=== PATIENT | male | born 1925 | race Caucasian/White ===

== ENCOUNTER 2016-12-29 04:01 | Inpatient (IN) | payer OTHER ==
[~2016-12-29] VITALS: Ht 172.7 cm; Wt 51.6 kg
[2016-12-29 09:14] VITALS: BP 160/83; PULSE 65; RESP 18
[2016-12-29 09:16] VITALS: Ht 172.7 cm; Wt 51.6 kg
[2016-12-29 09:51] VITALS: BP 160/83; RESP 18
[2016-12-29] MEDS ORDERED: ONDANSETRON 4 MG INJ IV PRN (10:00)
[2016-12-29] MEDS ORDERED: LORAZEPAM 2 MG INJ IV PRN (10:00)
[2016-12-29] MEDS ORDERED: NITROGLYCERIN (SL) 0.4 MG TAB SL PRN (10:00)
[2016-12-29] MEDS ORDERED: NA PHOSPHATE/BIPHOS 133 ML ENEMA PR PRN (10:00)
[2016-12-29] MEDS ORDERED: DOCUSATE SODIUM 100 MG CAP PO PRN (10:00)
[2016-12-29] MEDS ORDERED: HYDROCODONE/APAP (5/325) TAB PO PRN (10:00)
[2016-12-29] MEDS ORDERED: NACL 0.9% 3 ML SYG IV SCH (10:00)
[2016-12-29] MEDS ORDERED: ACETAMINOPHEN 325 MG TAB PO PRN (10:00)
[2016-12-29] MEDS ORDERED: MAGNESIUM HYDROXIDE 30ML CUP PO PRN (10:00)
[2016-12-29] MEDS ORDERED: ALBUTEROL/IPRATROPIUM (NEB) 3 ML AMP HHN PRN (10:00)
[2016-12-29] MEDS ORDERED: morphine 2 MG INJ IV PRN (10:00)
[2016-12-29] MEDS: PANTOPRAZOLE 40 MG INJ IV SCH (10:50)
--- NOTE | 2016-12-29 10:50 | HP ---
DATE OF ADMISSION: 12/29/2016 CHIEF COMPLAINT: An 89-year-old male transferred here from an outside hospital because of hypertensi ve urgency and status post a fall. HISTORY OF PRESENT ILLNESS: An 89-year-old male with a past medical history of severe dementia, who presented to an outside hospital, apparently brought in by the daughter with complaints of bilater al feet pain. He was also found with hypertensive urgency. Most of the information is obtained from the ER documentation, as the patient presently has severe dementia, is nonverbal and not able to pr ovide a full review of systems. Apparently, per the records, the patient had a fall about a month a go, with a right plantar bluish-reddish discoloration noted, with some slight swelling as well. He denied any fever or night sweats. No bloody sputum. No weight loss. That is the extent of the rev iew of systems that could be obtained. There was noted to be some discoloration of the left foot, r ed and black in color, and also there is some discoloration to the right heel in color, with an unst ageable pressure ulcer. PAST MEDICAL HISTORY: As stated above. ALLERGIES: NO KNOWN DRUG ALLERGIES. MEDICATIONS AT HOME: Unknown. PAST SURGICAL HISTORY: Unknown. SOCIAL HISTORY: Unknown. FAMILY HISTORY: Unknown. PHYSICAL EXAMINATION: VITAL SIGNS: Today T-max 97.4, pulse 65, respirations 18, blood pressure 160/83, saturating at 96% on room air. GENERAL: The patient opens eyes and tracks, but is nonverbal, in no acute distress. HEENT: Pupils are equal, round, and react to light. Extraocular muscles are intact. Very poor den tition. NECK: Supple. No thyromegaly. LUNGS: Clear to auscultation bilaterally. CARDIOVASCULAR: S1, S2 heard. No rubs or gallops. ABDOMEN: Soft, nontender, nondistended. Normal bowel sounds. No rebound or guarding. MUSCULOSKELETAL: No lower extremity edema bilaterally. NEUROLOGIC: No focal deficits. LABORATORIES: At the outside hospital the patient had a WBC of 9.8, hemoglobin 13.8, hematocrit 42. 8, platelets of 245. Sodium 139, potassium 4.1, chloride 103, CO2 34, BUN of 25, creatinine 1.3, gl ucose of 87. LFTs are essentially normal. IMAGING: It looks like there were some x-rays performed of the bilateral feet. Apparently, those w ere negative. I do not see the results of that. ASSESSMENT AND PLAN: An 89-year-old male transferred from an outside hospital status post a fall wit h hypertensive urgency, discoloration to the bilateral feet and unstageable ulcers. 1. Status post fall. Admit the patient to the med/surg floor. Patient will most likely need placem ent. He has a history of severe dementia and nonverbal. Check a TSH, A1c, and lipid panel as well. Will put him on low-dose IV fluids as well. Pain control medications as needed. 2. History of severe dementia. Continue to monitor for now. 3. Bilateral foot discoloration. Again try to find the final results of those x-rays. Will also g et a wound nurse consult for the unstageable ulcer on the foot and the pressure sore on the heel. 4. Gastrointestinal prophylaxis. Proton pump inhibitor. 5. Deep venous thrombosis prophylaxis. Heparin subcutaneous. Will also get PT and OT consults as well. Dictated By: MELLY AUGUSTE Conf#: [id number] DID#: [id number]
[2016-12-29] MEDS: SOD CHLORIDE 0.45% 1,000 ML IV SCH ×2 (10:51→22:50)
[2016-12-29 13:18] LABS: ADD UMIC NO; URINE BILIRUBIN (Dip) NEGATIVE (NEGATIVE); URINE BLOOD (Dip) NEGATIVE (NEGATIVE); URINE COLOR LT. YELLOW (YELLOW); URINE GLUCOSE (Dip) NEGATIVE (NEGATIVE); URINE KETONES (Dip) NEGATIVE (NEGATIVE); URINE LEUKOCYTE ESTERASE (Dip) NEGATIVE (NEGATIVE); URINE NITRITE (Dip) NEGATIVE (NEGATIVE); URINE TOTAL PROTEIN (Dip) NEGATIVE (NEGATIVE); URINE UROBILINOGEN (Dip) 0.2 E.U./dL (0.1-1.0)
[2016-12-29] MEDS ORDERED: LISI-313 PO (17:08)
[2016-12-29 20:15] VITALS: BP 178/98; RESP 20
[2016-12-29] MEDS: hydrALAzine 20 MG INJ IV PRN (21:47)
[2016-12-29] MEDS: HEPARIN 5,000 UNIT/0.5 ML VIAL SC SCH (21:51)
[2016-12-29 22:00] VITALS: BP 156/73; PULSE 92
[2016-12-29 22:30] VITALS: BP 112/58; PULSE 97
[2016-12-30] MEDS: SOD CHLORIDE 0.45% 1,000 ML IV SCH ×3 (00:40→14:42)
[2016-12-30] MEDS: PANTOPRAZOLE 40 MG INJ IV SCH (05:50)
[2016-12-30 05:54] VITALS: BP 124/87; PULSE 90
[2016-12-30 06:09] LABS: ADD SCAN DIFF NO
[2016-12-30 06:13] LABS: BASOPHIL # 0.1 10^3/ul (0.0-0.1); BASOPHILS % 0.7 % (0.0-2.0); EOSINOPHILS # 0.3 10^3/ul (0.0-0.5); EOSINOPHILS % 2.6 % (0.0-7.0); HEMATOCRIT 40.7 % (42.0-52.0); HEMOGLOBIN 13.9 g/dl (14.0-18.0); LYMPHOCYTES # 2.9 10^3/ul (0.8-2.9); LYMPHOCYTES % 25.2 % (15.0-51.0); MEAN CORPUSCULAR HGB CONC 34.2 g/dl (32.0-37.0); MEAN CORPUSCULAR VOLUME 96.7 fl (82.0-101.0); MEAN PLATELET VOLUME 9.7 fl (7.4-10.4); MONOCYTES % 8.4 % (0.0-11.0); NEUTROPHIL # 7.3 10^3/ul (1.6-7.5); NEUTROPHILS % 62.6 % (39.0-77.0); PLATELET COUNT 244 10^3/UL (140-415); RED BLOOD COUNT 4.21 10^6/ul (4.70-6.10); RED CELL DISTRIBUTION WIDTH 13.3 % (11.5-14.5); WHITE BLOOD COUNT 11.6 10^3/ul (4.8-10.8)
[2016-12-30 06:36] LABS: POTASSIUM 4.3 mmol/L (3.5-5.1)
[2016-12-30 06:37] LABS: CALCIUM 9.3 mg/dl (8.4-10.2); CHOL/HDL RATIO 3.2 RATIO; CREATININE 0.9 mg/dl (0.61-1.24); MAGNESIUM 1.9 mg/dl (1.7-2.5); PHOSPHORUS 3.7 mg/dl (2.5-4.9)
[2016-12-30 07:06] LABS: THYROID STIMULATING HORMONE 4.78 MIU/L (0.465-4.680)
[2016-12-30 07:53] VITALS: BP 172/96; RESP 18
[2016-12-30 07:58] VITALS: BP 177/88
[2016-12-30] MEDS: hydrALAzine 20 MG INJ IV PRN (08:56)
[2016-12-30] MEDS: HEPARIN 5,000 UNIT/0.5 ML VIAL SC SCH ×2 (08:58→21:17)
--- NOTE | 2016-12-30 09:41 | PN ---
Date/Time of Note Date/Time of Note DATE: 12/30/16 TIME: 09:38 Assessment/Plan VTE Prophylaxis VTE Prophylaxis Intervention: heparin Lines/Catheters IV [facility]ter [facility]from [facility]): [place] Urinary Cath still in place: Yes Reason Cath still needed: urinary retention Assessment/Plan Chief Complaint/Hosp Course ASSESSMENT AND PLAN: 89-year-old male transferred from an outside hospital status post a fall with hypertensive urgency, discoloration to the bilateral feet and unstageable ulcers. 1. Status post fall - Daughter refusing SNF. He has a history of severe dementia and nonverbal. - f/u TSH, A1c, and lipid panel as well. - continue low-dose IV fluids as well. - Pain control medications as needed. - PT/OT 2. History of severe dementia. Continue to monitor for now. 3. Bilateral foot discoloration. - Again try to find the final results of those x-rays. - f/u wound nurse consult rec's for the unstageable ulcer on the foot and the pressure sore on the heel. 4. Gastrointestinal prophylaxis. Proton pump inhibitor. 5. Deep venous thrombosis prophylaxis. Heparin subcutaneous. Problems: Subjective 24 Hr Interval Summary Free Text/Dictation No acute events overnight. On modified diet. Exam/Review of Systems Vital Signs Vitals Vital Signs Date Time Temp Pulse Resp B/P Pulse Ox O2 Delivery O2 Flow Rate FiO2 12/30/16 07:58 177/88 12/30/16 07:53 98.4 90 18 96 12/29/16 09:14 Room Air Intake and Output 12/29/16 12/29/16 12/30/16 15:00 23:00 07:00 Intake Total 730 ml 925 ml Output Total 700 ml Balance 30 ml 925 ml Exam GENERAL: The patient opens eyes and tracks, but is nonverbal, in no acute distress. HEENT: Pupils are equal, round, and react to light. Extraocular muscles are intact. Very poor dentition. NECK: Supple. No thyromegaly. LUNGS: Clear to auscultation bilaterally. CARDIOVASCULAR: S1, S2 heard. No rubs or gallops. ABDOMEN: Soft, nontender, nondistended. Normal bowel sounds. No rebound or guarding. MUSCULOSKELETAL: No lower extremity edema bilaterally. NEUROLOGIC: No focal deficits. Results Result Diagram: 12/30/16 0532 12/30/16 0532 Results 24 hrs Laboratory Tests Test 12/29/16 12:35 12/30/16 05:32 Urine Color LT. YELLOW Urine Clarity CLEAR Urine pH 6.5 Urine Specific [place] <=1.005 L Urine Ketones NEGATIVE Urine Nitrite NEGATIVE Urine Bilirubin NEGATIVE Urine Urobilinogen 0.2 E.U./dL Urine Leukocyte Esterase NEGATIVE Urine Hemoglobin NEGATIVE Urine Glucose NEGATIVE Urine Total Protein NEGATIVE White Blood Count 11.6 H Red Blood Count 4.21 L Hemoglobin 13.9 L Hematocrit 40.7 L Mean Corpuscular Volume 96.7 Mean Corpuscular Hemoglobin 33.0 Mean Corpuscular Hemoglobin Concent 34.2 Red Cell Distribution Width 13.3 Platelet Count 244 Mean Platelet Volume 9.7 Neutrophils % 62.6 Lymphocytes % 25.2 Monocytes % 8.4 Eosinophils % 2.6 Basophils % 0.7 Nucleated Red Blood Cells % 0.0 Neutrophils # 7.3 Lymphocytes # 2.9 Monocytes # 1.0 H Eosinophils # 0.3 Basophils # 0.1 Nucleated Red Blood Cells # 0.0 Sodium Level 138 Potassium Level 4.3 Chloride Level 104 Carbon Dioxide Level 28 Anion Gap 10 Blood Urea Nitrogen 19 Creatinine 0.90 Glucose Level 121 Hemoglobin A1c 5.9 Calcium Level 9.3 Phosphorus Level 3.7 Magnesium Level 1.9 Triglycerides Level 60 Cholesterol Level 179 LDL Cholesterol, Calculated 112 HDL Cholesterol 55 Cholesterol/HDL Ratio 3.2 Thyroid Stimulating Hormone (TSH) 4.780 H Medications Medications Current Medications Ondansetron HCl (Zofran Inj) 4 mg Q6H PRN IV NAUSEA AND/OR VOMITING; Start at 10:00 Acetaminophen (Tylenol Tab) 650 mg Q6H PRN PO PAIN LEVEL 1-3 OR FEVER; Start at 10:00 Acetaminophen/ Hydrocodone Bitart ([place] (5/325)) 1 tab Q6H PRN PO MODERATE PAIN LEVEL 4-6; Start 12/29/16 at 10:00 Morphine Sulfate (morphine) 2 mg Q4H PRN IV SEVERE PAIN LEVEL 7-10; Start 12/29 at 10:00 Docusate Sodium (Colace) 100 mg Q12H PRN PO CONSTIPATION; Start 12/29/16 at 10: 00 Magnesium Hydroxide (Milk Of Mag) 30 ml DAILY PRN PO CONSTIPATION; Start at 10:00 Sodium Biphosphate/ Sodium Phosphate (Fleet Enema) 133 ml DAILY PRN [place] CONSTIPATION; Start 12/29/16 at 10:00 Pantoprazole (Protonix Iv) 40 mg DAILY@06 IV Last administered on 12/30/16 05: 50; Admin Dose 40 MG; Start 12/29/16 at 10:00 Heparin Sodium (Porcine) 5000 unit 5,000 unit Q12 SC Last administered on 08:58; Admin Dose 5,000 UNIT; Start 12/29/16 at 21:00 Sodium Chloride (1/2 NS) 1,000 ml @ 75 mls/hr [id number] IV Last administered on 12/30/16 00:40; Admin Dose 75 MLS/HR; Start 12/29/16 at 09:30 Lorazepam (Ativan) 0.5 mg Q6H PRN IV ANXIETY; Start 12/29/16 at 10:00 Hydralazine HCl (Apresoline) 10 mg Q6H PRN IV SBP GREATER THAN 180 Last administered on 12/30/16 08:56; Admin Dose 10 MG; Start 12/29/16 at 10:00 Clonidine (Catapres) 0.1 mg Q6H PRN PO SBP GREATER THAN 160; Start 12/29/16 at 10:00 Nitroglycerin (Nitroglycerin (Sl Tab) 0.4 Mg) 1 tab Q5M PRN SL ANGINA; Start at 10:00 MELLY VYAS Dec 30, 2016 09:41
[2016-12-30 10:13] VITALS: BP 141/71; PULSE 107
[2016-12-30] MEDS: LISINOPRIL 5 MG TAB PO SCH (10:13)
[2016-12-30 12:46] VITALS: BP 139/60; RESP 18
[2016-12-30 19:57] VITALS: BP 122/79; RESP 18
[2016-12-31] MEDS: SOD CHLORIDE 0.45% 1,000 ML IV SCH ×3 (01:30→22:12)
[2016-12-31] MEDS: PANTOPRAZOLE 40 MG INJ IV SCH (05:26)
[2016-12-31 05:27] LABS: ADD SCAN DIFF NO
[2016-12-31 05:32] LABS: BASOPHIL # 0.1 10^3/ul (0.0-0.1); BASOPHILS % 0.7 % (0.0-2.0); EOSINOPHILS # 0.3 10^3/ul (0.0-0.5); HEMATOCRIT 39.1 % (42.0-52.0); HEMOGLOBIN 12.9 g/dl (14.0-18.0); LYMPHOCYTES # 2.6 10^3/ul (0.8-2.9); LYMPHOCYTES % 31.2 % (15.0-51.0); MEAN CORPUSCULAR HEMOGLOBIN 32.3 pg (29.0-33.0); MEAN PLATELET VOLUME 9.7 fl (7.4-10.4); MONOCYTE # 0.8 10^3/ul (0.3-0.9); MONOCYTES % 10.2 % (0.0-11.0); NEUTROPHIL # 4.4 10^3/ul (1.6-7.5); NEUTROPHILS % 53.4 % (39.0-77.0); PLATELET COUNT 237 10^3/UL (140-415); RED BLOOD COUNT 3.99 10^6/ul (4.70-6.10); RED CELL DISTRIBUTION WIDTH 13.3 % (11.5-14.5); WHITE BLOOD COUNT 8.3 10^3/ul (4.8-10.8)
[2016-12-31 06:15] LABS: CREATININE 0.95 mg/dl (0.61-1.24); POTASSIUM 4.3 mmol/L (3.5-5.1)
[2016-12-31 07:55] VITALS: BP 162/74; RESP 20
[2016-12-31] MEDS: LISINOPRIL 5 MG TAB PO SCH (09:30)
[2016-12-31 09:31] VITALS: BP 146/66; PULSE 89
[2016-12-31] MEDS: HEPARIN 5,000 UNIT/0.5 ML VIAL SC SCH ×2 (09:35→20:19)
--- NOTE | 2016-12-31 12:42 | PN ---
Date/Time of Note Date/Time of Note DATE: 12/31/16 TIME: 12:41 Assessment/Plan VTE Prophylaxis VTE Prophylaxis Intervention: heparin Lines/Catheters IV Catheter Type (from Nrs): Peripheral IV Urinary Cath still in place: Yes Reason Cath still needed: urinary retention Assessment/Plan Assessment/Plan 1. Status post fall - Daughter refusing SNF. He has a history of severe dementia and nonverbal. - f/u TSH, A1c, and lipid panel as well. - continue low-dose IV fluids as well. - Pain control medications as needed. - PT/OT 2. History of severe dementia. Continue to monitor for now. 3. Bilateral foot discoloration. - Again try to find the final results of those x-rays. - f/u wound nurse consult rec's for the unstageable ulcer on the foot and the pressure sore on the heel. 4. Gastrointestinal prophylaxis. Proton pump inhibitor. 5. Deep venous thrombosis prophylaxis. Heparin subcutaneous. Subjective 24 Hr Interval Summary Free Text/Dictation no acute events, On modified diet Exam/Review of Systems Vital Signs Vitals Vital Signs Date Time Temp Pulse Resp B/P Pulse Ox O2 Delivery O2 Flow Rate FiO2 12/31/16 09:31 89 146/66 12/31/16 07:55 97.1 20 98 12/29/16 09:14 Room Air Intake and Output 12/30/16 12/30/16 12/31/16 15:00 23:00 07:00 Intake Total 625 ml 1430 ml 1320 ml Output Total 800 ml 300 ml Balance 625 ml 630 ml 1020 ml Exam GENERAL: The patient opens eyes and tracks, but is nonverbal, in no acute distress. HEENT: Pupils are equal, round, and react to light. Extraocular muscles are intact. Very poor dentition. NECK: Supple. No thyromegaly. LUNGS: Clear to auscultation bilaterally. CARDIOVASCULAR: S1, S2 heard. No rubs or gallops. ABDOMEN: Soft, nontender, nondistended. Normal bowel sounds. No rebound or guarding. MUSCULOSKELETAL: No lower extremity edema bilaterally. NEUROLOGIC: No focal deficits. Results Result Diagram: 12/31/16 0450 12/31/16 0450 Results 24 hrs Laboratory Tests Test 12/31/16 04:50 White Blood Count 8.3 # Red Blood Count 3.99 L Hemoglobin 12.9 L Hematocrit 39.1 L Mean Corpuscular Volume 98.0 Mean Corpuscular Hemoglobin 32.3 Mean Corpuscular Hemoglobin Concent 33.0 Red Cell Distribution Width 13.3 Platelet Count 237 Mean Platelet Volume 9.7 Neutrophils % 53.4 Lymphocytes % 31.2 Monocytes % 10.2 Eosinophils % 4.0 Basophils % 0.7 Nucleated Red Blood Cells % 0.0 Neutrophils # 4.4 Lymphocytes # 2.6 Monocytes # 0.8 Eosinophils # 0.3 Basophils # 0.1 Nucleated Red Blood Cells # 0.0 Sodium Level 138 Potassium Level 4.3 Chloride Level 105 Carbon Dioxide Level 28 Anion Gap 9 Blood Urea Nitrogen 20 Creatinine 0.95 Glucose Level 101 Calcium Level 9.0 Medications Medications Current Medications Ondansetron HCl (Zofran Inj) 4 mg Q6H PRN IV NAUSEA AND/OR VOMITING; Start at 10:00 Acetaminophen (Tylenol Tab) 650 mg Q6H PRN PO PAIN LEVEL 1-3 OR FEVER; Start at 10:00 Acetaminophen/ Hydrocodone Bitart ([place] (5/325)) 1 tab Q6H PRN PO MODERATE PAIN LEVEL 4-6; Start 12/29/16 at 10:00 Morphine Sulfate (morphine) 2 mg Q4H PRN IV SEVERE PAIN LEVEL 7-10; Start 12/29 at 10:00 Docusate Sodium (Colace) 100 mg Q12H PRN PO CONSTIPATION; Start 12/29/16 at 10: 00 Magnesium Hydroxide (Milk Of Mag) 30 ml DAILY PRN PO CONSTIPATION; Start at 10:00 Sodium Biphosphate/ Sodium Phosphate (Fleet Enema) 133 ml DAILY PRN [place] CONSTIPATION; Start 12/29/16 at 10:00 Pantoprazole (Protonix Iv) 40 mg DAILY@06 IV Last administered on 12/31/16 05: 26; Admin Dose 40 MG; Start 12/29/16 at 10:00 Heparin Sodium (Porcine) 5000 unit 5,000 unit Q12 SC Last administered on 09:35; Admin Dose 5,000 UNIT; Start 12/29/16 at 21:00 Sodium Chloride (1/2 NS) 1,000 ml @ 75 mls/hr [id number] IV Last administered on 12/31/16 04:18; Admin Dose 75 MLS/HR; Start 12/29/16 at 09:30 Lorazepam (Ativan) 0.5 mg Q6H PRN IV ANXIETY; Start 12/29/16 at 10:00 Hydralazine HCl (Apresoline) 10 mg Q6H PRN IV SBP GREATER THAN 180 Last administered on 12/30/16 08:56; Admin Dose 10 MG; Start 12/29/16 at 10:00 Clonidine (Catapres) 0.1 mg Q6H PRN PO SBP GREATER THAN 160; Start 12/29/16 at 10:00 Nitroglycerin (Nitroglycerin (Sl Tab) 0.4 Mg) 1 tab Q5M PRN SL ANGINA; Start at 10:00 Lisinopril (Zestril) 5 mg DAILY PO Last administered on 12/31/16 09:30; Admin Dose 5 MG; Start 12/30/16 at 10:00 RUSTY DIALLO MD December 31, 2016 12:41
[2016-12-31 20:47] VITALS: BP 123/58; RESP 18
[2017-01-01] MEDS: PANTOPRAZOLE 40 MG INJ IV SCH (05:48)
[2017-01-01 05:56] LABS: ADD SCAN DIFF NO
[2017-01-01 06:08] LABS: BASOPHIL # 0.1 10^3/ul (0.0-0.1); EOSINOPHILS # 0.4 10^3/ul (0.0-0.5); HEMATOCRIT 37.8 % (42.0-52.0); HEMOGLOBIN 12.5 g/dl (14.0-18.0); LYMPHOCYTES # 2.6 10^3/ul (0.8-2.9); MEAN CORPUSCULAR HEMOGLOBIN 32.7 pg (29.0-33.0); MEAN CORPUSCULAR HGB CONC 33.1 g/dl (32.0-37.0); MEAN PLATELET VOLUME 9.7 fl (7.4-10.4); MONOCYTE # 0.9 10^3/ul (0.3-0.9); MONOCYTES % 11.4 % (0.0-11.0); PLATELET COUNT 229 10^3/UL (140-415); RED BLOOD COUNT 3.82 10^6/ul (4.70-6.10); RED CELL DISTRIBUTION WIDTH 13.5 % (11.5-14.5)
[2017-01-01 06:40] LABS: POTASSIUM 4.1 mmol/L (3.5-5.1)
[2017-01-01 06:42] LABS: CREATININE 1.05 mg/dl (0.61-1.24)
[2017-01-01 06:43] LABS: CALCIUM 8.9 mg/dl (8.4-10.2)
[2017-01-01 07:54] VITALS: BP 167/87; RESP 20
[2017-01-01] MEDS: LISINOPRIL 5 MG TAB PO SCH (09:06)
[2017-01-01] MEDS: HEPARIN 5,000 UNIT/0.5 ML VIAL SC SCH (09:14)
--- NOTE | 2017-01-01 11:28 | PDOCDIS ---
Discharge Instructions CONDITION Patient Condition: Good HOME CARE INSTRUCTIONS: Special Diet: LOW NA ACTIVITY: Activity Restrictions: Slowly Increase Activity Rest between Activity Avoid heavy lifting Avoid Heavy Housework FOLLOW UP/APPOINTMENTS Appointments follow up with his own PMD through HMO insurance in 1- 2 week after discharge RUSTY DIALLO MD January 01, 2017 11:28
[2017-01-01] MEDS ORDERED: COLLAGENASE 30 GM TUBE TOP SCH (11:30)
[2017-01-01] MEDS ORDERED: CEPH-443 PO (11:30)
[2017-01-01] MEDS ORDERED: AMLO-147 PO (11:30)
[2017-01-01] MEDS: SOD CHLORIDE 0.45% 1,000 ML IV SCH (18:33)
--- NOTE | 2017-01-01 18:55 | PN ---
Date/Time of Note Date/Time of Note DATE: 01/01/17 TIME: 18:54 Assessment/Plan VTE Prophylaxis VTE Prophylaxis Intervention: SCD's, other Lines/Catheters IV Catheter Type (from Nrs): Peripheral IV Urinary Cath still in place: No Assessment/Plan Assessment/Plan 1. Status post fall - Daughter refusing SNF. He has a history of severe dementia and nonverbal. - f/u TSH, A1c, and lipid panel as well. - continue low-dose IV fluids as well. - Pain control medications as needed. - PT/OT 2. History of severe dementia. Continue to monitor for now. 3. Bilateral foot discoloration. - Again try to find the final results of those x-rays. - f/u wound nurse consult rec's for the unstageable ulcer on the foot and the pressure sore on the heel. 4. Gastrointestinal prophylaxis. Proton pump inhibitor. 5. Deep venous thrombosis prophylaxis. Heparin subcutaneous. Subjective 24 Hr Interval Summary Free Text/Dictation no events, Bps table, Right heel has DTI Exam/Review of Systems Vital Signs Vitals Vital Signs Date Time Temp Pulse Resp B/P Pulse Ox O2 Delivery O2 Flow Rate FiO2 01/01/17 07:54 98.0 69 20 167/87 94 12/29/16 09:14 Room Air Intake and Output 12/31/16 12/31/16 01/01/17 14:59 22:59 06:59 Intake Total 1870 ml 525 ml Balance 1870 ml 525 ml Exam GENERAL: The patient opens eyes and tracks, but is nonverbal, in no acute distress. HEENT: Pupils are equal, round, and react to light. Extraocular muscles are intact. Very poor dentition. NECK: Supple. No thyromegaly. LUNGS: Clear to auscultation bilaterally. CARDIOVASCULAR: S1, S2 heard. No rubs or gallops. ABDOMEN: Soft, nontender, nondistended. Normal bowel sounds. No rebound or guarding. MUSCULOSKELETAL: No lower extremity edema bilaterally. NEUROLOGIC: No focal deficits. Results Result Diagram: 01/01/17 0510 01/01/17 0510 Results 24 hrs Laboratory Tests Test 01/01/17 05:10 White Blood Count 8.0 Red Blood Count 3.82 L Hemoglobin 12.5 L Hematocrit 37.8 L Mean Corpuscular Volume 99.0 Mean Corpuscular Hemoglobin 32.7 Mean Corpuscular Hemoglobin Concent 33.1 Red Cell Distribution Width 13.5 Platelet Count 229 Mean Platelet Volume 9.7 Neutrophils % 50.0 Lymphocytes % 32.0 Monocytes % 11.4 H Eosinophils % 5.0 Basophils % 1.0 Nucleated Red Blood Cells % 0.0 Neutrophils # 4.0 Lymphocytes # 2.6 Monocytes # 0.9 Eosinophils # 0.4 Basophils # 0.1 Nucleated Red Blood Cells # 0.0 Sodium Level 140 Potassium Level 4.1 Chloride Level 103 Carbon Dioxide Level 27 Anion Gap 14 Blood Urea Nitrogen 20 Creatinine 1.05 Glucose Level 90 Calcium Level 8.9 Medications Medications Current Medications Ondansetron HCl (Zofran Inj) 4 mg Q6H PRN IV NAUSEA AND/OR VOMITING; Start at 10:00 Acetaminophen (Tylenol Tab) 650 mg Q6H PRN PO PAIN LEVEL 1-3 OR FEVER; Start at 10:00 Acetaminophen/ Hydrocodone Bitart ([place] (5/325)) 1 tab Q6H PRN PO MODERATE PAIN LEVEL 4-6; Start 12/29/16 at 10:00 Morphine Sulfate (morphine) 2 mg Q4H PRN IV SEVERE PAIN LEVEL 7-10; Start 12/29 at 10:00 Docusate Sodium (Colace) 100 mg Q12H PRN PO CONSTIPATION; Start 12/29/16 at 10: 00 Magnesium Hydroxide (Milk Of Mag) 30 ml DAILY PRN PO CONSTIPATION; Start at 10:00 Sodium Biphosphate/ Sodium Phosphate (Fleet Enema) 133 ml DAILY PRN [place] CONSTIPATION; Start 12/29/16 at 10:00 Pantoprazole (Protonix Iv) 40 mg DAILY@06 IV Last administered on 01/01/17 05: 48; Admin Dose 40 MG; Start 12/29/16 at 10:00 Heparin Sodium (Porcine) 5000 unit 5,000 unit Q12 SC Last administered on 09:14; Admin Dose 5,000 UNIT; Start 12/29/16 at 21:00 Sodium Chloride (1/2 NS) 1,000 ml @ 75 mls/hr [id number] IV Last administered on 01/01/17 18:33; Admin Dose 75 MLS/HR; Start 12/29/16 at 09:30 Lorazepam (Ativan) 0.5 mg Q6H PRN IV ANXIETY Last administered on 01/01/17 12: 21; Admin Dose 0.5 MG; Start 12/29/16 at 10:00 Hydralazine HCl (Apresoline) 10 mg Q6H PRN IV SBP GREATER THAN 180 Last administered on 12/30/16 08:56; Admin Dose 10 MG; Start 12/29/16 at 10:00 Clonidine (Catapres) 0.1 mg Q6H PRN PO SBP GREATER THAN 160; Start 12/29/16 at 10:00 Nitroglycerin (Nitroglycerin (Sl Tab) 0.4 Mg) 1 tab Q5M PRN SL ANGINA; Start at 10:00 Lisinopril (Zestril) 5 mg DAILY PO Last administered on 01/01/17 09:06; Admin Dose 5 MG; Start 12/30/16 at 10:00 Collagenase (Santyl) 1 applic DAILY TOP Last administered on 01/01/17 12:21; Admin Dose 1 APPLIC; Start 01/01/17 at 11:30 RUSTY DIALLO MD January 01, 2017 18:55
--- NOTE | 2017-01-01 22:23 | DS ---
DATE OF ADMISSION: 12/29/2016 DATE OF DISCHARGE: 01/01/2017 FINAL DISCHARGE DIAGNOSES: 1. Status post fall. 2. Right foot cellulitis with deep tissue injury on the right heel. 3. History of severe dementia. 4. Bilateral foot discoloration. 5. Possible peripheral vascular disease. CONSULTATIONS DONE DURING THIS HOSPITALIZATION: None. PROCEDURES PERFORMED DURING THIS HOSPITALIZATION: None. HOSPITAL COURSE: This is an 89-year-old male with a past medical history of Alzheimer dementia. Th e patient has been nonverbal, lives with his daughter. The patient has possible unstageable ulcer o n his back. He was brought in by his daughter because of having a fall episode at home. The patien t had a right foot mild cellulitis and also noted to have a significant deep tissue injury on the ri ght heel. He was recommended to have conservative approach. His family was offered to have a skill ed nursing placement on discharge. The patient's family refused the group home placement. The patient likely has a possible peripheral vascular disease, but due to his age of 89 years of age, t he patient's family refused to have any intervention for that. They also refused to have a group home facility placement, so he was discharged home with a prescription of p.o. antibiotics. DISPOSITION: To home with home health. DISCHARGE CONDITION: Stable and improved compared to admission. DISCHARGE ACTIVITIES: As tolerated, slowly resume to the normal baseline activity. DISCHARGE DIET: Low fat, low sodium diet. DISCHARGE MEDICATIONS: 1. He is continued on his home medication of lisinopril 5 mg p.o. daily. 2. He is given a new prescription of amlodipine 10 mg p.o. daily. 3. Keflex 500 mg p.o. t.i.d. x7 days on discharge. DISCHARGE FOLLOWUP AND INSTRUCTIONS: 1. The patient is to follow up with his own primary care doctor through his HMO insurance 1 to 2 we eks after discharge. 2. The patient is to follow up with vascular surgery as outpatient in 1 to 2 weeks after discharge. 3. He has been explained about the discharge plan and followup instructions. He understood and cole balized understanding. Dictated By: RUSTY DIALLO MD, KP/RENAE Conf#: [id number] DID#: [id number] CC: MARTIR AGRAWAL MD;*EndCC*
== END 2017-01-01 21:05 | disposition home health service (06) | DRG 603 ==
LOC: MS2 09:03
PROVIDERS: ADMIT Internal Medicine; ATTEND Internal Medicine
DX: L03.115 Cellulitis of right lower limb (principal); L89.610 Pressure ulcer of right heel, unstageable; G30.9 Alzheimer's disease, unspecified; F02.80 Dementia in other diseases classified elsewhere, unspecified severity, without behavioral disturbance, psychotic disturbance, mood disturbance, and anxiety; I16.0 Hypertensive urgency; I73.9 Peripheral vascular disease, unspecified
CPT/HCPCS: 80048; 80061; 81003; 83036; 83735; 84100; 84439; 84443; 85025; 87086; 92526; 92610; 97162; 97166; C9113; J0360; J1644; J2060

== ENCOUNTER 2017-02-26 02:02 | Inpatient (IN) | payer OTHER ==
[~2017-02-26] VITALS: Ht 167.6 cm; Wt 53.5 kg
[2017-02-26] VITALS (12 sets, daily range): BP systolic 136–190; BP diastolic 63–96; PULSE 53–90; RESP 18–22; Ht 167.6 cm; Wt 53.5 kg
[~2017-02-26 02:02] MED LIST: AMLO-147 PO; CEPH-443 PO; LISI-313 PO
[2017-02-26] MEDS ORDERED: DOCUSATE SODIUM 100 MG CAP PO PRN (12:30)
[2017-02-26] MEDS ORDERED: NA PHOSPHATE/BIPHOS 133 ML ENEMA PR PRN (12:30)
[2017-02-26] MEDS ORDERED: NACL 0.9% 3 ML SYG IV SCH (12:30)
[2017-02-26] MEDS ORDERED: ONDANSETRON 4 MG INJ IV PRN (12:30)
[2017-02-26] MEDS ORDERED: BISACODYL (EC) 5 MG TAB PO PRN (12:30)
[2017-02-26] MEDS ORDERED: VANCOMYCIN IV PER PHARMACY XX SCH (12:30)
[2017-02-26] MEDS ORDERED: MAGNESIUM HYDROXIDE 30ML CUP PO PRN (12:30)
[2017-02-26] MEDS ORDERED: HYDROCODONE/APAP (5/325) TAB PO PRN (12:30)
[2017-02-26] MEDS ORDERED: ALBUTEROL/IPRATROPIUM (NEB) 3 ML AMP HHN PRN (12:30)
[2017-02-26] MEDS ORDERED: ACETAMINOPHEN 325 MG TAB PO PRN (12:30)
--- NOTE | 2017-02-26 12:38 | HP ---
Date/Time of Note Date/Time of Note DATE: 02/26/17 TIME: 12:37 Assessment/Plan VTE Prophylaxis VTE Prophylaxis Intervention: LMWH Assessment/Plan Assessment/Plan 1. 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 Obstrucive PVD 3. Hypetension 4. Hyperlipidemia 5. Alzheimer dementia Plan : IVF NS at 75 cc.hr x 2 liter IV abx zosyn and vancomycin ID consult to see pt Vascular surgery to evaluate pt will request podiatry consutl by dr.Ronald Zimmerman LE venous Doppler to rule out DVT LE Arterial doppler to evaluate for PAD/PVD Lovenox for DVT prophylaxis Accucheck with sliding scale HPI/ROS Admit Date/Time Admit Date/Time Feb 26, 2017 at 05:26 Hx of Present Illness chief complaints: Right foot ulcer ROS 89 M with PMHx of Alzheimer dementia, HTN, HL, h/o recent admissin for RLE cellulitis treated with IV abx and discharged home with PO abx. he was brought in by his daughter to [facility] for worsenign right heep gangrene- sent to [facility] for further care and IV abx, vascular surgery consultation. H/o fall at home about a month before prior to last admission Constitutional: other Eyes: no complaints ENT: no complaints Musculoskeletal: back pain, neck pain Neurologic: no complaints Endocrine: no complaints Psychological: confusion, other (demented ) PMH/Family/Social Past Medical History Medical History: high cholesterol, hypertension, other (alzheimer dementia ) Past Surgical History Past Surgical Hx: no surgical history Family History Significant Family History: no pertinent family hx Social History Alcohol Use: none Drug Use: none Exam/Review of Systems Vital Signs Vitals Vital Signs Date Time Temp Pulse Resp B/P Pulse Ox O2 Delivery O2 Flow Rate FiO2 02/26/17 11:54 97.9 59 19 190/82 99 Exam Constitutional: alert, non-verbal Psych: no complaints Head: normocephalic Eyes: nl conjunctiva ENMT: nl external ears & nose Neck: supple Respiratory: clear to auscultation, diminished breath sounds Cardiovascular: regular rate and rhythm Gastrointestinal: non-tender, soft Musculoskeletal: nl extremities to inspection, other (right heel necrotic wound ) Extremities: normal pulses Neurological: TOP FRAME FITTER 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 Lymph: nl lymph nodes Medications Medications Current Medications Amlodipine Besylate (Norvasc) 10 mg DAILY PO ; Start 02/26/17 at 12:30 Lisinopril 5 mg 5 mg DAILY PO ; Start 02/27/17 at 09:00 Sodium Chloride (NS) 1,000 ml @ 75 mls/hr [id number] IV ; Start 02/26/17 at 13:00 ; Stop 02/27/17 at 15:39 Ondansetron HCl (Zofran Inj) 4 mg Q6H PRN IV NAUSEA AND/OR VOMITING; Start at 12:30 Acetaminophen (Tylenol Tab) 650 mg Q6H PRN PO PAIN LEVEL 1-3 OR FEVER; Start at 12:30 Acetaminophen/ Hydrocodone Bitart ([place] (5/325)) 1 tab Q6H PRN PO MODERATE PAIN LEVEL 4-6; Start 02/26/17 at 12:30 Docusate Sodium (Colace) 100 mg Q12H PRN PO CONSTIPATION; Start 02/26/17 at 12: 30 Magnesium Hydroxide (Milk Of Mag) 30 ml DAILY PRN PO CONSTIPATION; Start at 12:30 Bisacodyl (Dulcolax) 5 mg DAILY PRN PO CONSTIPATION; Start 02/26/17 at 12:30 Bisacodyl (Dulcolax Supp) 10 mg DAILY PRN [place] CONSTIPATION; Start 02/26/17 at 12 :30 Sodium Biphosphate/ Sodium Phosphate (Fleet Enema) 133 ml DAILY PRN [place] CONSTIPATION; Start 02/26/17 at 12:30 Famotidine (Pepcid Iv) 20 mg Q12 IV ; Start 02/26/17 at 21:00; Status UNV Enoxaparin Sodium (Lovenox) 40 mg DAILY SC ; Start 02/27/17 at 09:00; Status UNV Miscellaneous Information (* Miscellaneous Pharmacy Order) HYPOGLYCEMIA PROTOCOL w... ONCE ONCE XX ; Start 02/26/17 at 12:30; Stop 02/26/17 at 12:31; Status UNV Diagnostic Test (Pha) 1 ea 1 ea 02 XX ; Start 02/27/17 at 02:00 Piperacillin Sod/ Tazobactam Sod (Zosyn 3.375gm/ 100 ml (Pmx)) 100 ml @ 200 mls /hr Q8 IVPB ; Start 02/26/17 at 14:00; Status UNV Hydralazine HCl (Apresoline) 10 mg Q4H PRN IV SBP>150 mm Hg; Start 02/26/17 at 12:30 RUSTY DIALLO MD Feb 26, 2017 12:38
[2017-02-26] MEDS: hydrALAzine 20 MG INJ IV PRN (12:47)
[2017-02-26] MEDS ORDERED: GLUCAGON 1 MG INJ IM PRN (13:00)
[2017-02-26] MEDS ORDERED: DEXTROSE 50% 50 ML SYRINGE IV PRN ×2 (13:00)
[2017-02-26] MEDS: SOD CHLORIDE 0.9% 1,000 ML IV SCH (13:00)
[2017-02-26] MEDS ORDERED: GLUCOSE GEL 15 GRAM TUBE PO PRN ×2 (13:00)
[2017-02-26] MEDS ORDERED: GLUCOSE GEL 15 GRAM TUBE BUCCAL PRN (13:00)
[2017-02-26 13:59] LABS: CREATININE 0.88 mg/dl (0.61-1.24)
[2017-02-26] MEDS: AMLODIPINE 10 MG TAB PO SCH (13:59)
[2017-02-26] MEDS: PIPER-TAZO 3.375 GM IV (PMX) 100 ML IVPB SCH ×2 (14:29→21:35)
--- NOTE | 2017-02-26 14:48 | CONS ---
Date/Time of Note Date/Time of Note DATE: 02/26/17 TIME: 14:48 Assessment/Plan Assessment/Plan Chief Complaint/Hosp Course -Will plan to obtain Arterial Duplex of the LE's Problems: Consultation Date/Type/Reason Admit Date/Time Feb 26, 2017 at 05:26 Past Medical History Medical History: diabetes, high cholesterol, hypertension Past Surgical History Past Surgical Hx: no surgical history Social History Alcohol Use: none Drug Use: none Exam/Review of Systems Vital Signs Vitals Vital Signs Date Time Temp Pulse Resp B/P Pulse Ox O2 Delivery O2 Flow Rate FiO2 02/26/17 12:52 53 02/26/17 11:54 97.9 19 190/82 99 Results Result Diagram: 02/26/17 1320 Results 24 hrs Laboratory Tests Test 02/26/17 13:20 Blood Urea Nitrogen 18 Creatinine 0.88 Medications Medications Current Medications Amlodipine Besylate (Norvasc) 10 mg DAILY PO ; Start 02/26/17 at 12:30 Lisinopril 5 mg 5 mg DAILY PO ; Start 02/27/17 at 09:00 Sodium Chloride (NS) 1,000 ml @ 75 mls/hr [id number] IV Last administered on 02/26t 13:00; Admin Dose 75 MLS/HR; Start 02/26/17 at 13:00; Stop 02/27/17 at 15: 39 Ondansetron HCl (Zofran Inj) 4 mg Q6H PRN IV NAUSEA AND/OR VOMITING; Start at 12:30 Acetaminophen (Tylenol Tab) 650 mg Q6H PRN PO PAIN LEVEL 1-3 OR FEVER; Start at 12:30 Acetaminophen/ Hydrocodone Bitart ([place] (5/325)) 1 tab Q6H PRN PO MODERATE PAIN LEVEL 4-6; Start 02/26/17 at 12:30 Docusate Sodium (Colace) 100 mg Q12H PRN PO CONSTIPATION; Start 02/26/17 at 12: 30 Magnesium Hydroxide (Milk Of Mag) 30 ml DAILY PRN PO CONSTIPATION; Start at 12:30 Bisacodyl (Dulcolax) 5 mg DAILY PRN PO CONSTIPATION; Start 02/26/17 at 12:30 Bisacodyl (Dulcolax Supp) 10 mg DAILY PRN [place] CONSTIPATION; Start 02/26/17 at 12 :30 Sodium Biphosphate/ Sodium Phosphate (Fleet Enema) 133 ml DAILY PRN [place] CONSTIPATION; Start 02/26/17 at 12:30 Famotidine (Pepcid Iv) 20 mg DAILY IV ; Start 02/26/17 at 18:00 Enoxaparin Sodium (Lovenox) 40 mg DAILY SC ; Start 02/27/17 at 09:00 Diagnostic Test (Pha) 1 ea 1 ea 02 XX ; Start 02/27/17 at 02:00 Piperacillin Sod/ Tazobactam Sod (Zosyn 3.375gm/ 100 ml (Pmx)) 100 ml @ 200 mls /hr Q8 IVPB Last administered on 02/26/17 14:29; Admin Dose 200 MLS/HR; Start 02/26/17 at 14:00 Hydralazine HCl (Apresoline) 10 mg Q4H PRN IV SBP>150 mm Hg Last administered on 02/26/17 12:47; Admin Dose 10 MG; Start 02/26/17 at 12:30 Miscellaneous Information 1 ea NOTE XX ; Start 02/26/17 at 13:00 Glucose (Glutose) 15 gm Q15M PRN PO DECREASED GLUCOSE; Start 02/26/17 at 13:00 Glucose (Glutose) 22.5 gm Q15M PRN PO DECREASED GLUCOSE; Start 02/26/17 at 13: 00 Dextrose (D50w Syringe) 25 ml Q15M PRN IV DECREASED GLUCOSE; Start 02/26/17 at 13:00 Dextrose (D50w Syringe) 50 ml Q15M PRN IV DECREASED GLUCOSE; Start 02/26/17 at 13:00 Glucagon (Glucagen) 1 mg Q15M PRN IM DECREASED GLUCOSE; Start 02/26/17 at 13:00 Glucose 15 gm 15 gm Q15M PRN BUCCAL DECREASED GLUCOSE; Start 02/26/17 at 13:00 Vancomycin HCl/ Sodium Chloride (Vancocin/NS) 150 ml @ 75 mls/hr Q24H IVPB ; Start 02/26/17 at 22:00 BHUPENDRA FUNG MD Feb 26, 2017 14:48
--- NOTE | 2017-02-26 15:05 | RADRPT ---
PROCEDURE: US Lower extremity venous, bilateral CLINICAL INDICATION: LE gangrene, pain , swelling, to rule out DVT TECHNIQUE: Multiple sonographic images of the bilateral lower extremity deep venous system was ob tained utilizing grayscale, color-flow, compressive sonography and doppler imaging with augmentation . The images were reviewed on a PACS workstation. COMPARISON: None. FINDINGS: There is normal compressibility and flow within the bilateral common femoral, superficial femoral , posterior tibial, peroneal and popliteal veins. RPTAT: AA IMPRESSION: No sonographic evidence for deep venous thrombosis in bilateral lower extremities. Physician Radha Date Time Electronically viewed and signed by Physician Radha on 02/26/2017 15:04 /
--- NOTE | 2017-02-26 16:12 | RADRPT ---
PROCEDURE: US bilateral lower extremity arteries. CLINICAL INDICATION: Bilateral leg pain. Claudication that interferes significantly with the homero ent's lifestyle. TECHNIQUE: Multiple longitudinal and transverse images of the bilateral lower extremity arteries w ere obtained with lassiter scale, pulsed Doppler, and color Doppler imaging. COMPARISON: No prior studies are available for comparison. FINDINGS: Right FINANCE INSURANCE MANAGER:74 cm/sec PSFA:74 cm/sec MSFA:94 cm/sec DSFA:64 cm/sec POP:72 cm/sec SHOWROOM SALESPERSON:53 cm/sec DPA:9.0 cm/sec Left FINANCE INSURANCE MANAGER:67 cm/sec PSFA:68 cm/sec MSFA:81 cm/sec DSFA:51 cm/sec POP:36 cm/sec SHOWROOM SALESPERSON:83 cm/sec DPA:28 cm/sec The ankle brachial indices are unobtainable due to calcified vessels. There is normal triphasic rosa isela w bilaterally in the femoral and popliteal systems. Monophasic flow is present bilaterally in the c alma arteries. IMPRESSION: 1. Normal femoral and popliteal systems. 2. Abnormal monophasic flow bilaterally in the calf arteries consistent with significant stenosis o r occlusion. RPTAT: QQ .Shiva Adam MD, MD Date Time Electronically viewed and signed by .Shiva Adam MD, on 02/26/2017 16:12 .R/
[2017-02-26] MEDS: INSULIN ASPART [NOVOLOG] 3 ML PEN SC SCH ×2 (18:05→21:00)
[2017-02-26] MEDS: FAMOTIDINE 20 MG INJ IV SCH (19:01)
[2017-02-26] MEDS: VANCOMYCIN 750 MG in SOD CHLORIDE 0.9% 150 ML IVPB SCH (21:35)
[2017-02-27] VITALS (10 sets, daily range): BP systolic 102–184; BP diastolic 53–87; PULSE 78–92; RESP 18–20
[2017-02-27] MEDS: ACCU-CHEK XX SCH (02:00)
[2017-02-27] MEDS: SOD CHLORIDE 0.9% 1,000 ML IV SCH (02:20)
[2017-02-27] MEDS: PIPER-TAZO 3.375 GM IV (PMX) 100 ML IVPB SCH ×3 (06:19→21:46)
[2017-02-27 07:53] LABS: ADD SCAN DIFF NO
[2017-02-27 08:00] LABS: BASOPHIL # 0.1 10^3/ul (0.0-0.1); BASOPHILS % 1.1 % (0.0-2.0); EOSINOPHILS # 0.4 10^3/ul (0.0-0.5); EOSINOPHILS % 3.8 % (0.0-7.0); HEMATOCRIT 32.8 % (42.0-52.0); HEMOGLOBIN 10.8 g/dl (14.0-18.0); LYMPHOCYTES # 2.3 10^3/ul (0.8-2.9); LYMPHOCYTES % 22.3 % (15.0-51.0); MEAN CORPUSCULAR HEMOGLOBIN 32.5 pg (29.0-33.0); MEAN CORPUSCULAR HGB CONC 32.9 g/dl (32.0-37.0); MEAN CORPUSCULAR VOLUME 98.8 fl (82.0-101.0); MEAN PLATELET VOLUME 9.6 fl (7.4-10.4); MONOCYTES % 9.8 % (0.0-11.0); NEUTROPHIL # 6.4 10^3/ul (1.6-7.5); NEUTROPHILS % 62.4 % (39.0-77.0); PLATELET COUNT 246 10^3/UL (140-415); RED BLOOD COUNT 3.32 10^6/ul (4.70-6.10); RED CELL DISTRIBUTION WIDTH 13.5 % (11.5-14.5); WHITE BLOOD COUNT 10.2 10^3/ul (4.8-10.8)
[2017-02-27] MEDS: INSULIN ASPART [NOVOLOG] 3 ML PEN SC SCH ×4 (08:00→20:37)
[2017-02-27 08:19] LABS: ALBUMIN 3.4 g/dl (3.3-4.9); ALBUMIN/GLOBULIN RATIO 1.17; BILIRUBIN,INDIRECT 0.6 mg/dl (0-1.1); BILIRUBIN,TOTAL 0.6 mg/dl (0.2-1.3); CALCIUM 8.5 mg/dl (8.4-10.2); CHOL/HDL RATIO 3.6 RATIO; CREATININE 0.96 mg/dl (0.61-1.24); POTASSIUM 4.2 mmol/L (3.5-5.1); TOTAL PROTEIN 6.3 g/dl (6.1-8.1)
[2017-02-27 08:29] LABS: T3 UPTAKE 43.2 % (23.5-40.5)
[2017-02-27 09:23] LABS: THYROID STIMULATING HORMONE 2.44 MIU/L (0.465-4.680)
[2017-02-27] MEDS: LISINOPRIL 5 MG TAB PO SCH (09:47)
[2017-02-27] MEDS: FAMOTIDINE 20 MG INJ IV SCH (09:47)
[2017-02-27] MEDS: ENOXAPARIN 40 MG/0.4 ML SYG SC SCH (09:48)
[2017-02-27] MEDS: AMLODIPINE 10 MG TAB PO SCH (09:48)
--- NOTE | 2017-02-27 10:24 | PN ---
Date/Time of Note Date/Time of Note DATE: 02/27/17 TIME: 10:15 Assessment/Plan Lines/Catheters IV Catheter Type (from Nrs): Peripheral IV Perez in Place (from Nrs): No Assessment/Plan Chief Complaint/Hosp Course -Bilateral Lower Extremity Atherosclerosis and RLE heel non-healing ulcer/ gangrene: It seems the patient has developed a right heel ulcer that has progressed over the past two months to gangrene. Unfortunately the patient has significant dementia at baseline and not responding to questions appropriately, wheelchair bound and non-ambulatory. He would not be a candidate for any vascular intervention for his significant infrapopliteal disease. Would recommend if the heel ulcer worsens/sepsis and threatening his life, or worsening rest pain to undergo above knee amputation as he has contracture of bilateral lower extremities -Discussed findings, plan and management and they understand with certified safety deposit boxes custodian -Optimize vascular status -thank you for allowing us to partake in the care of your patient, please call with any questions Problems: Subjective Detailed Summary Free Text/Dictation no new vascular events overnight Exam/Review of Systems Vital Signs Vitals Vital Signs Date Time Temp Pulse Resp B/P Pulse Ox O2 Delivery O2 Flow Rate FiO2 02/27/17 08:00 78 02/27/17 07:56 98.2 19 184/87 98 Intake and Output 02/26/17 02/26/17 02/27/17 14:59 22:59 06:59 Intake Total 625 ml 150 ml Balance 625 ml 150 ml Exam Free Text/Dictation awake not responding to questions Coarse BS bilaterally S1S2 present soft NTND BS+ Extremities: -RLE : palpable femoral pulse, nonpalpable pedal pulse, unable to ascertain motor/sensory as pt has dementia and doesn't answer questions, cap refill 4 seconds, Right heel gangrene with surrounding erythema, knee contracture 45 degrees -LLE: palpable femoral pulse, nonpalpable pedal pulse, unable to ascertain motor/sensory as pt has dementia and doesn't answer questions, cap refill 4 seconds, knee contracture 45 degrees Results Result Diagram: 02/27/1762602/27/17626 BHUPENDRA FUNG MD Feb 27, 2017 10:24
--- NOTE | 2017-02-27 12:46 | CONS ---
Date/Time of Note Date/Time of Note DATE: 02/27/17 TIME: 12:42 Assessment/Plan Assessment/Plan Chief Complaint/Hosp Course Subjective: No acute changes overnight per RNs report, patient is awake looks comfortable no fevers Antimicrobials: Vancomycin, Zosyn Physical examination: This is well-nourished fragile elderly man who is awake in no distress. Head atraumatic normocephalic, sclera nonicteric, bugle mucosa dry. Neck is supple. Chest rise symmetrical, breath sounds diminished basis Heart: S1-S2 Abdomen is soft, bowel tones present. Extremities without cyanosis, right heel dressing intact Assessment: 1. Right lower extremity ulceration with gangrenous changes 2. Peripheral vascular disease 3. Hypertension 4. Alzheimer's dementia Plan: Patient remains clinically stable, followed by vascular team, continue antibiotics, await for podiatry evaluation [facility] staff Problems: Consultation Date/Type/Reason Admit Date/Time Feb 26, 2017 at 05:26 Initial Consult Date Type of Consultation: Infectious disease Exam/Review of Systems Vital Signs Vitals Vital Signs Date Time Temp Pulse Resp B/P Pulse Ox O2 Delivery O2 Flow Rate FiO2 02/27/17 11:47 98.4 99 19 142/68 96 Intake and Output 02/26/17 02/26/17 02/27/17 15:00 23:00 07:00 Intake Total 625 ml 150 ml Balance 625 ml 150 ml Results Result Diagram: 02/27/17 0627 02/27/17 0627 Results 24 hrs Laboratory Tests Test 02/26/17 13:20 02/26/17 18:41 02/26/17 21:38 02/27/17 06:27 Blood Urea Nitrogen 18 20 Creatinine 0.88 0.96 Bedside Glucose 107 146 White Blood Count 10.2 # Red Blood Count 3.32 L Hemoglobin 10.8 L Hematocrit 32.8 L Mean Corpuscular Volume 98.8 Mean Corpuscular Hemoglobin 32.5 Mean Corpuscular Hemoglobin Concent 32.9 Red Cell Distribution Width 13.5 Platelet Count 246 Mean Platelet Volume 9.6 Neutrophils % 62.4 Lymphocytes % 22.3 Monocytes % 9.8 Eosinophils % 3.8 Basophils % 1.1 Nucleated Red Blood Cells % 0.0 Neutrophils # 6.4 Lymphocytes # 2.3 Monocytes # 1.0 H Eosinophils # 0.4 Basophils # 0.1 Nucleated Red Blood Cells # 0.0 Sodium Level 141 Potassium Level 4.2 Chloride Level 108 Carbon Dioxide Level 26 Anion Gap 11 Glucose Level 94 Hemoglobin A1c 6.2 H Calcium Level 8.5 Total Bilirubin 0.6 Direct Bilirubin 0.00 Indirect Bilirubin 0.6 Aspartate Amino Transf (AST/SGOT) 24 Alanine Aminotransferase (ALT/SGPT) 24 Alkaline Phosphatase 76 Total Protein 6.3 Albumin 3.4 Globulin 2.90 Albumin/Globulin Ratio 1.17 Triglycerides Level 64 Cholesterol Level 135 LDL Cholesterol, Calculated 85 HDL Cholesterol 37 Cholesterol/HDL Ratio 3.6 Thyroid Stimulating Hormone (TSH) 2.440 Free Thyroxine Index 3.33 Thyroxine (T4) 7.7 Triiodothyronine (T3) Uptake 43.2 H Test 02/27/17 08:36 Bedside Glucose 108 Medications Medications Current Medications Amlodipine Besylate (Norvasc) 10 mg DAILY PO Last administered on 02/27/17 09: 48; Admin Dose 10 MG; Start 02/26/17 at 12:30 Lisinopril 5 mg 5 mg DAILY PO Last administered on 02/27/17 09:47; Admin Dose 5 MG; Start 02/27/17 at 09:00 Sodium Chloride (NS) 1,000 ml @ 75 mls/hr [id number] IV Last administered on 02/26 13:00; Admin Dose 75 MLS/HR; Start 02/26/17 at 13:00; Stop 02/27/17 at 15: 39 Ondansetron HCl (Zofran Inj) 4 mg Q6H PRN IV NAUSEA AND/OR VOMITING; Start at 12:30 Acetaminophen (Tylenol Tab) 650 mg Q6H PRN PO PAIN LEVEL 1-3 OR FEVER; Start at 12:30 Acetaminophen/ Hydrocodone Bitart ([place] (5/325)) 1 tab Q6H PRN PO MODERATE PAIN LEVEL 4-6; Start 02/26/17 at 12:30 Docusate Sodium (Colace) 100 mg Q12H PRN PO CONSTIPATION; Start 02/26/17 at 12: 30 Magnesium Hydroxide (Milk Of Mag) 30 ml DAILY PRN PO CONSTIPATION; Start at 12:30 Bisacodyl (Dulcolax) 5 mg DAILY PRN PO CONSTIPATION; Start 02/26/17 at 12:30 Bisacodyl (Dulcolax Supp) 10 mg DAILY PRN [place] CONSTIPATION; Start 02/26/17 at 12 :30 Sodium Biphosphate/ Sodium Phosphate (Fleet Enema) 133 ml DAILY PRN [place] CONSTIPATION; Start 02/26/17 at 12:30 Famotidine (Pepcid Iv) 20 mg DAILY IV Last administered on 02/27/17 09:47; Admin Dose 20 MG; Start 02/26/17 at 18:00 Enoxaparin Sodium (Lovenox) 40 mg DAILY SC Last administered on 02/27/17 09:48 ; Admin Dose 40 MG; Start 02/27/17 at 09:00 Diagnostic Test (Pha) 1 ea 1 ea 02 XX ; Start 02/27/17 at 02:00 Piperacillin Sod/ Tazobactam Sod (Zosyn 3.375gm/ 100 ml (Pmx)) 100 ml @ 200 mls /hr Q8 IVPB Last administered on 02/27/17 06:19; Admin Dose 200 MLS/HR; Start 02/26/17 at 14:00 Hydralazine HCl (Apresoline) 10 mg Q4H PRN IV SBP>150 mm Hg Last administered on 02/26/17 12:47; Admin Dose 10 MG; Start 02/26/17 at 12:30 Miscellaneous Information 1 ea NOTE XX ; Start 02/26/17 at 13:00 Glucose (Glutose) 15 gm Q15M PRN PO DECREASED GLUCOSE; Start 02/26/17 at 13:00 Glucose (Glutose) 22.5 gm Q15M PRN PO DECREASED GLUCOSE; Start 02/26/17 at 13: 00 Dextrose (D50w Syringe) 25 ml Q15M PRN IV DECREASED GLUCOSE; Start 02/26/17 at 13:00 Dextrose (D50w Syringe) 50 ml Q15M PRN IV DECREASED GLUCOSE; Start 02/26/17 at 13:00 Glucagon (Glucagen) 1 mg Q15M PRN IM DECREASED GLUCOSE; Start 02/26/17 at 13:00 Glucose 15 gm 15 gm Q15M PRN BUCCAL DECREASED GLUCOSE; Start 02/26/17 at 13:00 Vancomycin HCl/ Sodium Chloride (Vancocin/NS) 150 ml @ 75 mls/hr Q24H IVPB Last administered on 02/26/17 21:35; Admin Dose 75 MLS/HR; Start 02/26/17 at 22 :00 Miscellaneous Information (*Rx Drug Level Order Reminder*) VANCOMYCIN TROUGH ON 02/28... ONCE ONCE XX ; Start 02/28/17 at 21:00; Stop 02/28/17 at 21:01 TATIANA VENTURA NP Feb 27, 2017 12:46
--- NOTE | 2017-02-27 14:27 | PN ---
Date/Time of Note Date/Time of Note DATE: 02/27/17 TIME: 14:24 Assessment/Plan VTE Prophylaxis VTE Prophylaxis Intervention: LMWH Lines/Catheters IV [facility] Type [facility] Peripheral IV Urinary Cath still in place: No Assessment/Plan Assessment/Plan 1. 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 Obstrucive PVD- arterial US showed obstruction in calf arteries 3. Hypetension 4. Hyperlipidemia 5. Alzheimer dementia Plan : IVF NS at 75 cc.hr x 2 liter IV abx zosyn and vancomycin ID and vascular following will call podiatry Dr.Ronald Caban to see pt Lovenox for DVT prophylaxis Accucheck with sliding scale Subjective 24 Hr Interval Summary Free Text/Dictation pt wants to eat, BP stable Exam/Review of Systems Vital Signs Vitals Vital Signs Date Time Temp Pulse Resp B/P Pulse Ox O2 Delivery O2 Flow Rate FiO2 02/27/17 11:47 98.4 99 19 142/68 96 Intake and Output 02/26/17 02/26/17 02/27/17 15:00 23:00 07:00 Intake Total 625 ml 150 ml Balance 625 ml 150 ml Exam Constitutional: alert, non-verbal Psych: no complaints Head: normocephalic Eyes: nl conjunctiva ENMT: nl external ears & nose Neck: supple Respiratory: clear to auscultation, diminished breath sounds Cardiovascular: regular rate and rhythm Gastrointestinal: non-tender, soft Musculoskeletal: nl extremities to inspection, other (right heel necrotic wound ) Extremities: normal pulses Neurological: TRUCK STRIKER 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 Lymph: nl lymph nodes Results Result Diagram: 02/27/1762602/27/1727 Results 24 hrs Laboratory Tests Test 02/26/17 18:41 02/26/17 21:38 02/27/17 06:27 02/27/17 08:36 Bedside Glucose 107 146 108 White Blood Count 10.2 # Red Blood Count 3.32 L Hemoglobin 10.8 L Hematocrit 32.8 L Mean Corpuscular Volume 98.8 Mean Corpuscular Hemoglobin 32.5 Mean Corpuscular Hemoglobin Concent 32.9 Red Cell Distribution Width 13.5 Platelet Count 246 Mean Platelet Volume 9.6 Neutrophils % 62.4 Lymphocytes % 22.3 Monocytes % 9.8 Eosinophils % 3.8 Basophils % 1.1 Nucleated Red Blood Cells % 0.0 Neutrophils # 6.4 Lymphocytes # 2.3 Monocytes # 1.0 H Eosinophils # 0.4 Basophils # 0.1 Nucleated Red Blood Cells # 0.0 Sodium Level 141 Potassium Level 4.2 Chloride Level 108 Carbon Dioxide Level 26 Anion Gap 11 Blood Urea Nitrogen 20 Creatinine 0.96 Glucose Level 94 Hemoglobin A1c 6.2 H Calcium Level 8.5 Total Bilirubin 0.6 Direct Bilirubin 0.00 Indirect Bilirubin 0.6 Aspartate Amino Transf (AST/SGOT) 24 Alanine Aminotransferase (ALT/SGPT) 24 Alkaline Phosphatase 76 Total Protein 6.3 Albumin 3.4 Globulin 2.90 Albumin/Globulin Ratio 1.17 Triglycerides Level 64 Cholesterol Level 135 LDL Cholesterol, Calculated 85 HDL Cholesterol 37 Cholesterol/HDL Ratio 3.6 Thyroid Stimulating Hormone (TSH) 2.440 Free Thyroxine Index 3.33 Thyroxine (T4) 7.7 Triiodothyronine (T3) Uptake 43.2 H Medications Medications Current Medications Amlodipine Besylate (Norvasc) 10 mg DAILY PO Last administered on 02/27/17 09: 48; Admin Dose 10 MG; Start 02/26/17 at 12:30 Lisinopril 5 mg 5 mg DAILY PO Last administered on 02/27/17 09:47; Admin Dose 5 MG; Start 02/27/17 at 09:00 Sodium Chloride (NS) 1,000 ml @ 75 mls/hr [id number] IV Last administered on 02/26 13:00; Admin Dose 75 MLS/HR; Start 02/26/17 at 13:00; Stop 02/27/17 at 15: 39 Ondansetron HCl (Zofran Inj) 4 mg Q6H PRN IV NAUSEA AND/OR VOMITING; Start at 12:30 Acetaminophen (Tylenol Tab) 650 mg Q6H PRN PO PAIN LEVEL 1-3 OR FEVER; Start at 12:30 Acetaminophen/ Hydrocodone Bitart ([place] (5/325)) 1 tab Q6H PRN PO MODERATE PAIN LEVEL 4-6; Start 02/26/17 at 12:30 Docusate Sodium (Colace) 100 mg Q12H PRN PO CONSTIPATION; Start 02/26/17 at 12: 30 Magnesium Hydroxide (Milk Of Mag) 30 ml DAILY PRN PO CONSTIPATION; Start at 12:30 Bisacodyl (Dulcolax) 5 mg DAILY PRN PO CONSTIPATION; Start 02/26/17 at 12:30 Bisacodyl (Dulcolax Supp) 10 mg DAILY PRN [place] CONSTIPATION; Start 02/26/17 at 12 :30 Sodium Biphosphate/ Sodium Phosphate (Fleet Enema) 133 ml DAILY PRN [place] CONSTIPATION; Start 02/26/17 at 12:30 Famotidine (Pepcid Iv) 20 mg DAILY IV Last administered on 02/27/17 09:47; Admin Dose 20 MG; Start 02/26/17 at 18:00 Enoxaparin Sodium (Lovenox) 40 mg DAILY SC Last administered on 02/27/17 09:48 ; Admin Dose 40 MG; Start 02/27/17 at 09:00 Diagnostic Test (Pha) 1 ea 1 ea 02 XX ; Start 02/27/17 at 02:00 Piperacillin Sod/ Tazobactam Sod (Zosyn 3.375gm/ 100 ml (Pmx)) 100 ml @ 200 mls /hr Q8 IVPB Last administered on 02/27/17 13:20; Admin Dose 200 MLS/HR; Start 02/26/17 at 14:00 Hydralazine HCl (Apresoline) 10 mg Q4H PRN IV SBP>150 mm Hg Last administered on 02/26/17 12:47; Admin Dose 10 MG; Start 02/26/17 at 12:30 Miscellaneous Information 1 ea NOTE XX ; Start 02/26/17 at 13:00 Glucose (Glutose) 15 gm Q15M PRN PO DECREASED GLUCOSE; Start 02/26/17 at 13:00 Glucose (Glutose) 22.5 gm Q15M PRN PO DECREASED GLUCOSE; Start 02/26/17 at 13: 00 Dextrose (D50w Syringe) 25 ml Q15M PRN IV DECREASED GLUCOSE; Start 02/26/17 at 13:00 Dextrose (D50w Syringe) 50 ml Q15M PRN IV DECREASED GLUCOSE; Start 02/26/17 at 13:00 Glucagon (Glucagen) 1 mg Q15M PRN IM DECREASED GLUCOSE; Start 02/26/17 at 13:00 Glucose 15 gm 15 gm Q15M PRN BUCCAL DECREASED GLUCOSE; Start 02/26/17 at 13:00 Vancomycin HCl/ Sodium Chloride (Vancocin/NS) 150 ml @ 75 mls/hr Q24H IVPB Last administered on 02/26/17t 21:35; Admin Dose 75 MLS/HR; Start 02/26/17 at 22 :00 Miscellaneous Information (*Rx Drug Level Order Reminder*) VANCOMYCIN TROUGH ON 02/28... ONCE ONCE XX ; Start 02/28/17 at 21:00; Stop 02/28/17 at 21:01 RUSTY DIALLO MD Feb 27, 2017 14:26
--- NOTE | 2017-02-27 15:33 | CONS ---
Date/Time of Note Date/Time of Note DATE: 02/27/17 TIME: 15:32 Consultation Date/Type/Reason Admit Date/Time Feb 26, 2017 at 05:26 Reason for Consultation This is Dr. Josias Mcdonald dictating infectious consultation on Elier Blandon, date of admission 627 date of consultation 627 date of dictation 02/27 this is infectious disease consult reason for consultation is antibiotic management. Mr. 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 Obstructive peripheral vascular disease #3 hypertension 4. Hyperlipidemia 5. Alzheimer's senile dementia On 628 white count is 10.2 H&H 10.8 32.8 platelet count of 246,000 Past medical history: Operations as outlined family history is noncontributory further medical history includes hyperlipidemia Social history he does not smoke drink or abuse drugs Allergies none to penicillin and sulfa foods Medications per chart Review of systems as per HPI On physical examination patient is awake but nonverbal vital signs are stable and he is afebrile Skin without generalized rash HEENT within normal limits Neck supple Chest decreased breath sounds in the bases Heart without murmur gallop Abdomen is soft nontender without organosplenomegaly or masses Extremities without cyanosis clubbing or edema. 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 Continue on current therapy will dictate to Chema Palafox and to Dr. Schwartz. Thank you for this wellness director. Eyes: no complaints ENT: no complaints Musculoskeletal: back pain, neck pain Neurologic: no complaints Psychological: no complaints Past Medical History Medical History: high cholesterol, hypertension, other (alzheimer dementia ) Past Surgical History Past Surgical Hx: no surgical history Social History Alcohol Use: none Smoking Status: Unknown if ever smoked Drug Use: none Exam/Review of Systems Vital Signs Vitals Vital Signs Date Time Temp Pulse Resp B/P Pulse Ox O2 Delivery O2 Flow Rate FiO2 02/27/17 11:47 98.4 99 19 142/68 96 Intake and Output 02/26/17 02/26/17 02/27/17 15:00 23:00 07:00 Intake Total 625 ml 150 ml Balance 625 ml 150 ml Results Result Diagram: 02/27/1762602/27/17626 Results 24 hrs Laboratory Tests Test 02/26/17 18:41 02/26/17 21:38 02/27/17 06:27 02/27/17 08:36 Bedside Glucose 107 146 108 White Blood Count 10.2 # Red Blood Count 3.32 L Hemoglobin 10.8 L Hematocrit 32.8 L Mean Corpuscular Volume 98.8 Mean Corpuscular Hemoglobin 32.5 Mean Corpuscular Hemoglobin Concent 32.9 Red Cell Distribution Width 13.5 Platelet Count 246 Mean Platelet Volume 9.6 Neutrophils % 62.4 Lymphocytes % 22.3 Monocytes % 9.8 Eosinophils % 3.8 Basophils % 1.1 Nucleated Red Blood Cells % 0.0 Neutrophils # 6.4 Lymphocytes # 2.3 Monocytes # 1.0 H Eosinophils # 0.4 Basophils # 0.1 Nucleated Red Blood Cells # 0.0 Sodium Level 141 Potassium Level 4.2 Chloride Level 108 Carbon Dioxide Level 26 Anion Gap 11 Blood Urea Nitrogen 20 Creatinine 0.96 Glucose Level 94 Hemoglobin A1c 6.2 H Calcium Level 8.5 Total Bilirubin 0.6 Direct Bilirubin 0.00 Indirect Bilirubin 0.6 Aspartate Amino Transf (AST/SGOT) 24 Alanine Aminotransferase (ALT/SGPT) 24 Alkaline Phosphatase 76 Total Protein 6.3 Albumin 3.4 Globulin 2.90 Albumin/Globulin Ratio 1.17 Triglycerides Level 64 Cholesterol Level 135 LDL Cholesterol, Calculated 85 HDL Cholesterol 37 Cholesterol/HDL Ratio 3.6 Thyroid Stimulating Hormone (TSH) 2.440 Free Thyroxine Index 3.33 Thyroxine (T4) 7.7 Triiodothyronine (T3) Uptake 43.2 H Medications Medications Current Medications Amlodipine Besylate (Norvasc) 10 mg DAILY PO Last administered on 02/27/17 09: 48; Admin Dose 10 MG; Start 02/26/17 at 12:30 Lisinopril 5 mg 5 mg DAILY PO Last administered on 02/27/17 09:47; Admin Dose 5 MG; Start 02/27/17 at 09:00 Sodium Chloride (NS) 1,000 ml @ 75 mls/hr [id number] IV Last administered on 02/26 13:00; Admin Dose 75 MLS/HR; Start 02/26/17 at 13:00; Stop 02/27/17 at 15: 39 Ondansetron HCl (Zofran Inj) 4 mg Q6H PRN IV NAUSEA AND/OR VOMITING; Start at 12:30 Acetaminophen (Tylenol Tab) 650 mg Q6H PRN PO PAIN LEVEL 1-3 OR FEVER; Start at 12:30 Acetaminophen/ Hydrocodone Bitart ([place] (5/325)) 1 tab Q6H PRN PO MODERATE PAIN LEVEL 4-6; Start 02/26/17 at 12:30 Docusate Sodium (Colace) 100 mg Q12H PRN PO CONSTIPATION; Start 02/26/17 at 12: 30 Magnesium Hydroxide (Milk Of Mag) 30 ml DAILY PRN PO CONSTIPATION; Start at 12:30 Bisacodyl (Dulcolax) 5 mg DAILY PRN PO CONSTIPATION; Start 02/26/17 at 12:30 Bisacodyl (Dulcolax Supp) 10 mg DAILY PRN [place] CONSTIPATION; Start 02/26/17 at 12 :30 Sodium Biphosphate/ Sodium Phosphate (Fleet Enema) 133 ml DAILY PRN [place] CONSTIPATION; Start 02/26/17 at 12:30 Famotidine (Pepcid Iv) 20 mg DAILY IV Last administered on 02/27/17 09:47; Admin Dose 20 MG; Start 02/26/17 at 18:00 Enoxaparin Sodium (Lovenox) 40 mg DAILY SC Last administered on 02/27/17 09:48 ; Admin Dose 40 MG; Start 02/27/17 at 09:00 Diagnostic Test (Pha) 1 ea 1 ea 02 XX ; Start 02/27/17 at 02:00 Piperacillin Sod/ Tazobactam Sod (Zosyn 3.375gm/ 100 ml (Pmx)) 100 ml @ 200 mls /hr Q8 IVPB Last administered on 02/27/17 13:20; Admin Dose 200 MLS/HR; Start 02/26/17 at 14:00 Hydralazine HCl (Apresoline) 10 mg Q4H PRN IV SBP>150 mm Hg Last administered on 02/26/17 12:47; Admin Dose 10 MG; Start 02/26/17 at 12:30 Miscellaneous Information 1 ea NOTE XX ; Start 02/26/17 at 13:00 Glucose (Glutose) 15 gm Q15M PRN PO DECREASED GLUCOSE; Start 02/26/17 at 13:00 Glucose (Glutose) 22.5 gm Q15M PRN PO DECREASED GLUCOSE; Start 02/26/17 at 13: 00 Dextrose (D50w Syringe) 25 ml Q15M PRN IV DECREASED GLUCOSE; Start 02/26/17 at 13:00 Dextrose (D50w Syringe) 50 ml Q15M PRN IV DECREASED GLUCOSE; Start 02/26/17 at 13:00 Glucagon (Glucagen) 1 mg Q15M PRN IM DECREASED GLUCOSE; Start 02/26/17 at 13:00 Glucose 15 gm 15 gm Q15M PRN BUCCAL DECREASED GLUCOSE; Start 02/26/17 at 13:00 Vancomycin HCl/ Sodium Chloride (Vancocin/NS) 150 ml @ 75 mls/hr Q24H IVPB Last administered on 02/26/17t 21:35; Admin Dose 75 MLS/HR; Start 02/26/17 at 22 :00 Miscellaneous Information (*Rx Drug Level Order Reminder*) VANCOMYCIN TROUGH ON 02/28... ONCE ONCE XX ; Start 02/28/17 at 21:00; Stop 02/28/17 at 21:01 JOSIAS ESTES MD Feb 27, 2017 15:33
--- NOTE | 2017-02-27 19:10 | HP ---
Date/Time of Note Date/Time of Note DATE: 02/27/17 TIME: 19:02 Assessment/Plan VTE Prophylaxis VTE Prophylaxis Intervention: heparin VTE Contraindication Reason: peripheral vascular disease Lines/Catheters [facility] Peripheral IV Urinary Cath still in place: No Assessment/Plan Chief Complaint/Hosp Course Right heel ulceration with gangrene unstageable PAD not candidate for revascularization Pain Cellulitis Flexion contracture right le Problems: Assessment/Plan H&P reviewed. Xrays 2 views right foot. Diff dx OM. Initiate topical antiseptic precautions - dakins/ santyl/ gentamicin. Discussed with family member. Can perform bedside debridement. Obtain consent. Obtain cultures right foot. Heel cushion dispense. Reviewed labs/ aa nivs. HPI/ROS Admit Date/Time Admit Date/Time Feb 26, 2017 at 05:26 Hx of Present Illness Right heel pressure ulceration with gangrene. Pt transferred from [place] due to insurance. Poor historian. History per daughter. States improved appearance since initiating IV abx. Pt uses heel cushion at home and daugther assists with dressing changes. PT NWB. ROS Subjective hx not possible: pt non-verbal Constitutional: other Eyes: no complaints ENT: no complaints Musculoskeletal: back pain, bone/joint pain (pain with movement. right le flexion contracture at knee), neck pain Skin: other, skin lesions Neurologic: no complaints Endocrine: no complaints Psychological: no complaints PMH/Family/Social Past Medical History Medical History: high cholesterol, hypertension, other (alzheimer dementia ) Past Surgical History Past Surgical Hx: no surgical history Social History Alcohol Use: none Smoking Status: Unknown if ever smoked Drug Use: none Exam/Review of Systems Vital Signs Vitals Vital Signs Date Time Temp Pulse Resp B/P Pulse Ox O2 Delivery O2 Flow Rate FiO2 02/27/17 16:00 92 02/27/17 15:56 98.5 20 137/71 98 Intake and Output 02/26/17 02/26/17 02/27/17 15:00 23:00 07:00 Intake Total 625 ml 150 ml Balance 625 ml 150 ml Exam Cardiovascular: other (extremity warm b/l. pedal pulses diminished right foot. ) Extremities: other (skin and subcut atrophy. flexion contracture of knee. ) Skin: other (right heel ulceration est 6 x 3 cm (lxw). Mild odor. pain with palpation. no lymphangits. ) Labs Result Diagram: 02/27/1762602/27/17626 Medications Medications Current Medications Amlodipine Besylate (Norvasc) 10 mg DAILY PO Last administered on 02/27/17 09: 48; Admin Dose 10 MG; Start 02/26/17 at 12:30 Lisinopril (Zestril) 5 mg DAILY PO Last administered on 02/27/17 09:47; Admin Dose 5 MG; Start 02/27/17 at 09:00 Ondansetron HCl (Zofran Inj) 4 mg Q6H PRN IV NAUSEA AND/OR VOMITING; Start at 12:30 Acetaminophen (Tylenol Tab) 650 mg Q6H PRN PO PAIN LEVEL 1-3 OR FEVER; Start at 12:30 Acetaminophen/ Hydrocodone Bitart ([place] (5/325)) 1 tab Q6H PRN PO MODERATE PAIN LEVEL 4-6; Start 02/26/17 at 12:30 Docusate Sodium (Colace) 100 mg Q12H PRN PO CONSTIPATION; Start 02/26/17 at 12: 30 Magnesium Hydroxide (Milk Of Mag) 30 ml DAILY PRN PO CONSTIPATION; Start at 12:30 Bisacodyl (Dulcolax) 5 mg DAILY PRN PO CONSTIPATION; Start 02/26/17 at 12:30 Bisacodyl (Dulcolax Supp) 10 mg DAILY PRN [place] CONSTIPATION; Start 02/26/17 at 12 :30 Sodium Biphosphate/ Sodium Phosphate (Fleet Enema) 133 ml DAILY PRN [place] CONSTIPATION; Start 02/26/17 at 12:30 Famotidine (Pepcid Iv) 20 mg DAILY IV Last administered on 02/27/17 09:47; Admin Dose 20 MG; Start 02/26/17 at 18:00 Enoxaparin Sodium (Lovenox) 40 mg DAILY SC Last administered on 02/27/17 09:48 ; Admin Dose 40 MG; Start 02/27/17 at 09:00 Diagnostic Test (Pha) 1 ea 1 ea 02 XX ; Start 02/27/17 at 02:00 Piperacillin Sod/ Tazobactam Sod (Zosyn 3.375gm/ 100 ml (Pmx)) 100 ml @ 200 mls /hr Q8 IVPB Last administered on 02/27/17 13:20; Admin Dose 200 MLS/HR; Start 02/26/17 at 14:00 Hydralazine HCl (Apresoline) 10 mg Q4H PRN IV SBP>150 mm Hg Last administered on 02/26/17 12:47; Admin Dose 10 MG; Start 02/26/17 at 12:30 Miscellaneous Information 1 ea NOTE XX ; Start 02/26/17 at 13:00 Glucose (Glutose) 15 gm Q15M PRN PO DECREASED GLUCOSE; Start 02/26/17 at 13:00 Glucose (Glutose) 22.5 gm Q15M PRN PO DECREASED GLUCOSE; Start 02/26/17 at 13: 00 Dextrose (D50w Syringe) 25 ml Q15M PRN IV DECREASED GLUCOSE; Start 02/26/17 at 13:00 Dextrose (D50w Syringe) 50 ml Q15M PRN IV DECREASED GLUCOSE; Start 02/26/17 at 13:00 Glucagon (Glucagen) 1 mg Q15M PRN IM DECREASED GLUCOSE; Start 02/26/17 at 13:00 Glucose 15 gm 15 gm Q15M PRN BUCCAL DECREASED GLUCOSE; Start 02/26/17 at 13:00 Vancomycin HCl/ Sodium Chloride (Vancocin/NS) 150 ml @ 75 mls/hr Q24H IVPB Last administered on 02/26/17 21:35; Admin Dose 75 MLS/HR; Start 02/26/17 at 22 :00 Miscellaneous Information (*Rx Drug Level Order Reminder*) VANCOMYCIN TROUGH ON 02/28... ONCE ONCE XX ; Start 02/28/17 at 21:00; Stop 02/28/17 at 21:01 Collagenase (Santyl) 1 applic DAILY TOP ; Start 02/28/17 at 09:00; Status UNV Gentamicin Sulfate (Gentamicin 0.1% Oint) 1 applic ONCE ONCE TOP ; Start at 19:00; Stop 02/27/17 at 19:01; Status UNV CAMILO KIM DPM Feb 27, 2017 19:10
[2017-02-27] MEDS: GENTAMICIN 0.1% 15 GM OINT TOP SCH (20:39)
--- NOTE | 2017-02-27 20:56 | RADRPT ---
PROCEDURE: XR Right Foot. CLINICAL INDICATION: Right foot pain. TECHNIQUE: Two views. Frontal and lateral. COMPARISON: None. FINDINGS: There is no fracture or dislocation. Vascular calcifications are present consistent with atherosclerosis. There is a soft tissue ulcer of the heel. There are degenerative changes of the first metatarsal phalangeal joint with joint space narrowing a nd osteophytes. There is no lytic or blastic lesion. There is no radiopaque foreign body. IMPRESSION: 1. Atherosclerosis. 2. Soft tissue ulcer of the heel. 3. Degenerative changes of the first metatarsal phalangeal joint. 4. Otherwise unremarkable images of the right foot. RPTAT: QQ .Shiva Adam MD, Date Time Electronically viewed and signed by .Shiva Adam MD, on 02/27/2017 20:55 .R/
[2017-02-27] MEDS: VANCOMYCIN 750 MG in SOD CHLORIDE 0.9% 150 ML IVPB SCH (22:39)
[2017-02-28] VITALS (12 sets, daily range): BP systolic 108–156; BP diastolic 58–100; PULSE 45–81; RESP 18–20
[2017-02-28] MEDS: ACCU-CHEK XX SCH (02:00)
[2017-02-28] MEDS: PIPER-TAZO 3.375 GM IV (PMX) 100 ML IVPB SCH ×3 (05:52→21:23)
[2017-02-28 07:31] LABS: ADD SCAN DIFF NO
[2017-02-28 07:33] LABS: BASOPHIL # 0.1 10^3/ul (0.0-0.1); EOSINOPHILS # 0.3 10^3/ul (0.0-0.5); EOSINOPHILS % 3.1 % (0.0-7.0); HEMATOCRIT 31.6 % (42.0-52.0); HEMOGLOBIN 10.4 g/dl (14.0-18.0); LYMPHOCYTES # 2.1 10^3/ul (0.8-2.9); LYMPHOCYTES % 20.2 % (15.0-51.0); MEAN CORPUSCULAR HEMOGLOBIN 32.8 pg (29.0-33.0); MEAN CORPUSCULAR HGB CONC 32.9 g/dl (32.0-37.0); MEAN CORPUSCULAR VOLUME 99.7 fl (82.0-101.0); MEAN PLATELET VOLUME 9.4 fl (7.4-10.4); MONOCYTES % 9.9 % (0.0-11.0); NEUTROPHIL # 6.8 10^3/ul (1.6-7.5); NEUTROPHILS % 65.2 % (39.0-77.0); PLATELET COUNT 225 10^3/UL (140-415); RED BLOOD COUNT 3.17 10^6/ul (4.70-6.10); RED CELL DISTRIBUTION WIDTH 13.5 % (11.5-14.5); WHITE BLOOD COUNT 10.4 10^3/ul (4.8-10.8)
[2017-02-28 07:57] LABS: CALCIUM 8.5 mg/dl (8.4-10.2); CREATININE 1.06 mg/dl (0.61-1.24); INR 1.15; POTASSIUM 3.9 mmol/L (3.5-5.1); PROTIME 14.7 Sec (12.2-14.2); PT RATIO 1.1
[2017-02-28 07:58] LABS: PARTIAL THROMBOPLASTIN TIME 32.1 Sec (25.0-35.0)
[2017-02-28] MEDS: INSULIN ASPART [NOVOLOG] 3 ML PEN SC SCH (08:00)
[2017-02-28] MEDS: FAMOTIDINE 20 MG INJ IV SCH (08:13)
[2017-02-28] MEDS: COLLAGENASE 30 GM TUBE TOP SCH (08:14)
[2017-02-28] MEDS: AMLODIPINE 10 MG TAB PO SCH (08:15)
[2017-02-28] MEDS: LISINOPRIL 5 MG TAB PO SCH (08:15)
[2017-02-28] MEDS: ENOXAPARIN 40 MG/0.4 ML SYG SC SCH (08:15)
--- NOTE | 2017-02-28 13:34 | CONS ---
Date/Time of Note Date/Time of Note DATE: 02/28/17 TIME: 13:33 Assessment/Plan Assessment/Plan Chief Complaint/Hosp Course Subjective: No acute changes overnight per RNs report, patient is awake looks comfortable no fevers Antimicrobials: Vancomycin, Zosyn Physical examination: This is well-nourished fragile elderly man who is awake in no distress. Head atraumatic normocephalic, sclera nonicteric, bugle mucosa dry. Neck is supple. Chest rise symmetrical, breath sounds diminished basis Heart: S1-S2 Abdomen is soft, bowel tones present. Extremities without cyanosis, right heel dressing intact Assessment: 1. Right lower extremity ulceration with gangrenous changes 2. Peripheral vascular disease 3. Hypertension 4. Alzheimer's dementia Plan: Patient remains clinically stable, followed by vascular team, continue antibiotics, pending bedside debridement [facility] staff Problems: Consultation Date/Type/Reason Admit Date/Time Feb 26, 2017 at 05:26 Type of Consultation: Infectious disease Exam/Review of Systems Vital Signs Vitals Vital Signs Date Time Temp Pulse Resp B/P Pulse Ox O2 Delivery O2 Flow Rate FiO2 02/28/17 12:53 45 02/28/17 12:27 97.7 20 146/63 96 Intake and Output 02/27/17 02/27/17 02/28/17 15:00 23:00 07:00 Intake Total 600 ml 250 ml Balance 600 ml 250 ml Results Result Diagram: 02/28/17 0636 02/28/17 0636 Results 24 hrs Laboratory Tests Test 02/28/17 06:36 02/28/17 07:48 White Blood Count 10.4 Red Blood Count 3.17 L Hemoglobin 10.4 L Hematocrit 31.6 L Mean Corpuscular Volume 99.7 Mean Corpuscular Hemoglobin 32.8 Mean Corpuscular Hemoglobin Concent 32.9 Red Cell Distribution Width 13.5 Platelet Count 225 Mean Platelet Volume 9.4 Neutrophils % 65.2 Lymphocytes % 20.2 Monocytes % 9.9 Eosinophils % 3.1 Basophils % 1.0 Nucleated Red Blood Cells % 0.0 Neutrophils # 6.8 Lymphocytes # 2.1 Monocytes # 1.0 H Eosinophils # 0.3 Basophils # 0.1 Nucleated Red Blood Cells # 0.0 Prothrombin Time 14.7 H Prothrombin Time Ratio 1.1 INR International Normalized Ratio 1.15 Activated Partial Thromboplast Time 32.1 Sodium Level 144 Potassium Level 3.9 Chloride Level 110 Carbon Dioxide Level 26 Anion Gap 12 Blood Urea Nitrogen 16 Creatinine 1.06 Glucose Level 96 Calcium Level 8.5 Bedside Glucose 107 Medications Medications Current Medications Amlodipine Besylate (Norvasc) 10 mg DAILY PO Last administered on 02/28/17 08: 15; Admin Dose 10 MG; Start 02/26/17 at 12:30 Lisinopril (Zestril) 5 mg DAILY PO Last administered on 02/28/17 08:15; Admin Dose 5 MG; Start 02/27/17 at 09:00 Ondansetron HCl (Zofran Inj) 4 mg Q6H PRN IV NAUSEA AND/OR VOMITING; Start at 12:30 Acetaminophen (Tylenol Tab) 650 mg Q6H PRN PO PAIN LEVEL 1-3 OR FEVER; Start at 12:30 Acetaminophen/ Hydrocodone Bitart ([place] (5/325)) 1 tab Q6H PRN PO MODERATE PAIN LEVEL 4-6; Start 02/26/17 at 12:30 Docusate Sodium (Colace) 100 mg Q12H PRN PO CONSTIPATION; Start 02/26/17 at 12: 30 Magnesium Hydroxide (Milk Of Mag) 30 ml DAILY PRN PO CONSTIPATION; Start at 12:30 Bisacodyl (Dulcolax) 5 mg DAILY PRN PO CONSTIPATION; Start 02/26/17 at 12:30 Bisacodyl (Dulcolax Supp) 10 mg DAILY PRN [place] CONSTIPATION; Start 02/26/17 at 12 :30 Sodium Biphosphate/ Sodium Phosphate (Fleet Enema) 133 ml DAILY PRN [place] CONSTIPATION; Start 02/26/17 at 12:30 Famotidine (Pepcid Iv) 20 mg DAILY IV Last administered on 02/28/17 08:13; Admin Dose 20 MG; Start 02/26/17 at 18:00 Enoxaparin Sodium (Lovenox) 40 mg DAILY SC Last administered on 02/28/17 08:15 ; Admin Dose 40 MG; Start 02/27/17 at 09:00 Diagnostic Test (Pha) 1 ea 1 ea 02 XX ; Start 02/27/17 at 02:00 Piperacillin Sod/ Tazobactam Sod (Zosyn 3.375gm/ 100 ml (Pmx)) 100 ml @ 200 mls /hr Q8 IVPB Last administered on 02/28/17 05:52; Admin Dose 200 MLS/HR; Start 02/26/17 at 14:00 Hydralazine HCl (Apresoline) 10 mg Q4H PRN IV SBP>150 mm Hg Last administered on 02/26/17 12:47; Admin Dose 10 MG; Start 02/26/17 at 12:30 Miscellaneous Information 1 ea NOTE XX ; Start 02/26/17 at 13:00 Glucose (Glutose) 15 gm Q15M PRN PO DECREASED GLUCOSE; Start 02/26/17 at 13:00 Glucose (Glutose) 22.5 gm Q15M PRN PO DECREASED GLUCOSE; Start 02/26/17 at 13: 00 Dextrose (D50w Syringe) 25 ml Q15M PRN IV DECREASED GLUCOSE; Start 02/26/17 at 13:00 Dextrose (D50w Syringe) 50 ml Q15M PRN IV DECREASED GLUCOSE; Start 02/26/17 at 13:00 Glucagon (Glucagen) 1 mg Q15M PRN IM DECREASED GLUCOSE; Start 02/26/17 at 13:00 Glucose 15 gm 15 gm Q15M PRN BUCCAL DECREASED GLUCOSE; Start 02/26/17 at 13:00 Vancomycin HCl/ Sodium Chloride (Vancocin/NS) 150 ml @ 75 mls/hr Q24H IVPB Last administered on 02/27/17 22:39; Admin Dose 75 MLS/HR; Start 02/26/17 at 22 :00 Miscellaneous Information (*Rx Drug Level Order Reminder*) VANCOMYCIN TROUGH ON 02/28... ONCE ONCE XX ; Start 02/28/17 at 21:00; Stop 02/28/17 at 21:01 Collagenase (Santyl) 1 applic DAILY TOP Last administered on 02/28/17 08:14; Admin Dose 1 APPLIC; Start 02/28/17 at 09:00 Gentamicin Sulfate (Gentamicin 0.1% Oint) 1 applic HS TOP Last administered on 02/27/17 20:39; Admin Dose 1 APPLIC; Start 02/27/17 at 21:00 TATIANA VENTURA NP Feb 28, 2017 13:33
--- NOTE | 2017-02-28 16:48 | CONS ---
Date/Time of Note Date/Time of Note DATE: 02/28/17 TIME: 16:45 Consult Date/Type/Reason Admit Date/Time Feb 26, 2017 at 05:26 Initial Consult Date Type of Consultation: Podiatry Reason for Consultation Coverage for Dr. Melendez: Right heel ulcer/gangrene. Objective Vital Signs Date Time Temp Pulse Resp B/P Pulse Ox O2 Delivery O2 Flow Rate FiO2 02/28/17 16:27 98.0 71 20 124/66 100 Intake and Output 02/27/17 02/27/17 02/28/17 15:00 23:00 07:00 Intake Total 600 ml 250 ml Balance 600 ml 250 ml Exam Right heel ulceration with gangrene unstageable PAD not candidate for revascularization Pain Cellulitis Flexion contracture right le Results/Medications Result Diagram: 02/28/17 0636 02/28/17 0636 Results 24 hrs Laboratory Tests Test 02/28/17 06:36 02/28/17 07:48 White Blood Count 10.4 Red Blood Count 3.17 L Hemoglobin 10.4 L Hematocrit 31.6 L Mean Corpuscular Volume 99.7 Mean Corpuscular Hemoglobin 32.8 Mean Corpuscular Hemoglobin Concent 32.9 Red Cell Distribution Width 13.5 Platelet Count 225 Mean Platelet Volume 9.4 Neutrophils % 65.2 Lymphocytes % 20.2 Monocytes % 9.9 Eosinophils % 3.1 Basophils % 1.0 Nucleated Red Blood Cells % 0.0 Neutrophils # 6.8 Lymphocytes # 2.1 Monocytes # 1.0 H Eosinophils # 0.3 Basophils # 0.1 Nucleated Red Blood Cells # 0.0 Prothrombin Time 14.7 H Prothrombin Time Ratio 1.1 INR International Normalized Ratio 1.15 Activated Partial Thromboplast Time 32.1 Sodium Level 144 Potassium Level 3.9 Chloride Level 110 Carbon Dioxide Level 26 Anion Gap 12 Blood Urea Nitrogen 16 Creatinine 1.06 Glucose Level 96 Calcium Level 8.5 Bedside Glucose 107 Medications Current Medications Amlodipine Besylate (Norvasc) 10 mg DAILY PO Last administered on 02/28/17 08: 15; Admin Dose 10 MG; Start 02/26/17 at 12:30 Lisinopril (Zestril) 5 mg DAILY PO Last administered on 02/28/17 08:15; Admin Dose 5 MG; Start 02/27/17 at 09:00 Ondansetron HCl (Zofran Inj) 4 mg Q6H PRN IV NAUSEA AND/OR VOMITING; Start at 12:30 Acetaminophen (Tylenol Tab) 650 mg Q6H PRN PO PAIN LEVEL 1-3 OR FEVER; Start at 12:30 Acetaminophen/ Hydrocodone Bitart ([place] (5/325)) 1 tab Q6H PRN PO MODERATE PAIN LEVEL 4-6; Start 02/26/17 at 12:30 Docusate Sodium (Colace) 100 mg Q12H PRN PO CONSTIPATION; Start 02/26/17 at 12: 30 Magnesium Hydroxide (Milk Of Mag) 30 ml DAILY PRN PO CONSTIPATION; Start at 12:30 Bisacodyl (Dulcolax) 5 mg DAILY PRN PO CONSTIPATION; Start 02/26/17 at 12:30 Bisacodyl (Dulcolax Supp) 10 mg DAILY PRN [place] CONSTIPATION; Start 02/26/17 at 12 :30 Sodium Biphosphate/ Sodium Phosphate (Fleet Enema) 133 ml DAILY PRN [place] CONSTIPATION; Start 02/26/17 at 12:30 Enoxaparin Sodium (Lovenox) 40 mg DAILY SC Last administered on 02/28/17 08:15 ; Admin Dose 40 MG; Start 02/27/17 at 09:00 Diagnostic Test (Pha) 1 ea 1 ea 02 XX ; Start 02/27/17 at 02:00 Piperacillin Sod/ Tazobactam Sod (Zosyn 3.375gm/ 100 ml (Pmx)) 100 ml @ 200 mls /hr Q8 IVPB Last administered on 02/28/17 14:04; Admin Dose 200 MLS/HR; Start 02/26/17 at 14:00 Hydralazine HCl (Apresoline) 10 mg Q4H PRN IV SBP>150 mm Hg Last administered on 02/26/17 12:47; Admin Dose 10 MG; Start 02/26/17 at 12:30 Miscellaneous Information 1 ea NOTE XX ; Start 02/26/17 at 13:00 Glucose (Glutose) 15 gm Q15M PRN PO DECREASED GLUCOSE; Start 02/26/17 at 13:00 Glucose (Glutose) 22.5 gm Q15M PRN PO DECREASED GLUCOSE; Start 02/26/17 at 13: 00 Dextrose (D50w Syringe) 25 ml Q15M PRN IV DECREASED GLUCOSE; Start 02/26/17 at 13:00 Dextrose (D50w Syringe) 50 ml Q15M PRN IV DECREASED GLUCOSE; Start 02/26/17 at 13:00 Glucagon (Glucagen) 1 mg Q15M PRN IM DECREASED GLUCOSE; Start 02/26/17 at 13:00 Glucose 15 gm 15 gm Q15M PRN BUCCAL DECREASED GLUCOSE; Start 02/26/17 at 13:00 Vancomycin HCl/ Sodium Chloride (Vancocin/NS) 150 ml @ 75 mls/hr Q24H IVPB Last administered on 02/27/17 22:39; Admin Dose 75 MLS/HR; Start 02/26/17 at 22 :00 Miscellaneous Information (*Rx Drug Level Order Reminder*) VANCOMYCIN TROUGH ON 02/28... ONCE ONCE XX ; Start 02/28/17 at 21:00; Stop 02/28/17 at 21:01 Collagenase (Santyl) 1 applic DAILY TOP Last administered on 02/28/17 08:14; Admin Dose 1 APPLIC; Start 02/28/17 at 09:00 Gentamicin Sulfate (Gentamicin 0.1% Oint) 1 applic HS TOP Last administered on 02/27/17 20:39; Admin Dose 1 APPLIC; Start 02/27/17 at 21:00 Famotidine (Pepcid) 20 mg DAILY PO ; Start 03/01/17 at 09:00 Assessment/Plan Chief Complaint/Hosp Course Right heel ulceration with gangrene unstageable PAD not candidate for revascularization Pain Cellulitis Flexion contracture right le Assessment/Plan H&P reviewed. Xrays 2 views right foot. Diff dx OM. Initiate topical antiseptic precautions - dakins/ santyl/ gentamicin. Discussed with family member. Can perform bedside debridement. Obtain consent. Obtain cultures right foot. Heel cushion dispense. Reviewed labs/ aa nivs. Problems: ELIZABETH JOHN DPM Feb 28, 2017 16:48
[2017-02-28] MEDS: GENTAMICIN 0.1% 15 GM OINT TOP SCH (21:03)
--- NOTE | 2017-02-28 21:26 | PN ---
Date/Time of Note Date/Time of Note DATE: 02/28/17 TIME: 21:25 Assessment/Plan VTE Prophylaxis VTE Prophylaxis Intervention: LMWH Lines/Catheters IV Catheter Type (from Nrs): Peripheral IV Assessment/Plan Assessment/Plan 1. 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 Obstrucive PVD- arterial US showed obstruction in calf arteries 3. Hypetension 4. Hyperlipidemia 5. Alzheimer dementia Plan : S/p Podiatry consult, Plan for bedside I &D Nurse is instructed to send wound cx S/p Speech therapy consult, started on Pureed diet IV abx zosyn and vancomycin Lovenox for DVT prophylaxis Accucheck with sliding scale Subjective 24 Hr Interval Summary Free Text/Dictation s/p Speech therapy consult, pureed diet, s/p podiatry consult, plan for possible bedside I &D Exam/Review of Systems Vital Signs Vitals Vital Signs Date Time Temp Pulse Resp B/P Pulse Ox O2 Delivery O2 Flow Rate FiO2 02/28/17 20:27 66 02/28/17 20:07 97.6 20 124/79 99 Intake and Output 02/27/17 02/27/17 02/28/17 15:00 23:00 07:00 Intake Total 600 ml 250 ml Balance 600 ml 250 ml Exam Constitutional: alert, non-verbal Psych: no complaints Head: normocephalic Eyes: nl conjunctiva ENMT: nl external ears & nose Neck: supple Respiratory: clear to auscultation, diminished breath sounds Cardiovascular: regular rate and rhythm Gastrointestinal: non-tender, soft Musculoskeletal: nl extremities to inspection, other (right heel necrotic wound ) Extremities: normal pulses Neurological: PELT INSPECTOR 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 Lymph: nl lymph nodes Results Result Diagram: 02/28/17 0636 02/28/17 0636 Results 24 hrs Laboratory Tests Test 02/28/17 06:36 02/28/17 07:48 White Blood Count 10.4 Red Blood Count 3.17 L Hemoglobin 10.4 L Hematocrit 31.6 L Mean Corpuscular Volume 99.7 Mean Corpuscular Hemoglobin 32.8 Mean Corpuscular Hemoglobin Concent 32.9 Red Cell Distribution Width 13.5 Platelet Count 225 Mean Platelet Volume 9.4 Neutrophils % 65.2 Lymphocytes % 20.2 Monocytes % 9.9 Eosinophils % 3.1 Basophils % 1.0 Nucleated Red Blood Cells % 0.0 Neutrophils # 6.8 Lymphocytes # 2.1 Monocytes # 1.0 H Eosinophils # 0.3 Basophils # 0.1 Nucleated Red Blood Cells # 0.0 Prothrombin Time 14.7 H Prothrombin Time Ratio 1.1 INR International Normalized Ratio 1.15 Activated Partial Thromboplast Time 32.1 Sodium Level 144 Potassium Level 3.9 Chloride Level 110 Carbon Dioxide Level 26 Anion Gap 12 Blood Urea Nitrogen 16 Creatinine 1.06 Glucose Level 96 Calcium Level 8.5 Bedside Glucose 107 Medications Medications Current Medications Amlodipine Besylate (Norvasc) 10 mg DAILY PO Last administered on 02/28/17 08: 15; Admin Dose 10 MG; Start 02/26/17 at 12:30 Lisinopril (Zestril) 5 mg DAILY PO Last administered on 02/28/17 08:15; Admin Dose 5 MG; Start 02/27/17 at 09:00 Ondansetron HCl (Zofran Inj) 4 mg Q6H PRN IV NAUSEA AND/OR VOMITING; Start at 12:30 Acetaminophen (Tylenol Tab) 650 mg Q6H PRN PO PAIN LEVEL 1-3 OR FEVER; Start at 12:30 Acetaminophen/ Hydrocodone Bitart ([place] (5/325)) 1 tab Q6H PRN PO MODERATE PAIN LEVEL 4-6; Start 02/26/17 at 12:30 Docusate Sodium (Colace) 100 mg Q12H PRN PO CONSTIPATION; Start 02/26/17 at 12: 30 Magnesium Hydroxide (Milk Of Mag) 30 ml DAILY PRN PO CONSTIPATION; Start at 12:30 Bisacodyl (Dulcolax) 5 mg DAILY PRN PO CONSTIPATION; Start 02/26/17 at 12:30 Bisacodyl (Dulcolax Supp) 10 mg DAILY PRN [place] CONSTIPATION; Start 02/26/17 at 12 :30 Sodium Biphosphate/ Sodium Phosphate (Fleet Enema) 133 ml DAILY PRN [place] CONSTIPATION; Start 02/26/17 at 12:30 Enoxaparin Sodium (Lovenox) 40 mg DAILY SC Last administered on 02/28/17 08:15 ; Admin Dose 40 MG; Start 02/27/17 at 09:00 Diagnostic Test (Pha) 1 ea 1 ea 02 XX ; Start 02/27/17 at 02:00 Piperacillin Sod/ Tazobactam Sod (Zosyn 3.375gm/ 100 ml (Pmx)) 100 ml @ 200 mls /hr Q8 IVPB Last administered on 02/28/17 21:23; Admin Dose 200 MLS/HR; Start 02/26/17 at 14:00 Hydralazine HCl (Apresoline) 10 mg Q4H PRN IV SBP>150 mm Hg Last administered on 02/26/17 12:47; Admin Dose 10 MG; Start 02/26/17 at 12:30 Miscellaneous Information 1 ea NOTE XX ; Start 02/26/17 at 13:00 Glucose (Glutose) 15 gm Q15M PRN PO DECREASED GLUCOSE; Start 02/26/17 at 13:00 Glucose (Glutose) 22.5 gm Q15M PRN PO DECREASED GLUCOSE; Start 02/26/17 at 13: 00 Dextrose (D50w Syringe) 25 ml Q15M PRN IV DECREASED GLUCOSE; Start 02/26/17 at 13:00 Dextrose (D50w Syringe) 50 ml Q15M PRN IV DECREASED GLUCOSE; Start 02/26/17 at 13:00 Glucagon (Glucagen) 1 mg Q15M PRN IM DECREASED GLUCOSE; Start 02/26/17 at 13:00 Glucose 15 gm 15 gm Q15M PRN BUCCAL DECREASED GLUCOSE; Start 02/26/17 at 13:00 Vancomycin HCl/ Sodium Chloride (Vancocin/NS) 150 ml @ 75 mls/hr Q24H IVPB Last administered on 02/27/17 22:39; Admin Dose 75 MLS/HR; Start 02/26/17 at 22 :00 Collagenase (Santyl) 1 applic DAILY TOP Last administered on 02/28/17 08:14; Admin Dose 1 APPLIC; Start 02/28/17 at 09:00 Gentamicin Sulfate (Gentamicin 0.1% Oint) 1 applic HS TOP Last administered on 02/28/17 21:03; Admin Dose 1 APPLIC; Start 02/27/17 at 21:00 Famotidine (Pepcid) 20 mg DAILY PO ; Start 03/01/17 at 09:00 RUSTY DIALLO MD Feb 28, 2017 21:26
[2017-02-28] MEDS: VANCOMYCIN 1 GM in NS 250 ML IVPB SCH (22:29)
[2017-03-01] VITALS (12 sets, daily range): BP systolic 104–145; BP diastolic 57–82; PULSE 46–75; RESP 16–20
[2017-03-01] MEDS: ACCU-CHEK XX SCH (02:00)
[2017-03-01] MEDS: PIPER-TAZO 3.375 GM IV (PMX) 100 ML IVPB SCH ×3 (05:38→21:22)
[2017-03-01 07:30] LABS: BASOPHIL # 0.1 10^3/ul (0.0-0.1); BASOPHILS % 1.1 % (0.0-2.0); EOSINOPHILS # 0.4 10^3/ul (0.0-0.5); HEMATOCRIT 34.4 % (42.0-52.0); HEMOGLOBIN 11.4 g/dl (14.0-18.0); LYMPHOCYTES # 2.3 10^3/ul (0.8-2.9); MEAN CORPUSCULAR HEMOGLOBIN 32.8 pg (29.0-33.0); MEAN CORPUSCULAR HGB CONC 33.1 g/dl (32.0-37.0); MEAN CORPUSCULAR VOLUME 98.9 fl (82.0-101.0); MEAN PLATELET VOLUME 9.5 fl (7.4-10.4); MONOCYTES % 11.8 % (0.0-11.0); NEUTROPHIL # 4.6 10^3/ul (1.6-7.5); NEUTROPHILS % 54.7 % (39.0-77.0); PLATELET COUNT 222 10^3/UL (140-415); RED BLOOD COUNT 3.48 10^6/ul (4.70-6.10); RED CELL DISTRIBUTION WIDTH 13.2 % (11.5-14.5); WHITE BLOOD COUNT 8.3 10^3/ul (4.8-10.8)
[2017-03-01 07:35] LABS: ADD SCAN DIFF NO
[2017-03-01 07:44] LABS: INR 1.03; PROTIME 13.5 Sec (12.2-14.2); PT RATIO 1.1
[2017-03-01 07:45] LABS: PARTIAL THROMBOPLASTIN TIME 29.5 Sec (25.0-35.0)
[2017-03-01 07:59] LABS: CALCIUM 8.5 mg/dl (8.4-10.2); CREATININE 0.87 mg/dl (0.61-1.24); POTASSIUM 3.6 mmol/L (3.5-5.1)
[2017-03-01] MEDS: LISINOPRIL 5 MG TAB PO SCH (08:48)
[2017-03-01] MEDS: AMLODIPINE 10 MG TAB PO SCH (08:48)
[2017-03-01] MEDS: ENOXAPARIN 40 MG/0.4 ML SYG SC SCH (08:51)
[2017-03-01] MEDS: COLLAGENASE 30 GM TUBE TOP SCH (08:52)
[2017-03-01] MEDS ORDERED: FAMOTIDINE 20 MG TAB PO SCH (09:00)
--- NOTE | 2017-03-01 11:20 | PN ---
Date/Time of Note Date/Time of Note DATE: 03/01/17 TIME: 11:19 Assessment/Plan VTE Prophylaxis VTE Prophylaxis Intervention: LMWH Lines/Catheters IV [facility]from [facility] [place] Assessment/Plan Assessment/Plan 1. 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 Obstrucive PVD- arterial US showed obstruction in calf arteries 3. Hypetension 4. Hyperlipidemia 5. Alzheimer dementia Plan : S/p Podiatry consult, Plan for bedside I &D Nurse is instructed to send wound cx S/p Speech therapy consult, started on Pureed diet - tolerating ok IV abx zosyn and vancomycin Lovenox for DVT prophylaxis Accucheck with sliding scale Subjective 24 Hr Interval Summary Free Text/Dictation no acute events, toleratign pureed diet Exam/Review of Systems Vital Signs Vitals Vital Signs Date Time Temp Pulse Resp B/P Pulse Ox O2 Delivery O2 Flow Rate FiO2 03/01/17 08:46 57 03/01/17 08:26 98.8 19 144/67 95 Intake and Output 02/28/17 02/28/17 03/01/17 15:00 23:00 07:00 Intake Total 550 ml 370 ml Output Total 150 ml 600 ml Balance 400 ml -230 ml Exam Constitutional: alert, non-verbal Psych: no complaints Head: normocephalic Eyes: nl conjunctiva ENMT: nl external ears & nose Neck: supple Respiratory: clear to auscultation, diminished breath sounds Cardiovascular: regular rate and rhythm Gastrointestinal: non-tender, soft Musculoskeletal: nl extremities to inspection, other (right heel necrotic wound ) Extremities: normal pulses Neurological: 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 Lymph: nl lymph nodes Results Result Diagram: 03/01/1735 03/01/17 0635 Results 24 hrs Laboratory Tests Test 02/28/17 21:20 03/01/17 06:35 Vancomycin Level Trough 9.0 L White Blood Count 8.3 # Red Blood Count 3.48 L Hemoglobin 11.4 L Hematocrit 34.4 L Mean Corpuscular Volume 98.9 Mean Corpuscular Hemoglobin 32.8 Mean Corpuscular Hemoglobin Concent 33.1 Red Cell Distribution Width 13.2 Platelet Count 222 Mean Platelet Volume 9.5 Neutrophils % 54.7 Lymphocytes % 27.0 Monocytes % 11.8 H Eosinophils % 5.0 Basophils % 1.1 Nucleated Red Blood Cells % 0.0 Neutrophils # 4.6 Lymphocytes # 2.3 Monocytes # 1.0 H Eosinophils # 0.4 Basophils # 0.1 Nucleated Red Blood Cells # 0.0 Prothrombin Time 13.5 Prothrombin Time Ratio 1.1 INR International Normalized Ratio 1.03 Activated Partial Thromboplast Time 29.5 Sodium Level 139 Potassium Level 3.6 Chloride Level 105 Carbon Dioxide Level 27 Anion Gap 11 Blood Urea Nitrogen 12 Creatinine 0.87 Glucose Level 104 Calcium Level 8.5 Medications Medications Current Medications Amlodipine Besylate (Norvasc) 10 mg DAILY PO Last administered on 03/01/17 08: 48; Admin Dose 10 MG; Start 02/26/17 at 12:30 Lisinopril (Zestril) 5 mg DAILY PO Last administered on 03/01/17 08:48; Admin Dose 5 MG; Start 02/27/17 at 09:00 Ondansetron HCl (Zofran Inj) 4 mg Q6H PRN IV NAUSEA AND/OR VOMITING; Start at 12:30 Acetaminophen (Tylenol Tab) 650 mg Q6H PRN PO PAIN LEVEL 1-3 OR FEVER; Start at 12:30 Acetaminophen/ Hydrocodone Bitart ([place] (5/325)) 1 tab Q6H PRN PO MODERATE PAIN LEVEL 4-6; Start 02/26/17 at 12:30 Docusate Sodium (Colace) 100 mg Q12H PRN PO CONSTIPATION; Start 02/26/17 at 12: 30 Magnesium Hydroxide (Milk Of Mag) 30 ml DAILY PRN PO CONSTIPATION; Start at 12:30 Bisacodyl (Dulcolax) 5 mg DAILY PRN PO CONSTIPATION; Start 02/26/17 at 12:30 Bisacodyl (Dulcolax Supp) 10 mg DAILY PRN [place] CONSTIPATION; Start 02/26/17 at 12 :30 Sodium Biphosphate/ Sodium Phosphate (Fleet Enema) 133 ml DAILY PRN [place] CONSTIPATION; Start 02/26/17 at 12:30 Enoxaparin Sodium (Lovenox) 40 mg DAILY SC Last administered on 03/01/17 08:51 ; Admin Dose 40 MG; Start 02/27/17 at 09:00 Diagnostic Test (Pha) 1 ea 1 ea 02 XX ; Start 02/27/17 at 02:00 Piperacillin Sod/ Tazobactam Sod (Zosyn 3.375gm/ 100 ml (Pmx)) 100 ml @ 200 mls /hr Q8 IVPB Last administered on 03/01/17 05:38; Admin Dose 200 MLS/HR; Start 02/26/17 at 14:00 Hydralazine HCl (Apresoline) 10 mg Q4H PRN IV SBP>150 mm Hg Last administered on 02/26/17 12:47; Admin Dose 10 MG; Start 02/26/17 at 12:30 Miscellaneous Information 1 ea NOTE XX ; Start 02/26/17 at 13:00 Glucose (Glutose) 15 gm Q15M PRN PO DECREASED GLUCOSE; Start 02/26/17 at 13:00 Glucose (Glutose) 22.5 gm Q15M PRN PO DECREASED GLUCOSE; Start 02/26/17 at 13: 00 Dextrose (D50w Syringe) 25 ml Q15M PRN IV DECREASED GLUCOSE; Start 02/26/17 at 13:00 Dextrose (D50w Syringe) 50 ml Q15M PRN IV DECREASED GLUCOSE; Start 02/26/17 at 13:00 Glucagon (Glucagen) 1 mg Q15M PRN IM DECREASED GLUCOSE; Start 02/26/17 at 13:00 Glucose (Glutose) 15 gm Q15M PRN BUCCAL DECREASED GLUCOSE; Start 02/26/17 at 13 :00 Collagenase (Santyl) 1 applic DAILY TOP Last administered on 03/01/17 08:52; Admin Dose 1 APPLIC; Start 02/28/17 at 09:00 Gentamicin Sulfate (Gentamicin 0.1% Oint) 1 applic HS TOP Last administered on 02/28/17 21:03; Admin Dose 1 APPLIC; Start 02/27/17 at 21:00 Famotidine 20 mg 20 mg DAILY PO Last administered on 03/01/17 08:48; Admin Dose 20 MG; Start 03/01/17 at 09:00 Vancomycin HCl (Vancocin) 250 ml @ 125 mls/hr Q24H IVPB Last administered on 22:29; Admin Dose 125 MLS/HR; Start 02/28/17 at 22:00 RUSTY DIALLO MD Mar 01, 2017 11:20
--- NOTE | 2017-03-01 15:48 | CONS ---
Date/Time of Note Date/Time of Note DATE: 03/01/17 TIME: 15:47 Assessment/Plan Assessment/Plan Chief Complaint/Hosp Course Subjective: No acute changes overnight per RNs report, patient is awake looks comfortable no fevers Antimicrobials: Vancomycin, Zosyn Physical examination: This is well-nourished fragile elderly man who is awake in no distress. Head atraumatic normocephalic, sclera nonicteric, bugle mucosa dry. Neck is supple. Chest rise symmetrical, breath sounds diminished basis Heart: S1-S2 Abdomen is soft, bowel tones present. Extremities without cyanosis, right heel dressing intact Assessment: 1. Right lower extremity ulceration with gangrenous changes 2. Peripheral vascular disease 3. Hypertension 4. Alzheimer's dementia Plan: Patient remains clinically stable, podiatry and vascular teams on case, continue antibiotics, pending wound culture, continue aspiration precautions DW staff Problems: Consultation Date/Type/Reason Admit Date/Time Feb 26, 2017 at 05:26 Type of Consultation: Infectious disease Exam/Review of Systems Vital Signs Vitals Vital Signs Date Time Temp Pulse Resp B/P Pulse Ox O2 Delivery O2 Flow Rate FiO2 03/01/17 12:40 69 03/01/17 11:52 98.1 18 136/75 97 Intake and Output 02/28/17 02/28/17 03/01/17 15:00 23:00 07:00 Intake Total 550 ml 370 ml Output Total 150 ml 600 ml Balance 400 ml -230 ml Results Result Diagram: 03/01/17 0635 03/01/17 0635 Results 24 hrs Laboratory Tests Test 02/28/17 21:20 03/01/17 06:35 Vancomycin Level Trough 9.0 L White Blood Count 8.3 # Red Blood Count 3.48 L Hemoglobin 11.4 L Hematocrit 34.4 L Mean Corpuscular Volume 98.9 Mean Corpuscular Hemoglobin 32.8 Mean Corpuscular Hemoglobin Concent 33.1 Red Cell Distribution Width 13.2 Platelet Count 222 Mean Platelet Volume 9.5 Neutrophils % 54.7 Lymphocytes % 27.0 Monocytes % 11.8 H Eosinophils % 5.0 Basophils % 1.1 Nucleated Red Blood Cells % 0.0 Neutrophils # 4.6 Lymphocytes # 2.3 Monocytes # 1.0 H Eosinophils # 0.4 Basophils # 0.1 Nucleated Red Blood Cells # 0.0 Prothrombin Time 13.5 Prothrombin Time Ratio 1.1 INR International Normalized Ratio 1.03 Activated Partial Thromboplast Time 29.5 Sodium Level 139 Potassium Level 3.6 Chloride Level 105 Carbon Dioxide Level 27 Anion Gap 11 Blood Urea Nitrogen 12 Creatinine 0.87 Glucose Level 104 Calcium Level 8.5 Medications Medications Current Medications Amlodipine Besylate (Norvasc) 10 mg DAILY PO Last administered on 03/01/17 08: 48; Admin Dose 10 MG; Start 02/26/17 at 12:30 Lisinopril (Zestril) 5 mg DAILY PO Last administered on 03/01/17 08:48; Admin Dose 5 MG; Start 02/27/17 at 09:00 Ondansetron HCl (Zofran Inj) 4 mg Q6H PRN IV NAUSEA AND/OR VOMITING; Start at 12:30 Acetaminophen (Tylenol Tab) 650 mg Q6H PRN PO PAIN LEVEL 1-3 OR FEVER; Start at 12:30 Acetaminophen/ Hydrocodone Bitart ([place] (5/325)) 1 tab Q6H PRN PO MODERATE PAIN LEVEL 4-6; Start 02/26/17 at 12:30 Docusate Sodium (Colace) 100 mg Q12H PRN PO CONSTIPATION; Start 02/26/17 at 12: 30 Magnesium Hydroxide (Milk Of Mag) 30 ml DAILY PRN PO CONSTIPATION; Start at 12:30 Bisacodyl (Dulcolax) 5 mg DAILY PRN PO CONSTIPATION; Start 02/26/17 at 12:30 Bisacodyl (Dulcolax Supp) 10 mg DAILY PRN [place] CONSTIPATION; Start 02/26/17 at 12 :30 Sodium Biphosphate/ Sodium Phosphate (Fleet Enema) 133 ml DAILY PRN [place] CONSTIPATION; Start 02/26/17 at 12:30 Enoxaparin Sodium (Lovenox) 40 mg DAILY SC Last administered on 03/01/17 08:51 ; Admin Dose 40 MG; Start 02/27/17 at 09:00 Diagnostic Test (Pha) 1 ea 1 ea 02 XX ; Start 02/27/17 at 02:00 Piperacillin Sod/ Tazobactam Sod (Zosyn 3.375gm/ 100 ml (Pmx)) 100 ml @ 200 mls /hr Q8 IVPB Last administered on 03/01/17 13:15; Admin Dose 200 MLS/HR; Start 02/26/17 at 14:00 Hydralazine HCl (Apresoline) 10 mg Q4H PRN IV SBP>150 mm Hg Last administered on 02/26/17 12:47; Admin Dose 10 MG; Start 02/26/17 at 12:30 Miscellaneous Information 1 ea NOTE XX ; Start 02/26/17 at 13:00 Glucose (Glutose) 15 gm Q15M PRN PO DECREASED GLUCOSE; Start 02/26/17 at 13:00 Glucose (Glutose) 22.5 gm Q15M PRN PO DECREASED GLUCOSE; Start 02/26/17 at 13: 00 Dextrose (D50w Syringe) 25 ml Q15M PRN IV DECREASED GLUCOSE; Start 02/26/17 at 13:00 Dextrose (D50w Syringe) 50 ml Q15M PRN IV DECREASED GLUCOSE; Start 02/26/17 at 13:00 Glucagon (Glucagen) 1 mg Q15M PRN IM DECREASED GLUCOSE; Start 02/26/17 at 13:00 Glucose (Glutose) 15 gm Q15M PRN BUCCAL DECREASED GLUCOSE; Start 02/26/17 at 13 :00 Collagenase (Santyl) 1 applic DAILY TOP Last administered on 03/01/17 08:52; Admin Dose 1 APPLIC; Start 02/28/17 at 09:00 Gentamicin Sulfate (Gentamicin 0.1% Oint) 1 applic HS TOP Last administered on 02/28/17 21:03; Admin Dose 1 APPLIC; Start 02/27/17 at 21:00 Famotidine 20 mg 20 mg DAILY PO Last administered on 03/01/17 08:48; Admin Dose 20 MG; Start 03/01/17 at 09:00 Vancomycin HCl (Vancocin) 250 ml @ 125 mls/hr Q24H IVPB Last administered on 22:29; Admin Dose 125 MLS/HR; Start 02/28/17 at 22:00 TATIANA VENTURA NP Mar 01, 2017 15:48
[2017-03-01] MEDS: VANCOMYCIN 1 GM in NS 250 ML IVPB SCH (21:22)
[2017-03-01] MEDS: GENTAMICIN 0.1% 15 GM OINT TOP SCH (21:22)
[2017-03-02] VITALS (14 sets, daily range): BP systolic 120–180; BP diastolic 65–88; PULSE 60–85; RESP 16–20
[2017-03-02] MEDS: ACCU-CHEK XX SCH (02:00)
[2017-03-02] MEDS ORDERED: PANTOPRAZOLE 40 MG INJ IV ONE (03:00)
[2017-03-02] MEDS: PIPER-TAZO 3.375 GM IV (PMX) 100 ML IVPB SCH ×3 (05:12→23:04)
[2017-03-02] MEDS: PANTOPRAZOLE 40 MG INJ IV SCH ×2 (05:12→18:18)
[2017-03-02] MEDS: LISINOPRIL 5 MG TAB PO SCH (09:38)
[2017-03-02] MEDS: AMLODIPINE 10 MG TAB PO SCH (09:38)
[2017-03-02] MEDS: COLLAGENASE 30 GM TUBE TOP SCH (09:46)
[2017-03-02] MEDS: ENOXAPARIN 40 MG/0.4 ML SYG SC SCH (09:46)
[2017-03-02] MEDS ORDERED: LIDOCAINE 1% (MDV) 20 ML INJ SC ONE (10:00)
[2017-03-02] MEDS ORDERED: morphine 2 MG INJ IV ONE (10:00)
--- NOTE | 2017-03-02 10:18 | OPR ---
Date/Time of Note Date/Time of Note DATE: 03/02/17 TIME: 10:15 Operative Report Free Text/Dictation Right heel ulceration presure unstageable Cellulitis Gangrene right heel Right LE flexion contracture Preoperative Diagnosis same Postoperative Diagnosis same Operation/Procedure Performed Right foot excisional debridement skin subc fascia 5x6 cm with pickup, scissors , 15 blade Anesthesia: lidocaine 1% plain 20 cc/ Morphine 1mg EBL 20 cc Hemostasis with compression Dressing Santyl / foam/ kerlix Surgeon: CAMILO KIM DPM Anesthesia: other (local) Estimated Blood Loss: 10 - 50 ml's Specimens none Grafts/Implants none Complications: None CAMILO KIM DPM Mar 02, 2017 10:18
--- NOTE | 2017-03-02 15:30 | CONS ---
Date/Time of Note Date/Time of Note DATE: 03/02/17 TIME: 15:26 Assessment/Plan Assessment/Plan Chief Complaint/Hosp Course ID PROGRESS NOTE CURRENT ABX: Vancomycin IV, Zosyn * Subjective: 89 yo M lying in bed calm, resting w/eyes closed, no fevers, NAD, VSS, chart reviewed * WOUND CX: WOUND CULTURE Preliminary Organism 1 GRAM NEGATIVE DAT QUANTITY 3+ Organism 2 STAPHYLOCOCCUS SPECIES QUANTITY ISOLATED FROM [facility] ONLY * LABS: 03/01/17 0635 03/01/17 0635 Physical examination: This is well-nourished fragile elderly man who is awake in no distress. Head atraumatic normocephalic, sclera nonicteric, bugle mucosa dry. Neck is supple. Chest rise symmetrical, breath sounds diminished basis Heart: S1-S2 Abdomen is soft, bowel tones present. Extremities without cyanosis, right heel dressing intact ID ASSESSMENT 1. Right lower extremity ulceration with gangrenous changes * WOUND CULTURE Preliminary Organism 1 GRAM NEGATIVE DAT QUANTITY 3+ Organism 2 STAPHYLOCOCCUS SPECIES QUANTITY ISOLATED FROM [facility] ONLY 2. Peripheral vascular disease 3. Hypertension 4. Alzheimer's dementia CURRENT ABX: Vancomycin IV, Zosyn ID RECOMMENDATIONS * Continue antibiotics, pending wound culture, continue aspiration precautions . Problems: Consultation Date/Type/Reason Admit Date/Time Feb 26, 2017 at 05:26 Initial Consult Date Type of Consultation: Infectious disease Exam/Review of Systems Vital Signs Vitals Vital Signs Date Time Temp Pulse Resp B/P Pulse Ox O2 Delivery O2 Flow Rate FiO2 03/02/17 12:13 65 03/02/17 11:51 98.0 17 120/80 96 Intake and Output 03/01/17 03/01/17 03/02/17 15:00 23:00 07:00 Intake Total 900 ml 300 ml Output Total 750 ml 400 ml Balance 150 ml -100 ml Results Result Diagram: 03/01/1735 03/01/17634 Medications Medications Current Medications Amlodipine Besylate (Norvasc) 10 mg DAILY PO Last administered on 03/02/17 09: 38; Admin Dose 10 MG; Start 02/26/17 at 12:30 Lisinopril (Zestril) 5 mg DAILY PO Last administered on 03/02/17 09:38; Admin Dose 5 MG; Start 02/27/17 at 09:00 Ondansetron HCl (Zofran Inj) 4 mg Q6H PRN IV NAUSEA AND/OR VOMITING; Start at 12:30 Acetaminophen (Tylenol Tab) 650 mg Q6H PRN PO PAIN LEVEL 1-3 OR FEVER; Start at 12:30 Acetaminophen/ Hydrocodone Bitart ([place] (5/325)) 1 tab Q6H PRN PO MODERATE PAIN LEVEL 4-6; Start 02/26/17 at 12:30 Docusate Sodium (Colace) 100 mg Q12H PRN PO CONSTIPATION; Start 02/26/17 at 12: 30 Magnesium Hydroxide (Milk Of Mag) 30 ml DAILY PRN PO CONSTIPATION; Start at 12:30 Bisacodyl (Dulcolax) 5 mg DAILY PRN PO CONSTIPATION; Start 02/26/17 at 12:30 Bisacodyl (Dulcolax Supp) 10 mg DAILY PRN [place] CONSTIPATION; Start 02/26/17 at 12 :30 Sodium Biphosphate/ Sodium Phosphate (Fleet Enema) 133 ml DAILY PRN [place] CONSTIPATION; Start 02/26/17 at 12:30 Enoxaparin Sodium (Lovenox) 40 mg DAILY SC Last administered on 03/02/17 09:46 ; Admin Dose 40 MG; Start 02/27/17 at 09:00 Diagnostic Test (Pha) 1 ea 1 ea 02 XX ; Start 02/27/17 at 02:00 Piperacillin Sod/ Tazobactam Sod (Zosyn 3.375gm/ 100 ml (Pmx)) 100 ml @ 200 mls /hr Q8 IVPB Last administered on 03/02/17 14:32; Admin Dose 200 MLS/HR; Start 02/26/17 at 14:00 Hydralazine HCl (Apresoline) 10 mg Q4H PRN IV SBP>150 mm Hg Last administered on 02/26/17 12:47; Admin Dose 10 MG; Start 02/26/17 at 12:30 Miscellaneous Information 1 ea NOTE XX ; Start 02/26/17 at 13:00 Glucose (Glutose) 15 gm Q15M PRN PO DECREASED GLUCOSE; Start 02/26/17 at 13:00 Glucose (Glutose) 22.5 gm Q15M PRN PO DECREASED GLUCOSE; Start 02/26/17 at 13: 00 Dextrose (D50w Syringe) 25 ml Q15M PRN IV DECREASED GLUCOSE; Start 02/26/17 at 13:00 Dextrose (D50w Syringe) 50 ml Q15M PRN IV DECREASED GLUCOSE; Start 02/26/17 at 13:00 Glucagon (Glucagen) 1 mg Q15M PRN IM DECREASED GLUCOSE; Start 02/26/17 at 13:00 Glucose (Glutose) 15 gm Q15M PRN BUCCAL DECREASED GLUCOSE; Start 02/26/17 at 13 :00 Collagenase (Santyl) 1 applic DAILY TOP Last administered on 03/02/17 09:46; Admin Dose 1 APPLIC; Start 02/28/17 at 09:00 Gentamicin Sulfate 1 applic 1 applic HS TOP Last administered on 03/01/17 21: 22; Admin Dose 1 APPLIC; Start 02/27/17 at 21:00 Vancomycin HCl (Vancocin) 250 ml @ 125 mls/hr Q24H IVPB Last administered on 21:22; Admin Dose 125 MLS/HR; Start 02/28/17 at 22:00 Pantoprazole (Protonix Iv) 40 mg BID@06,18 IV Last administered on 03/02/17 05: 12; Admin Dose 40 MG; Start 03/02/17 at 06:00 CAROL JOYNER NP Mar 02, 2017 15:30
[2017-03-02] MEDS: GENTAMICIN 0.1% 15 GM OINT TOP SCH (20:30)
[2017-03-02] MEDS: VANCOMYCIN 1 GM in NS 250 ML IVPB SCH (21:43)
--- NOTE | 2017-03-02 22:33 | PN ---
Date/Time of Note Date/Time of Note DATE: 03/02/17 TIME: 22:32 Assessment/Plan VTE Prophylaxis VTE Prophylaxis Intervention: LMWH Lines/Catheters IV Catheter Type (from Nrs): Saline Lock Assessment/Plan Assessment/Plan 1. 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 Obstrucive PVD- arterial US showed obstruction in calf arteries 3. Hypetension 4. Hyperlipidemia 5. Alzheimer dementia Plan : S/p Podiatry consult, Plan for bedside I &D Nurse is instructed to send wound cx S/p Speech therapy consult, started on Pureed diet - tolerating ok IV abx zosyn and vancomycin Lovenox for DVT prophylaxis Accucheck with sliding scale Subjective 24 Hr Interval Summary Free Text/Dictation no acute events, BP stable Exam/Review of Systems Vital Signs Vitals Vital Signs Date Time Temp Pulse Resp B/P Pulse Ox O2 Delivery O2 Flow Rate FiO2 03/02/17 20:34 75 03/02/17 19:42 98.4 18 137/88 96 Intake and Output 03/01/17 03/01/17 03/02/17 15:00 23:00 07:00 Intake Total 900 ml 300 ml Output Total 750 ml 400 ml Balance 150 ml -100 ml Exam Constitutional: alert, non-verbal Psych: no complaints Head: normocephalic Eyes: nl conjunctiva ENMT: nl external ears & nose Neck: supple Respiratory: clear to auscultation, diminished breath sounds Cardiovascular: regular rate and rhythm Gastrointestinal: non-tender, soft Musculoskeletal: nl extremities to inspection, other (right heel necrotic wound ) Extremities: normal pulses Neurological: TRANSPLANT 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 Lymph: nl lymph nodes Results Result Diagram: 03/01/1735 03/01/1735 Medications Medications Current Medications Amlodipine Besylate (Norvasc) 10 mg DAILY PO Last administered on 03/02/17 09: 38; Admin Dose 10 MG; Start 02/26/17 at 12:30 Lisinopril (Zestril) 5 mg DAILY PO Last administered on 03/02/17 09:38; Admin Dose 5 MG; Start 02/27/17 at 09:00 Ondansetron HCl (Zofran Inj) 4 mg Q6H PRN IV NAUSEA AND/OR VOMITING; Start at 12:30 Acetaminophen (Tylenol Tab) 650 mg Q6H PRN PO PAIN LEVEL 1-3 OR FEVER; Start at 12:30 Acetaminophen/ Hydrocodone Bitart ([place] (5/325)) 1 tab Q6H PRN PO MODERATE PAIN LEVEL 4-6; Start 02/26/17 at 12:30 Docusate Sodium (Colace) 100 mg Q12H PRN PO CONSTIPATION; Start 02/26/17 at 12: 30 Magnesium Hydroxide (Milk Of Mag) 30 ml DAILY PRN PO CONSTIPATION; Start at 12:30 Bisacodyl (Dulcolax) 5 mg DAILY PRN PO CONSTIPATION; Start 02/26/17 at 12:30 Bisacodyl (Dulcolax Supp) 10 mg DAILY PRN [place] CONSTIPATION; Start 02/26/17 at 12 :30 Sodium Biphosphate/ Sodium Phosphate (Fleet Enema) 133 ml DAILY PRN [place] CONSTIPATION; Start 02/26/17 at 12:30 Enoxaparin Sodium (Lovenox) 40 mg DAILY SC Last administered on 03/02/17 09:46 ; Admin Dose 40 MG; Start 02/27/17 at 09:00 Diagnostic Test (Pha) 1 ea 1 ea 02 XX ; Start 02/27/17 at 02:00 Piperacillin Sod/ Tazobactam Sod (Zosyn 3.375gm/ 100 ml (Pmx)) 100 ml @ 200 mls /hr Q8 IVPB Last administered on 03/02/17 14:32; Admin Dose 200 MLS/HR; Start 02/26/17 at 14:00 Hydralazine HCl (Apresoline) 10 mg Q4H PRN IV SBP>150 mm Hg Last administered on 02/26/17 12:47; Admin Dose 10 MG; Start 02/26/17 at 12:30 Miscellaneous Information 1 ea NOTE XX ; Start 02/26/17 at 13:00 Glucose (Glutose) 15 gm Q15M PRN PO DECREASED GLUCOSE; Start 02/26/17 at 13:00 Glucose (Glutose) 22.5 gm Q15M PRN PO DECREASED GLUCOSE; Start 02/26/17 at 13: 00 Dextrose (D50w Syringe) 25 ml Q15M PRN IV DECREASED GLUCOSE; Start 02/26/17 at 13:00 Dextrose (D50w Syringe) 50 ml Q15M PRN IV DECREASED GLUCOSE; Start 02/26/17 at 13:00 Glucagon (Glucagen) 1 mg Q15M PRN IM DECREASED GLUCOSE; Start 02/26/17 at 13:00 Glucose (Glutose) 15 gm Q15M PRN BUCCAL DECREASED GLUCOSE; Start 02/26/17 at 13 :00 Collagenase (Santyl) 1 applic DAILY TOP Last administered on 03/02/17 09:46; Admin Dose 1 APPLIC; Start 02/28/17 at 09:00 Gentamicin Sulfate 1 applic 1 applic HS TOP Last administered on 03/01/17 21: 22; Admin Dose 1 APPLIC; Start 02/27/17 at 21:00 Vancomycin HCl (Vancocin) 250 ml @ 125 mls/hr Q24H IVPB Last administered on 21:43; Admin Dose 125 MLS/HR; Start 02/28/17 at 22:00 Pantoprazole (Protonix Iv) 40 mg BID@06,18 IV Last administered on 03/02/17 18: 18; Admin Dose 40 MG; Start 03/02/17 at 06:00 RUSTY DIALLO MD Mar 02, 2017 22:33
[2017-03-03] VITALS (11 sets, daily range): BP systolic 128–160; BP diastolic 71–77; PULSE 49–82; RESP 18–20
[2017-03-03] MEDS: ACCU-CHEK XX SCH ×2 (02:00→23:52)
[2017-03-03] MEDS: PIPER-TAZO 3.375 GM IV (PMX) 100 ML IVPB SCH ×3 (06:07→21:40)
[2017-03-03] MEDS: PANTOPRAZOLE 40 MG INJ IV SCH ×2 (06:07→18:26)
[2017-03-03] MEDS: AMLODIPINE 10 MG TAB PO SCH (09:48)
[2017-03-03] MEDS: COLLAGENASE 30 GM TUBE TOP SCH (09:49)
[2017-03-03] MEDS: LISINOPRIL 5 MG TAB PO SCH (09:49)
[2017-03-03] MEDS: ENOXAPARIN 40 MG/0.4 ML SYG SC SCH (10:37)
--- NOTE | 2017-03-03 14:11 | PN ---
Date/Time of Note Date/Time of Note DATE: 03/03/17 TIME: 14:09 Assessment/Plan VTE Prophylaxis VTE Prophylaxis Intervention: LMWH Lines/Catheters IV Catheter Type (from Nrs): Peripheral IV Urinary Cath still in place: Yes (condom cath applied. ) Reason Cath still needed: urinary retention Assessment/Plan Assessment/Plan 1. 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 Obstrucive PVD- arterial US showed obstruction in calf arteries 3. Hypetension 4. Hyperlipidemia 5. Alzheimer dementia Plan : S/p Podiatry consult, s/p Bedside I & D, wound cx sent S/p Speech therapy consult, started on Pureed diet - tolerating ok IV abx zosyn and vancomycin Lovenox for DVT prophylaxis Accucheck with sliding scale Case managementconsult for SNF placement Subjective 24 Hr Interval Summary Free Text/Dictation s/p bedside Debridement, wound Cx stent Exam/Review of Systems Vital Signs Vitals Vital Signs Date Time Temp Pulse Resp B/P Pulse Ox O2 Delivery O2 Flow Rate FiO2 03/03/17 13:23 79 03/03/17 12:23 97.9 20 128/77 98 Intake and Output 03/02/17 03/02/17 03/03/17 15:00 23:00 07:00 Intake Total 500 ml Output Total 400 ml 300 ml Balance 100 ml -300 ml Exam Constitutional: alert, non-verbal Psych: no complaints Head: normocephalic Eyes: nl conjunctiva ENMT: nl external ears & nose Neck: supple Respiratory: clear to auscultation, diminished breath sounds Cardiovascular: regular rate and rhythm Gastrointestinal: non-tender, soft Musculoskeletal: nl extremities to inspection, other (right heel necrotic wound ) Extremities: normal pulses Neurological: 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 Lymph: nl lymph nodes Results Result Diagram: 03/01/1735 03/01/17 0635 Medications Medications Current Medications Amlodipine Besylate (Norvasc) 10 mg DAILY PO Last administered on 03/03/17 09: 48; Admin Dose 10 MG; Start 02/26/17 at 12:30 Lisinopril (Zestril) 5 mg DAILY PO Last administered on 03/03/17 09:49; Admin Dose 5 MG; Start 02/27/17 at 09:00 Ondansetron HCl (Zofran Inj) 4 mg Q6H PRN IV NAUSEA AND/OR VOMITING; Start at 12:30 Acetaminophen (Tylenol Tab) 650 mg Q6H PRN PO PAIN LEVEL 1-3 OR FEVER; Start at 12:30 Acetaminophen/ Hydrocodone Bitart ([place] (5/325)) 1 tab Q6H PRN PO MODERATE PAIN LEVEL 4-6; Start 02/26/17 at 12:30 Docusate Sodium (Colace) 100 mg Q12H PRN PO CONSTIPATION; Start 02/26/17 at 12: 30 Magnesium Hydroxide (Milk Of Mag) 30 ml DAILY PRN PO CONSTIPATION; Start at 12:30 Bisacodyl (Dulcolax) 5 mg DAILY PRN PO CONSTIPATION; Start 02/26/17 at 12:30 Bisacodyl (Dulcolax Supp) 10 mg DAILY PRN [place] CONSTIPATION; Start 02/26/17 at 12 :30 Sodium Biphosphate/ Sodium Phosphate (Fleet Enema) 133 ml DAILY PRN [place] CONSTIPATION; Start 02/26/17 at 12:30 Enoxaparin Sodium (Lovenox) 40 mg DAILY SC Last administered on 03/03/17 10:37 ; Admin Dose 40 MG; Start 02/27/17 at 09:00 Diagnostic Test (Pha) 1 ea 1 ea 02 XX ; Start 02/27/17 at 02:00 Piperacillin Sod/ Tazobactam Sod (Zosyn 3.375gm/ 100 ml (Pmx)) 100 ml @ 200 mls /hr Q8 IVPB Last administered on 03/03/17 06:07; Admin Dose 200 MLS/HR; Start 02/26/17 at 14:00 Hydralazine HCl (Apresoline) 10 mg Q4H PRN IV SBP>150 mm Hg Last administered on 02/26/17 12:47; Admin Dose 10 MG; Start 02/26/17 at 12:30 Miscellaneous Information 1 ea NOTE XX ; Start 02/26/17 at 13:00 Glucose (Glutose) 15 gm Q15M PRN PO DECREASED GLUCOSE; Start 02/26/17 at 13:00 Glucose (Glutose) 22.5 gm Q15M PRN PO DECREASED GLUCOSE; Start 02/26/17 at 13: 00 Dextrose (D50w Syringe) 25 ml Q15M PRN IV DECREASED GLUCOSE; Start 02/26/17 at 13:00 Dextrose (D50w Syringe) 50 ml Q15M PRN IV DECREASED GLUCOSE; Start 02/26/17 at 13:00 Glucagon (Glucagen) 1 mg Q15M PRN IM DECREASED GLUCOSE; Start 02/26/17 at 13:00 Glucose (Glutose) 15 gm Q15M PRN BUCCAL DECREASED GLUCOSE; Start 02/26/17 at 13 :00 Collagenase (Santyl) 1 applic DAILY TOP Last administered on 03/03/17 09:49; Admin Dose 1 APPLIC; Start 02/28/17 at 09:00 Gentamicin Sulfate 1 applic 1 applic HS TOP Last administered on 03/01/17 21: 22; Admin Dose 1 APPLIC; Start 02/27/17 at 21:00 Vancomycin HCl (Vancocin) 250 ml @ 125 mls/hr Q24H IVPB Last administered on 21:43; Admin Dose 125 MLS/HR; Start 02/28/17 at 22:00 Pantoprazole (Protonix Iv) 40 mg BID@06,18 IV Last administered on 03/03/17 06: 07; Admin Dose 40 MG; Start 03/02/17 at 06:00 Miscellaneous Information (*Rx Drug Level Order Reminder*) VANCOMYCIN TROUGH 03/03 AT 2100 ONCE ONCE XX ; Start 03/03/17 at 21:00; Stop 03/03/17 at 21:01 RUSTY DIALLO MD Mar 03, 2017 14:11
--- NOTE | 2017-03-03 15:05 | CONS ---
AMANDAC[employer]O DATA PROCESSING SYSTEMS CONSULTANT 03/03/17 1504: Date/Time of Note Date/Time of Note DATE: 03/03/17 TIME: 15:01 Assessment/Plan Assessment/Plan Chief Complaint/Hosp Course Assessment/Plan Assessment/Plan Chief Complaint/Hosp Course ID PROGRESS NOTE CURRENT ABX: Vancomycin IV, Zosyn * Subjective: Awake. Confused. No Acute Distress. * WOUND CX: WOUND CULTURE Preliminary Organism 1 GRAM NEGATIVE DAT QUANTITY 3+ Organism 2 STAPHYLOCOCCUS SPECIES QUANTITY ISOLATED FROM BROTH ONLY * LABS: 03/01/17 0635 03/01/1735 Physical examination: This is well-nourished fragile elderly man who is awake in no distress. Head atraumatic normocephalic, sclera nonicteric, bugle mucosa dry. Neck is supple. Chest rise symmetrical, breath sounds diminished basis Heart: S1-S2 Abdomen is soft, bowel tones present. Extremities without cyanosis, right heel dressing intact ID ASSESSMENT 1. Right lower extremity ulceration with gangrenous changes * WOUND CULTURE Preliminary Organism 1 GRAM NEGATIVE DAT QUANTITY 3+ Organism 2 STAPHYLOCOCCUS SPECIES QUANTITY ISOLATED FROM BROTH ONLY 2. Peripheral vascular disease 3. Hypertension 4. Alzheimer's dementia CURRENT ABX: Vancomycin IV, Zosyn ID RECOMMENDATIONS * Continue antibiotics. Pending wound culture. * Continue Aspiration Precautions. Monitor Labs. Problems: Consultation Date/Type/Reason Admit Date/Time Feb 26, 2017 at 05:26 Initial Consult Date Type of Consultation: Infectious disease Exam/Review of Systems Vital Signs Vitals Vital Signs Date Time Temp Pulse Resp B/P Pulse Ox O2 Delivery O2 Flow Rate FiO2 03/03/17 13:23 79 03/03/17 12:23 97.9 20 128/77 98 Intake and Output 03/02/17 03/02/17 03/03/17 15:00 23:00 07:00 Intake Total 500 ml Output Total 400 ml 300 ml Balance 100 ml -300 ml Results Result Diagram: 03/01/1735 03/01/17634 Medications Medications Current Medications Amlodipine Besylate (Norvasc) 10 mg DAILY PO Last administered on 03/03/17 09: 48; Admin Dose 10 MG; Start 02/26/17 at 12:30 Lisinopril (Zestril) 5 mg DAILY PO Last administered on 03/03/17 09:49; Admin Dose 5 MG; Start 02/27/17 at 09:00 Ondansetron HCl (Zofran Inj) 4 mg Q6H PRN IV NAUSEA AND/OR VOMITING; Start at 12:30 Acetaminophen (Tylenol Tab) 650 mg Q6H PRN PO PAIN LEVEL 1-3 OR FEVER; Start at 12:30 Acetaminophen/ Hydrocodone Bitart ([place] (5/325)) 1 tab Q6H PRN PO MODERATE PAIN LEVEL 4-6; Start 02/26/17 at 12:30 Docusate Sodium (Colace) 100 mg Q12H PRN PO CONSTIPATION; Start 02/26/17 at 12: 30 Magnesium Hydroxide (Milk Of Mag) 30 ml DAILY PRN PO CONSTIPATION; Start at 12:30 Bisacodyl (Dulcolax) 5 mg DAILY PRN PO CONSTIPATION; Start 02/26/17 at 12:30 Bisacodyl (Dulcolax Supp) 10 mg DAILY PRN [place] CONSTIPATION; Start 02/26/17 at 12 :30 Sodium Biphosphate/ Sodium Phosphate (Fleet Enema) 133 ml DAILY PRN [place] CONSTIPATION; Start 02/26/17 at 12:30 Enoxaparin Sodium (Lovenox) 40 mg DAILY SC Last administered on 03/03/17 10:37 ; Admin Dose 40 MG; Start 02/27/17 at 09:00 Diagnostic Test (Pha) 1 ea 1 ea 02 XX ; Start 02/27/17 at 02:00 Piperacillin Sod/ Tazobactam Sod (Zosyn 3.375gm/ 100 ml (Pmx)) 100 ml @ 200 mls /hr Q8 IVPB Last administered on 03/03/17 14:14; Admin Dose 200 MLS/HR; Start 02/26/17 at 14:00 Hydralazine HCl (Apresoline) 10 mg Q4H PRN IV SBP>150 mm Hg Last administered on 02/26/17 12:47; Admin Dose 10 MG; Start 02/26/17 at 12:30 Miscellaneous Information 1 ea NOTE XX ; Start 02/26/17 at 13:00 Glucose (Glutose) 15 gm Q15M PRN PO DECREASED GLUCOSE; Start 02/26/17 at 13:00 Glucose (Glutose) 22.5 gm Q15M PRN PO DECREASED GLUCOSE; Start 02/26/17 at 13: 00 Dextrose (D50w Syringe) 25 ml Q15M PRN IV DECREASED GLUCOSE; Start 02/26/17 at 13:00 Dextrose (D50w Syringe) 50 ml Q15M PRN IV DECREASED GLUCOSE; Start 02/26/17 at 13:00 Glucagon (Glucagen) 1 mg Q15M PRN IM DECREASED GLUCOSE; Start 02/26/17 at 13:00 Glucose (Glutose) 15 gm Q15M PRN BUCCAL DECREASED GLUCOSE; Start 02/26/17 at 13 :00 Collagenase (Santyl) 1 applic DAILY TOP Last administered on 03/03/17 09:49; Admin Dose 1 APPLIC; Start 02/28/17 at 09:00 Gentamicin Sulfate 1 applic 1 applic HS TOP Last administered on 03/01/17 21: 22; Admin Dose 1 APPLIC; Start 02/27/17 at 21:00 Vancomycin HCl (Vancocin) 250 ml @ 125 mls/hr Q24H IVPB Last administered on 21:43; Admin Dose 125 MLS/HR; Start 02/28/17 at 22:00 Pantoprazole (Protonix Iv) 40 mg BID@06,18 IV Last administered on 03/03/17 06: 07; Admin Dose 40 MG; Start 03/02/17 at 06:00 Miscellaneous Information (*Rx Drug Level Order Reminder*) VANCOMYCIN TROUGH 03/03 AT 2100 ONCE ONCE XX ; Start 03/03/17 at 21:00; Stop 03/03/17 at 21:01 CAROL JOYNER DATA PROCESSING SYSTEMS CONSULTANT 03/03/17 6537: Assessment/Plan Assessment/Plan Additional Assessment/Plan ID ADDENDUM == I WAS PAGED WITH RESULTS OF WOUND CULTURE NOTED BELOW Wound cultures resulted as below: WOUND CULTURE Final Organism 1 PSEUDOMONAS AERUGINOSA QUANTITY 3+ Organism 2 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 RX M.I.C. RX --------- --- --------- --- AMIKACIN <=2 S AZTREONAM S CEFAZOLIN R CEFEPIME 16 I CEFTAZIDIME 4 S CIPROFLOXACIN 2 I >=8 R CLINDAMYCIN >=8 R DOXYCYCLINE S ERYTHROMYCIN >=8 R GENTAMICIN <=1 S IMIPENEM 1 S LEVOFLOXACIN 4 I >=8 R OXACILLIN >=4 R PENICILLIN-G >=0.5 R RIFAMPIN <=0.5 S VANCOMYCIN <=0.5 S TOBRAMYCIN <=1 S TRIMETHOPRIM/SULFAMETHOXAZOLE <=10 S PIPERACILLIN/TAZOBACTAM 16 S Exam/Review of Systems Results Result Diagram: 03/01/17 0635 03/01/17 0635 CAMILO PATEL NP Mar 03, 2017 15:04 CAROL JOYNER NP Mar 03, 2017 17:27
[2017-03-03] MEDS: VANCOMYCIN 1 GM in NS 250 ML IVPB SCH (21:40)
[2017-03-03] MEDS: GENTAMICIN 0.1% 15 GM OINT TOP SCH (21:40)
[2017-03-04] VITALS (10 sets, daily range): BP systolic 57–146; BP diastolic 63–105; PULSE 82–100; RESP 18–22
[2017-03-04] MEDS: PANTOPRAZOLE 40 MG INJ IV SCH (05:46)
[2017-03-04] MEDS: PIPER-TAZO 3.375 GM IV (PMX) 100 ML IVPB SCH (05:46)
[2017-03-04 06:44] LABS: CREATININE 1.07 mg/dl (0.61-1.24)
[2017-03-04] MEDS: COLLAGENASE 30 GM TUBE TOP SCH (09:00)
[2017-03-04] MEDS: LISINOPRIL 5 MG TAB PO SCH (09:17)
[2017-03-04] MEDS: AMLODIPINE 10 MG TAB PO SCH (09:17)
[2017-03-04] MEDS: ENOXAPARIN 40 MG/0.4 ML SYG SC SCH (09:23)
[2017-03-04] MEDS: CEFTAZIDIME 1GM/50 ML (PMX) 50 ML IVPB SCH ×2 (12:49→21:36)
--- NOTE | 2017-03-04 16:28 | PN ---
Date/Time of Note Date/Time of Note DATE: 03/04/17 TIME: 16:24 Assessment/Plan VTE Prophylaxis VTE Prophylaxis Intervention: LMWH Lines/Catheters IV Catheter Type (from Nrs): Peripheral IV Assessment/Plan Chief Complaint/Hosp Course Subjective: Demented but eating. Objective: Vital signs stable Physical exam No pallor adenopathy poor oral hygiene. Regular Clear Benign Hypotonia. Right heel dressed: C/D/I Assessment and plan 1. Rt heel ulcer w gangrene. Sp debridement. Stable treat pain; cont wound care and possibly nwb status. DC if ok w podiatry. 2. Cellulitis/wound infection. Check w ID regarding atb's. Po vs PICC/ IV therapy. MRSA and Pseudomonas wound. 3. Chronic PAD; stable, optimize medical management. Surgical intervention probably not beneficial due to his comorbidities. 4. Chronic dementia; consider hospice. Needs advanced care planning reevaluated. 5. History of GI bleed 6. Anemia, stable 7. Failure to thrive, recommended sniff, family wants to take him home. May depend on his ambulatory status. Problems: Exam/Review of Systems Vital Signs Vitals Vital Signs Date Time Temp Pulse Resp B/P Pulse Ox O2 Delivery O2 Flow Rate FiO2 03/04/17 16:08 98.0 64 20 134/78 91 Intake and Output 03/03/17 03/03/17 03/04/17 15:00 23:00 07:00 Intake Total 100 ml 500 ml 450 ml Output Total 600 ml 450 ml Balance 100 ml -100 ml 0 ml Results Result Diagram: 03/01/17 0635 03/04/17 0540 Results 24 hrs Laboratory Tests Test 03/03/17 21:05 03/04/17 05:40 Vancomycin Level Trough 13.0 Blood Urea Nitrogen 15 Creatinine 1.07 Medications Medications Current Medications Amlodipine Besylate (Norvasc) 10 mg DAILY PO Last administered on 03/04/17 09: 17; Admin Dose 10 MG; Start 02/26/17 at 12:30 Lisinopril (Zestril) 5 mg DAILY PO Last administered on 03/04/17 09:17; Admin Dose 5 MG; Start 02/27/17 at 09:00 Ondansetron HCl (Zofran Inj) 4 mg Q6H PRN IV NAUSEA AND/OR VOMITING; Start at 12:30 Acetaminophen (Tylenol Tab) 650 mg Q6H PRN PO PAIN LEVEL 1-3 OR FEVER; Start at 12:30 Acetaminophen/ Hydrocodone Bitart ([place] (5/325)) 1 tab Q6H PRN PO MODERATE PAIN LEVEL 4-6; Start 02/26/17 at 12:30 Docusate Sodium (Colace) 100 mg Q12H PRN PO CONSTIPATION; Start 02/26/17 at 12: 30 Magnesium Hydroxide (Milk Of Mag) 30 ml DAILY PRN PO CONSTIPATION; Start at 12:30 Bisacodyl (Dulcolax) 5 mg DAILY PRN PO CONSTIPATION; Start 02/26/17 at 12:30 Bisacodyl (Dulcolax Supp) 10 mg DAILY PRN [place] CONSTIPATION; Start 02/26/17 at 12 :30 Sodium Biphosphate/ Sodium Phosphate (Fleet Enema) 133 ml DAILY PRN [place] CONSTIPATION; Start 02/26/17 at 12:30 Enoxaparin Sodium (Lovenox) 40 mg DAILY SC Last administered on 03/04/17 09:23 ; Admin Dose 40 MG; Start 02/27/17 at 09:00 Diagnostic Test (Pha) (Accu-Chek) 1 ea 02 XX ; Start 02/27/17 at 02:00 Hydralazine HCl (Apresoline) 10 mg Q4H PRN IV SBP>150 mm Hg Last administered on 02/26/17 12:47; Admin Dose 10 MG; Start 02/26/17 at 12:30 Miscellaneous Information 1 ea NOTE XX ; Start 02/26/17 at 13:00 Glucose (Glutose) 15 gm Q15M PRN PO DECREASED GLUCOSE; Start 02/26/17 at 13:00 Glucose (Glutose) 22.5 gm Q15M PRN PO DECREASED GLUCOSE; Start 02/26/17 at 13: 00 Dextrose (D50w Syringe) 25 ml Q15M PRN IV DECREASED GLUCOSE; Start 02/26/17 at 13:00 Dextrose (D50w Syringe) 50 ml Q15M PRN IV DECREASED GLUCOSE; Start 02/26/17 at 13:00 Glucagon (Glucagen) 1 mg Q15M PRN IM DECREASED GLUCOSE; Start 02/26/17 at 13:00 Glucose (Glutose) 15 gm Q15M PRN BUCCAL DECREASED GLUCOSE; Start 02/26/17 at 13 :00 Collagenase (Santyl) 1 applic DAILY TOP Last administered on 03/03/17 09:49; Admin Dose 1 APPLIC; Start 02/28/17 at 09:00 Gentamicin Sulfate 1 applic 1 applic HS TOP Last administered on 03/03/17 21:40 ; Admin Dose 1 APPLIC; Start 02/27/17 at 21:00 Vancomycin HCl (Vancocin) 250 ml @ 125 mls/hr Q24H IVPB Last administered on 21:40; Admin Dose 125 MLS/HR; Start 02/28/17 at 22:00 Pantoprazole 40 mg 40 mg BID@06,18 IV Last administered on 03/04/17 05:46; Admin Dose 40 MG; Start 03/02/17 at 06:00 Ceftazidime (Fortaz 1gm/50 ml (Pmx)) 50 ml @ 100 mls/hr Q12 IVPB Last administered on 03/04/17 12:49; Admin Dose 100 MLS/HR; Start 03/04/17 at 11:40 JV LARKIN MD Mar 04, 2017 16:28
[2017-03-04] MEDS: ASPIRIN (EC) 325 MG TAB PO SCH (16:30)
[2017-03-04] MEDS: LACTOBACILLUS RHAMNOSUS CAP PO SCH (17:00)
[2017-03-04] MEDS: DOCUSATE SODIUM 100 MG CAP PO SCH (17:04)
[2017-03-04] MEDS: LANSOPRAZOLE 30 MG CAP PO SCH (17:05)
--- NOTE | 2017-03-04 18:12 | CONS ---
Date/Time of Note Date/Time of Note DATE: 03/04/17 TIME: 18:11 Assessment/Plan Assessment/Plan Chief Complaint/Hosp Course Subjective: No acute changes overnight per RNs report, patient is awake looks comfortable no fevers Antimicrobials: Vancomycin, Fortaz Microbiology: Wound culture growing MRSA and Pseudomonas Physical examination: This is well-nourished fragile elderly man who is awake in no distress. Head atraumatic normocephalic, sclera nonicteric, bugle mucosa dry. Neck is supple. Chest rise symmetrical, breath sounds diminished basis Heart: S1-S2 Abdomen is soft, bowel tones present. Extremities without cyanosis, right heel dressing intact Assessment: 1. Right lower extremity ulceration with gangrenous changes 2. Peripheral vascular disease 3. Hypertension 4. Alzheimer's dementia Plan: Patient remains clinically stable, podiatry and vascular teams on case, continue antibiotics, continue aspiration precautions DW staff Problems: Consultation Date/Type/Reason Admit Date/Time Feb 26, 2017 at 05:26 Type of Consultation: Infectious disease Exam/Review of Systems Vital Signs Vitals Vital Signs Date Time Temp Pulse Resp B/P Pulse Ox O2 Delivery O2 Flow Rate FiO2 03/04/17 16:08 98.0 64 20 134/78 91 Intake and Output 03/03/17 03/03/17 03/04/17 15:00 23:00 07:00 Intake Total 100 ml 500 ml 450 ml Output Total 600 ml 450 ml Balance 100 ml -100 ml 0 ml Results Result Diagram: 03/01/17 0635 03/04/17 0540 Results 24 hrs Laboratory Tests Test 03/03/17 21:05 03/04/17 05:40 Vancomycin Level Trough 13.0 Blood Urea Nitrogen 15 Creatinine 1.07 Medications Medications Current Medications Amlodipine Besylate (Norvasc) 10 mg DAILY PO Last administered on 03/04/17 09: 17; Admin Dose 10 MG; Start 02/26/17 at 12:30 Lisinopril (Zestril) 5 mg DAILY PO Last administered on 03/04/17 09:17; Admin Dose 5 MG; Start 02/27/17 at 09:00 Ondansetron HCl (Zofran Inj) 4 mg Q6H PRN IV NAUSEA AND/OR VOMITING; Start at 12:30 Acetaminophen (Tylenol Tab) 650 mg Q6H PRN PO PAIN LEVEL 1-3 OR FEVER; Start at 12:30 Acetaminophen/ Hydrocodone Bitart ([place] (5/325)) 1 tab Q6H PRN PO MODERATE PAIN LEVEL 4-6; Start 02/26/17 at 12:30 Docusate Sodium (Colace) 100 mg Q12H PRN PO CONSTIPATION; Start 02/26/17 at 12: 30 Magnesium Hydroxide (Milk Of Mag) 30 ml DAILY PRN PO CONSTIPATION; Start at 12:30 Bisacodyl (Dulcolax) 5 mg DAILY PRN PO CONSTIPATION; Start 02/26/17 at 12:30 Bisacodyl (Dulcolax Supp) 10 mg DAILY PRN [place] CONSTIPATION; Start 02/26/17 at 12 :30 Sodium Biphosphate/ Sodium Phosphate (Fleet Enema) 133 ml DAILY PRN [place] CONSTIPATION; Start 02/26/17 at 12:30 Enoxaparin Sodium (Lovenox) 40 mg DAILY SC Last administered on 03/04/17 09:23 ; Admin Dose 40 MG; Start 02/27/17 at 09:00 Diagnostic Test (Pha) (Accu-Chek) 1 ea 02 XX ; Start 02/27/17 at 02:00 Hydralazine HCl (Apresoline) 10 mg Q4H PRN IV SBP>150 mm Hg Last administered on 02/26/17 12:47; Admin Dose 10 MG; Start 02/26/17 at 12:30 Miscellaneous Information 1 ea NOTE XX ; Start 02/26/17 at 13:00 Glucose (Glutose) 15 gm Q15M PRN PO DECREASED GLUCOSE; Start 02/26/17 at 13:00 Glucose (Glutose) 22.5 gm Q15M PRN PO DECREASED GLUCOSE; Start 02/26/17 at 13: 00 Dextrose (D50w Syringe) 25 ml Q15M PRN IV DECREASED GLUCOSE; Start 02/26/17 at 13:00 Dextrose (D50w Syringe) 50 ml Q15M PRN IV DECREASED GLUCOSE; Start 02/26/17 at 13:00 Glucagon (Glucagen) 1 mg Q15M PRN IM DECREASED GLUCOSE; Start 02/26/17 at 13:00 Glucose (Glutose) 15 gm Q15M PRN BUCCAL DECREASED GLUCOSE; Start 02/26/17 at 13 :00 Collagenase (Santyl) 1 applic DAILY TOP Last administered on 03/03/17 09:49; Admin Dose 1 APPLIC; Start 02/28/17 at 09:00 Gentamicin Sulfate 1 applic 1 applic HS TOP Last administered on 03/03/17 21:40 ; Admin Dose 1 APPLIC; Start 02/27/17 at 21:00 Vancomycin HCl 250 ml @ 125 mls/hr Q24H IVPB Last administered on 03/03/17 21: 40; Admin Dose 125 MLS/HR; Start 02/28/17 at 22:00 Ceftazidime (Fortaz 1gm/50 ml (Pmx)) 50 ml @ 100 mls/hr Q12 IVPB Last administered on 03/04/17 12:49; Admin Dose 100 MLS/HR; Start 03/04/17 at 11:40 Lansoprazole (Prevacid) 30 mg BID@06,18 PO Last administered on 03/04/17 17:05 ; Admin Dose 30 MG; Start 03/04/17 at 18:00 Lactobacillus Acidophilus/ Rhamnosus (Culturelle) 1 cap BID PO ; Start 03/04/17 at 17:00 Docusate Sodium (Colace) 100 mg HS PO ; Start 03/04/17 at 17:30 Aspirin (Ecotrin) 81 mg DAILY PO ; Start 03/04/17 at 16:30 TATIANA VENTURA NP Mar 04, 2017 18:12
[2017-03-04] MEDS: GENTAMICIN 0.1% 15 GM OINT TOP SCH (21:35)
[2017-03-04] MEDS: VANCOMYCIN 1 GM in NS 250 ML IVPB SCH (22:10)
[2017-03-05] MEDS: ACCU-CHEK XX SCH (02:00)
[2017-03-05] MEDS: LANSOPRAZOLE 30 MG CAP PO SCH ×2 (06:15→17:36)
[2017-03-05 06:41] LABS: CREATININE 1.01 mg/dl (0.61-1.24)
[2017-03-05 07:44] VITALS: BP 123/73; RESP 20
[2017-03-05] MEDS ORDERED: FAMOTIDINE 20 MG TAB PO SCH (09:00)
[2017-03-05] MEDS: ASPIRIN (EC) 325 MG TAB PO SCH (09:00)
[2017-03-05] MEDS: CEFTAZIDIME 1GM/50 ML (PMX) 50 ML IVPB SCH ×2 (09:35→20:36)
[2017-03-05] MEDS: AMLODIPINE 10 MG TAB PO SCH (09:37)
[2017-03-05] MEDS: LISINOPRIL 5 MG TAB PO SCH (09:37)
[2017-03-05] MEDS: LACTOBACILLUS RHAMNOSUS CAP PO SCH ×2 (09:37→20:36)
[2017-03-05] MEDS: COLLAGENASE 30 GM TUBE TOP SCH (09:38)
[2017-03-05] MEDS: ENOXAPARIN 40 MG/0.4 ML SYG SC SCH (09:41)
[2017-03-05 11:29] VITALS: BP 140/61; RESP 20
--- NOTE | 2017-03-05 12:33 | CONS ---
Date/Time of Note Date/Time of Note DATE: 03/05/17 TIME: 12:27 Assessment/Plan Assessment/Plan Chief Complaint/Hosp Course Right heel ulceration with gangrene unstageable PAD not candidate for revascularization Pain Cellulitis Flexion contracture right le Problems: Additional Assessment/Plan Staged excisional debridement right heel ulceration 24 sq cm skin and subcut with sharp instrumentation. EBL 15 cc. Hemostasis with compression. Cont. santyl for enzymatic debridement with daily dressing changes. Family deciding on SNF vs HH. Wound benefit from cont outpatient f/u. Consultation Date/Type/Reason Admit Date/Time Feb 26, 2017 at 05:26 Initial Consult Date Type of Consultation: Podiatry Reason for Consultation Surgical - left heel ulceration- staged debridement of ulceration 24 HR Interval Summary Constitutional: disoriented Detailed Summary Musculoskeletal: other ( position) Exam/Review of Systems Vital Signs Vitals Vital Signs Date Time Temp Pulse Resp B/P Pulse Ox O2 Delivery O2 Flow Rate FiO2 03/05/17 11:29 98.6 94 20 140/61 97 Intake and Output 03/04/17 03/04/17 03/05/17 15:00 23:00 07:00 Intake Total 670 ml 650 ml Output Total 350 ml Balance 320 ml 650 ml Exam Musculoskeletal: other ( position- heel protector on left foot) Skin: other (ulceration left posterior heel est 6 x 4 cm with necrotic skin/ subcutaneous tissue/ ligament. no malodor or lymphangitis. bone not exposed) Results Result Diagram: 03/01/17 0635 03/05/17 0538 Results 24 hrs Laboratory Tests Test 03/05/17 05:38 Blood Urea Nitrogen 15 Creatinine 1.01 Medications Medications Current Medications Amlodipine Besylate (Norvasc) 10 mg DAILY PO Last administered on 03/05/17 09: 37; Admin Dose 10 MG; Start 02/26/17 at 12:30 Lisinopril (Zestril) 5 mg DAILY PO Last administered on 03/05/17 09:37; Admin Dose 5 MG; Start 02/27/17 at 09:00 Ondansetron HCl (Zofran Inj) 4 mg Q6H PRN IV NAUSEA AND/OR VOMITING; Start at 12:30 Acetaminophen (Tylenol Tab) 650 mg Q6H PRN PO PAIN LEVEL 1-3 OR FEVER; Start at 12:30 Acetaminophen/ Hydrocodone Bitart ([place] (5/325)) 1 tab Q6H PRN PO MODERATE PAIN LEVEL 4-6; Start 02/26/17 at 12:30 Docusate Sodium (Colace) 100 mg Q12H PRN PO CONSTIPATION; Start 02/26/17 at 12: 30 Magnesium Hydroxide (Milk Of Mag) 30 ml DAILY PRN PO CONSTIPATION; Start at 12:30 Bisacodyl (Dulcolax) 5 mg DAILY PRN PO CONSTIPATION; Start 02/26/17 at 12:30 Bisacodyl (Dulcolax Supp) 10 mg DAILY PRN [place] CONSTIPATION; Start 02/26/17 at 12 :30 Sodium Biphosphate/ Sodium Phosphate (Fleet Enema) 133 ml DAILY PRN [place] CONSTIPATION; Start 02/26/17 at 12:30 Enoxaparin Sodium (Lovenox) 40 mg DAILY SC Last administered on 03/05/17 09:41 ; Admin Dose 40 MG; Start 02/27/17 at 09:00 Diagnostic Test (Pha) (Accu-Chek) 1 ea 02 XX ; Start 02/27/17 at 02:00 Hydralazine HCl (Apresoline) 10 mg Q4H PRN IV SBP>150 mm Hg Last administered on 02/26/17 12:47; Admin Dose 10 MG; Start 02/26/17 at 12:30 Miscellaneous Information 1 ea NOTE XX ; Start 02/26/17 at 13:00 Glucose (Glutose) 15 gm Q15M PRN PO DECREASED GLUCOSE; Start 02/26/17 at 13:00 Glucose (Glutose) 22.5 gm Q15M PRN PO DECREASED GLUCOSE; Start 02/26/17 at 13: 00 Dextrose (D50w Syringe) 25 ml Q15M PRN IV DECREASED GLUCOSE; Start 02/26/17 at 13:00 Dextrose (D50w Syringe) 50 ml Q15M PRN IV DECREASED GLUCOSE; Start 02/26/17 at 13:00 Glucagon (Glucagen) 1 mg Q15M PRN IM DECREASED GLUCOSE; Start 02/26/17 at 13:00 Glucose (Glutose) 15 gm Q15M PRN BUCCAL DECREASED GLUCOSE; Start 02/26/17 at 13 :00 Collagenase (Santyl) 1 applic DAILY TOP Last administered on 03/05/17 09:38; Admin Dose 1 APPLIC; Start 02/28/17 at 09:00 Gentamicin Sulfate 1 applic 1 applic HS TOP Last administered on 03/04/17 21:35 ; Admin Dose 1 APPLIC; Start 02/27/17 at 21:00 Vancomycin HCl 250 ml @ 125 mls/hr Q24H IVPB Last administered on 03/04/17 22: 10; Admin Dose 125 MLS/HR; Start 02/28/17 at 22:00 Ceftazidime (Fortaz 1gm/50 ml (Pmx)) 50 ml @ 100 mls/hr Q12 IVPB Last administered on 03/05/17 09:35; Admin Dose 100 MLS/HR; Start 03/04/17 at 11:40 Lansoprazole (Prevacid) 30 mg BID@06,18 PO Last administered on 03/05/17 06:15 ; Admin Dose 30 MG; Start 03/04/17 at 18:00 Lactobacillus Acidophilus/ Rhamnosus (Culturelle) 1 cap BID PO Last administered on 03/05/17 09:37; Admin Dose 1 CAP; Start 03/04/17 at 17:00 Docusate Sodium (Colace) 100 mg HS PO ; Start 03/04/17 at 17:30 Aspirin (Ecotrin) 81 mg DAILY PO ; Start 03/04/17 at 16:30 CAMILO KIM DPM Mar 05, 2017 12:33
--- NOTE | 2017-03-05 13:58 | CONS ---
Date/Time of Note Date/Time of Note DATE: 03/05/17 TIME: 13:56 Assessment/Plan Assessment/Plan Chief Complaint/Hosp Course Subjective: No acute changes overnight per RNs report, patient is awake, confused, looks comfortable no fevers Antimicrobials: Vancomycin, Fortaz Microbiology: Wound culture growing MRSA and Pseudomonas Physical examination: This is a chronically ill-appearing, well-developed, fragile elderly man who is awake, confused, in no distress. Head atraumatic normocephalic, sclera nonicteric, mucosa dry. Neck is supple. Chest rise symmetrical, breath sounds diminished basis Heart: S1-S2 Abdomen is soft, bowel tones present. Extremities without cyanosis, right heel dressing intact Assessment: 1. Right lower extremity ulceration with gangrenous changes 2. Peripheral vascular disease 3. Hypertension 4. Alzheimer's dementia Plan: Patient remains unchanged, clinically stable, podiatry and vascular teams on case, continue antibiotics, continue aspiration precautions DW staff Problems: Consultation Date/Type/Reason Admit Date/Time Feb 26, 2017 at 05:26 Type of Consultation: Infectious disease Exam/Review of Systems Vital Signs Vitals Vital Signs Date Time Temp Pulse Resp B/P Pulse Ox O2 Delivery O2 Flow Rate FiO2 03/05/17 11:29 98.6 94 20 140/61 97 Intake and Output 03/04/17 03/04/17 03/05/17 15:00 23:00 07:00 Intake Total 670 ml 650 ml Output Total 350 ml Balance 320 ml 650 ml Results Result Diagram: 03/01/17 0635 03/05/17 0538 Results 24 hrs Laboratory Tests Test 03/05/17 05:38 Blood Urea Nitrogen 15 Creatinine 1.01 Medications Medications Current Medications Amlodipine Besylate (Norvasc) 10 mg DAILY PO Last administered on 03/05/17 09: 37; Admin Dose 10 MG; Start 02/26/17 at 12:30 Lisinopril (Zestril) 5 mg DAILY PO Last administered on 03/05/17 09:37; Admin Dose 5 MG; Start 02/27/17 at 09:00 Ondansetron HCl (Zofran Inj) 4 mg Q6H PRN IV NAUSEA AND/OR VOMITING; Start at 12:30 Acetaminophen (Tylenol Tab) 650 mg Q6H PRN PO PAIN LEVEL 1-3 OR FEVER; Start at 12:30 Acetaminophen/ Hydrocodone Bitart ([place] (5/325)) 1 tab Q6H PRN PO MODERATE PAIN LEVEL 4-6; Start 02/26/17 at 12:30 Docusate Sodium (Colace) 100 mg Q12H PRN PO CONSTIPATION; Start 02/26/17 at 12: 30 Magnesium Hydroxide (Milk Of Mag) 30 ml DAILY PRN PO CONSTIPATION; Start at 12:30 Bisacodyl (Dulcolax) 5 mg DAILY PRN PO CONSTIPATION; Start 02/26/17 at 12:30 Bisacodyl (Dulcolax Supp) 10 mg DAILY PRN [place] CONSTIPATION; Start 02/26/17 at 12 :30 Sodium Biphosphate/ Sodium Phosphate (Fleet Enema) 133 ml DAILY PRN [place] CONSTIPATION; Start 02/26/17 at 12:30 Enoxaparin Sodium (Lovenox) 40 mg DAILY SC Last administered on 03/05/17 09:41 ; Admin Dose 40 MG; Start 02/27/17 at 09:00 Diagnostic Test (Pha) (Accu-Chek) 1 ea 02 XX ; Start 02/27/17 at 02:00 Hydralazine HCl (Apresoline) 10 mg Q4H PRN IV SBP>150 mm Hg Last administered on 02/26/17 12:47; Admin Dose 10 MG; Start 02/26/17 at 12:30 Miscellaneous Information 1 ea NOTE XX ; Start 02/26/17 at 13:00 Glucose (Glutose) 15 gm Q15M PRN PO DECREASED GLUCOSE; Start 02/26/17 at 13:00 Glucose (Glutose) 22.5 gm Q15M PRN PO DECREASED GLUCOSE; Start 02/26/17 at 13: 00 Dextrose (D50w Syringe) 25 ml Q15M PRN IV DECREASED GLUCOSE; Start 02/26/17 at 13:00 Dextrose (D50w Syringe) 50 ml Q15M PRN IV DECREASED GLUCOSE; Start 02/26/17 at 13:00 Glucagon (Glucagen) 1 mg Q15M PRN IM DECREASED GLUCOSE; Start 02/26/17 at 13:00 Glucose (Glutose) 15 gm Q15M PRN BUCCAL DECREASED GLUCOSE; Start 02/26/17 at 13 :00 Collagenase (Santyl) 1 applic DAILY TOP Last administered on 03/05/17 09:38; Admin Dose 1 APPLIC; Start 02/28/17 at 09:00 Gentamicin Sulfate 1 applic 1 applic HS TOP Last administered on 03/04/17 21:35 ; Admin Dose 1 APPLIC; Start 02/27/17 at 21:00 Vancomycin HCl 250 ml @ 125 mls/hr Q24H IVPB Last administered on 03/04/17 22: 10; Admin Dose 125 MLS/HR; Start 02/28/17 at 22:00 Ceftazidime (Fortaz 1gm/50 ml (Pmx)) 50 ml @ 100 mls/hr Q12 IVPB Last administered on 03/05/17 09:35; Admin Dose 100 MLS/HR; Start 03/04/17 at 11:40 Lansoprazole (Prevacid) 30 mg BID@06,18 PO Last administered on 03/05/17 06:15 ; Admin Dose 30 MG; Start 03/04/17 at 18:00 Lactobacillus Acidophilus/ Rhamnosus (Culturelle) 1 cap BID PO Last administered on 03/05/17 09:37; Admin Dose 1 CAP; Start 03/04/17 at 17:00 Docusate Sodium (Colace) 100 mg HS PO ; Start 03/04/17 at 17:30 Aspirin (Ecotrin) 81 mg DAILY PO ; Start 03/04/17 at 16:30 TATIANA VENTURA NP Mar 05, 2017 13:57
--- NOTE | 2017-03-05 14:24 | PN ---
Date/Time of Note Date/Time of Note DATE: 03/05/17 TIME: 14:22 Assessment/Plan VTE Prophylaxis VTE Prophylaxis Intervention: LMWH Lines/Catheters [facility] Peripheral IV Urinary Cath still in place: No (condom cath d/c per MD order) Assessment/Plan Chief Complaint/Hosp Course Subjective: 03/04 demented but eating. 03/05 no distress. Objective: Vss PE No pallor/ poor oral hygiene. Reg Clear Benign Hypotonia. Rt heel dressed: C/D/I A/P 1. Rt heel ulcer w gangrene. Sp debridement. Stable treat pain; cont wound care and possibly nwb status. DC to snf/home if ok w ID/podiatry. 2. Cellulitis/wound infection. Check w ID regarding atb's. Po vs PICC/ IV therapy. MRSA and Pseudomonas wound. 3. Chr PAD; stable, optimize medical management. Surgical intervention probably not beneficial due to his comorbidities. 4. Chr dementia; consider hospice. Needs advanced care planning reevaluated. 5. Ho GI bleed 6. Anemia, stable 7. Ftt, recommended snf. family wants to take him home. May depend on his ambulatory status. Problems: Exam/Review of Systems Vital Signs Vitals Vital Signs Date Time Temp Pulse Resp B/P Pulse Ox O2 Delivery O2 Flow Rate FiO2 03/05/17 11:29 98.6 94 20 140/61 97 Intake and Output 03/04/17 03/04/17 03/05/17 14:59 22:59 06:59 Intake Total 670 ml 650 ml Output Total 350 ml Balance 320 ml 650 ml Results Result Diagram: 03/01/17 0635 03/05/17 0538 Results 24 hrs Laboratory Tests Test 03/05/17 05:38 Blood Urea Nitrogen 15 Creatinine 1.01 Medications Medications Current Medications Amlodipine Besylate (Norvasc) 10 mg DAILY PO Last administered on 03/05/17 09: 37; Admin Dose 10 MG; Start 02/26/17 at 12:30 Lisinopril (Zestril) 5 mg DAILY PO Last administered on 03/05/17 09:37; Admin Dose 5 MG; Start 02/27/17 at 09:00 Ondansetron HCl (Zofran Inj) 4 mg Q6H PRN IV NAUSEA AND/OR VOMITING; Start at 12:30 Acetaminophen (Tylenol Tab) 650 mg Q6H PRN PO PAIN LEVEL 1-3 OR FEVER; Start at 12:30 Acetaminophen/ Hydrocodone Bitart ([place] (5/325)) 1 tab Q6H PRN PO MODERATE PAIN LEVEL 4-6; Start 02/26/17 at 12:30 Docusate Sodium (Colace) 100 mg Q12H PRN PO CONSTIPATION; Start 02/26/17 at 12: 30 Magnesium Hydroxide (Milk Of Mag) 30 ml DAILY PRN PO CONSTIPATION; Start at 12:30 Bisacodyl (Dulcolax) 5 mg DAILY PRN PO CONSTIPATION; Start 02/26/17 at 12:30 Bisacodyl (Dulcolax Supp) 10 mg DAILY PRN [place] CONSTIPATION; Start 02/26/17 at 12 :30 Sodium Biphosphate/ Sodium Phosphate (Fleet Enema) 133 ml DAILY PRN [place] CONSTIPATION; Start 02/26/17 at 12:30 Enoxaparin Sodium (Lovenox) 40 mg DAILY SC Last administered on 03/05/17t 09:41 ; Admin Dose 40 MG; Start 02/27/17 at 09:00 Diagnostic Test (Pha) (Accu-Chek) 1 ea 02 XX ; Start 02/27/17 at 02:00 Hydralazine HCl (Apresoline) 10 mg Q4H PRN IV SBP>150 mm Hg Last administered on 02/26/17t 12:47; Admin Dose 10 MG; Start 02/26/17 at 12:30 Miscellaneous Information 1 ea NOTE XX ; Start 02/26/17 at 13:00 Glucose (Glutose) 15 gm Q15M PRN PO DECREASED GLUCOSE; Start 02/26/17 at 13:00 Glucose (Glutose) 22.5 gm Q15M PRN PO DECREASED GLUCOSE; Start 02/26/17 at 13: 00 Dextrose (D50w Syringe) 25 ml Q15M PRN IV DECREASED GLUCOSE; Start 02/26/17 at 13:00 Dextrose (D50w Syringe) 50 ml Q15M PRN IV DECREASED GLUCOSE; Start 02/26/17 at 13:00 Glucagon (Glucagen) 1 mg Q15M PRN IM DECREASED GLUCOSE; Start 02/26/17 at 13:00 Glucose (Glutose) 15 gm Q15M PRN BUCCAL DECREASED GLUCOSE; Start 02/26/17 at 13 :00 Collagenase (Santyl) 1 applic DAILY TOP Last administered on 03/05/17 09:38; Admin Dose 1 APPLIC; Start 02/28/17 at 09:00 Gentamicin Sulfate 1 applic 1 applic HS TOP Last administered on 03/04/17 21:35 ; Admin Dose 1 APPLIC; Start 02/27/17 at 21:00 Vancomycin HCl 250 ml @ 125 mls/hr Q24H IVPB Last administered on 03/04/17 22: 10; Admin Dose 125 MLS/HR; Start 02/28/17 at 22:00 Ceftazidime (Fortaz 1gm/50 ml (Pmx)) 50 ml @ 100 mls/hr Q12 IVPB Last administered on 03/05/17 09:35; Admin Dose 100 MLS/HR; Start 03/04/17 at 11:40 Lansoprazole (Prevacid) 30 mg BID@06,18 PO Last administered on 03/05/17 06:15 ; Admin Dose 30 MG; Start 03/04/17 at 18:00 Lactobacillus Acidophilus/ Rhamnosus (Culturelle) 1 cap BID PO Last administered on 03/05/17 09:37; Admin Dose 1 CAP; Start 03/04/17 at 17:00 Docusate Sodium (Colace) 100 mg HS PO ; Start 03/04/17 at 17:30 Aspirin (Ecotrin) 81 mg DAILY PO ; Start 03/04/17 at 16:30 JV LARKIN MD Mar 05, 2017 14:24
[2017-03-05 15:43] VITALS: BP 123/82; RESP 20
[2017-03-05 20:13] VITALS: BP 104/54; RESP 16
[2017-03-05] MEDS: DOCUSATE SODIUM 100 MG CAP PO SCH (20:36)
[2017-03-05] MEDS: GENTAMICIN 0.1% 15 GM OINT TOP SCH (20:37)
[2017-03-05] MEDS: VANCOMYCIN 1 GM in NS 250 ML IVPB SCH (21:41)
[2017-03-06] MEDS: ACCU-CHEK XX SCH (02:00)
[2017-03-06] MEDS: LANSOPRAZOLE 30 MG CAP PO SCH ×2 (05:53→17:50)
[2017-03-06 08:03] VITALS: BP 132/73; RESP 18
[2017-03-06] MEDS: LACTOBACILLUS RHAMNOSUS CAP PO SCH ×2 (08:58→22:00)
[2017-03-06] MEDS: LISINOPRIL 5 MG TAB PO SCH (08:59)
[2017-03-06] MEDS: ASPIRIN (EC) 325 MG TAB PO SCH (08:59)
[2017-03-06] MEDS: AMLODIPINE 10 MG TAB PO SCH (08:59)
[2017-03-06] MEDS: COLLAGENASE 30 GM TUBE TOP SCH (09:03)
[2017-03-06] MEDS: ENOXAPARIN 40 MG/0.4 ML SYG SC SCH (09:04)
[2017-03-06] MEDS: CEFTAZIDIME 1GM/50 ML (PMX) 50 ML IVPB SCH ×2 (09:12→22:00)
--- NOTE | 2017-03-06 14:11 | CONS ---
Date/Time of Note Date/Time of Note DATE: 03/06/17 TIME: 14:10 Assessment/Plan Assessment/Plan Chief Complaint/Hosp Course Subjective: No acute changes overnight, confused, looks comfortable no fevers Antimicrobials: Vancomycin, Fortaz Microbiology: Wound culture growing MRSA and Pseudomonas Physical examination: This is a chronically ill-appearing, well-developed, fragile elderly man who is awake, confused, in no distress. Head atraumatic normocephalic, sclera nonicteric, mucosa dry. Neck is supple. Chest rise symmetrical, breath sounds diminished basis Heart: S1-S2 Abdomen is soft, bowel tones present. Extremities without cyanosis, right heel dressing intact Assessment: 1. Right lower extremity ulceration with gangrenous changes 2. Peripheral vascular disease 3. Hypertension 4. Alzheimer's dementia Plan: Patient remains unchanged, clinically stable, podiatry and vascular teams on case, continue antibiotics for 10 more day, may downgrade Vanco to Bactrim p.o., wound care per podiatry recommendations DW staff Problems: Consultation Date/Type/Reason Admit Date/Time Feb 26, 2017 at 05:26 Type of Consultation: Infectious disease Exam/Review of Systems Vital Signs Vitals Vital Signs Date Time Temp Pulse Resp B/P Pulse Ox O2 Delivery O2 Flow Rate FiO2 03/06/17 08:03 98.3 78 18 132/73 98 Intake and Output 03/05/17 03/05/17 03/06/17 15:00 23:00 07:00 Intake Total 770 ml 350 ml Balance 770 ml 350 ml Results Result Diagram: 03/05/17 0538 Medications Medications Current Medications Amlodipine Besylate (Norvasc) 10 mg DAILY PO Last administered on 03/06/17 08: 59; Admin Dose 10 MG; Start 02/26/17 at 12:30 Lisinopril (Zestril) 5 mg DAILY PO Last administered on 03/06/17 08:59; Admin Dose 5 MG; Start 02/27/17 at 09:00 Ondansetron HCl (Zofran Inj) 4 mg Q6H PRN IV NAUSEA AND/OR VOMITING; Start at 12:30 Acetaminophen (Tylenol Tab) 650 mg Q6H PRN PO PAIN LEVEL 1-3 OR FEVER; Start at 12:30 Acetaminophen/ Hydrocodone Bitart ([place] (5/325)) 1 tab Q6H PRN PO MODERATE PAIN LEVEL 4-6; Start 02/26/17 at 12:30 Docusate Sodium (Colace) 100 mg Q12H PRN PO CONSTIPATION; Start 02/26/17 at 12: 30 Magnesium Hydroxide (Milk Of Mag) 30 ml DAILY PRN PO CONSTIPATION; Start at 12:30 Bisacodyl (Dulcolax) 5 mg DAILY PRN PO CONSTIPATION; Start 02/26/17 at 12:30 Bisacodyl (Dulcolax Supp) 10 mg DAILY PRN [place] CONSTIPATION; Start 02/26/17 at 12 :30 Sodium Biphosphate/ Sodium Phosphate (Fleet Enema) 133 ml DAILY PRN [place] CONSTIPATION; Start 02/26/17 at 12:30 Enoxaparin Sodium (Lovenox) 40 mg DAILY SC Last administered on 03/06/17 09:04 ; Admin Dose 40 MG; Start 02/27/17 at 09:00 Diagnostic Test (Pha) (Accu-Chek) 1 ea 02 XX ; Start 02/27/17 at 02:00 Hydralazine HCl (Apresoline) 10 mg Q4H PRN IV SBP>150 mm Hg Last administered on 02/26/17 12:47; Admin Dose 10 MG; Start 02/26/17 at 12:30 Miscellaneous Information 1 ea NOTE XX ; Start 02/26/17 at 13:00 Glucose (Glutose) 15 gm Q15M PRN PO DECREASED GLUCOSE; Start 02/26/17 at 13:00 Glucose (Glutose) 22.5 gm Q15M PRN PO DECREASED GLUCOSE; Start 02/26/17 at 13: 00 Dextrose (D50w Syringe) 25 ml Q15M PRN IV DECREASED GLUCOSE; Start 02/26/17 at 13:00 Dextrose (D50w Syringe) 50 ml Q15M PRN IV DECREASED GLUCOSE; Start 02/26/17 at 13:00 Glucagon (Glucagen) 1 mg Q15M PRN IM DECREASED GLUCOSE; Start 02/26/17 at 13:00 Glucose (Glutose) 15 gm Q15M PRN BUCCAL DECREASED GLUCOSE; Start 02/26/17 at 13 :00 Collagenase (Santyl) 1 applic DAILY TOP Last administered on 03/06/17 09:03; Admin Dose 1 APPLIC; Start 02/28/17 at 09:00 Gentamicin Sulfate 1 applic 1 applic HS TOP Last administered on 03/05/17 20:37 ; Admin Dose 1 APPLIC; Start 02/27/17 at 21:00 Vancomycin HCl 250 ml @ 125 mls/hr Q24H IVPB Last administered on 03/05/17 21: 41; Admin Dose 125 MLS/HR; Start 02/28/17 at 22:00 Ceftazidime (Fortaz 1gm/50 ml (Pmx)) 50 ml @ 100 mls/hr Q12 IVPB Last administered on 03/06/17 09:12; Admin Dose 100 MLS/HR; Start 03/04/17 at 11:40 Lansoprazole (Prevacid) 30 mg BID@06,18 PO Last administered on 03/06/17 05:53 ; Admin Dose 30 MG; Start 03/04/17 at 18:00 Lactobacillus Acidophilus/ Rhamnosus (Culturelle) 1 cap BID PO Last administered on 03/06/17 08:58; Admin Dose 1 CAP; Start 03/04/17 at 17:00 Docusate Sodium (Colace) 100 mg HS PO Last administered on 03/05/17 20:36; Admin Dose 100 MG; Start 03/04/17 at 17:30 Aspirin (Ecotrin) 81 mg DAILY PO Last administered on 03/06/17 08:59; Admin Dose 81 MG; Start 03/04/17 at 16:30 TATIANA VENTURA NP Mar 06, 2017 14:11
--- NOTE | 2017-03-06 15:34 | PN ---
Date/Time of Note Date/Time of Note DATE: 03/06/17 TIME: 15:33 Assessment/Plan VTE Prophylaxis VTE Prophylaxis Intervention: LMWH Lines/Catheters IV Catheter Type (from Nrs): Saline Lock Assessment/Plan Chief Complaint/Hosp Course Subjective: 03/04 demented but eating. 03/05 no distress. 03/06 tolerating diet. No distress. Still demented. Daughter Cecy updated. Objective: Vss -RECOMMENDATIONS: - Right cheek wound: Clean with normal saline. Apply foam border dressing. Change every 2 days. Assess skin under dressing every shift. Recommended Accounting Director consult for further care. Discussed with Tony HUYNH. Will notify MD regarding plan of care. - Continue low air loss surface status. - Pericare/Sacrococcyx area: Apply Calazime cream every shift and as needed. Cover with foam border dressing. Change every 2-3 days. Assess skin under dressing every shift. - Readjust HeelMedix heel suspension device every reposition. - Reposition every 2 hours. Discussed assessment and plan of care with Tony HUYNH. TIM WarrenN RN CWOCN PE No pallor/ poor oral hygiene. Reg Clear Benign Hypotonia. Rt heel dressed: C/D/I A/P 1. Rt heel ulcer w gangrene. Sp debridement. Stable treat pain; cont wound care and possibly nwb status. DC to snf/home. 2. Cellulitis/wound infection. Antibiotics. MRSA and Pseudomonas wound. 3. Chr PAD; stable, optimize medical management. Surgical intervention not a candidate due to his comorbidities. 4. Chr dementia; consider hospice. Needs advanced care planning reevaluated. 5. Ho GI bleed 6. Anemia, stable 7. Ftt, recommended snf. family wants to take him home at some point. May depend on his ambulatory status. Problems: Exam/Review of Systems Vital Signs Vitals Vital Signs Date Time Temp Pulse Resp B/P Pulse Ox O2 Delivery O2 Flow Rate FiO2 03/06/17 08:03 98.3 78 18 132/73 98 Intake and Output 03/05/17 03/05/17 03/06/17 15:00 23:00 07:00 Intake Total 770 ml 350 ml Balance 770 ml 350 ml Results Result Diagram: 03/05/17 0538 Medications Medications Current Medications Amlodipine Besylate (Norvasc) 10 mg DAILY PO Last administered on 03/06/17 08: 59; Admin Dose 10 MG; Start 02/26/17 at 12:30 Lisinopril (Zestril) 5 mg DAILY PO Last administered on 03/06/17 08:59; Admin Dose 5 MG; Start 02/27/17 at 09:00 Ondansetron HCl (Zofran Inj) 4 mg Q6H PRN IV NAUSEA AND/OR VOMITING; Start at 12:30 Acetaminophen (Tylenol Tab) 650 mg Q6H PRN PO PAIN LEVEL 1-3 OR FEVER; Start at 12:30 Acetaminophen/ Hydrocodone Bitart ([place] (5/325)) 1 tab Q6H PRN PO MODERATE PAIN LEVEL 4-6; Start 02/26/17 at 12:30 Docusate Sodium (Colace) 100 mg Q12H PRN PO CONSTIPATION; Start 02/26/17 at 12: 30 Magnesium Hydroxide (Milk Of Mag) 30 ml DAILY PRN PO CONSTIPATION; Start at 12:30 Bisacodyl (Dulcolax) 5 mg DAILY PRN PO CONSTIPATION; Start 02/26/17 at 12:30 Bisacodyl (Dulcolax Supp) 10 mg DAILY PRN [place] CONSTIPATION; Start 02/26/17 at 12 :30 Sodium Biphosphate/ Sodium Phosphate (Fleet Enema) 133 ml DAILY PRN [place] CONSTIPATION; Start 02/26/17 at 12:30 Enoxaparin Sodium (Lovenox) 40 mg DAILY SC Last administered on 03/06/17 09:04 ; Admin Dose 40 MG; Start 02/27/17 at 09:00 Diagnostic Test (Pha) (Accu-Chek) 1 ea 02 XX ; Start 02/27/17 at 02:00 Hydralazine HCl (Apresoline) 10 mg Q4H PRN IV SBP>150 mm Hg Last administered on 02/26/17 12:47; Admin Dose 10 MG; Start 02/26/17 at 12:30 Miscellaneous Information 1 ea NOTE XX ; Start 02/26/17 at 13:00 Glucose (Glutose) 15 gm Q15M PRN PO DECREASED GLUCOSE; Start 02/26/17 at 13:00 Glucose (Glutose) 22.5 gm Q15M PRN PO DECREASED GLUCOSE; Start 02/26/17 at 13: 00 Dextrose (D50w Syringe) 25 ml Q15M PRN IV DECREASED GLUCOSE; Start 02/26/17 at 13:00 Dextrose (D50w Syringe) 50 ml Q15M PRN IV DECREASED GLUCOSE; Start 02/26/17 at 13:00 Glucagon (Glucagen) 1 mg Q15M PRN IM DECREASED GLUCOSE; Start 02/26/17 at 13:00 Glucose (Glutose) 15 gm Q15M PRN BUCCAL DECREASED GLUCOSE; Start 02/26/17 at 13 :00 Collagenase (Santyl) 1 applic DAILY TOP Last administered on 03/06/17 09:03; Admin Dose 1 APPLIC; Start 02/28/17 at 09:00 Gentamicin Sulfate 1 applic 1 applic HS TOP Last administered on 03/05/17 20:37 ; Admin Dose 1 APPLIC; Start 02/27/17 at 21:00 Vancomycin HCl 250 ml @ 125 mls/hr Q24H IVPB Last administered on 03/05/17 21: 41; Admin Dose 125 MLS/HR; Start 02/28/17 at 22:00 Ceftazidime (Fortaz 1gm/50 ml (Pmx)) 50 ml @ 100 mls/hr Q12 IVPB Last administered on 03/06/17 09:12; Admin Dose 100 MLS/HR; Start 03/04/17 at 11:40 Lansoprazole (Prevacid) 30 mg BID@06,18 PO Last administered on 03/06/17 05:53 ; Admin Dose 30 MG; Start 03/04/17 at 18:00 Lactobacillus Acidophilus/ Rhamnosus (Culturelle) 1 cap BID PO Last administered on 03/06/17 08:58; Admin Dose 1 CAP; Start 03/04/17 at 17:00 Docusate Sodium (Colace) 100 mg HS PO Last administered on 03/05/17 20:36; Admin Dose 100 MG; Start 03/04/17 at 17:30 Aspirin (Ecotrin) 81 mg DAILY PO Last administered on 03/06/17 08:59; Admin Dose 81 MG; Start 03/04/17 at 16:30 Miscellaneous Information (*Rx Drug Level Order Reminder*) VANCO TROUGH @ 2, 100 ON... ONCE ONCE XX ; Start 03/06/17 at 21:00; Stop 03/06/17 at 21:01 JV LARKIN MD Mar 06, 2017 15:34
--- NOTE | 2017-03-06 15:43 | DS ---
Date/Time of Note Date/Time of Note DATE: 03/06/17 TIME: 15:35 Discharge Summary Admission/Discharge Info Admit Date/Time Feb 26, 2017 at 05:26 Discharge Date/Time 03/06/17 Discharge Diagnosis Lower extremity heel wound/ulcer/cellulitis Patient Condition: Stable Consults Podiatry, infectious disease Hx of Present Illness Right heel pressure ulceration with gangrene. Pt transferred from [place] due to insurance. Poor historian. History per daughter. States improved appearance since initiating IV abx. Pt uses heel cushion at home and daugther assists with dressing changes. PT NWB. Hospital Course 89-year-old gentleman admitted with Rt heel ulcer w gangrene. Sp debridement. Was seen by podiatry and infectious disease. Plan is to continue wound care and nonweightbearing status at [facility]. Unfortunately due to severe deconditioning and comorbidities, I recommend he not go directly home. Recommend continue wound care at [facility]. If by chance he becomes ambulatory may go home. Family/Cecy agrees. In all honestly he has dementia and probably not walking well and I did recommend hospice. Recommend social service and hospice consult at snf. Antibiotics for 10 days of Bactrim and Fortaz. Additionally not a candidate for vascular prevention Subjective: 03/04 demented but eating. 03/05 no distress. 03/06 tolerating diet. No distress. Still demented. Daughter Cecy updated. Objective: Vss Wound care-RECOMMENDATIONS: - Right cheek wound: Clean with normal saline. Apply foam border dressing. Change every 2 days. Assess skin under dressing every shift. Recommended Clinical Engineering Manager consult for further care. Discussed with Tony HUYNH. Will notify MD regarding plan of care. - Continue low air loss surface status. - Pericare/Sacrococcyx area: Apply Calazime cream every shift and as needed. Cover with foam border dressing. Change every 2-3 days. Assess skin under dressing every shift. - Readjust HeelMedix heel suspension device every reposition. - Reposition every 2 hours. Discussed assessment and plan of care with Tony HUYNH. TIM WarrenN RN CWOCN Podiatry: sp staged excisional debridement right heel ulceration 24 sq cm skin and subcut with sharp instrumentation. EBL 15 cc. Hemostasis with compression. Cont. santyl for enzymatic debridement with daily dressing changes. A/P 1. Rt heel ulcer w gangrene. Sp debridement. Stable treat pain; cont wound care and possibly nwb status. DC to snf/home. 2. Cellulitis/wound infection. Antibiotics. MRSA and Pseudomonas wound. 3. Chr PAD; stable, optimize medical management. Surgical intervention not a candidate due to his comorbidities. 4. Chr dementia; consider hospice. Needs advanced care planning reevaluated. 5. Ho GI bleed 6. Anemia, stable 7. Ftt, recommended snf. family wants to take him home at some point. May depend on his ambulatory status. Discharge plan Appointment podiatry Dr Sarah Blanca 1- [address] Frederick as needed Appointment primary 1 week post discharge Social service/hospice care assistance./Consult New medications Fortaz and Bactrim for 10 days Lovenox for DVT prophylaxis Culturelle 1 capsule daily Tylenol as needed Home Meds Active Scripts Cephalexin* (Keflex*) 500 Mg Capsule, 500 MG PO TID, #21 CAP Prov:RUSTY DIALLO MD 01/01/17 Amlodipine Besylate* (Amlodipine Besylate*) 10 Mg Tablet, 10 MG PO DAILY, #90 TAB Prov:RUSTY DIALLO MD 01/01/17 Reported Medications Lisinopril* (Lisinopril*) 5 Mg Tablet, 5 MG PO DAILY, #30 TAB 12/29/16 Primary Care Provider JV Green MD Mar 06, 2017 15:42
--- NOTE | 2017-03-06 15:44 | PDOCDIS ---
Discharge Instructions DIAGNOSIS Discharge Diagnosis Lower extremity heel wound/ulcer/cellulitis CONDITION Patient Condition: Stable HOME CARE INSTRUCTIONS: Special Diet: pureed nectar thick diet ACTIVITY: Activity Restrictions: Slowly Increase Activity Activity Restrictions Comment: Nonweightbearing wounded leg FOLLOW UP/APPOINTMENTS Follow-up Plan Podiatry 1-2 weeks Infectious disease added as needed Social service for hospice consult assistance. Primary 1 week post discharge JV LARKIN MD Mar 06, 2017 15:44
[2017-03-06] MEDS ORDERED: SULF1TAB31 PO (15:45)
[2017-03-06 19:48] VITALS: BP 130/87; RESP 16
[2017-03-06] MEDS: DOCUSATE SODIUM 100 MG CAP PO SCH (22:00)
[2017-03-06] MEDS: GENTAMICIN 0.1% 15 GM OINT TOP SCH (22:50)
[2017-03-06] MEDS: VANCOMYCIN 1 GM in NS 250 ML IVPB SCH (23:11)
[2017-03-07] MEDS: ACCU-CHEK XX SCH (01:37)
[2017-03-07 02:03] VITALS: BP 136/71; RESP 18
[2017-03-07] MEDS: LANSOPRAZOLE 30 MG CAP PO SCH ×2 (05:24→17:41)
[2017-03-07 06:03] LABS: CREATININE 0.91 mg/dl (0.61-1.24)
[2017-03-07 07:32] VITALS: BP 153/71; RESP 18
[2017-03-07] MEDS: ENOXAPARIN 40 MG/0.4 ML SYG SC SCH (08:22)
[2017-03-07] MEDS: CEFTAZIDIME 1GM/50 ML (PMX) 50 ML IVPB SCH ×2 (08:23→20:10)
[2017-03-07] MEDS: AMLODIPINE 10 MG TAB PO SCH (08:24)
[2017-03-07] MEDS: LISINOPRIL 5 MG TAB PO SCH (08:24)
[2017-03-07] MEDS: LACTOBACILLUS RHAMNOSUS CAP PO SCH ×2 (08:24→20:10)
[2017-03-07] MEDS: ASPIRIN (EC) 325 MG TAB PO SCH (08:24)
[2017-03-07] MEDS: COLLAGENASE 30 GM TUBE TOP SCH ×2 (09:00→15:21)
[2017-03-07 14:31] VITALS: BP 142/67; RESP 20
--- NOTE | 2017-03-07 14:48 | CONS ---
Date/Time of Note Date/Time of Note DATE: 03/07/17 TIME: 14:39 Consult Date/Type/Reason Admit Date/Time Feb 26, 2017 at 05:26 Type of Consultation: Podiatry: Dr. Nora lopez Reason for Consultation Right heel ulcer, gangrenous changes. MRSA. PVD, not a candidate for revascularization. Pending Discharge planning to SNF. Objective Dressing is D/C/I. Heel protectors are in place. Right heel ulcer, involving fat and muscle layer, also eshcar/unstageable. 5 x 2.5 cm. PVD. Wound margins are irregular. No probing. No ascending cellulitis. Wound Cx is positive for MRSA and pseudomonas. Mild drainage. No malodor. Vital Signs Date Time Temp Pulse Resp B/P Pulse Ox O2 Delivery O2 Flow Rate FiO2 03/07/17 07:32 98.1 78 18 153/71 97 Intake and Output 03/06/17 03/06/17 03/07/17 15:00 23:00 07:00 Intake Total 50 ml 730 ml 300 ml Balance 50 ml 730 ml 300 ml Results/Medications Result Diagram: 03/07/17 0415 Results 24 hrs Laboratory Tests Test 03/06/17 21:09 03/07/17 04:15 Vancomycin Level Trough 13.9 Blood Urea Nitrogen 17 Creatinine 0.91 Medications Current Medications Amlodipine Besylate (Norvasc) 10 mg DAILY PO Last administered on 03/07/17 08: 24; Admin Dose 10 MG; Start 02/26/17 at 12:30 Lisinopril (Zestril) 5 mg DAILY PO Last administered on 03/07/17 08:24; Admin Dose 5 MG; Start 02/27/17 at 09:00 Ondansetron HCl (Zofran Inj) 4 mg Q6H PRN IV NAUSEA AND/OR VOMITING; Start at 12:30 Acetaminophen (Tylenol Tab) 650 mg Q6H PRN PO PAIN LEVEL 1-3 OR FEVER; Start at 12:30 Acetaminophen/ Hydrocodone Bitart ([place] (5/325)) 1 tab Q6H PRN PO MODERATE PAIN LEVEL 4-6; Start 02/26/17 at 12:30 Docusate Sodium (Colace) 100 mg Q12H PRN PO CONSTIPATION; Start 02/26/17 at 12: 30 Magnesium Hydroxide (Milk Of Mag) 30 ml DAILY PRN PO CONSTIPATION; Start at 12:30 Bisacodyl (Dulcolax) 5 mg DAILY PRN PO CONSTIPATION; Start 02/26/17 at 12:30 Bisacodyl (Dulcolax Supp) 10 mg DAILY PRN [place] CONSTIPATION; Start 02/26/17 at 12 :30 Sodium Biphosphate/ Sodium Phosphate (Fleet Enema) 133 ml DAILY PRN [place] CONSTIPATION; Start 02/26/17 at 12:30 Enoxaparin Sodium (Lovenox) 40 mg DAILY SC Last administered on 03/07/17 08:22 ; Admin Dose 40 MG; Start 02/27/17 at 09:00 Diagnostic Test (Pha) (Accu-Chek) 1 ea 02 XX ; Start 02/27/17 at 02:00 Hydralazine HCl (Apresoline) 10 mg Q4H PRN IV SBP>150 mm Hg Last administered on 02/26/17 12:47; Admin Dose 10 MG; Start 02/26/17 at 12:30 Miscellaneous Information 1 ea NOTE XX ; Start 02/26/17 at 13:00 Glucose (Glutose) 15 gm Q15M PRN PO DECREASED GLUCOSE; Start 02/26/17 at 13:00 Glucose (Glutose) 22.5 gm Q15M PRN PO DECREASED GLUCOSE; Start 02/26/17 at 13: 00 Dextrose (D50w Syringe) 25 ml Q15M PRN IV DECREASED GLUCOSE; Start 02/26/17 at 13:00 Dextrose (D50w Syringe) 50 ml Q15M PRN IV DECREASED GLUCOSE; Start 02/26/17 at 13:00 Glucagon (Glucagen) 1 mg Q15M PRN IM DECREASED GLUCOSE; Start 02/26/17 at 13:00 Glucose (Glutose) 15 gm Q15M PRN BUCCAL DECREASED GLUCOSE; Start 02/26/17 at 13 :00 Collagenase (Santyl) 1 applic DAILY TOP Last administered on 03/06/17 09:03; Admin Dose 1 APPLIC; Start 02/28/17 at 09:00 Gentamicin Sulfate 1 applic 1 applic HS TOP Last administered on 03/06/17 22:50 ; Admin Dose 1 APPLIC; Start 02/27/17 at 21:00 Vancomycin HCl 250 ml @ 125 mls/hr Q24H IVPB Last administered on 03/06/17 23: 11; Admin Dose 125 MLS/HR; Start 02/28/17 at 22:00 Ceftazidime (Fortaz 1gm/50 ml (Pmx)) 50 ml @ 100 mls/hr Q12 IVPB Last administered on 03/07/17 08:23; Admin Dose 100 MLS/HR; Start 03/04/17 at 11:40 Lansoprazole (Prevacid) 30 mg BID@06,18 PO Last administered on 03/07/17 05:24 ; Admin Dose 30 MG; Start 03/04/17 at 18:00 Lactobacillus Acidophilus/ Rhamnosus (Culturelle) 1 cap BID PO Last administered on 03/07/17 08:24; Admin Dose 1 CAP; Start 03/04/17 at 17:00 Docusate Sodium (Colace) 100 mg HS PO Last administered on 03/05/17 20:36; Admin Dose 100 MG; Start 03/04/17 at 17:30 Aspirin (Ecotrin) 81 mg DAILY PO Last administered on 03/07/17 08:24; Admin Dose 81 MG; Start 03/04/17 at 16:30 Assessment/Plan Chief Complaint/Hosp Course Right heel ulceration with gangrene unstageable. PAD, not a candidate for revascularization Pain. Cellulitis. Flexion contracture Right LE. Assessment/Plan Continue Local wound care. Today, sharp, excisional, selective debridement, #15 blade. 1.5 cm2 area of eschar tissue. Less than 1 cc blood loss. Hemostatis achieved with pressure. Applied gentamicin, non-adherent, gauze, kerlix, and paper tape. Applied heel protectors. Planning for Discharge to SNF due to MRSA. Will monitor. Problems: ELIZABETH JOHN DPM Mar 07, 2017 14:47
--- NOTE | 2017-03-07 15:13 | PN ---
Date/Time of Note Date/Time of Note DATE: 03/07/17 TIME: 15:12 Assessment/Plan VTE Prophylaxis VTE Prophylaxis Intervention: LMWH Lines/Catheters IV [facility]from [facility] Saline Lock Assessment/Plan Chief Complaint/Hosp Course 89-year-old gentleman admitted with Rt heel ulcer w gangrene. Sp debridement. Was seen by podiatry and infectious disease. Plan is to continue wound care and nonweightbearing status at [facility]. Unfortunately due to severe deconditioning and comorbidities, I recommend he not go directly home. Recommend continue wound care at [facility]. If by chance he becomes ambulatory may go home. Family/Cecy agrees. In all honestly he has dementia and probably not walking well and I did recommend hospice. Recommend social service and hospice consult at snf. Antibiotics for 10 days of Bactrim and Fortaz. Additionally not a candidate for vascular prevention Subjective: 03/04 demented but eating. 03/05 no distress. 03/06 tolerating diet. No distress. Still demented. Daughter Cecy updated. 03/07: No events. Status post repeat debridement. Pending sniff placement. Objective: Vss Wound care-RECOMMENDATIONS: - Right cheek wound: Clean with normal saline. Apply foam border dressing. Change every 2 days. Assess skin under dressing every shift. Recommended Process Assistant consult for further care. Discussed with Tony HUYNH. Will notify MD regarding plan of care. - Continue low air loss surface status. - Pericare/Sacrococcyx area: Apply Calazime cream every shift and as needed. Cover with foam border dressing. Change every 2-3 days. Assess skin under dressing every shift. - Readjust HeelMedix heel suspension device every reposition. - Reposition every 2 hours. Discussed assessment and plan of care with Tony HUYNH. JOSEFA Warren RN CWOCN Podiatry: sp staged excisional debridement right heel ulceration 24 sq cm skin and subcut with sharp instrumentation. EBL 15 cc. Hemostasis with compression. Cont. santyl for enzymatic debridement with daily dressing changes. A/P 1. Rt heel ulcer w gangrene. Sp debridement. Stable treat pain; cont wound care and possibly nwb status. DC to snf/home. 2. Cellulitis/wound infection. Antibiotics. MRSA and Pseudomonas wound. 3. Chr PAD; stable, optimize medical management. Surgical intervention not a candidate due to his comorbidities. 4. Chr dementia; consider hospice. Needs advanced care planning reevaluated. 5. Ho GI bleed 6. Anemia, stable 7. Ftt, recommended snf. family wants to take him home at some point. May depend on his ambulatory status. Discharge plan Appointment podiatry Dr Sarah Blanca 1- [address] Frederick as needed Appointment primary 1 week post discharge Social service/hospice care assistance./Consult New medications Fortaz and Bactrim for 10 days Lovenox for DVT prophylaxis Culturelle 1 capsule daily Tylenol as needed Problems: Exam/Review of Systems Vital Signs Vitals Vital Signs Date Time Temp Pulse Resp B/P Pulse Ox O2 Delivery O2 Flow Rate FiO2 03/07/17 14:31 97.8 87 20 142/67 96 Intake and Output 03/06/17 03/06/17 03/07/17 15:00 23:00 07:00 Intake Total 50 ml 730 ml 300 ml Balance 50 ml 730 ml 300 ml Results Result Diagram: 03/07/17 0415 Results 24 hrs Laboratory Tests Test 03/06/17 21:09 03/07/17 04:15 Vancomycin Level Trough 13.9 Blood Urea Nitrogen 17 Creatinine 0.91 Medications Medications Current Medications Amlodipine Besylate (Norvasc) 10 mg DAILY PO Last administered on 03/07/17 08: 24; Admin Dose 10 MG; Start 02/26/17 at 12:30 Lisinopril (Zestril) 5 mg DAILY PO Last administered on 03/07/17 08:24; Admin Dose 5 MG; Start 02/27/17 at 09:00 Ondansetron HCl (Zofran Inj) 4 mg Q6H PRN IV NAUSEA AND/OR VOMITING; Start at 12:30 Acetaminophen (Tylenol Tab) 650 mg Q6H PRN PO PAIN LEVEL 1-3 OR FEVER; Start at 12:30 Acetaminophen/ Hydrocodone Bitart ([place] (5/325)) 1 tab Q6H PRN PO MODERATE PAIN LEVEL 4-6; Start 02/26/17 at 12:30 Docusate Sodium (Colace) 100 mg Q12H PRN PO CONSTIPATION; Start 02/26/17 at 12: 30 Magnesium Hydroxide (Milk Of Mag) 30 ml DAILY PRN PO CONSTIPATION; Start at 12:30 Bisacodyl (Dulcolax) 5 mg DAILY PRN PO CONSTIPATION; Start 02/26/17 at 12:30 Bisacodyl (Dulcolax Supp) 10 mg DAILY PRN [place] CONSTIPATION; Start 02/26/17 at 12 :30 Sodium Biphosphate/ Sodium Phosphate (Fleet Enema) 133 ml DAILY PRN [place] CONSTIPATION; Start 02/26/17 at 12:30 Enoxaparin Sodium (Lovenox) 40 mg DAILY SC Last administered on 03/07/17 08:22 ; Admin Dose 40 MG; Start 02/27/17 at 09:00 Diagnostic Test (Pha) (Accu-Chek) 1 ea 02 XX ; Start 02/27/17 at 02:00 Hydralazine HCl (Apresoline) 10 mg Q4H PRN IV SBP>150 mm Hg Last administered on 02/26/17 12:47; Admin Dose 10 MG; Start 02/26/17 at 12:30 Miscellaneous Information 1 ea NOTE XX ; Start 02/26/17 at 13:00 Glucose (Glutose) 15 gm Q15M PRN PO DECREASED GLUCOSE; Start 02/26/17 at 13:00 Glucose (Glutose) 22.5 gm Q15M PRN PO DECREASED GLUCOSE; Start 02/26/17 at 13: 00 Dextrose (D50w Syringe) 25 ml Q15M PRN IV DECREASED GLUCOSE; Start 02/26/17 at 13:00 Dextrose (D50w Syringe) 50 ml Q15M PRN IV DECREASED GLUCOSE; Start 02/26/17 at 13:00 Glucagon (Glucagen) 1 mg Q15M PRN IM DECREASED GLUCOSE; Start 02/26/17 at 13:00 Glucose (Glutose) 15 gm Q15M PRN BUCCAL DECREASED GLUCOSE; Start 02/26/17 at 13 :00 Collagenase (Santyl) 1 applic DAILY TOP Last administered on 03/06/17 09:03; Admin Dose 1 APPLIC; Start 02/28/17 at 09:00 Gentamicin Sulfate 1 applic 1 applic HS TOP Last administered on 03/06/17 22:50 ; Admin Dose 1 APPLIC; Start 02/27/17 at 21:00 Vancomycin HCl 250 ml @ 125 mls/hr Q24H IVPB Last administered on 03/06/17 23: 11; Admin Dose 125 MLS/HR; Start 02/28/17 at 22:00 Ceftazidime (Fortaz 1gm/50 ml (Pmx)) 50 ml @ 100 mls/hr Q12 IVPB Last administered on 03/07/17 08:23; Admin Dose 100 MLS/HR; Start 03/04/17 at 11:40 Lansoprazole (Prevacid) 30 mg BID@06,18 PO Last administered on 03/07/17 05:24 ; Admin Dose 30 MG; Start 03/04/17 at 18:00 Lactobacillus Acidophilus/ Rhamnosus (Culturelle) 1 cap BID PO Last administered on 03/07/17 08:24; Admin Dose 1 CAP; Start 03/04/17 at 17:00 Docusate Sodium (Colace) 100 mg HS PO Last administered on 03/05/17 20:36; Admin Dose 100 MG; Start 03/04/17 at 17:30 Aspirin (Ecotrin) 81 mg DAILY PO Last administered on 03/07/17 08:24; Admin Dose 81 MG; Start 03/04/17 at 16:30 JV LARKIN MD Mar 07, 2017 15:13
--- NOTE | 2017-03-07 19:07 | CONS ---
Date/Time of Note Date/Time of Note DATE: 03/07/17 TIME: 19:07 Assessment/Plan Assessment/Plan Chief Complaint/Hosp Course Subjective: No acute changes overnight, confused, looks comfortable no fevers Antimicrobials: Vancomycin, Fortaz Microbiology: Wound culture growing MRSA and Pseudomonas Physical examination: This is a chronically ill-appearing, well-developed, fragile elderly man who is awake, confused, in no distress. Head atraumatic normocephalic, sclera nonicteric, mucosa dry. Neck is supple. Chest rise symmetrical, breath sounds diminished basis Heart: S1-S2 Abdomen is soft, bowel tones present. Extremities without cyanosis, right heel dressing intact Assessment: 1. Right lower extremity ulceration with gangrenous changes 2. Peripheral vascular disease 3. Hypertension 4. Alzheimer's dementia Plan: Patient remains unchanged, clinically stable, podiatry and vascular teams on case, continue antibiotics for 10 more day, may downgrade Vanco to Bactrim p.o., wound care per podiatry recommendations [facility] staff Problems: Consultation Date/Type/Reason Admit Date/Time Feb 26, 2017 at 05:26 Type of Consultation: ID Exam/Review of Systems Vital Signs Vitals Vital Signs Date Time Temp Pulse Resp B/P Pulse Ox O2 Delivery O2 Flow Rate FiO2 03/07/17 14:31 97.8 87 20 142/67 96 Intake and Output 03/06/17 03/06/17 03/07/17 15:00 23:00 07:00 Intake Total 50 ml 730 ml 300 ml Balance 50 ml 730 ml 300 ml Results Result Diagram: 03/07/17 0415 Results 24 hrs Laboratory Tests Test 03/06/17 21:09 03/07/17 04:15 Vancomycin Level Trough 13.9 Blood Urea Nitrogen 17 Creatinine 0.91 Medications Medications Current Medications Amlodipine Besylate (Norvasc) 10 mg DAILY PO Last administered on 03/07/17 08: 24; Admin Dose 10 MG; Start 02/26/17 at 12:30 Lisinopril (Zestril) 5 mg DAILY PO Last administered on 03/07/17 08:24; Admin Dose 5 MG; Start 02/27/17 at 09:00 Ondansetron HCl (Zofran Inj) 4 mg Q6H PRN IV NAUSEA AND/OR VOMITING; Start at 12:30 Acetaminophen (Tylenol Tab) 650 mg Q6H PRN PO PAIN LEVEL 1-3 OR FEVER; Start at 12:30 Acetaminophen/ Hydrocodone Bitart ([place] (5/325)) 1 tab Q6H PRN PO MODERATE PAIN LEVEL 4-6; Start 02/26/17 at 12:30 Docusate Sodium (Colace) 100 mg Q12H PRN PO CONSTIPATION; Start 02/26/17 at 12: 30 Magnesium Hydroxide (Milk Of Mag) 30 ml DAILY PRN PO CONSTIPATION; Start at 12:30 Bisacodyl (Dulcolax) 5 mg DAILY PRN PO CONSTIPATION; Start 02/26/17 at 12:30 Bisacodyl (Dulcolax Supp) 10 mg DAILY PRN [place] CONSTIPATION; Start 02/26/17 at 12 :30 Sodium Biphosphate/ Sodium Phosphate (Fleet Enema) 133 ml DAILY PRN [place] CONSTIPATION; Start 02/26/17 at 12:30 Enoxaparin Sodium (Lovenox) 40 mg DAILY SC Last administered on 03/07/17 08:22 ; Admin Dose 40 MG; Start 02/27/17 at 09:00 Diagnostic Test (Pha) (Accu-Chek) 1 ea 02 XX ; Start 02/27/17 at 02:00 Hydralazine HCl (Apresoline) 10 mg Q4H PRN IV SBP>150 mm Hg Last administered on 02/26/17 12:47; Admin Dose 10 MG; Start 02/26/17 at 12:30 Miscellaneous Information 1 ea NOTE XX ; Start 02/26/17 at 13:00 Glucose (Glutose) 15 gm Q15M PRN PO DECREASED GLUCOSE; Start 02/26/17 at 13:00 Glucose (Glutose) 22.5 gm Q15M PRN PO DECREASED GLUCOSE; Start 02/26/17 at 13: 00 Dextrose (D50w Syringe) 25 ml Q15M PRN IV DECREASED GLUCOSE; Start 02/26/17 at 13:00 Dextrose (D50w Syringe) 50 ml Q15M PRN IV DECREASED GLUCOSE; Start 02/26/17 at 13:00 Glucagon (Glucagen) 1 mg Q15M PRN IM DECREASED GLUCOSE; Start 02/26/17 at 13:00 Glucose (Glutose) 15 gm Q15M PRN BUCCAL DECREASED GLUCOSE; Start 02/26/17 at 13 :00 Collagenase (Santyl) 1 applic DAILY TOP Last administered on 03/06/17 09:03; Admin Dose 1 APPLIC; Start 02/28/17 at 09:00 Gentamicin Sulfate 1 applic 1 applic HS TOP Last administered on 03/06/17 22:50 ; Admin Dose 1 APPLIC; Start 02/27/17 at 21:00 Vancomycin HCl 250 ml @ 125 mls/hr Q24H IVPB Last administered on 03/06/17 23: 11; Admin Dose 125 MLS/HR; Start 02/28/17 at 22:00 Ceftazidime (Fortaz 1gm/50 ml (Pmx)) 50 ml @ 100 mls/hr Q12 IVPB Last administered on 03/07/17 08:23; Admin Dose 100 MLS/HR; Start 03/04/17 at 11:40 Lansoprazole (Prevacid) 30 mg BID@06,18 PO Last administered on 03/07/17 17:41 ; Admin Dose 30 MG; Start 03/04/17 at 18:00 Lactobacillus Acidophilus/ Rhamnosus (Culturelle) 1 cap BID PO Last administered on 03/07/17 08:24; Admin Dose 1 CAP; Start 03/04/17 at 17:00 Docusate Sodium (Colace) 100 mg HS PO Last administered on 03/05/17 20:36; Admin Dose 100 MG; Start 03/04/17 at 17:30 Aspirin (Ecotrin) 81 mg DAILY PO Last administered on 03/07/17 08:24; Admin Dose 81 MG; Start 03/04/17 at 16:30 TATIANA VENTURA NP Mar 07, 2017 19:07
[2017-03-07] MEDS: DOCUSATE SODIUM 10 MG/ML (10ML CUP) PO SCH (20:10)
[2017-03-07] MEDS: GENTAMICIN 0.1% 15 GM OINT TOP SCH (20:12)
[2017-03-07 20:56] VITALS: BP 98/61; RESP 19
[2017-03-07] MEDS: VANCOMYCIN 1 GM in NS 250 ML IVPB SCH (21:14)
[2017-03-08] MEDS: ACCU-CHEK XX SCH (01:59)
[2017-03-08 02:00] VITALS: BP 110/59; PULSE 74; RESP 20
[2017-03-08] MEDS: LANSOPRAZOLE 30 MG CAP PO SCH ×2 (06:21→18:00)
[2017-03-08 07:05] VITALS: BP 118/70; RESP 18
[2017-03-08] MEDS: LACTOBACILLUS RHAMNOSUS CAP PO SCH ×2 (09:00→20:41)
[2017-03-08] MEDS: ASPIRIN (EC) 325 MG TAB PO SCH (09:00)
[2017-03-08] MEDS: AMLODIPINE 10 MG TAB PO SCH (09:00)
[2017-03-08] MEDS: COLLAGENASE 30 GM TUBE TOP SCH (09:00)
[2017-03-08] MEDS: LISINOPRIL 5 MG TAB PO SCH (09:00)
[2017-03-08] MEDS: CEFTAZIDIME 1GM/50 ML (PMX) 50 ML IVPB SCH ×2 (09:40→20:42)
[2017-03-08] MEDS: ENOXAPARIN 40 MG/0.4 ML SYG SC SCH (09:41)
[2017-03-08 14:03] VITALS: BP 163/63; RESP 18
[2017-03-08] MEDS: hydrALAzine 20 MG INJ IV PRN (14:55)
[2017-03-08 15:51] VITALS: BP 131/71; PULSE 94; RESP 20
--- NOTE | 2017-03-08 16:43 | CONS ---
Date/Time of Note Date/Time of Note DATE: 03/08/17 TIME: 16:42 Assessment/Plan Assessment/Plan Chief Complaint/Hosp Course Patient is lying comfortably in bed, he is awake confused in no distress BUN 17 creatinine 0.91 Antimicrobials: Vancomycin, Fortaz Microbiology: Wound culture growing MRSA and Pseudomonas Physical examination: This is a chronically ill-appearing, well-developed, fragile elderly man who is awake, confused, in no distress. Head atraumatic normocephalic, sclera nonicteric, mucosa dry. Neck is supple. Chest rise symmetrical, breath sounds diminished basis Heart: S1-S2 Abdomen is soft, bowel tones present. Extremities without cyanosis, right heel dressing intact Assessment: 1. Right lower extremity ulceration with gangrenous changes 2. Peripheral vascular disease 3. Hypertension 4. Alzheimer's dementia Plan: Patient remains unchanged, clinically stable, podiatry and vascular teams on case, continue antibiotics for 10 more day, may downgrade Vanco to Bactrim p.o., wound care per podiatry recommendations [facility] staff Problems: Consultation Date/Type/Reason Admit Date/Time Feb 26, 2017 at 05:26 Type of Consultation: ID Exam/Review of Systems Vital Signs Vitals Vital Signs Date Time Temp Pulse Resp B/P Pulse Ox O2 Delivery O2 Flow Rate FiO2 03/08/17 15:51 94 20 131/71 03/08/17 14:03 98.3 97 03/08/17 02:00 Room Air Intake and Output 03/07/17 03/07/17 03/08/17 15:00 23:00 07:00 Intake Total 50 ml 390 ml 370 ml Balance 50 ml 390 ml 370 ml Results Result Diagram: 03/07/17 0415 Medications Medications Current Medications Amlodipine Besylate (Norvasc) 10 mg DAILY PO Last administered on 03/07/17 08: 24; Admin Dose 10 MG; Start 02/26/17 at 12:30 Lisinopril (Zestril) 5 mg DAILY PO Last administered on 03/07/17 08:24; Admin Dose 5 MG; Start 02/27/17 at 09:00 Ondansetron HCl (Zofran Inj) 4 mg Q6H PRN IV NAUSEA AND/OR VOMITING; Start at 12:30 Acetaminophen (Tylenol Tab) 650 mg Q6H PRN PO PAIN LEVEL 1-3 OR FEVER; Start at 12:30 Acetaminophen/ Hydrocodone Bitart ([place] (5/325)) 1 tab Q6H PRN PO MODERATE PAIN LEVEL 4-6; Start 02/26/17 at 12:30 Docusate Sodium (Colace) 100 mg Q12H PRN PO CONSTIPATION; Start 02/26/17 at 12: 30 Magnesium Hydroxide (Milk Of Mag) 30 ml DAILY PRN PO CONSTIPATION; Start at 12:30 Bisacodyl (Dulcolax) 5 mg DAILY PRN PO CONSTIPATION; Start 02/26/17 at 12:30 Bisacodyl (Dulcolax Supp) 10 mg DAILY PRN [place] CONSTIPATION; Start 02/26/17 at 12 :30 Sodium Biphosphate/ Sodium Phosphate (Fleet Enema) 133 ml DAILY PRN [place] CONSTIPATION; Start 02/26/17 at 12:30 Enoxaparin Sodium (Lovenox) 40 mg DAILY SC Last administered on 03/08/17 09:41 ; Admin Dose 40 MG; Start 02/27/17 at 09:00 Diagnostic Test (Pha) (Accu-Chek) 1 ea 02 XX ; Start 02/27/17 at 02:00 Hydralazine HCl (Apresoline) 10 mg Q4H PRN IV SBP>150 mm Hg Last administered on 03/08/17 14:55; Admin Dose 10 MG; Start 02/26/17 at 12:30 Miscellaneous Information 1 ea NOTE XX ; Start 02/26/17 at 13:00 Glucose (Glutose) 15 gm Q15M PRN PO DECREASED GLUCOSE; Start 02/26/17 at 13:00 Glucose (Glutose) 22.5 gm Q15M PRN PO DECREASED GLUCOSE; Start 02/26/17 at 13: 00 Dextrose (D50w Syringe) 25 ml Q15M PRN IV DECREASED GLUCOSE; Start 02/26/17 at 13:00 Dextrose (D50w Syringe) 50 ml Q15M PRN IV DECREASED GLUCOSE; Start 02/26/17 at 13:00 Glucagon (Glucagen) 1 mg Q15M PRN IM DECREASED GLUCOSE; Start 02/26/17 at 13:00 Glucose (Glutose) 15 gm Q15M PRN BUCCAL DECREASED GLUCOSE; Start 02/26/17 at 13 :00 Collagenase (Santyl) 1 applic DAILY TOP Last administered on 03/06/17 09:03; Admin Dose 1 APPLIC; Start 02/28/17 at 09:00 Gentamicin Sulfate 1 applic 1 applic HS TOP Last administered on 03/07/17 20:12 ; Admin Dose 1 APPLIC; Start 02/27/17 at 21:00 Vancomycin HCl 250 ml @ 125 mls/hr Q24H IVPB Last administered on 03/07/17 21: 14; Admin Dose 125 MLS/HR; Start 02/28/17 at 22:00 Ceftazidime (Fortaz 1gm/50 ml (Pmx)) 50 ml @ 100 mls/hr Q12 IVPB Last administered on 03/08/17 09:40; Admin Dose 100 MLS/HR; Start 03/04/17 at 11:40 Lansoprazole (Prevacid) 30 mg BID@06,18 PO Last administered on 03/08/17 06:21 ; Admin Dose 30 MG; Start 03/04/17 at 18:00 Lactobacillus Acidophilus/ Rhamnosus (Culturelle) 1 cap BID PO Last administered on 03/07/17 20:10; Admin Dose 1 CAP; Start 03/04/17 at 17:00 Aspirin (Ecotrin) 81 mg DAILY PO Last administered on 03/07/17 08:24; Admin Dose 81 MG; Start 03/04/17 at 16:30 Docusate Sodium (Colace Liquid Cup) 100 mg HS PO Last administered on 03/07/17 20:10; Admin Dose 100 MG; Start 03/07/17 at 21:00 TATIANA VENTURA NP Mar 08, 2017 16:42
--- NOTE | 2017-03-08 16:46 | PN ---
Date/Time of Note Date/Time of Note DATE: 03/08/17 TIME: 16:45 Assessment/Plan VTE Prophylaxis VTE Prophylaxis Intervention: LMWH Lines/Catheters IV [facility]ter Type (from [facility]): Peripheral IV Assessment/Plan Chief Complaint/Hosp Course 89-year-old gentleman admitted with Rt heel ulcer w gangrene. Sp debridement. Was seen by podiatry and infectious disease. Plan is to continue wound care and nonweightbearing status at detention. Unfortunately due to severe deconditioning and comorbidities, I recommend he not go directly home. Recommend continue wound care at sniff. If by chance he becomes ambulatory may go home. Family/Cecy agrees. In all honestly he has dementia and probably not walking well and I did recommend hospice. Recommend social service and hospice consult at snf. Antibiotics for 10 days of Bactrim and Fortaz. Additionally not a candidate for vascular prevention Subjective: 03/04 demented but eating. 03/05 no distress. 03/06 tolerating diet. No distress. Still demented. Daughter Cecy updated. 03/07: No events. Status post repeat debridement. Pending sniff placement. 03/08: poor appetite. not walking. Objective: Vss Wound care-RECOMMENDATIONS: - Right cheek wound: Clean with normal saline. Apply foam border dressing. Change every 2 days. Assess skin under dressing every shift. Recommended Skin Diving Teacher consult for further care. Discussed with Tony HUYNH. Will notify MD regarding plan of care. - Continue low air loss surface status. - Pericare/Sacrococcyx area: Apply Calazime cream every shift and as needed. Cover with foam border dressing. Change every 2-3 days. Assess skin under dressing every shift. - Readjust HeelMedix heel suspension device every reposition. - Reposition every 2 hours. Discussed assessment and plan of care with Tony HUYNH. Claudia Drew BSN RN [facility] Podiatry: sp staged excisional debridement right heel ulceration 24 sq cm skin and subcut with sharp instrumentation. EBL 15 cc. Hemostasis with compression. Cont. santyl for enzymatic debridement with daily dressing changes. A/P 1. Rt heel ulcer w gangrene. Sp debridement. Stable treat pain; cont wound care and possibly nwb status. DC to snf/ vs Hospice. 2. Cellulitis/wound infection. Antibiotics. MRSA and Pseudomonas wound. 3. Chr PAD; stable, optimize medical management. Surgical intervention not a candidate due to his comorbidities. 4. Chr dementia; consider hospice. Needs advanced care planning reevaluated. 5. Ho GI bleed 6. Anemia, stable 7. Ftt, recommended snf. family wants to take him home at some point. May depend on his ambulatory status. Discharge plan Appointment podiatry Dr Sarah Blanca 1- [address] Frederick as needed Appointment primary 1 week post discharge Social service/hospice care assistance./Consult New medications Fortaz and Bactrim for 10 days Lovenox for DVT prophylaxis Culturelle 1 capsule daily Tylenol as needed Problems: Exam/Review of Systems Vital Signs Vitals Vital Signs Date Time Temp Pulse Resp B/P Pulse Ox O2 Delivery O2 Flow Rate FiO2 03/08/17 15:51 94 20 131/71 03/08/17 14:03 98.3 97 03/08/17 02:00 Room Air Intake and Output 03/07/17 03/07/17 03/08/17 15:00 23:00 07:00 Intake Total 50 ml 390 ml 370 ml Balance 50 ml 390 ml 370 ml Results Result Diagram: 03/07/17 0415 Medications Medications Current Medications Amlodipine Besylate (Norvasc) 10 mg DAILY PO Last administered on 03/07/17 08: 24; Admin Dose 10 MG; Start 02/26/17 at 12:30 Lisinopril (Zestril) 5 mg DAILY PO Last administered on 03/07/17 08:24; Admin Dose 5 MG; Start 02/27/17 at 09:00 Ondansetron HCl (Zofran Inj) 4 mg Q6H PRN IV NAUSEA AND/OR VOMITING; Start at 12:30 Acetaminophen (Tylenol Tab) 650 mg Q6H PRN PO PAIN LEVEL 1-3 OR FEVER; Start at 12:30 Acetaminophen/ Hydrocodone Bitart ([place] (5/325)) 1 tab Q6H PRN PO MODERATE PAIN LEVEL 4-6; Start 02/26/17 at 12:30 Docusate Sodium (Colace) 100 mg Q12H PRN PO CONSTIPATION; Start 02/26/17 at 12: 30 Magnesium Hydroxide (Milk Of Mag) 30 ml DAILY PRN PO CONSTIPATION; Start at 12:30 Bisacodyl (Dulcolax) 5 mg DAILY PRN PO CONSTIPATION; Start 02/26/17 at 12:30 Bisacodyl (Dulcolax Supp) 10 mg DAILY PRN [place] CONSTIPATION; Start 02/26/17 at 12 :30 Sodium Biphosphate/ Sodium Phosphate (Fleet Enema) 133 ml DAILY PRN [place] CONSTIPATION; Start 02/26/17 at 12:30 Enoxaparin Sodium (Lovenox) 40 mg DAILY SC Last administered on 03/08/17 09:41 ; Admin Dose 40 MG; Start 02/27/17 at 09:00 Diagnostic Test (Pha) (Accu-Chek) 1 ea 02 XX ; Start 02/27/17 at 02:00 Hydralazine HCl (Apresoline) 10 mg Q4H PRN IV SBP>150 mm Hg Last administered on 03/08/17 14:55; Admin Dose 10 MG; Start 02/26/17 at 12:30 Miscellaneous Information 1 ea NOTE XX ; Start 02/26/17 at 13:00 Glucose (Glutose) 15 gm Q15M PRN PO DECREASED GLUCOSE; Start 02/26/17 at 13:00 Glucose (Glutose) 22.5 gm Q15M PRN PO DECREASED GLUCOSE; Start 02/26/17 at 13: 00 Dextrose (D50w Syringe) 25 ml Q15M PRN IV DECREASED GLUCOSE; Start 02/26/17 at 13:00 Dextrose (D50w Syringe) 50 ml Q15M PRN IV DECREASED GLUCOSE; Start 02/26/17 at 13:00 Glucagon (Glucagen) 1 mg Q15M PRN IM DECREASED GLUCOSE; Start 02/26/17 at 13:00 Glucose (Glutose) 15 gm Q15M PRN BUCCAL DECREASED GLUCOSE; Start 02/26/17 at 13 :00 Collagenase (Santyl) 1 applic DAILY TOP Last administered on 03/06/17 09:03; Admin Dose 1 APPLIC; Start 02/28/17 at 09:00 Gentamicin Sulfate 1 applic 1 applic HS TOP Last administered on 03/07/17 20:12 ; Admin Dose 1 APPLIC; Start 02/27/17 at 21:00 Vancomycin HCl 250 ml @ 125 mls/hr Q24H IVPB Last administered on 03/07/17 21: 14; Admin Dose 125 MLS/HR; Start 02/28/17 at 22:00 Ceftazidime (Fortaz 1gm/50 ml (Pmx)) 50 ml @ 100 mls/hr Q12 IVPB Last administered on 03/08/17 09:40; Admin Dose 100 MLS/HR; Start 03/04/17 at 11:40 Lansoprazole (Prevacid) 30 mg BID@06,18 PO Last administered on 03/08/17 06:21 ; Admin Dose 30 MG; Start 03/04/17 at 18:00 Lactobacillus Acidophilus/ Rhamnosus (Culturelle) 1 cap BID PO Last administered on 03/07/17 20:10; Admin Dose 1 CAP; Start 03/04/17 at 17:00 Aspirin (Ecotrin) 81 mg DAILY PO Last administered on 03/07/17 08:24; Admin Dose 81 MG; Start 03/04/17 at 16:30 Docusate Sodium (Colace Liquid Cup) 100 mg HS PO Last administered on 03/07/17 20:10; Admin Dose 100 MG; Start 03/07/17 at 21:00 JV LARKIN MD Mar 08, 2017 16:46
[2017-03-08] MEDS: DOCUSATE SODIUM 10 MG/ML (10ML CUP) PO SCH (20:41)
[2017-03-08] MEDS: GENTAMICIN 0.1% 15 GM OINT TOP SCH (20:41)
[2017-03-08] MEDS: VANCOMYCIN 1 GM in NS 250 ML IVPB SCH (22:04)
[2017-03-08 22:07] VITALS: BP 131/75; RESP 18
[2017-03-09 02:00] VITALS: BP 143/68; PULSE 75; RESP 20
[2017-03-09] MEDS: ACCU-CHEK XX SCH (02:00)
[2017-03-09 03:08] VITALS: BP 143/68; RESP 20
[2017-03-09] MEDS: LANSOPRAZOLE 30 MG CAP PO SCH ×2 (05:16→18:19)
[2017-03-09 08:06] VITALS: BP 153/71; RESP 20
[2017-03-09] MEDS: ASPIRIN (EC) 325 MG TAB PO SCH (09:00)
[2017-03-09] MEDS: CEFTAZIDIME 1GM/50 ML (PMX) 50 ML IVPB SCH ×2 (09:31→20:13)
[2017-03-09] MEDS: ENOXAPARIN 40 MG/0.4 ML SYG SC SCH (09:34)
[2017-03-09] MEDS: COLLAGENASE 30 GM TUBE TOP SCH (09:34)
[2017-03-09] MEDS: AMLODIPINE 10 MG TAB PO SCH (09:36)
[2017-03-09] MEDS: ASPIRIN 81 MG TAB PO SCH (09:36)
[2017-03-09] MEDS: LACTOBACILLUS RHAMNOSUS CAP PO SCH ×2 (09:36→20:12)
[2017-03-09] MEDS: LISINOPRIL 5 MG TAB PO SCH (09:36)
[2017-03-09 14:00] VITALS: BP 125/70; RESP 16
--- NOTE | 2017-03-09 15:16 | PN ---
Date/Time of Note Date/Time of Note DATE: 03/09/17 TIME: 15:15 Assessment/Plan VTE Prophylaxis VTE Prophylaxis Intervention: LMWH Lines/Catheters IV [facility] Type (from [facility] [place] Urinary Cath still in place: No Assessment/Plan Chief Complaint/Hosp Course 89-year-old gentleman admitted with Rt heel ulcer w gangrene. Sp debridement. Was seen by podiatry and infectious disease. Plan is to continue wound care and nonweightbearing [facility] jail. Unfortunately due to severe deconditioning and comorbidities, I recommend he not go directly home. Recommend continue wound care at sniff. If by chance he becomes ambulatory may go home. Family/Cecy agrees. In all honestly he has dementia and probably not walking well and I did recommend hospice. Recommend social service and hospice consult at snf. Antibiotics for 10 days of Bactrim and Fortaz. Additionally not a candidate for vascular prevention Subjective: 03/04 demented but eating. 03/05 no distress. 03/06 tolerating diet. No distress. Still demented. Daughter Cecy updated. 03/07: No events. Status post repeat debridement. Pending sniff placement. 03/08: poor appetite. not walking. 03/09: No events. Still unable to ambulate. Objective: Vss Wound care-RECOMMENDATIONS: - Right cheek wound: Clean with normal saline. Apply foam border dressing. Change every 2 days. Assess skin under dressing every shift. Recommended Alumni Secretary consult for further care. Discussed with Tony HUYNH. Will notify MD regarding plan of care. - Continue low air loss surface status. - Pericare/Sacrococcyx area: Apply Calazime cream every shift and as needed. Cover with foam border dressing. Change every 2-3 days. Assess skin under dressing every shift. - Readjust HeelMedix heel suspension device every reposition. - Reposition every 2 hours. Discussed assessment and plan of care with Tony HUYNH. Claudia Drew, BSN RN [facility] Podiatry: sp staged excisional debridement right heel ulceration 24 sq cm skin and subcut with sharp instrumentation. EBL 15 cc. Hemostasis with compression. Cont. santyl for enzymatic debridement with daily dressing changes. A/P 1. Rt heel ulcer w gangrene. Sp debridement. Stable treat pain; cont wound care and nwb status. DC to snf vs Hospice vs home w 24hr nursing, hospital bed, ST/PT. 2. Cellulitis/wound infection. Antibiotics. MRSA and Pseudomonas wound- antibiotics till 03/16. 3. Chr PAD; stable, optimize medical management. Surgical intervention not a candidate due to his comorbidities. 4. Chr dementia; consider hospice. Needs advanced care planning reevaluated. 5. Ho GI bleed 6. Anemia, stable 7. Ftt, recommended snf. family wants to take him home at some point. May depend on his ambulatory status. Discharge plan Appointment podiatry Dr Sarah Blanca 1- [address] Frederick as needed Appointment primary 1 week post discharge Social service/hospice care assistance./Consult New medications Fortaz and Bactrim for 10 days Lovenox for DVT prophylaxis Culturelle 1 capsule daily Tylenol as needed Problems: Exam/Review of Systems Vital Signs Vitals Vital Signs Date Time Temp Pulse Resp B/P Pulse Ox O2 Delivery O2 Flow Rate FiO2 03/09/17 14:00 97.0 80 16 125/70 97 03/09/17 02:00 Room Air Intake and Output 03/08/17 03/08/17 03/09/17 15:00 23:00 07:00 Intake Total 50 ml 170 ml 390 ml Balance 50 ml 170 ml 390 ml Results Result Diagram: 03/07/17 0415 Medications Medications Current Medications Amlodipine Besylate (Norvasc) 10 mg DAILY PO Last administered on 03/09/17 09: 36; Admin Dose 10 MG; Start 02/26/17 at 12:30 Lisinopril (Zestril) 5 mg DAILY PO Last administered on 03/09/17 09:36; Admin Dose 5 MG; Start 02/27/17 at 09:00 Ondansetron HCl (Zofran Inj) 4 mg Q6H PRN IV NAUSEA AND/OR VOMITING; Start at 12:30 Acetaminophen (Tylenol Tab) 650 mg Q6H PRN PO PAIN LEVEL 1-3 OR FEVER; Start at 12:30 Acetaminophen/ Hydrocodone Bitart ([place] (5/325)) 1 tab Q6H PRN PO MODERATE PAIN LEVEL 4-6; Start 02/26/17 at 12:30 Docusate Sodium (Colace) 100 mg Q12H PRN PO CONSTIPATION; Start 02/26/17 at 12: 30 Magnesium Hydroxide (Milk Of Mag) 30 ml DAILY PRN PO CONSTIPATION; Start at 12:30 Bisacodyl (Dulcolax) 5 mg DAILY PRN PO CONSTIPATION; Start 02/26/17 at 12:30 Bisacodyl (Dulcolax Supp) 10 mg DAILY PRN [place] CONSTIPATION; Start 02/26/17 at 12 :30 Sodium Biphosphate/ Sodium Phosphate (Fleet Enema) 133 ml DAILY PRN [place] CONSTIPATION; Start 02/26/17 at 12:30 Enoxaparin Sodium (Lovenox) 40 mg DAILY SC Last administered on 03/09/17 09:34 ; Admin Dose 40 MG; Start 02/27/17 at 09:00 Diagnostic Test (Pha) (Accu-Chek) 1 ea 02 XX ; Start 02/27/17 at 02:00 Hydralazine HCl (Apresoline) 10 mg Q4H PRN IV SBP>150 mm Hg Last administered on 03/08/17 14:55; Admin Dose 10 MG; Start 02/26/17 at 12:30 Miscellaneous Information 1 ea NOTE XX ; Start 02/26/17 at 13:00 Glucose (Glutose) 15 gm Q15M PRN PO DECREASED GLUCOSE; Start 02/26/17 at 13:00 Glucose (Glutose) 22.5 gm Q15M PRN PO DECREASED GLUCOSE; Start 02/26/17 at 13: 00 Dextrose (D50w Syringe) 25 ml Q15M PRN IV DECREASED GLUCOSE; Start 02/26/17 at 13:00 Dextrose (D50w Syringe) 50 ml Q15M PRN IV DECREASED GLUCOSE; Start 02/26/17 at 13:00 Glucagon (Glucagen) 1 mg Q15M PRN IM DECREASED GLUCOSE; Start 02/26/17 at 13:00 Glucose (Glutose) 15 gm Q15M PRN BUCCAL DECREASED GLUCOSE; Start 02/26/17 at 13 :00 Collagenase (Santyl) 1 applic DAILY TOP Last administered on 03/09/17 09:34; Admin Dose 1 APPLIC; Start 02/28/17 at 09:00 Gentamicin Sulfate 1 applic 1 applic HS TOP Last administered on 03/08/17 20:41 ; Admin Dose 1 APPLIC; Start 02/27/17 at 21:00 Vancomycin HCl 250 ml @ 125 mls/hr Q24H IVPB Last administered on 03/08/17 22: 04; Admin Dose 125 MLS/HR; Start 02/28/17 at 22:00 Ceftazidime (Fortaz 1gm/50 ml (Pmx)) 50 ml @ 100 mls/hr Q12 IVPB Last administered on 03/09/17 09:31; Admin Dose 100 MLS/HR; Start 03/04/17 at 11:40 Lansoprazole (Prevacid) 30 mg BID@06,18 PO Last administered on 03/08/17 06:21 ; Admin Dose 30 MG; Start 03/04/17 at 18:00 Lactobacillus Acidophilus/ Rhamnosus (Culturelle) 1 cap BID PO Last administered on 03/09/17 09:36; Admin Dose 1 CAP; Start 03/04/17 at 17:00 Docusate Sodium (Colace Liquid Cup) 100 mg HS PO Last administered on 03/08/17 20:41; Admin Dose 100 MG; Start 03/07/17 at 21:00 Aspirin (Aspirin) 81 mg DAILY PO Last administered on 03/09/17 09:36; Admin Dose 81 MG; Start 03/09/17 at 09:30 JV LARKIN MD Mar 09, 2017 15:16
--- NOTE | 2017-03-09 16:38 | CONS ---
Date/Time of Note Date/Time of Note DATE: 03/09/17 TIME: 16:37 Assessment/Plan Assessment/Plan Chief Complaint/Hosp Course Patient is lying comfortably in bed, he is awake confused in no distress Antimicrobials: Vancomycin, Fortaz Microbiology: Wound culture growing MRSA and Pseudomonas Physical examination: This is a chronically ill-appearing, well-developed, fragile elderly man who is awake, confused, in no distress. Head atraumatic normocephalic, sclera nonicteric, mucosa dry. Neck is supple. Chest rise symmetrical, breath sounds diminished basis Heart: S1-S2 Abdomen is soft, bowel tones present. Extremities without cyanosis, right heel dressing intact Assessment: 1. Right lower extremity ulceration with gangrenous changes 2. Peripheral vascular disease 3. Hypertension 4. Alzheimer's dementia Plan: Patient remains unchanged, clinically stable, podiatry and vascular teams on case, continue antibiotics for 9 more day, may downgrade Vanco to Bactrim p.o., wound care per podiatry recommendations [facility] staff Problems: Consultation Date/Type/Reason Admit Date/Time Feb 26, 2017 at 05:26 Type of Consultation: ID Exam/Review of Systems Vital Signs Vitals Vital Signs Date Time Temp Pulse Resp B/P Pulse Ox O2 Delivery O2 Flow Rate FiO2 03/09/17 14:00 97.0 80 16 125/70 97 03/09/17 02:00 Room Air Intake and Output 03/08/17 03/08/17 03/09/17 15:00 23:00 07:00 Intake Total 50 ml 170 ml 390 ml Balance 50 ml 170 ml 390 ml Results Result Diagram: 03/07/17 0415 Medications Medications Current Medications Amlodipine Besylate (Norvasc) 10 mg DAILY PO Last administered on 03/09/17 09: 36; Admin Dose 10 MG; Start 02/26/17 at 12:30 Lisinopril (Zestril) 5 mg DAILY PO Last administered on 03/09/17 09:36; Admin Dose 5 MG; Start 02/27/17 at 09:00 Ondansetron HCl (Zofran Inj) 4 mg Q6H PRN IV NAUSEA AND/OR VOMITING; Start at 12:30 Acetaminophen (Tylenol Tab) 650 mg Q6H PRN PO PAIN LEVEL 1-3 OR FEVER; Start at 12:30 Acetaminophen/ Hydrocodone Bitart ([place] (5/325)) 1 tab Q6H PRN PO MODERATE PAIN LEVEL 4-6; Start 02/26/17 at 12:30 Docusate Sodium (Colace) 100 mg Q12H PRN PO CONSTIPATION; Start 02/26/17 at 12: 30 Magnesium Hydroxide (Milk Of Mag) 30 ml DAILY PRN PO CONSTIPATION; Start at 12:30 Bisacodyl (Dulcolax) 5 mg DAILY PRN PO CONSTIPATION; Start 02/26/17 at 12:30 Bisacodyl (Dulcolax Supp) 10 mg DAILY PRN [place] CONSTIPATION; Start 02/26/17 at 12 :30 Sodium Biphosphate/ Sodium Phosphate (Fleet Enema) 133 ml DAILY PRN [place] CONSTIPATION; Start 02/26/17 at 12:30 Enoxaparin Sodium (Lovenox) 40 mg DAILY SC Last administered on 03/09/17 09:34 ; Admin Dose 40 MG; Start 02/27/17 at 09:00 Diagnostic Test (Pha) (Accu-Chek) 1 ea 02 XX ; Start 02/27/17 at 02:00 Hydralazine HCl (Apresoline) 10 mg Q4H PRN IV SBP>150 mm Hg Last administered on 03/08/17 14:55; Admin Dose 10 MG; Start 02/26/17 at 12:30 Miscellaneous Information 1 ea NOTE XX ; Start 02/26/17 at 13:00 Glucose (Glutose) 15 gm Q15M PRN PO DECREASED GLUCOSE; Start 02/26/17 at 13:00 Glucose (Glutose) 22.5 gm Q15M PRN PO DECREASED GLUCOSE; Start 02/26/17 at 13: 00 Dextrose (D50w Syringe) 25 ml Q15M PRN IV DECREASED GLUCOSE; Start 02/26/17 at 13:00 Dextrose (D50w Syringe) 50 ml Q15M PRN IV DECREASED GLUCOSE; Start 02/26/17 at 13:00 Glucagon (Glucagen) 1 mg Q15M PRN IM DECREASED GLUCOSE; Start 02/26/17 at 13:00 Glucose (Glutose) 15 gm Q15M PRN BUCCAL DECREASED GLUCOSE; Start 02/26/17 at 13 :00 Collagenase (Santyl) 1 applic DAILY TOP Last administered on 03/09/17 09:34; Admin Dose 1 APPLIC; Start 02/28/17 at 09:00 Gentamicin Sulfate 1 applic 1 applic HS TOP Last administered on 03/08/17 20:41 ; Admin Dose 1 APPLIC; Start 02/27/17 at 21:00 Vancomycin HCl 250 ml @ 125 mls/hr Q24H IVPB Last administered on 03/08/17 22: 04; Admin Dose 125 MLS/HR; Start 02/28/17 at 22:00 Ceftazidime (Fortaz 1gm/50 ml (Pmx)) 50 ml @ 100 mls/hr Q12 IVPB Last administered on 03/09/17 09:31; Admin Dose 100 MLS/HR; Start 03/04/17 at 11:40 Lansoprazole (Prevacid) 30 mg BID@06,18 PO Last administered on 03/08/17 06:21 ; Admin Dose 30 MG; Start 03/04/17 at 18:00 Lactobacillus Acidophilus/ Rhamnosus (Culturelle) 1 cap BID PO Last administered on 03/09/17 09:36; Admin Dose 1 CAP; Start 03/04/17 at 17:00 Docusate Sodium (Colace Liquid Cup) 100 mg HS PO Last administered on 03/08/17 20:41; Admin Dose 100 MG; Start 03/07/17 at 21:00 Aspirin (Aspirin) 81 mg DAILY PO Last administered on 03/09/17 09:36; Admin Dose 81 MG; Start 03/09/17 at 09:30 TATIANA VENTURA NP Mar 09, 2017 16:37
[2017-03-09 19:55] VITALS: BP 133/70; RESP 18
[2017-03-09] MEDS: DOCUSATE SODIUM 10 MG/ML (10ML CUP) PO SCH (20:12)
[2017-03-09] MEDS: GENTAMICIN 0.1% 15 GM OINT TOP SCH (20:13)
[2017-03-09] MEDS: VANCOMYCIN 1 GM in NS 250 ML IVPB SCH (21:26)
[2017-03-10] MEDS: ACCU-CHEK XX SCH (01:23)
[2017-03-10 02:00] VITALS: BP 133/61; RESP 18
[2017-03-10] MEDS: LANSOPRAZOLE 30 MG CAP PO SCH ×2 (05:23→17:25)
[2017-03-10 08:03] VITALS: BP 134/58; RESP 15
[2017-03-10] MEDS: ASPIRIN 81 MG TAB PO SCH (08:24)
[2017-03-10] MEDS: LACTOBACILLUS RHAMNOSUS CAP PO SCH ×2 (08:24→20:21)
[2017-03-10] MEDS: ENOXAPARIN 40 MG/0.4 ML SYG SC SCH (08:24)
[2017-03-10] MEDS: LISINOPRIL 5 MG TAB PO SCH (08:25)
[2017-03-10] MEDS: AMLODIPINE 10 MG TAB PO SCH (08:25)
[2017-03-10] MEDS: CEFTAZIDIME 1GM/50 ML (PMX) 50 ML IVPB SCH ×2 (08:30→20:21)
[2017-03-10] MEDS: COLLAGENASE 30 GM TUBE TOP SCH (09:00)
--- NOTE | 2017-03-10 14:27 | PN ---
Date/Time of Note Date/Time of Note DATE: 03/10/17 TIME: 14:25 Assessment/Plan VTE Prophylaxis VTE Prophylaxis Intervention: LMWH Lines/Catheters IV [facility] Saline Lock Urinary Cath still in place: No Assessment/Plan Chief Complaint/Hosp Course 89-year-old gentleman admitted with Rt heel ulcer w gangrene. Sp debridement. Was seen by podiatry and infectious disease. Plan is to continue wound care and nonweightbearing status at intermediate. Unfortunately due to severe deconditioning and comorbidities, I recommend he not go directly home. Recommend continue wound care at sniff. If by chance he becomes ambulatory may go home. Family/Cecy agrees. In all honestly he has dementia and probably not walking well and I did recommend hospice. Recommend social service and hospice consult at snf. Antibiotics for 10 days of Bactrim and Fortaz. Additionally not a candidate for vascular prevention S: 03/04 demented but eating. 03/05 no distress. 03/06 tolerating diet. No distress. Still demented. Daughter Cecy updated. 03/07: No events. Status post repeat debridement. Pending sniff placement. 03/08: poor appetite. not walking. 03/09: No events. Still unable to ambulate. 03/10: no distress. needs snf or hospice. O: Vss Wound care-RECOMMENDATIONS: - Right cheek wound: Clean with normal saline. Apply foam border dressing. Change every 2 days. Assess skin under dressing every shift. Recommended [employer] consult for further care. Discussed with Tony HUYNH. Will notify MD regarding plan of care. - Continue low air loss surface status. - Pericare/Sacrococcyx area: Apply Calazime cream every shift and as needed. Cover with foam border dressing. Change every 2-3 days. Assess skin under dressing every shift. - Readjust HeelMedix heel suspension device every reposition. - Reposition every 2 hours. Discussed assessment and plan of care with Tony HUYNH. TIM WarrenN RN [facility]OCN Podiatry: sp staged excisional debridement right heel ulceration 24 sq cm skin and subcut with sharp instrumentation. EBL 15 cc. Hemostasis with compression. Cont. santyl for enzymatic debridement with daily dressing changes. A/P 1. Rt heel ulcer w gangrene. Sp debridement. Stable; cont wound care/ nwb status. DC to snf vs Hospice vs home w 24hr nursing, hospital bed, ST/PT. 2. Cellulitis/wound infection. MRSA and Pseudomonas wound-antibiotics till . 3. Chr PAD; stable, optimize medical mngmnt. Surgical intervention not a candidate due to his comorbidities. 4. Chr dementia; consider hospice. Needs advanced care planning reevaluated. 5. Ho GI bleed 6. Anemia, stable 7. Ftt, recommended snf. family wants to take him home at some point. May depend on his ambulatory status. Discharge plan Appointment podiatry Dr Sarah Blanca 1- [address] Frederick as needed Appointment primary 1 week post discharge Social service/hospice care assistance./Consult New medications Fortaz and Bactrim for 10 days Lovenox for DVT prophylaxis Culturelle 1 capsule daily Tylenol as needed Problems: Exam/Review of Systems Vital Signs Vitals Vital Signs Date Time Temp Pulse Resp B/P Pulse Ox O2 Delivery O2 Flow Rate FiO2 03/10/17 08:03 98.3 84 15 134/58 98 03/09/17 02:00 Room Air Intake and Output 03/09/17 03/09/17 03/10/17 15:00 23:00 07:00 Intake Total 50 ml 50 ml 300 ml Balance 50 ml 50 ml 300 ml Results Result Diagram: 03/07/17 0415 Medications Medications Current Medications Amlodipine Besylate (Norvasc) 10 mg DAILY PO Last administered on 03/10/17 08: 25; Admin Dose 10 MG; Start 02/26/17 at 12:30 Lisinopril (Zestril) 5 mg DAILY PO Last administered on 03/10/17 08:25; Admin Dose 5 MG; Start 02/27/17 at 09:00 Ondansetron HCl (Zofran Inj) 4 mg Q6H PRN IV NAUSEA AND/OR VOMITING; Start at 12:30 Acetaminophen (Tylenol Tab) 650 mg Q6H PRN PO PAIN LEVEL 1-3 OR FEVER; Start at 12:30 Acetaminophen/ Hydrocodone Bitart ([place] (5/325)) 1 tab Q6H PRN PO MODERATE PAIN LEVEL 4-6; Start 02/26/17 at 12:30 Docusate Sodium (Colace) 100 mg Q12H PRN PO CONSTIPATION; Start 02/26/17 at 12: 30 Magnesium Hydroxide (Milk Of Mag) 30 ml DAILY PRN PO CONSTIPATION; Start at 12:30 Bisacodyl (Dulcolax) 5 mg DAILY PRN PO CONSTIPATION; Start 02/26/17 at 12:30 Bisacodyl (Dulcolax Supp) 10 mg DAILY PRN [place] CONSTIPATION; Start 02/26/17 at 12 :30 Sodium Biphosphate/ Sodium Phosphate (Fleet Enema) 133 ml DAILY PRN [place] CONSTIPATION; Start 02/26/17 at 12:30 Enoxaparin Sodium (Lovenox) 40 mg DAILY SC Last administered on 03/10/17 08:24 ; Admin Dose 40 MG; Start 02/27/17 at 09:00 Diagnostic Test (Pha) (Accu-Chek) 1 ea 02 XX ; Start 02/27/17 at 02:00 Hydralazine HCl (Apresoline) 10 mg Q4H PRN IV SBP>150 mm Hg Last administered on 03/08/17 14:55; Admin Dose 10 MG; Start 02/26/17 at 12:30 Miscellaneous Information 1 ea NOTE XX ; Start 02/26/17 at 13:00 Glucose (Glutose) 15 gm Q15M PRN PO DECREASED GLUCOSE; Start 02/26/17 at 13:00 Glucose (Glutose) 22.5 gm Q15M PRN PO DECREASED GLUCOSE; Start 02/26/17 at 13: 00 Dextrose (D50w Syringe) 25 ml Q15M PRN IV DECREASED GLUCOSE; Start 02/26/17 at 13:00 Dextrose (D50w Syringe) 50 ml Q15M PRN IV DECREASED GLUCOSE; Start 02/26/17 at 13:00 Glucagon (Glucagen) 1 mg Q15M PRN IM DECREASED GLUCOSE; Start 02/26/17 at 13:00 Glucose (Glutose) 15 gm Q15M PRN BUCCAL DECREASED GLUCOSE; Start 02/26/17 at 13 :00 Collagenase (Santyl) 1 applic DAILY TOP Last administered on 03/09/17 09:34; Admin Dose 1 APPLIC; Start 02/28/17 at 09:00 Gentamicin Sulfate 1 applic 1 applic HS TOP Last administered on 03/09/17 20:13 ; Admin Dose 1 APPLIC; Start 02/27/17 at 21:00 Vancomycin HCl 250 ml @ 125 mls/hr Q24H IVPB Last administered on 03/09/17 21: 26; Admin Dose 125 MLS/HR; Start 02/28/17 at 22:00 Ceftazidime (Fortaz 1gm/50 ml (Pmx)) 50 ml @ 100 mls/hr Q12 IVPB Last administered on 03/10/17 08:30; Admin Dose 100 MLS/HR; Start 03/04/17 at 11:40 Lansoprazole (Prevacid) 30 mg BID@06,18 PO Last administered on 03/10/17 05:23 ; Admin Dose 30 MG; Start 03/04/17 at 18:00 Lactobacillus Acidophilus/ Rhamnosus (Culturelle) 1 cap BID PO Last administered on 03/10/17 08:24; Admin Dose 1 CAP; Start 03/04/17 at 17:00 Docusate Sodium (Colace Liquid Cup) 100 mg HS PO Last administered on 03/09/17 20:12; Admin Dose 100 MG; Start 03/07/17 at 21:00 Aspirin (Aspirin) 81 mg DAILY PO Last administered on 03/10/17 08:24; Admin Dose 81 MG; Start 03/09/17 at 09:30 JV LARKIN MD Mar 10, 2017 14:27
[2017-03-10 14:55] VITALS: BP 126/64; RESP 16
--- NOTE | 2017-03-10 15:35 | PN ---
Date/Time of Note Date/Time of Note DATE: 03/10/17 TIME: 15:31 Assessment/Plan VTE Prophylaxis VTE Prophylaxis Intervention: contraindicated VTE Contraindication Reason: peripheral vascular disease Lines/Catheters IV Catheter Type (from Nrs): Saline Lock Urinary Cath still in place: No Assessment/Plan Chief Complaint/Hosp Course Right heel ulceration with gangrene unstageable PAD not candidate for revascularization Pain Cellulitis Flexion contracture right le Problems: Assessment/Plan Cont daily wound care. Disposition per PMD. Placement pending. Cont. IV abx est 2- 4 weeks. Subjective 24 Hr Interval Summary Free Text/Dictation f/u right foot ulceration. pending placement. no history by patient. Exam/Review of Systems Vital Signs Vitals Vital Signs Date Time Temp Pulse Resp B/P Pulse Ox O2 Delivery O2 Flow Rate FiO2 03/10/17 14:55 98.2 95 16 126/64 97 03/09/17 02:00 Room Air Intake and Output 03/09/17 03/09/17 03/10/17 15:00 23:00 07:00 Intake Total 50 ml 50 ml 300 ml Balance 50 ml 50 ml 300 ml Exam Constitutional: frail Head: atraumatic, normocephalic Musculoskeletal: other ( position/ pt using heel cushion) Skin: other (right heel ulceration with necrosis subcutaneous tissue) Results Result Diagram: 03/07/17 0415 Medications Medications Current Medications Amlodipine Besylate (Norvasc) 10 mg DAILY PO Last administered on 03/10/17 08: 25; Admin Dose 10 MG; Start 02/26/17 at 12:30 Lisinopril (Zestril) 5 mg DAILY PO Last administered on 03/10/17 08:25; Admin Dose 5 MG; Start 02/27/17 at 09:00 Ondansetron HCl (Zofran Inj) 4 mg Q6H PRN IV NAUSEA AND/OR VOMITING; Start at 12:30 Acetaminophen (Tylenol Tab) 650 mg Q6H PRN PO PAIN LEVEL 1-3 OR FEVER; Start at 12:30 Acetaminophen/ Hydrocodone Bitart ([place] (5/325)) 1 tab Q6H PRN PO MODERATE PAIN LEVEL 4-6; Start 02/26/17 at 12:30 Docusate Sodium (Colace) 100 mg Q12H PRN PO CONSTIPATION; Start 02/26/17 at 12: 30 Magnesium Hydroxide (Milk Of Mag) 30 ml DAILY PRN PO CONSTIPATION; Start at 12:30 Bisacodyl (Dulcolax) 5 mg DAILY PRN PO CONSTIPATION; Start 02/26/17 at 12:30 Bisacodyl (Dulcolax Supp) 10 mg DAILY PRN [place] CONSTIPATION; Start 02/26/17 at 12 :30 Sodium Biphosphate/ Sodium Phosphate (Fleet Enema) 133 ml DAILY PRN [place] CONSTIPATION; Start 02/26/17 at 12:30 Enoxaparin Sodium (Lovenox) 40 mg DAILY SC Last administered on 03/10/17 08:24 ; Admin Dose 40 MG; Start 02/27/17 at 09:00 Diagnostic Test (Pha) (Accu-Chek) 1 ea 02 XX ; Start 02/27/17 at 02:00 Hydralazine HCl (Apresoline) 10 mg Q4H PRN IV SBP>150 mm Hg Last administered on 03/08/17 14:55; Admin Dose 10 MG; Start 02/26/17 at 12:30 Miscellaneous Information 1 ea NOTE XX ; Start 02/26/17 at 13:00 Glucose (Glutose) 15 gm Q15M PRN PO DECREASED GLUCOSE; Start 02/26/17 at 13:00 Glucose (Glutose) 22.5 gm Q15M PRN PO DECREASED GLUCOSE; Start 02/26/17 at 13: 00 Dextrose (D50w Syringe) 25 ml Q15M PRN IV DECREASED GLUCOSE; Start 02/26/17 at 13:00 Dextrose (D50w Syringe) 50 ml Q15M PRN IV DECREASED GLUCOSE; Start 02/26/17 at 13:00 Glucagon (Glucagen) 1 mg Q15M PRN IM DECREASED GLUCOSE; Start 02/26/17 at 13:00 Glucose (Glutose) 15 gm Q15M PRN BUCCAL DECREASED GLUCOSE; Start 02/26/17 at 13 :00 Collagenase (Santyl) 1 applic DAILY TOP Last administered on 03/10/17 09:00; Admin Dose 1 APPLIC; Start 02/28/17 at 09:00 Gentamicin Sulfate 1 applic 1 applic HS TOP Last administered on 03/09/17 20:13 ; Admin Dose 1 APPLIC; Start 02/27/17 at 21:00 Vancomycin HCl 250 ml @ 125 mls/hr Q24H IVPB Last administered on 03/09/17 21: 26; Admin Dose 125 MLS/HR; Start 02/28/17 at 22:00 Ceftazidime (Fortaz 1gm/50 ml (Pmx)) 50 ml @ 100 mls/hr Q12 IVPB Last administered on 03/10/17 08:30; Admin Dose 100 MLS/HR; Start 03/04/17 at 11:40 Lansoprazole (Prevacid) 30 mg BID@06,18 PO Last administered on 03/10/17 05:23 ; Admin Dose 30 MG; Start 03/04/17 at 18:00 Lactobacillus Acidophilus/ Rhamnosus (Culturelle) 1 cap BID PO Last administered on 03/10/17 08:24; Admin Dose 1 CAP; Start 03/04/17 at 17:00 Docusate Sodium (Colace Liquid Cup) 100 mg HS PO Last administered on 03/09/17 20:12; Admin Dose 100 MG; Start 03/07/17 at 21:00 Aspirin (Aspirin) 81 mg DAILY PO Last administered on 03/10/17 08:24; Admin Dose 81 MG; Start 03/09/17 at 09:30 Procedures Procedures Staged Right foot excisional debridement skin/ subcutaneous tissue/ fascia 6x 4 cm. EBL 10 cc. Hemostasis with compression. Wound irrigated with saline. Santyl / DSD applied. CAMILO KIM DPM Mar 10, 2017 15:35
--- NOTE | 2017-03-10 16:10 | CONS ---
Date/Time of Note Date/Time of Note DATE: 03/10/17 TIME: 16:10 Assessment/Plan Assessment/Plan Chief Complaint/Hosp Course No acute changes per report, patient is lying comfortably in bed, he is awake confused in no distress Antimicrobials: Vancomycin, Fortaz Microbiology: Wound culture growing MRSA and Pseudomonas Physical examination: This is a chronically ill-appearing, well-developed, fragile elderly man who is awake, confused, in no distress. Head atraumatic normocephalic, sclera nonicteric, mucosa dry. Neck is supple. Chest rise symmetrical, breath sounds diminished basis Heart: S1-S2 Abdomen is soft, bowel tones present. Extremities without cyanosis, right heel dressing intact Assessment: 1. Right lower extremity ulceration with gangrenous changes 2. Peripheral vascular disease 3. Hypertension 4. Alzheimer's dementia Plan: Patient remains unchanged, clinically stable, podiatry and vascular teams on case, continue antibiotics for 8 more day, may downgrade Vanco to Bactrim p.o., wound care per podiatry recommendations [facility] staff Problems: Consultation Date/Type/Reason Admit Date/Time Feb 26, 2017 at 05:26 Type of Consultation: ID Exam/Review of Systems Vital Signs Vitals Vital Signs Date Time Temp Pulse Resp B/P Pulse Ox O2 Delivery O2 Flow Rate FiO2 03/10/17 14:55 98.2 95 16 126/64 97 03/09/17 02:00 Room Air Intake and Output 03/09/17 03/09/17 03/10/17 15:00 23:00 07:00 Intake Total 50 ml 50 ml 300 ml Balance 50 ml 50 ml 300 ml Results Result Diagram: 03/07/17 0415 Medications Medications Current Medications Amlodipine Besylate (Norvasc) 10 mg DAILY PO Last administered on 03/10/17 08: 25; Admin Dose 10 MG; Start 02/26/17 at 12:30 Lisinopril (Zestril) 5 mg DAILY PO Last administered on 03/10/17 08:25; Admin Dose 5 MG; Start 02/27/17 at 09:00 Ondansetron HCl (Zofran Inj) 4 mg Q6H PRN IV NAUSEA AND/OR VOMITING; Start at 12:30 Acetaminophen (Tylenol Tab) 650 mg Q6H PRN PO PAIN LEVEL 1-3 OR FEVER; Start at 12:30 Acetaminophen/ Hydrocodone Bitart ([place] (5/325)) 1 tab Q6H PRN PO MODERATE PAIN LEVEL 4-6; Start 02/26/17 at 12:30 Docusate Sodium (Colace) 100 mg Q12H PRN PO CONSTIPATION; Start 02/26/17 at 12: 30 Magnesium Hydroxide (Milk Of Mag) 30 ml DAILY PRN PO CONSTIPATION; Start at 12:30 Bisacodyl (Dulcolax) 5 mg DAILY PRN PO CONSTIPATION; Start 02/26/17 at 12:30 Bisacodyl (Dulcolax Supp) 10 mg DAILY PRN [place] CONSTIPATION; Start 02/26/17 at 12 :30 Sodium Biphosphate/ Sodium Phosphate (Fleet Enema) 133 ml DAILY PRN MD CONSTIPATION; Start 02/26/17 at 12:30 Enoxaparin Sodium (Lovenox) 40 mg DAILY SC Last administered on 03/10/17 08:24 ; Admin Dose 40 MG; Start 02/27/17 at 09:00 Diagnostic Test (Pha) (Accu-Chek) 1 ea 02 XX ; Start 02/27/17 at 02:00 Hydralazine HCl (Apresoline) 10 mg Q4H PRN IV SBP>150 mm Hg Last administered on 03/08/17 14:55; Admin Dose 10 MG; Start 02/26/17 at 12:30 Miscellaneous Information 1 ea NOTE XX ; Start 02/26/17 at 13:00 Glucose (Glutose) 15 gm Q15M PRN PO DECREASED GLUCOSE; Start 02/26/17 at 13:00 Glucose (Glutose) 22.5 gm Q15M PRN PO DECREASED GLUCOSE; Start 02/26/17 at 13: 00 Dextrose (D50w Syringe) 25 ml Q15M PRN IV DECREASED GLUCOSE; Start 02/26/17 at 13:00 Dextrose (D50w Syringe) 50 ml Q15M PRN IV DECREASED GLUCOSE; Start 02/26/17 at 13:00 Glucagon (Glucagen) 1 mg Q15M PRN IM DECREASED GLUCOSE; Start 02/26/17 at 13:00 Glucose (Glutose) 15 gm Q15M PRN BUCCAL DECREASED GLUCOSE; Start 02/26/17 at 13 :00 Collagenase (Santyl) 1 applic DAILY TOP Last administered on 03/10/17 09:00; Admin Dose 1 APPLIC; Start 02/28/17 at 09:00 Gentamicin Sulfate 1 applic 1 applic HS TOP Last administered on 03/09/17 20:13 ; Admin Dose 1 APPLIC; Start 02/27/17 at 21:00 Vancomycin HCl 250 ml @ 125 mls/hr Q24H IVPB Last administered on 03/09/17 21: 26; Admin Dose 125 MLS/HR; Start 02/28/17 at 22:00 Ceftazidime (Fortaz 1gm/50 ml (Pmx)) 50 ml @ 100 mls/hr Q12 IVPB Last administered on 03/10/17 08:30; Admin Dose 100 MLS/HR; Start 03/04/17 at 11:40 Lansoprazole (Prevacid) 30 mg BID@06,18 PO Last administered on 03/10/17 05:23 ; Admin Dose 30 MG; Start 03/04/17 at 18:00 Lactobacillus Acidophilus/ Rhamnosus (Culturelle) 1 cap BID PO Last administered on 03/10/17 08:24; Admin Dose 1 CAP; Start 03/04/17 at 17:00 Docusate Sodium (Colace Liquid Cup) 100 mg HS PO Last administered on 03/09/17 20:12; Admin Dose 100 MG; Start 03/07/17 at 21:00 Aspirin (Aspirin) 81 mg DAILY PO Last administered on 03/10/17 08:24; Admin Dose 81 MG; Start 03/09/17 at 09:30 TATIANA VENTURA NP Mar 10, 2017 16:10
[2017-03-10 19:29] VITALS: BP 101/61; RESP 16
[2017-03-10] MEDS: GENTAMICIN 0.1% 15 GM OINT TOP SCH (20:21)
[2017-03-10] MEDS: DOCUSATE SODIUM 10 MG/ML (10ML CUP) PO SCH (20:21)
[2017-03-10] MEDS: VANCOMYCIN 1 GM in NS 250 ML IVPB SCH (21:30)
[2017-03-11] MEDS: ACCU-CHEK XX SCH ×2 (01:43→22:12)
[2017-03-11 02:43] VITALS: BP 124/59; PULSE 84; RESP 20
[2017-03-11] MEDS: LANSOPRAZOLE 30 MG CAP PO SCH ×2 (05:05→18:30)
[2017-03-11 07:14] LABS: CREATININE 0.91 mg/dl (0.61-1.24)
[2017-03-11 08:28] VITALS: BP 116/61; RESP 19
[2017-03-11] MEDS: ENOXAPARIN 40 MG/0.4 ML SYG SC SCH (08:53)
[2017-03-11] MEDS: AMLODIPINE 10 MG TAB PO SCH (08:54)
[2017-03-11] MEDS: ASPIRIN 81 MG TAB PO SCH (08:54)
[2017-03-11] MEDS: LISINOPRIL 5 MG TAB PO SCH (08:54)
[2017-03-11] MEDS: LACTOBACILLUS RHAMNOSUS CAP PO SCH ×2 (08:54→22:10)
[2017-03-11] MEDS: CEFTAZIDIME 1GM/50 ML (PMX) 50 ML IVPB SCH ×2 (10:00→22:10)
[2017-03-11] MEDS: COLLAGENASE 30 GM TUBE TOP SCH (13:00)
--- NOTE | 2017-03-11 13:12 | CONS ---
Date/Time of Note Date/Time of Note DATE: 03/11/17 TIME: 13:11 Assessment/Plan Assessment/Plan Chief Complaint/Hosp Course No acute changes per report, patient is lying comfortably in bed, no fevers Antimicrobials: Vancomycin, Fortaz Microbiology: Wound culture growing MRSA and Pseudomonas Physical examination: This is a chronically ill-appearing, well-developed, fragile elderly man who is awake, confused, in no distress. Head atraumatic normocephalic, sclera nonicteric, mucosa dry. Neck is supple. Chest rise symmetrical, breath sounds diminished basis Heart: S1-S2 Abdomen is soft, bowel tones present. Extremities without cyanosis, right heel dressing intact Assessment: 1. Right lower extremity ulceration with gangrenous changes 2. Peripheral vascular disease 3. Hypertension 4. Alzheimer's dementia Plan: Patient remains unchanged, clinically stable, podiatry and vascular teams on case, continue antibiotics for 7 more day, may downgrade Vanco to Bactrim p.o., wound care per podiatry recommendations [facility] staff Problems: Consultation Date/Type/Reason Admit Date/Time Feb 26, 2017 at 05:26 Type of Consultation: ID Exam/Review of Systems Vital Signs Vitals Vital Signs Date Time Temp Pulse Resp B/P Pulse Ox O2 Delivery O2 Flow Rate FiO2 03/11/17 08:28 97.9 82 19 116/61 99 03/11/17 02:43 Room Air Intake and Output 03/10/17 03/10/17 03/11/17 15:00 23:00 07:00 Intake Total 50 ml 300 ml 350 ml Balance 50 ml 300 ml 350 ml Results Result Diagram: 03/11/17 0500 Results 24 hrs Laboratory Tests Test 03/11/17 05:00 Blood Urea Nitrogen 20 Creatinine 0.91 Medications Medications Current Medications Amlodipine Besylate (Norvasc) 10 mg DAILY PO Last administered on 03/11/17 08: 54; Admin Dose 10 MG; Start 02/26/17 at 12:30 Lisinopril (Zestril) 5 mg DAILY PO Last administered on 03/11/17 08:54; Admin Dose 5 MG; Start 02/27/17 at 09:00 Ondansetron HCl (Zofran Inj) 4 mg Q6H PRN IV NAUSEA AND/OR VOMITING; Start at 12:30 Acetaminophen (Tylenol Tab) 650 mg Q6H PRN PO PAIN LEVEL 1-3 OR FEVER Last administered on 03/10/17 20:21; Admin Dose 650 MG; Start 02/26/17 at 12:30 Acetaminophen/ Hydrocodone Bitart ([place] (5/325)) 1 tab Q6H PRN PO MODERATE PAIN LEVEL 4-6; Start 02/26/17 at 12:30 Docusate Sodium (Colace) 100 mg Q12H PRN PO CONSTIPATION; Start 02/26/17 at 12: 30 Magnesium Hydroxide (Milk Of Mag) 30 ml DAILY PRN PO CONSTIPATION; Start at 12:30 Bisacodyl (Dulcolax) 5 mg DAILY PRN PO CONSTIPATION; Start 02/26/17 at 12:30 Bisacodyl (Dulcolax Supp) 10 mg DAILY PRN [place] CONSTIPATION; Start 02/26/17 at 12 :30 Sodium Biphosphate/ Sodium Phosphate (Fleet Enema) 133 ml DAILY PRN [place] CONSTIPATION; Start 02/26/17 at 12:30 Enoxaparin Sodium (Lovenox) 40 mg DAILY SC Last administered on 03/11/17 08:53 ; Admin Dose 40 MG; Start 02/27/17 at 09:00 Diagnostic Test (Pha) (Accu-Chek) 1 ea 02 XX ; Start 02/27/17 at 02:00 Hydralazine HCl (Apresoline) 10 mg Q4H PRN IV SBP>150 mm Hg Last administered on 03/08/17 14:55; Admin Dose 10 MG; Start 02/26/17 at 12:30 Miscellaneous Information 1 ea NOTE XX ; Start 02/26/17 at 13:00 Glucose (Glutose) 15 gm Q15M PRN PO DECREASED GLUCOSE; Start 02/26/17 at 13:00 Glucose (Glutose) 22.5 gm Q15M PRN PO DECREASED GLUCOSE; Start 02/26/17 at 13: 00 Dextrose (D50w Syringe) 25 ml Q15M PRN IV DECREASED GLUCOSE; Start 02/26/17 at 13:00 Dextrose (D50w Syringe) 50 ml Q15M PRN IV DECREASED GLUCOSE; Start 02/26/17 at 13:00 Glucagon (Glucagen) 1 mg Q15M PRN IM DECREASED GLUCOSE; Start 02/26/17 at 13:00 Glucose (Glutose) 15 gm Q15M PRN BUCCAL DECREASED GLUCOSE; Start 02/26/17 at 13 :00 Collagenase (Santyl) 1 applic DAILY TOP Last administered on 03/10/17 09:00; Admin Dose 1 APPLIC; Start 02/28/17 at 09:00 Gentamicin Sulfate 1 applic 1 applic HS TOP Last administered on 03/10/17 20:21 ; Admin Dose 1 APPLIC; Start 02/27/17 at 21:00 Vancomycin HCl 250 ml @ 125 mls/hr Q24H IVPB Last administered on 03/10/17 21: 30; Admin Dose 125 MLS/HR; Start 02/28/17 at 22:00 Ceftazidime (Fortaz 1gm/50 ml (Pmx)) 50 ml @ 100 mls/hr Q12 IVPB Last administered on 03/10/17 20:21; Admin Dose 100 MLS/HR; Start 03/04/17 at 11:40 Lansoprazole (Prevacid) 30 mg BID@06,18 PO Last administered on 03/11/17 05:05 ; Admin Dose 30 MG; Start 03/04/17 at 18:00 Lactobacillus Acidophilus/ Rhamnosus (Culturelle) 1 cap BID PO Last administered on 03/11/17 08:54; Admin Dose 1 CAP; Start 03/04/17 at 17:00 Docusate Sodium (Colace Liquid Cup) 100 mg HS PO Last administered on 03/10/17 20:21; Admin Dose 100 MG; Start 03/07/17 at 21:00 Aspirin (Aspirin) 81 mg DAILY PO Last administered on 03/11/17 08:54; Admin Dose 81 MG; Start 03/09/17 at 09:30 Miscellaneous Information (*Rx Drug Level Order Reminder*) VANCOMYCIN TROUGH AT 2100 ONCE ONCE XX ; Start 03/11/17 at 21:00; Stop 03/11/17 at 21:01 TATIANA VENTURA NP Mar 11, 2017 13:11
--- NOTE | 2017-03-11 14:41 | PN ---
Date/Time of Note Date/Time of Note DATE: 03/11/17 TIME: 14:33 Assessment/Plan VTE Prophylaxis VTE Prophylaxis Intervention: LMWH Lines/Catheters IV C[facility]ter Type (from [facility]): Saline Lock Urinary Cath still in place: No Assessment/Plan Assessment/Plan 1. Right heel ulcer w gangrene. S/p debridement. Stable; cont wound care/ and antibiotics.. 2. Cellulitis/wound infection. MRSA and Pseudomonas wound-antibiotics till . on vancomycin and fortez 3. Chr PAD; stable, optimize medical mngmnt. Surgical intervention not a candidate due to his comorbidities. 4. Chr dementia, family declines hospice care 5. Ho GI bleed 6. Anemia, stable 7. DVT prophylaxis: lovenox Subjective 24 Hr Interval Summary Free Text/Dictation demented, no distress Exam/Review of Systems Vital Signs Vitals Vital Signs Date Time Temp Pulse Resp B/P Pulse Ox O2 Delivery O2 Flow Rate FiO2 03/11/17 08:28 97.9 82 19 116/61 99 03/11/17 02:43 Room Air Intake and Output 03/10/17 03/10/17 03/11/17 15:00 23:00 07:00 Intake Total 50 ml 300 ml 350 ml Balance 50 ml 300 ml 350 ml Exam Constitutional: alert, other (confused) Head: atraumatic, normocephalic Eyes: EOMI, PERRL, nl conjunctiva, nl lids ENMT: nl external ears & nose, nl lips & teeth, nl nasal mucosa & septum Neck: non-tender, supple Respiratory: clear to auscultation, normal air movement, No congested cough, No crackles/rales, No diminished breath sounds, No intercostal retraction, No labored breathing, No other, No respirations, No tactile fremitus, No wheezing Cardiovascular: nl pulses, regular rate and rhythm, No S3, No S4, No bruits, No diastolic murmur, No edema, No gallop, No irregular rhythm, No jugular venous distention (JVD), No murmurs/extra sounds, No other, No rub, No systolic murmur Gastrointestinal: nl liver, spleen, non-tender, soft, No ascites, No bowel sounds, No distended, No firm, No hepatomegaly, No mass , No other, No rebound or guarding, No splenomegaly, No surgical scars, No tender Musculoskeletal: nl extremities to inspection Extremities: other (right heel wound, left elbow wound) Neurological: [employer] 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, confused Skin: nl turgor Results Result Diagram: 03/11/17 0500 Results 24 hrs Laboratory Tests Test 03/11/17 05:00 Blood Urea Nitrogen 20 Creatinine 0.91 Medications Medications Current Medications Amlodipine Besylate (Norvasc) 10 mg DAILY PO Last administered on 03/11/17 08: 54; Admin Dose 10 MG; Start 02/26/17 at 12:30 Lisinopril (Zestril) 5 mg DAILY PO Last administered on 03/11/17 08:54; Admin Dose 5 MG; Start 02/27/17 at 09:00 Ondansetron HCl (Zofran Inj) 4 mg Q6H PRN IV NAUSEA AND/OR VOMITING; Start at 12:30 Acetaminophen (Tylenol Tab) 650 mg Q6H PRN PO PAIN LEVEL 1-3 OR FEVER Last administered on 03/10/17 20:21; Admin Dose 650 MG; Start 02/26/17 at 12:30 Acetaminophen/ Hydrocodone Bitart ([place] (5/325)) 1 tab Q6H PRN PO MODERATE PAIN LEVEL 4-6; Start 02/26/17 at 12:30 Docusate Sodium (Colace) 100 mg Q12H PRN PO CONSTIPATION; Start 02/26/17 at 12: 30 Magnesium Hydroxide (Milk Of Mag) 30 ml DAILY PRN PO CONSTIPATION; Start at 12:30 Bisacodyl (Dulcolax) 5 mg DAILY PRN PO CONSTIPATION; Start 02/26/17 at 12:30 Bisacodyl (Dulcolax Supp) 10 mg DAILY PRN [place] CONSTIPATION; Start 02/26/17 at 12 :30 Sodium Biphosphate/ Sodium Phosphate (Fleet Enema) 133 ml DAILY PRN [place] CONSTIPATION; Start 02/26/17 at 12:30 Enoxaparin Sodium (Lovenox) 40 mg DAILY SC Last administered on 03/11/17 08:53 ; Admin Dose 40 MG; Start 02/27/17 at 09:00 Diagnostic Test (Pha) (Accu-Chek) 1 ea 02 XX ; Start 02/27/17 at 02:00 Hydralazine HCl (Apresoline) 10 mg Q4H PRN IV SBP>150 mm Hg Last administered on 03/08/17 14:55; Admin Dose 10 MG; Start 02/26/17 at 12:30 Miscellaneous Information 1 ea NOTE XX ; Start 02/26/17 at 13:00 Glucose (Glutose) 15 gm Q15M PRN PO DECREASED GLUCOSE; Start 02/26/17 at 13:00 Glucose (Glutose) 22.5 gm Q15M PRN PO DECREASED GLUCOSE; Start 02/26/17 at 13: 00 Dextrose (D50w Syringe) 25 ml Q15M PRN IV DECREASED GLUCOSE; Start 02/26/17 at 13:00 Dextrose (D50w Syringe) 50 ml Q15M PRN IV DECREASED GLUCOSE; Start 02/26/17 at 13:00 Glucagon (Glucagen) 1 mg Q15M PRN IM DECREASED GLUCOSE; Start 02/26/17 at 13:00 Glucose (Glutose) 15 gm Q15M PRN BUCCAL DECREASED GLUCOSE; Start 02/26/17 at 13 :00 Collagenase (Santyl) 1 applic DAILY TOP Last administered on 03/11/17 13:00; Admin Dose 1 APPLIC; Start 02/28/17 at 09:00 Gentamicin Sulfate 1 applic 1 applic HS TOP Last administered on 03/10/17 20:21 ; Admin Dose 1 APPLIC; Start 02/27/17 at 21:00 Vancomycin HCl 250 ml @ 125 mls/hr Q24H IVPB Last administered on 03/10/17 21: 30; Admin Dose 125 MLS/HR; Start 02/28/17 at 22:00 Ceftazidime (Fortaz 1gm/50 ml (Pmx)) 50 ml @ 100 mls/hr Q12 IVPB Last administered on 03/11/17 10:00; Admin Dose 100 MLS/HR; Start 03/04/17 at 11:40 Lansoprazole (Prevacid) 30 mg BID@06,18 PO Last administered on 03/11/17 05:05 ; Admin Dose 30 MG; Start 03/04/17 at 18:00 Lactobacillus Acidophilus/ Rhamnosus (Culturelle) 1 cap BID PO Last administered on 03/11/17 08:54; Admin Dose 1 CAP; Start 03/04/17 at 17:00 Docusate Sodium (Colace Liquid Cup) 100 mg HS PO Last administered on 03/10/17 20:21; Admin Dose 100 MG; Start 03/07/17 at 21:00 Aspirin (Aspirin) 81 mg DAILY PO Last administered on 03/11/17 08:54; Admin Dose 81 MG; Start 03/09/17 at 09:30 Miscellaneous Information (*Rx Drug Level Order Reminder*) VANCOMYCIN TROUGH AT 2100 ONCE ONCE XX ; Start 03/11/17 at 21:00; Stop 03/11/17 at 21:01 SUZANNA TILLEY MD Mar 11, 2017 14:40
--- NOTE | 2017-03-11 14:46 | PN ---
Date/Time of Note Date/Time of Note DATE: 03/11/17 TIME: 14:43 Assessment/Plan VTE Prophylaxis VTE Prophylaxis Intervention: contraindicated VTE Contraindication Reason: peripheral vascular disease Lines/Catheters IV Catheter Type (from Nrs): Saline Lock Urinary Cath still in place: No Assessment/Plan Chief Complaint/Hosp Course Right heel ulceration with gangrene unstageable PAD not candidate for revascularization Pain Cellulitis Flexion contracture right le Problems: Assessment/Plan Cont daily wound care. Cont santyl. Pt using heel protectors. Pending placement. Would benefit wound cont. outpatient wound care. Appreciate ID recs. Subjective 24 Hr Interval Summary Free Text/Dictation Right heel ulceration with PAD not candidate for revascularization Exam/Review of Systems Vital Signs Vitals Vital Signs Date Time Temp Pulse Resp B/P Pulse Ox O2 Delivery O2 Flow Rate FiO2 03/11/17 08:28 97.9 82 19 116/61 99 03/11/17 02:43 Room Air Intake and Output 03/10/17 03/10/17 03/11/17 15:00 23:00 07:00 Intake Total 50 ml 300 ml 350 ml Balance 50 ml 300 ml 350 ml Results Result Diagram: 03/11/17 0500 Results 24 hrs Laboratory Tests Test 03/11/17 05:00 Blood Urea Nitrogen 20 Creatinine 0.91 Medications Medications Current Medications Amlodipine Besylate (Norvasc) 10 mg DAILY PO Last administered on 03/11/17 08: 54; Admin Dose 10 MG; Start 02/26/17 at 12:30 Lisinopril (Zestril) 5 mg DAILY PO Last administered on 03/11/17 08:54; Admin Dose 5 MG; Start 02/27/17 at 09:00 Ondansetron HCl (Zofran Inj) 4 mg Q6H PRN IV NAUSEA AND/OR VOMITING; Start at 12:30 Acetaminophen (Tylenol Tab) 650 mg Q6H PRN PO PAIN LEVEL 1-3 OR FEVER Last administered on 03/10/17 20:21; Admin Dose 650 MG; Start 02/26/17 at 12:30 Acetaminophen/ Hydrocodone Bitart ([place] (5/325)) 1 tab Q6H PRN PO MODERATE PAIN LEVEL 4-6; Start 02/26/17 at 12:30 Docusate Sodium (Colace) 100 mg Q12H PRN PO CONSTIPATION; Start 02/26/17 at 12: 30 Magnesium Hydroxide (Milk Of Mag) 30 ml DAILY PRN PO CONSTIPATION; Start at 12:30 Bisacodyl (Dulcolax) 5 mg DAILY PRN PO CONSTIPATION; Start 02/26/17 at 12:30 Bisacodyl (Dulcolax Supp) 10 mg DAILY PRN [place] CONSTIPATION; Start 02/26/17 at 12 :30 Sodium Biphosphate/ Sodium Phosphate (Fleet Enema) 133 ml DAILY PRN [place] CONSTIPATION; Start 02/26/17 at 12:30 Enoxaparin Sodium (Lovenox) 40 mg DAILY SC Last administered on 03/11/17 08:53 ; Admin Dose 40 MG; Start 02/27/17 at 09:00 Diagnostic Test (Pha) (Accu-Chek) 1 ea 02 XX ; Start 02/27/17 at 02:00 Hydralazine HCl (Apresoline) 10 mg Q4H PRN IV SBP>150 mm Hg Last administered on 03/08/17 14:55; Admin Dose 10 MG; Start 02/26/17 at 12:30 Miscellaneous Information 1 ea NOTE XX ; Start 02/26/17 at 13:00 Glucose (Glutose) 15 gm Q15M PRN PO DECREASED GLUCOSE; Start 02/26/17 at 13:00 Glucose (Glutose) 22.5 gm Q15M PRN PO DECREASED GLUCOSE; Start 02/26/17 at 13: 00 Dextrose (D50w Syringe) 25 ml Q15M PRN IV DECREASED GLUCOSE; Start 02/26/17 at 13:00 Dextrose (D50w Syringe) 50 ml Q15M PRN IV DECREASED GLUCOSE; Start 02/26/17 at 13:00 Glucagon (Glucagen) 1 mg Q15M PRN IM DECREASED GLUCOSE; Start 02/26/17 at 13:00 Glucose (Glutose) 15 gm Q15M PRN BUCCAL DECREASED GLUCOSE; Start 02/26/17 at 13 :00 Collagenase (Santyl) 1 applic DAILY TOP Last administered on 03/11/17 13:00; Admin Dose 1 APPLIC; Start 02/28/17 at 09:00 Gentamicin Sulfate 1 applic 1 applic HS TOP Last administered on 03/10/17 20:21 ; Admin Dose 1 APPLIC; Start 02/27/17 at 21:00 Vancomycin HCl 250 ml @ 125 mls/hr Q24H IVPB Last administered on 03/10/17 21: 30; Admin Dose 125 MLS/HR; Start 02/28/17 at 22:00 Ceftazidime (Fortaz 1gm/50 ml (Pmx)) 50 ml @ 100 mls/hr Q12 IVPB Last administered on 03/11/17 10:00; Admin Dose 100 MLS/HR; Start 03/04/17 at 11:40 Lansoprazole (Prevacid) 30 mg BID@06,18 PO Last administered on 03/11/17 05:05 ; Admin Dose 30 MG; Start 03/04/17 at 18:00 Lactobacillus Acidophilus/ Rhamnosus (Culturelle) 1 cap BID PO Last administered on 03/11/17 08:54; Admin Dose 1 CAP; Start 03/04/17 at 17:00 Docusate Sodium (Colace Liquid Cup) 100 mg HS PO Last administered on 03/10/17 20:21; Admin Dose 100 MG; Start 03/07/17 at 21:00 Aspirin (Aspirin) 81 mg DAILY PO Last administered on 03/11/17 08:54; Admin Dose 81 MG; Start 03/09/17 at 09:30 Miscellaneous Information (*Rx Drug Level Order Reminder*) VANCOMYCIN TROUGH AT 2100 ONCE ONCE XX ; Start 03/11/17 at 21:00; Stop 03/11/17 at 21:01 CAMILO KIM DPM Mar 11, 2017 14:45
[2017-03-11 15:06] VITALS: BP 116/85; RESP 20
[2017-03-11] MEDS: DOCUSATE SODIUM 10 MG/ML (10ML CUP) PO SCH (22:10)
[2017-03-11] MEDS: GENTAMICIN 0.1% 15 GM OINT TOP SCH (22:11)
[2017-03-11 22:30] VITALS: BP 153/80; RESP 21
[2017-03-11] MEDS: VANCOMYCIN 1 GM in NS 250 ML IVPB SCH (23:15)
[2017-03-12 02:00] VITALS: BP 155/70; RESP 19
[2017-03-12] MEDS: hydrALAzine 20 MG INJ IV PRN (03:42)
[2017-03-12 05:07] VITALS: BP 104/50; PULSE 92
[2017-03-12] MEDS: LANSOPRAZOLE 30 MG CAP PO SCH ×2 (05:36→18:02)
[2017-03-12] MEDS: LISINOPRIL 5 MG TAB PO SCH (08:40)
[2017-03-12] MEDS: LACTOBACILLUS RHAMNOSUS CAP PO SCH ×2 (08:40→20:12)
[2017-03-12] MEDS: AMLODIPINE 10 MG TAB PO SCH (08:40)
[2017-03-12] MEDS: ASPIRIN 81 MG TAB PO SCH (08:40)
[2017-03-12] MEDS: ENOXAPARIN 40 MG/0.4 ML SYG SC SCH (08:41)
[2017-03-12] MEDS: CEFTAZIDIME 1GM/50 ML (PMX) 50 ML IVPB SCH ×2 (08:45→20:12)
[2017-03-12 08:51] VITALS: BP 123/62; RESP 19
[2017-03-12] MEDS: COLLAGENASE 30 GM TUBE TOP SCH (09:00)
--- NOTE | 2017-03-12 14:40 | CONS ---
Date/Time of Note Date/Time of Note DATE: 03/12/17 TIME: 14:39 Assessment/Plan Assessment/Plan Chief Complaint/Hosp Course No acute changes per report, patient is lying comfortably in bed, no fevers Antimicrobials: Vancomycin, Fortaz Microbiology: Wound culture growing MRSA and Pseudomonas Physical examination: This is a chronically ill-appearing, well-developed, fragile elderly man who is awake, confused, in no distress. Head atraumatic normocephalic, sclera nonicteric, mucosa dry. Neck is supple. Chest rise symmetrical, breath sounds diminished basis Heart: S1-S2 Abdomen is soft, bowel tones present. Extremities without cyanosis, right heel dressing intact Assessment: 1. Right lower extremity ulceration with gangrenous changes 2. Peripheral vascular disease 3. Hypertension 4. Alzheimer's dementia Plan: Patient remains unchanged, clinically stable, podiatry and vascular teams on case, continue antibiotics for 6 more day, may downgrade Vanco to Bactrim p.o., wound care per podiatry recommendations [facility] staff Problems: Consultation Date/Type/Reason Admit Date/Time Feb 26, 2017 at 05:26 Type of Consultation: ID Exam/Review of Systems Vital Signs Vitals Vital Signs Date Time Temp Pulse Resp B/P Pulse Ox O2 Delivery O2 Flow Rate FiO2 03/12/17 08:51 98.1 98 19 123/62 96 03/11/17 02:43 Room Air Intake and Output 03/11/17 03/11/17 03/12/17 15:00 23:00 07:00 Intake Total 50 ml 125 ml 350 ml Balance 50 ml 125 ml 350 ml Results Result Diagram: 03/11/17 0500 Results 24 hrs Laboratory Tests Test 03/11/17 21:46 Vancomycin Level Trough 12.8 Medications Medications Current Medications Amlodipine Besylate (Norvasc) 10 mg DAILY PO Last administered on 03/12/17 08: 40; Admin Dose 10 MG; Start 02/26/17 at 12:30 Lisinopril (Zestril) 5 mg DAILY PO Last administered on 03/12/17 08:40; Admin Dose 5 MG; Start 02/27/17 at 09:00 Ondansetron HCl (Zofran Inj) 4 mg Q6H PRN IV NAUSEA AND/OR VOMITING; Start at 12:30 Acetaminophen (Tylenol Tab) 650 mg Q6H PRN PO PAIN LEVEL 1-3 OR FEVER Last administered on 03/10/17 20:21; Admin Dose 650 MG; Start 02/26/17 at 12:30 Acetaminophen/ Hydrocodone Bitart ([place] (5/325)) 1 tab Q6H PRN PO MODERATE PAIN LEVEL 4-6; Start 02/26/17 at 12:30 Docusate Sodium (Colace) 100 mg Q12H PRN PO CONSTIPATION; Start 02/26/17 at 12: 30 Magnesium Hydroxide (Milk Of Mag) 30 ml DAILY PRN PO CONSTIPATION; Start at 12:30 Bisacodyl (Dulcolax) 5 mg DAILY PRN PO CONSTIPATION Last administered on 05:36; Admin Dose 5 MG; Start 02/26/17 at 12:30 Bisacodyl (Dulcolax Supp) 10 mg DAILY PRN [place] CONSTIPATION; Start 02/26/17 at 12 :30 Sodium Biphosphate/ Sodium Phosphate (Fleet Enema) 133 ml DAILY PRN [place] CONSTIPATION; Start 02/26/17 at 12:30 Enoxaparin Sodium (Lovenox) 40 mg DAILY SC Last administered on 03/12/17 08:41 ; Admin Dose 40 MG; Start 02/27/17 at 09:00 Diagnostic Test (Pha) (Accu-Chek) 1 ea 02 XX ; Start 02/27/17 at 02:00 Hydralazine HCl (Apresoline) 10 mg Q4H PRN IV SBP>150 mm Hg Last administered on 03/12/17 03:42; Admin Dose 10 MG; Start 02/26/17 at 12:30 Miscellaneous Information 1 ea NOTE XX ; Start 02/26/17 at 13:00 Glucose (Glutose) 15 gm Q15M PRN PO DECREASED GLUCOSE; Start 02/26/17 at 13:00 Glucose (Glutose) 22.5 gm Q15M PRN PO DECREASED GLUCOSE; Start 02/26/17 at 13: 00 Dextrose (D50w Syringe) 25 ml Q15M PRN IV DECREASED GLUCOSE; Start 02/26/17 at 13:00 Dextrose (D50w Syringe) 50 ml Q15M PRN IV DECREASED GLUCOSE; Start 02/26/17 at 13:00 Glucagon (Glucagen) 1 mg Q15M PRN IM DECREASED GLUCOSE; Start 02/26/17 at 13:00 Glucose (Glutose) 15 gm Q15M PRN BUCCAL DECREASED GLUCOSE; Start 02/26/17 at 13 :00 Collagenase (Santyl) 1 applic DAILY TOP Last administered on 03/12/17 09:00; Admin Dose 1 APPLIC; Start 02/28/17 at 09:00 Gentamicin Sulfate 1 applic 1 applic HS TOP Last administered on 03/11/17 22: 11; Admin Dose 1 APPLIC; Start 02/27/17 at 21:00 Vancomycin HCl 250 ml @ 125 mls/hr Q24H IVPB Last administered on 03/11/17 23 :15; Admin Dose 125 MLS/HR; Start 02/28/17 at 22:00 Ceftazidime (Fortaz 1gm/50 ml (Pmx)) 50 ml @ 100 mls/hr Q12 IVPB Last administered on 03/12/17 08:45; Admin Dose 100 MLS/HR; Start 03/04/17 at 11:40 Lansoprazole (Prevacid) 30 mg BID@06,18 PO Last administered on 03/12/17 05:36 ; Admin Dose 30 MG; Start 03/04/17 at 18:00 Lactobacillus Acidophilus/ Rhamnosus (Culturelle) 1 cap BID PO Last administered on 03/12/17 08:40; Admin Dose 1 CAP; Start 03/04/17 at 17:00 Docusate Sodium (Colace Liquid Cup) 100 mg HS PO Last administered on 22:10; Admin Dose 100 MG; Start 03/07/17 at 21:00 Aspirin (Aspirin) 81 mg DAILY PO Last administered on 03/12/17 08:40; Admin Dose 81 MG; Start 03/09/17 at 09:30 TATIANA VENTURA NP Mar 12, 2017 14:40
[2017-03-12 15:11] VITALS: BP 101/58; RESP 19
--- NOTE | 2017-03-12 15:50 | PN ---
Date/Time of Note Date/Time of Note DATE: 03/12/17 TIME: 15:48 Assessment/Plan VTE Prophylaxis VTE Prophylaxis Intervention: heparin Lines/Catheters IV [facility] Saline Lock Urinary Cath still in place: No Assessment/Plan Assessment/Plan 1. Right heel ulcer w gangrene. S/p debridement. Stable; cont wound care/ and antibiotics.. 2. Cellulitis/wound infection. MRSA and Pseudomonas wound-antibiotics till . on vancomycin and fortez 3. Chr PAD; stable, optimize medical mngmnt. Surgical intervention not a candidate due to his comorbidities. 4. Chr dementia, family declines hospice care 5. Ho GI bleed 6. Anemia, stable 7. DVT prophylaxis: lovenox 8. Plan to D/C to SNF Subjective 24 Hr Interval Summary Free Text/Dictation confused, nonverbal Exam/Review of Systems Vital Signs Vitals Vital Signs Date Time Temp Pulse Resp B/P Pulse Ox O2 Delivery O2 Flow Rate FiO2 03/12/17 15:11 97.6 86 19 101/58 96 03/11/17 02:43 Room Air Intake and Output 03/11/17 03/11/17 03/12/17 15:00 23:00 07:00 Intake Total 50 ml 125 ml 350 ml Balance 50 ml 125 ml 350 ml Exam Constitutional: frail, non-verbal Head: atraumatic, normocephalic Eyes: EOMI, PERRL, nl conjunctiva, nl lids ENMT: mucosa pink and moist, nl external ears & nose, nl lips & teeth, nl nasal mucosa & septum Neck: non-tender, supple Respiratory: clear to auscultation, normal air movement, No congested cough, No crackles/rales, No diminished breath sounds, No intercostal retraction, No labored breathing, No other, No respirations, No tactile fremitus, No wheezing Cardiovascular: nl pulses, regular rate and rhythm, No S3, No S4, No bruits, No diastolic murmur, No edema, No gallop, No irregular rhythm, No jugular venous distention (JVD), No murmurs/extra sounds, No other, No rub, No systolic murmur Gastrointestinal: nl liver, spleen, non-tender, soft Musculoskeletal: nl extremities to inspection Extremities: other (wounds) Neurological: confused, lethargic Results Result Diagram: 03/11/17 0500 Results 24 hrs Laboratory Tests Test 03/11/17 21:46 Vancomycin Level Trough 12.8 Medications Medications Current Medications Amlodipine Besylate (Norvasc) 10 mg DAILY PO Last administered on 03/12/17 08: 40; Admin Dose 10 MG; Start 02/26/17 at 12:30 Lisinopril (Zestril) 5 mg DAILY PO Last administered on 03/12/17 08:40; Admin Dose 5 MG; Start 02/27/17 at 09:00 Ondansetron HCl (Zofran Inj) 4 mg Q6H PRN IV NAUSEA AND/OR VOMITING; Start at 12:30 Acetaminophen (Tylenol Tab) 650 mg Q6H PRN PO PAIN LEVEL 1-3 OR FEVER Last administered on 03/10/17 20:21; Admin Dose 650 MG; Start 02/26/17 at 12:30 Acetaminophen/ Hydrocodone Bitart ([place] (5/325)) 1 tab Q6H PRN PO MODERATE PAIN LEVEL 4-6; Start 02/26/17 at 12:30 Docusate Sodium (Colace) 100 mg Q12H PRN PO CONSTIPATION; Start 02/26/17 at 12: 30 Magnesium Hydroxide (Milk Of Mag) 30 ml DAILY PRN PO CONSTIPATION; Start at 12:30 Bisacodyl (Dulcolax) 5 mg DAILY PRN PO CONSTIPATION Last administered on 05:36; Admin Dose 5 MG; Start 02/26/17 at 12:30 Bisacodyl (Dulcolax Supp) 10 mg DAILY PRN [place] CONSTIPATION; Start 02/26/17 at 12 :30 Sodium Biphosphate/ Sodium Phosphate (Fleet Enema) 133 ml DAILY PRN [place] CONSTIPATION; Start 02/26/17 at 12:30 Enoxaparin Sodium (Lovenox) 40 mg DAILY SC Last administered on 03/12/17 08:41 ; Admin Dose 40 MG; Start 02/27/17 at 09:00 Diagnostic Test (Pha) (Accu-Chek) 1 ea 02 XX ; Start 02/27/17 at 02:00 Hydralazine HCl (Apresoline) 10 mg Q4H PRN IV SBP>150 mm Hg Last administered on 03/12/17 03:42; Admin Dose 10 MG; Start 02/26/17 at 12:30 Miscellaneous Information 1 ea NOTE XX ; Start 02/26/17 at 13:00 Glucose (Glutose) 15 gm Q15M PRN PO DECREASED GLUCOSE; Start 02/26/17 at 13:00 Glucose (Glutose) 22.5 gm Q15M PRN PO DECREASED GLUCOSE; Start 02/26/17 at 13: 00 Dextrose (D50w Syringe) 25 ml Q15M PRN IV DECREASED GLUCOSE; Start 02/26/17 at 13:00 Dextrose (D50w Syringe) 50 ml Q15M PRN IV DECREASED GLUCOSE; Start 02/26/17 at 13:00 Glucagon (Glucagen) 1 mg Q15M PRN IM DECREASED GLUCOSE; Start 02/26/17 at 13:00 Glucose (Glutose) 15 gm Q15M PRN BUCCAL DECREASED GLUCOSE; Start 02/26/17 at 13 :00 Collagenase (Santyl) 1 applic DAILY TOP Last administered on 03/12/17 09:00; Admin Dose 1 APPLIC; Start 02/28/17 at 09:00 Gentamicin Sulfate 1 applic 1 applic HS TOP Last administered on 03/11/17 22: 11; Admin Dose 1 APPLIC; Start 02/27/17 at 21:00 Vancomycin HCl 250 ml @ 125 mls/hr Q24H IVPB Last administered on 03/11/17 23 :15; Admin Dose 125 MLS/HR; Start 02/28/17 at 22:00 Ceftazidime (Fortaz 1gm/50 ml (Pmx)) 50 ml @ 100 mls/hr Q12 IVPB Last administered on 03/12/17 08:45; Admin Dose 100 MLS/HR; Start 03/04/17 at 11:40 Lansoprazole (Prevacid) 30 mg BID@06,18 PO Last administered on 03/12/17 05:36 ; Admin Dose 30 MG; Start 03/04/17 at 18:00 Lactobacillus Acidophilus/ Rhamnosus (Culturelle) 1 cap BID PO Last administered on 03/12/17 08:40; Admin Dose 1 CAP; Start 03/04/17 at 17:00 Docusate Sodium (Colace Liquid Cup) 100 mg HS PO Last administered on 22:10; Admin Dose 100 MG; Start 7/6/17 at 21:00 Aspirin (Aspirin) 81 mg DAILY PO Last administered on 03/12/17t 08:40; Admin Dose 81 MG; Start 03/09/17 at 09:30 SUZANNA TILLEY MD Mar 12, 2017 15:50
[2017-03-12] MEDS: GENTAMICIN 0.1% 15 GM OINT TOP SCH (20:12)
[2017-03-12] MEDS: DOCUSATE SODIUM 10 MG/ML (10ML CUP) PO SCH (20:12)
[2017-03-12 20:41] VITALS: BP 108/59; RESP 20
[2017-03-12] MEDS: VANCOMYCIN 1 GM in NS 250 ML IVPB SCH (21:56)
[2017-03-12] MEDS: ACCU-CHEK XX SCH (21:59)
[2017-03-13 02:09] VITALS: BP 117/78; RESP 18
[2017-03-13] MEDS: LANSOPRAZOLE 30 MG CAP PO SCH ×2 (05:21→17:55)
[2017-03-13] MEDS: BISACODYL 10 MG SUPP PR PRN (05:22)
[2017-03-13 07:20] VITALS: BP 113/80; RESP 18
[2017-03-13] MEDS: ASPIRIN 81 MG TAB PO SCH (08:25)
[2017-03-13] MEDS: AMLODIPINE 10 MG TAB PO SCH (08:25)
[2017-03-13] MEDS: LISINOPRIL 5 MG TAB PO SCH (08:26)
[2017-03-13] MEDS: CEFTAZIDIME 1GM/50 ML (PMX) 50 ML IVPB SCH ×2 (08:26→22:56)
[2017-03-13] MEDS: LACTOBACILLUS RHAMNOSUS CAP PO SCH ×2 (08:26→20:44)
[2017-03-13] MEDS: ENOXAPARIN 40 MG/0.4 ML SYG SC SCH (08:29)
[2017-03-13] MEDS: COLLAGENASE 30 GM TUBE TOP SCH (09:10)
--- NOTE | 2017-03-13 09:19 | PN ---
Date/Time of Note Date/Time of Note DATE: 03/13/17 TIME: : Assessment/Plan Lines/Catheters IV Catheter Type (from Nrs): Saline Lock Perez in Place (from Nrs): No Assessment/Plan Chief Complaint/Hosp Course -Bilateral Lower Extremity Atherosclerosis and RLE heel non-healing ulcer/ gangrene: It seems the patient has developed a right heel ulcer that has progressed over the past two months to gangrene. Unfortunately the patient has significant dementia at baseline and not responding to questions appropriately, wheelchair bound and non-ambulatory. He would not be a candidate for any vascular intervention for his significant infrapopliteal disease. Would recommend if the heel ulcer worsens/sepsis and threatening his life, or worsening rest pain to undergo above knee amputation as he has contracture of bilateral lower extremities. Otherwise can undergo local intervention with our podiatry colleagues -Discussed findings, plan and management and they understand with certified director of maternity services -Optimize vascular status -thank you for allowing us to partake in the care of your patient, please call with any questions Problems: Subjective 24 Hr Interval Summary no new vascular events overnight Exam/Review of Systems Vital Signs Vitals Vital Signs Date Time Temp Pulse Resp B/P Pulse Ox O2 Delivery O2 Flow Rate FiO2 03/13/17 02:09 97.4 81 18 117/78 99 03/11/17 02:43 Room Air Intake and Output 03/12/17 03/12/17 03/13/17 14:59 22:59 06:59 Intake Total 50 ml 370 ml 450 ml Balance 50 ml 370 ml 450 ml Exam Free Text/Dictation awake not responding to questions Coarse BS bilaterally S1S2 present soft NTND BS+ Extremities: -RLE : palpable femoral pulse, nonpalpable pedal pulse, unable to ascertain motor/sensory as pt has dementia and doesn't answer questions, cap refill 4 seconds, Right heel gangrene with surrounding erythema improved post debridement , knee contracture 45 degrees -LLE: palpable femoral pulse, nonpalpable pedal pulse, unable to ascertain motor/sensory as pt has dementia and doesn't answer questions, cap refill 4 seconds, knee contracture 45 degrees Results Result Diagram: 03/11/17 0500 BHUPENDRA FUNG MD Mar 13, 2017 09:19
[2017-03-13 14:00] VITALS: BP 119/92; RESP 16
--- NOTE | 2017-03-13 14:31 | CONS ---
Date/Time of Note Date/Time of Note DATE: 03/13/17 TIME: 14:30 Assessment/Plan Assessment/Plan Chief Complaint/Hosp Course No acute changes per report, patient is lying comfortably in bed, no fevers Antimicrobials: Vancomycin, Fortaz Microbiology: Wound culture growing MRSA and Pseudomonas Physical examination: This is a chronically ill-appearing, well-developed, fragile elderly man who is awake, confused, in no distress. Head atraumatic normocephalic, sclera nonicteric, mucosa dry. Neck is supple. Chest rise symmetrical, breath sounds diminished basis Heart: S1-S2 Abdomen is soft, bowel tones present. Extremities without cyanosis, right heel dressing intact Assessment: 1. Right lower extremity ulceration with gangrenous changes 2. Peripheral vascular disease 3. Hypertension 4. Alzheimer's dementia Plan: Patient remains unchanged, clinically stable, podiatry and vascular teams on case, continue antibiotics for 5more days, continue wound care per podiatry recommendations, anti-aspiration measures DW staff Problems: Consultation Date/Type/Reason Admit Date/Time Feb 26, 2017 at 05:26 Type of Consultation: ID Exam/Review of Systems Vital Signs Vitals Vital Signs Date Time Temp Pulse Resp B/P Pulse Ox O2 Delivery O2 Flow Rate FiO2 03/13/17 14:00 96.7 80 16 119/92 98 03/11/17 02:43 Room Air Intake and Output 03/12/17 03/12/17 03/13/17 15:00 23:00 07:00 Intake Total 50 ml 370 ml 450 ml Balance 50 ml 370 ml 450 ml Results Result Diagram: 03/11/17 0500 Medications Medications Current Medications Amlodipine Besylate (Norvasc) 10 mg DAILY PO Last administered on 03/13/17 08: 25; Admin Dose 10 MG; Start 02/26/17 at 12:30 Lisinopril (Zestril) 5 mg DAILY PO Last administered on 03/13/17 08:26; Admin Dose 5 MG; Start 02/27/17 at 09:00 Ondansetron HCl (Zofran Inj) 4 mg Q6H PRN IV NAUSEA AND/OR VOMITING; Start at 12:30 Acetaminophen (Tylenol Tab) 650 mg Q6H PRN PO PAIN LEVEL 1-3 OR FEVER Last administered on 03/10/17 20:21; Admin Dose 650 MG; Start 02/26/17 at 12:30 Acetaminophen/ Hydrocodone Bitart ([place] (5/325)) 1 tab Q6H PRN PO MODERATE PAIN LEVEL 4-6; Start 02/26/17 at 12:30 Docusate Sodium (Colace) 100 mg Q12H PRN PO CONSTIPATION; Start 02/26/17 at 12: 30 Magnesium Hydroxide (Milk Of Mag) 30 ml DAILY PRN PO CONSTIPATION; Start at 12:30 Bisacodyl (Dulcolax) 5 mg DAILY PRN PO CONSTIPATION Last administered on 05:36; Admin Dose 5 MG; Start 02/26/17 at 12:30 Bisacodyl (Dulcolax Supp) 10 mg DAILY PRN [place] CONSTIPATION Last administered on 03/13/17 05:22; Admin Dose 10 MG; Start 02/26/17 at 12:30 Sodium Biphosphate/ Sodium Phosphate (Fleet Enema) 133 ml DAILY PRN [place] CONSTIPATION; Start 02/26/17 at 12:30 Enoxaparin Sodium (Lovenox) 40 mg DAILY SC Last administered on 03/13/17 08:29 ; Admin Dose 40 MG; Start 02/27/17 at 09:00 Diagnostic Test (Pha) (Accu-Chek) 1 ea 02 XX ; Start 02/27/17 at 02:00 Hydralazine HCl (Apresoline) 10 mg Q4H PRN IV SBP>150 mm Hg Last administered on 03/12/17 03:42; Admin Dose 10 MG; Start 02/26/17 at 12:30 Miscellaneous Information 1 ea NOTE XX ; Start 02/26/17 at 13:00 Glucose (Glutose) 15 gm Q15M PRN PO DECREASED GLUCOSE; Start 02/26/17 at 13:00 Glucose (Glutose) 22.5 gm Q15M PRN PO DECREASED GLUCOSE; Start 02/26/17 at 13: 00 Dextrose (D50w Syringe) 25 ml Q15M PRN IV DECREASED GLUCOSE; Start 02/26/17 at 13:00 Dextrose (D50w Syringe) 50 ml Q15M PRN IV DECREASED GLUCOSE; Start 02/26/17 at 13:00 Glucagon (Glucagen) 1 mg Q15M PRN IM DECREASED GLUCOSE; Start 02/26/17 at 13:00 Glucose (Glutose) 15 gm Q15M PRN BUCCAL DECREASED GLUCOSE; Start 02/26/17 at 13 :00 Collagenase (Santyl) 1 applic DAILY TOP Last administered on 03/13/17 09:10; Admin Dose 1 APPLIC; Start 02/28/17 at 09:00 Gentamicin Sulfate 1 applic 1 applic HS TOP Last administered on 03/12/17 20: 12; Admin Dose 1 APPLIC; Start 02/27/17 at 21:00 Vancomycin HCl 250 ml @ 125 mls/hr Q24H IVPB Last administered on 03/12/17 21 :56; Admin Dose 125 MLS/HR; Start 02/28/17 at 22:00 Ceftazidime (Fortaz 1gm/50 ml (Pmx)) 50 ml @ 100 mls/hr Q12 IVPB Last administered on 03/13/17 08:26; Admin Dose 100 MLS/HR; Start 03/04/17 at 11:40 Lansoprazole (Prevacid) 30 mg BID@06,18 PO Last administered on 03/13/17 05:21 ; Admin Dose 30 MG; Start 03/04/17 at 18:00 Lactobacillus Acidophilus/ Rhamnosus (Culturelle) 1 cap BID PO Last administered on 03/13/17 08:26; Admin Dose 1 CAP; Start 03/04/17 at 17:00 Docusate Sodium (Colace Liquid Cup) 100 mg HS PO Last administered on 20:12; Admin Dose 100 MG; Start 03/07/17 at 21:00 Aspirin (Aspirin) 81 mg DAILY PO Last administered on 03/13/17 08:25; Admin Dose 81 MG; Start 03/09/17 at 09:30 TATIANA VENTURA NP Mar 13, 2017 14:30
--- NOTE | 2017-03-13 16:03 | PN ---
Date/Time of Note Date/Time of Note DATE: 03/13/17 TIME: 16:01 Assessment/Plan VTE Prophylaxis VTE Prophylaxis Intervention: LMWH Lines/Catheters IV [facility] Type (from [facility]): Saline Lock Urinary Cath still in place: No Assessment/Plan Assessment/Plan 1. Right heel ulcer w gangrene. S/p debridement. Stable; cont wound care/ and antibiotics.. 2. Cellulitis/wound infection. MRSA and Pseudomonas wound-antibiotics till . on vancomycin and fortez 3. Chr PAD; stable, optimize medical mngmnt. Surgical intervention not a candidate due to his comorbidities. 4. Chr dementia, family declines hospice care 5. Ho GI bleed 6. Anemia, stable 7. DVT prophylaxis: lovenox 8. Plan to D/C to SNF when bed is available, talked to rehabilitation case coordinator Subjective 24 Hr Interval Summary Free Text/Dictation demented, lethargic Exam/Review of Systems Vital Signs Vitals Vital Signs Date Time Temp Pulse Resp B/P Pulse Ox O2 Delivery O2 Flow Rate FiO2 03/13/17 14:00 96.7 80 16 119/92 98 03/11/17 02:43 Room Air Intake and Output 03/12/17 03/12/17 03/13/17 15:00 23:00 07:00 Intake Total 50 ml 370 ml 450 ml Balance 50 ml 370 ml 450 ml Exam Constitutional: frail, non-verbal Head: atraumatic, normocephalic Eyes: PERRL ENMT: mucosa pink and moist, nl external ears & nose, nl lips & teeth, nl nasal mucosa & septum Neck: supple Respiratory: clear to auscultation, normal air movement, No congested cough, No crackles/rales, No diminished breath sounds, No intercostal retraction, No labored breathing, No other, No respirations, No tactile fremitus, No wheezing Cardiovascular: nl pulses, regular rate and rhythm, No S3, No S4, No bruits, No diastolic murmur, No edema, No gallop, No irregular rhythm, No jugular venous distention (JVD), No murmurs/extra sounds, No other, No rub, No systolic murmur Gastrointestinal: nl liver, spleen, non-tender, soft Musculoskeletal: nl extremities to inspection Extremities: normal pulses, other (wounds) Neurological: confused, lethargic Results Result Diagram: 03/11/17 0500 Medications Medications Current Medications Amlodipine Besylate (Norvasc) 10 mg DAILY PO Last administered on 03/13/17 08: 25; Admin Dose 10 MG; Start 02/26/17 at 12:30 Lisinopril (Zestril) 5 mg DAILY PO Last administered on 03/13/17 08:26; Admin Dose 5 MG; Start 02/27/17 at 09:00 Ondansetron HCl (Zofran Inj) 4 mg Q6H PRN IV NAUSEA AND/OR VOMITING; Start at 12:30 Acetaminophen (Tylenol Tab) 650 mg Q6H PRN PO PAIN LEVEL 1-3 OR FEVER Last administered on 03/10/17 20:21; Admin Dose 650 MG; Start 02/26/17 at 12:30 Acetaminophen/ Hydrocodone Bitart ([place] (5/325)) 1 tab Q6H PRN PO MODERATE PAIN LEVEL 4-6; Start 02/26/17 at 12:30 Docusate Sodium (Colace) 100 mg Q12H PRN PO CONSTIPATION; Start 02/26/17 at 12: 30 Magnesium Hydroxide (Milk Of Mag) 30 ml DAILY PRN PO CONSTIPATION; Start at 12:30 Bisacodyl (Dulcolax) 5 mg DAILY PRN PO CONSTIPATION Last administered on 05:36; Admin Dose 5 MG; Start 02/26/17 at 12:30 Bisacodyl (Dulcolax Supp) 10 mg DAILY PRN [place] CONSTIPATION Last administered on 03/13/17 05:22; Admin Dose 10 MG; Start 02/26/17 at 12:30 Sodium Biphosphate/ Sodium Phosphate (Fleet Enema) 133 ml DAILY PRN [place] CONSTIPATION; Start 02/26/17 at 12:30 Enoxaparin Sodium (Lovenox) 40 mg DAILY SC Last administered on 03/13/17 08:29 ; Admin Dose 40 MG; Start 02/27/17 at 09:00 Diagnostic Test (Pha) (Accu-Chek) 1 ea 02 XX ; Start 02/27/17 at 02:00 Hydralazine HCl (Apresoline) 10 mg Q4H PRN IV SBP>150 mm Hg Last administered on 03/12/17 03:42; Admin Dose 10 MG; Start 02/26/17 at 12:30 Miscellaneous Information 1 ea NOTE XX ; Start 02/26/17 at 13:00 Glucose (Glutose) 15 gm Q15M PRN PO DECREASED GLUCOSE; Start 02/26/17 at 13:00 Glucose (Glutose) 22.5 gm Q15M PRN PO DECREASED GLUCOSE; Start 02/26/17 at 13: 00 Dextrose (D50w Syringe) 25 ml Q15M PRN IV DECREASED GLUCOSE; Start 02/26/17 at 13:00 Dextrose (D50w Syringe) 50 ml Q15M PRN IV DECREASED GLUCOSE; Start 02/26/17 at 13:00 Glucagon (Glucagen) 1 mg Q15M PRN IM DECREASED GLUCOSE; Start 02/26/17 at 13:00 Glucose (Glutose) 15 gm Q15M PRN BUCCAL DECREASED GLUCOSE; Start 02/26/17 at 13 :00 Collagenase (Santyl) 1 applic DAILY TOP Last administered on 03/13/17 09:10; Admin Dose 1 APPLIC; Start 02/28/17 at 09:00 Gentamicin Sulfate 1 applic 1 applic HS TOP Last administered on 03/12/17 20: 12; Admin Dose 1 APPLIC; Start 02/27/17 at 21:00 Vancomycin HCl 250 ml @ 125 mls/hr Q24H IVPB Last administered on 03/12/17 21 :56; Admin Dose 125 MLS/HR; Start 02/28/17 at 22:00 Ceftazidime (Fortaz 1gm/50 ml (Pmx)) 50 ml @ 100 mls/hr Q12 IVPB Last administered on 03/13/17 08:26; Admin Dose 100 MLS/HR; Start 03/04/17 at 11:40 Lansoprazole (Prevacid) 30 mg BID@06,18 PO Last administered on 03/13/17 05:21 ; Admin Dose 30 MG; Start 03/04/17 at 18:00 Lactobacillus Acidophilus/ Rhamnosus (Culturelle) 1 cap BID PO Last administered on 03/13/17 08:26; Admin Dose 1 CAP; Start 03/04/17 at 17:00 Docusate Sodium (Colace Liquid Cup) 100 mg HS PO Last administered on 20:12; Admin Dose 100 MG; Start 03/07/17 at 21:00 Aspirin (Aspirin) 81 mg DAILY PO Last administered on 03/13/17t 08:25; Admin Dose 81 MG; Start 03/09/17 at 09:30 SUZANNA TILLEY MD Mar 13, 2017 16:03
[2017-03-13] MEDS: DOCUSATE SODIUM 10 MG/ML (10ML CUP) PO SCH (20:44)
[2017-03-13 20:50] VITALS: BP 118/95; RESP 19
[2017-03-13] MEDS: GENTAMICIN 0.1% 15 GM OINT TOP SCH (20:51)
[2017-03-13] MEDS: VANCOMYCIN 1 GM in NS 250 ML IVPB SCH (20:58)
[2017-03-14] MEDS: ACCU-CHEK XX SCH (02:00)
[2017-03-14 02:49] VITALS: BP 118/75; RESP 18
[2017-03-14] MEDS: LANSOPRAZOLE 30 MG CAP PO SCH ×2 (05:28→18:49)
[2017-03-14 07:02] LABS: ADD SCAN DIFF NO
[2017-03-14 07:12] LABS: BASOPHIL # 0.1 10^3/ul (0.0-0.1); BASOPHILS % 0.7 % (0.0-2.0); EOSINOPHILS # 0.3 10^3/ul (0.0-0.5); EOSINOPHILS % 2.4 % (0.0-7.0); HEMATOCRIT 35.2 % (42.0-52.0); HEMOGLOBIN 11.8 g/dl (14.0-18.0); LYMPHOCYTES # 2.8 10^3/ul (0.8-2.9); LYMPHOCYTES % 24.7 % (15.0-51.0); MEAN CORPUSCULAR HEMOGLOBIN 32.9 pg (29.0-33.0); MEAN CORPUSCULAR HGB CONC 33.5 g/dl (32.0-37.0); MEAN CORPUSCULAR VOLUME 98.1 fl (82.0-101.0); MEAN PLATELET VOLUME 9.7 fl (7.4-10.4); MONOCYTE # 1.1 10^3/ul (0.3-0.9); MONOCYTES % 9.6 % (0.0-11.0); NEUTROPHILS % 62.1 % (39.0-77.0); PLATELET COUNT 342 10^3/UL (140-415); RED BLOOD COUNT 3.59 10^6/ul (4.70-6.10); RED CELL DISTRIBUTION WIDTH 13.5 % (11.5-14.5); WHITE BLOOD COUNT 11.2 10^3/ul (4.8-10.8)
[2017-03-14 07:33] LABS: POTASSIUM 4.6 mmol/L (3.5-5.1)
[2017-03-14 07:34] LABS: CALCIUM 9.4 mg/dl (8.4-10.2); CREATININE 0.96 mg/dl (0.61-1.24)
[2017-03-14 08:14] VITALS: BP 121/63; RESP 18
[2017-03-14] MEDS: LISINOPRIL 5 MG TAB PO SCH (09:16)
[2017-03-14] MEDS: LACTOBACILLUS RHAMNOSUS CAP PO SCH ×2 (09:16→22:02)
[2017-03-14] MEDS: ASPIRIN 81 MG TAB PO SCH (09:16)
[2017-03-14] MEDS: CEFTAZIDIME 1GM/50 ML (PMX) 50 ML IVPB SCH ×2 (09:17→22:03)
[2017-03-14] MEDS: AMLODIPINE 10 MG TAB PO SCH (09:17)
[2017-03-14] MEDS: ENOXAPARIN 40 MG/0.4 ML SYG SC SCH (09:17)
[2017-03-14] MEDS: COLLAGENASE 30 GM TUBE TOP SCH (09:18)
--- NOTE | 2017-03-14 14:12 | CONS ---
Date/Time of Note Date/Time of Note DATE: 03/14/17 TIME: 14:11 Assessment/Plan Assessment/Plan Chief Complaint/Hosp Course No acute changes per report, lethargic, family at bedside, no fevers Antimicrobials: Vancomycin, Fortaz Microbiology: Wound culture growing MRSA and Pseudomonas Physical examination: This is a chronically ill-appearing, well-developed, fragile elderly man who is in no distress. Head atraumatic normocephalic, sclera nonicteric, mucosa dry. Neck is supple. Chest rise symmetrical, breath sounds diminished basis Heart: S1-S2 Abdomen is soft, bowel tones present. Extremities without cyanosis, right heel dressing intact Assessment: 1. Right lower extremity ulceration with gangrenous changes 2. Peripheral vascular disease 3. Hypertension 4. Alzheimer's dementia Plan: Patient remains unchanged, completing antibiotic, continue wound care per podiatry recommendations, continue anti-aspiration measures DW staff Problems: Consultation Date/Type/Reason Admit Date/Time Feb 26, 2017 at 05:26 Type of Consultation: ID Exam/Review of Systems Vital Signs Vitals Vital Signs Date Time Temp Pulse Resp B/P Pulse Ox O2 Delivery O2 Flow Rate FiO2 03/14/17 08:14 97.6 100 18 121/63 96 03/11/17 02:43 Room Air Intake and Output 03/13/17 03/13/17 03/14/17 15:00 23:00 07:00 Intake Total 50 ml 670 ml 290 ml Balance 50 ml 670 ml 290 ml Results Result Diagram: 03/14/17 0543 03/14/17 0543 Results 24 hrs Laboratory Tests Test 03/14/17 02:39 03/14/17 05:43 03/14/17 08:01 Bedside Glucose 98 97 White Blood Count 11.2 #H Red Blood Count 3.59 L Hemoglobin 11.8 L Hematocrit 35.2 L Mean Corpuscular Volume 98.1 Mean Corpuscular Hemoglobin 32.9 Mean Corpuscular Hemoglobin Concent 33.5 Red Cell Distribution Width 13.5 Platelet Count 342 # Mean Platelet Volume 9.7 Neutrophils % 62.1 Lymphocytes % 24.7 Monocytes % 9.6 Eosinophils % 2.4 Basophils % 0.7 Nucleated Red Blood Cells % 0.0 Neutrophils # 7.0 Lymphocytes # 2.8 Monocytes # 1.1 H Eosinophils # 0.3 Basophils # 0.1 Nucleated Red Blood Cells # 0.0 Sodium Level 131 L Potassium Level 4.6 Chloride Level 96 L Carbon Dioxide Level 31 Anion Gap 9 Blood Urea Nitrogen 25 H Creatinine 0.96 Glucose Level 111 Calcium Level 9.4 Medications Medications Current Medications Amlodipine Besylate (Norvasc) 10 mg DAILY PO Last administered on 03/14/17 09: 17; Admin Dose 10 MG; Start 02/26/17 at 12:30 Lisinopril (Zestril) 5 mg DAILY PO Last administered on 03/14/17 09:16; Admin Dose 5 MG; Start 02/27/17 at 09:00 Ondansetron HCl (Zofran Inj) 4 mg Q6H PRN IV NAUSEA AND/OR VOMITING; Start at 12:30 Acetaminophen (Tylenol Tab) 650 mg Q6H PRN PO PAIN LEVEL 1-3 OR FEVER Last administered on 03/10/17 20:21; Admin Dose 650 MG; Start 02/26/17 at 12:30 Acetaminophen/ Hydrocodone Bitart ([place] (5/325)) 1 tab Q6H PRN PO MODERATE PAIN LEVEL 4-6; Start 02/26/17 at 12:30 Docusate Sodium (Colace) 100 mg Q12H PRN PO CONSTIPATION; Start 02/26/17 at 12: 30 Magnesium Hydroxide (Milk Of Mag) 30 ml DAILY PRN PO CONSTIPATION; Start at 12:30 Bisacodyl (Dulcolax) 5 mg DAILY PRN PO CONSTIPATION Last administered on 05:36; Admin Dose 5 MG; Start 02/26/17 at 12:30 Bisacodyl (Dulcolax Supp) 10 mg DAILY PRN [place] CONSTIPATION Last administered on 03/13/17 05:22; Admin Dose 10 MG; Start 02/26/17 at 12:30 Sodium Biphosphate/ Sodium Phosphate (Fleet Enema) 133 ml DAILY PRN [place] CONSTIPATION; Start 02/26/17 at 12:30 Enoxaparin Sodium (Lovenox) 40 mg DAILY SC Last administered on 03/14/17 09:17 ; Admin Dose 40 MG; Start 02/27/17 at 09:00 Diagnostic Test (Pha) (Accu-Chek) 1 ea 02 XX ; Start 02/27/17 at 02:00 Hydralazine HCl (Apresoline) 10 mg Q4H PRN IV SBP>150 mm Hg Last administered on 03/12/17 03:42; Admin Dose 10 MG; Start 02/26/17 at 12:30 Miscellaneous Information 1 ea NOTE XX ; Start 02/26/17 at 13:00 Glucose (Glutose) 15 gm Q15M PRN PO DECREASED GLUCOSE; Start 02/26/17 at 13:00 Glucose (Glutose) 22.5 gm Q15M PRN PO DECREASED GLUCOSE; Start 02/26/17 at 13: 00 Dextrose (D50w Syringe) 25 ml Q15M PRN IV DECREASED GLUCOSE; Start 02/26/17 at 13:00 Dextrose (D50w Syringe) 50 ml Q15M PRN IV DECREASED GLUCOSE; Start 02/26/17 at 13:00 Glucagon (Glucagen) 1 mg Q15M PRN IM DECREASED GLUCOSE; Start 02/26/17 at 13:00 Glucose (Glutose) 15 gm Q15M PRN BUCCAL DECREASED GLUCOSE; Start 02/26/17 at 13 :00 Collagenase (Santyl) 1 applic DAILY TOP Last administered on 03/14/17 09:18; Admin Dose 1 APPLIC; Start 02/28/17 at 09:00 Gentamicin Sulfate 1 applic 1 applic HS TOP Last administered on 03/13/17 20: 51; Admin Dose 1 APPLIC; Start 02/27/17 at 21:00 Vancomycin HCl 250 ml @ 125 mls/hr Q24H IVPB Last administered on 03/13/17 20 :58; Admin Dose 125 MLS/HR; Start 02/28/17 at 22:00 Ceftazidime (Fortaz 1gm/50 ml (Pmx)) 50 ml @ 100 mls/hr Q12 IVPB Last administered on 03/14/17 09:17; Admin Dose 100 MLS/HR; Start 03/04/17 at 11:40 Lansoprazole (Prevacid) 30 mg BID@06,18 PO Last administered on 03/14/17 05:28 ; Admin Dose 30 MG; Start 03/04/17 at 18:00 Lactobacillus Acidophilus/ Rhamnosus (Culturelle) 1 cap BID PO Last administered on 03/14/17 09:16; Admin Dose 1 CAP; Start 03/04/17 at 17:00 Docusate Sodium (Colace Liquid Cup) 100 mg HS PO Last administered on 20:44; Admin Dose 100 MG; Start 03/07/17 at 21:00 Aspirin (Aspirin) 81 mg DAILY PO Last administered on 03/14/17 09:16; Admin Dose 81 MG; Start 03/09/17 at 09:30 TATIANA VENTURA NP Mar 14, 2017 14:12
[2017-03-14 14:32] VITALS: BP 100/80; RESP 18
--- NOTE | 2017-03-14 15:14 | PN ---
Date/Time of Note Date/Time of Note DATE: 03/14/17 TIME: 15:12 Assessment/Plan VTE Prophylaxis VTE Prophylaxis Intervention: LMWH Lines/Catheters IV [facility]from [facility] Saline Lock Urinary Cath still in place: No Assessment/Plan Assessment/Plan 1. Right heel ulcer w gangrene. S/p debridement. Stable; cont wound care/ and antibiotics.. 2. Cellulitis/wound infection. MRSA and Pseudomonas wound-antibiotics till . on vancomycin and fortez 3. Chr PAD; stable, optimize medical mngmnt. Surgical intervention not a candidate due to his comorbidities. 4. Chr dementia, family declines hospice care 5. Ho GI bleed 6. Anemia, stable 7. DVT prophylaxis: lovenox 8. Hospice evaluation then home with hospice care Subjective 24 Hr Interval Summary Free Text/Dictation demented. no distress but nonverbal Exam/Review of Systems Vital Signs Vitals Vital Signs Date Time Temp Pulse Resp B/P Pulse Ox O2 Delivery O2 Flow Rate FiO2 03/14/17 14:32 98.9 18 100/80 98 03/14/17 08:14 100 03/11/17 02:43 Room Air Intake and Output 03/13/17 03/13/17 03/14/17 15:00 23:00 07:00 Intake Total 50 ml 670 ml 290 ml Balance 50 ml 670 ml 290 ml Exam Constitutional: non-verbal Head: atraumatic, normocephalic Eyes: EOMI, PERRL, nl conjunctiva, nl lids ENMT: nl external ears & nose, nl lips & teeth, nl nasal mucosa & septum Neck: non-tender, supple Respiratory: clear to auscultation, normal air movement, No congested cough, No crackles/rales, No diminished breath sounds, No intercostal retraction, No labored breathing, No other, No respirations, No tactile fremitus, No wheezing Cardiovascular: nl pulses, regular rate and rhythm, No S3, No S4, No bruits, No diastolic murmur, No edema, No gallop, No irregular rhythm, No jugular venous distention (JVD), No murmurs/extra sounds, No other, No rub, No systolic murmur Gastrointestinal: nl liver, spleen, non-tender, soft Musculoskeletal: nl extremities to inspection Extremities: normal pulses, No calf tenderness, No clubbing, No cyanosis Neurological: confused, lethargic Results Result Diagram: 03/14/17 0543 03/14/17 0543 Results 24 hrs Laboratory Tests Test 03/14/17 02:39 03/14/17 05:43 03/14/17 08:01 Bedside Glucose 98 97 White Blood Count 11.2 #H Red Blood Count 3.59 L Hemoglobin 11.8 L Hematocrit 35.2 L Mean Corpuscular Volume 98.1 Mean Corpuscular Hemoglobin 32.9 Mean Corpuscular Hemoglobin Concent 33.5 Red Cell Distribution Width 13.5 Platelet Count 342 # Mean Platelet Volume 9.7 Neutrophils % 62.1 Lymphocytes % 24.7 Monocytes % 9.6 Eosinophils % 2.4 Basophils % 0.7 Nucleated Red Blood Cells % 0.0 Neutrophils # 7.0 Lymphocytes # 2.8 Monocytes # 1.1 H Eosinophils # 0.3 Basophils # 0.1 Nucleated Red Blood Cells # 0.0 Sodium Level 131 L Potassium Level 4.6 Chloride Level 96 L Carbon Dioxide Level 31 Anion Gap 9 Blood Urea Nitrogen 25 H Creatinine 0.96 Glucose Level 111 Calcium Level 9.4 Medications Medications Current Medications Amlodipine Besylate (Norvasc) 10 mg DAILY PO Last administered on 03/14/17 09: 17; Admin Dose 10 MG; Start 02/26/17 at 12:30 Lisinopril (Zestril) 5 mg DAILY PO Last administered on 03/14/17 09:16; Admin Dose 5 MG; Start 02/27/17 at 09:00 Ondansetron HCl (Zofran Inj) 4 mg Q6H PRN IV NAUSEA AND/OR VOMITING; Start at 12:30 Acetaminophen (Tylenol Tab) 650 mg Q6H PRN PO PAIN LEVEL 1-3 OR FEVER Last administered on 03/10/17 20:21; Admin Dose 650 MG; Start 02/26/17 at 12:30 Acetaminophen/ Hydrocodone Bitart ([place] (5/325)) 1 tab Q6H PRN PO MODERATE PAIN LEVEL 4-6; Start 02/26/17 at 12:30 Docusate Sodium (Colace) 100 mg Q12H PRN PO CONSTIPATION; Start 02/26/17 at 12: 30 Magnesium Hydroxide (Milk Of Mag) 30 ml DAILY PRN PO CONSTIPATION; Start at 12:30 Bisacodyl (Dulcolax) 5 mg DAILY PRN PO CONSTIPATION Last administered on 05:36; Admin Dose 5 MG; Start 02/26/17 at 12:30 Bisacodyl (Dulcolax Supp) 10 mg DAILY PRN [place] CONSTIPATION Last administered on 03/13/17 05:22; Admin Dose 10 MG; Start 02/26/17 at 12:30 Sodium Biphosphate/ Sodium Phosphate (Fleet Enema) 133 ml DAILY PRN [place] CONSTIPATION; Start 02/26/17 at 12:30 Enoxaparin Sodium (Lovenox) 40 mg DAILY SC Last administered on 03/14/17 09:17 ; Admin Dose 40 MG; Start 02/27/17 at 09:00 Diagnostic Test (Pha) (Accu-Chek) 1 ea 02 XX ; Start 02/27/17 at 02:00 Hydralazine HCl (Apresoline) 10 mg Q4H PRN IV SBP>150 mm Hg Last administered on 03/12/17 03:42; Admin Dose 10 MG; Start 02/26/17 at 12:30 Miscellaneous Information 1 ea NOTE XX ; Start 02/26/17 at 13:00 Glucose (Glutose) 15 gm Q15M PRN PO DECREASED GLUCOSE; Start 02/26/17 at 13:00 Glucose (Glutose) 22.5 gm Q15M PRN PO DECREASED GLUCOSE; Start 02/26/17 at 13: 00 Dextrose (D50w Syringe) 25 ml Q15M PRN IV DECREASED GLUCOSE; Start 02/26/17 at 13:00 Dextrose (D50w Syringe) 50 ml Q15M PRN IV DECREASED GLUCOSE; Start 02/26/17 at 13:00 Glucagon (Glucagen) 1 mg Q15M PRN IM DECREASED GLUCOSE; Start 02/26/17 at 13:00 Glucose (Glutose) 15 gm Q15M PRN BUCCAL DECREASED GLUCOSE; Start 02/26/17 at 13 :00 Collagenase (Santyl) 1 applic DAILY TOP Last administered on 03/14/17 09:18; Admin Dose 1 APPLIC; Start 02/28/17 at 09:00 Gentamicin Sulfate 1 applic 1 applic HS TOP Last administered on 03/13/17 20: 51; Admin Dose 1 APPLIC; Start 02/27/17 at 21:00 Vancomycin HCl 250 ml @ 125 mls/hr Q24H IVPB Last administered on 03/13/17 20 :58; Admin Dose 125 MLS/HR; Start 02/28/17 at 22:00 Ceftazidime (Fortaz 1gm/50 ml (Pmx)) 50 ml @ 100 mls/hr Q12 IVPB Last administered on 03/14/17 09:17; Admin Dose 100 MLS/HR; Start 03/04/17 at 11:40 Lansoprazole (Prevacid) 30 mg BID@06,18 PO Last administered on 03/14/17 05:28 ; Admin Dose 30 MG; Start 03/04/17 at 18:00 Lactobacillus Acidophilus/ Rhamnosus (Culturelle) 1 cap BID PO Last administered on 03/14/17 09:16; Admin Dose 1 CAP; Start 03/04/17 at 17:00 Docusate Sodium (Colace Liquid Cup) 100 mg HS PO Last administered on 20:44; Admin Dose 100 MG; Start 03/07/17 at 21:00 Aspirin (Aspirin) 81 mg DAILY PO Last administered on 03/14/17 09:16; Admin Dose 81 MG; Start 03/09/17 at 09:30 SUZANNA TILLEY MD Mar 14, 2017 15:14
[2017-03-14 20:28] VITALS: BP 113/70; RESP 19
[2017-03-14] MEDS: DOCUSATE SODIUM 10 MG/ML (10ML CUP) PO SCH (22:03)
[2017-03-14] MEDS: VANCOMYCIN 1 GM in NS 250 ML IVPB SCH (23:11)
[2017-03-15] MEDS: GENTAMICIN 0.1% 15 GM OINT TOP SCH ×2 (01:02→20:37)
[2017-03-15 02:00] VITALS: BP 119/61; RESP 17
[2017-03-15] MEDS: ACCU-CHEK XX SCH (02:00)
[2017-03-15] MEDS: LANSOPRAZOLE 30 MG CAP PO SCH ×2 (05:22→08:26)
[2017-03-15 08:23] VITALS: BP 115/75; RESP 18
[2017-03-15] MEDS: LISINOPRIL 5 MG TAB PO SCH (08:26)
[2017-03-15] MEDS: AMLODIPINE 10 MG TAB PO SCH (08:26)
[2017-03-15] MEDS: LACTOBACILLUS RHAMNOSUS CAP PO SCH ×2 (08:26→20:38)
[2017-03-15] MEDS: ASPIRIN 81 MG TAB PO SCH (08:26)
[2017-03-15] MEDS: ENOXAPARIN 40 MG/0.4 ML SYG SC SCH (08:29)
[2017-03-15] MEDS: CEFTAZIDIME 1GM/50 ML (PMX) 50 ML IVPB SCH ×2 (08:29→20:38)
[2017-03-15] MEDS: COLLAGENASE 30 GM TUBE TOP SCH (08:33)
[2017-03-15 14:00] VITALS: BP 117/74; RESP 20
--- NOTE | 2017-03-15 15:19 | CONS ---
Date/Time of Note Date/Time of Note DATE: 03/15/17 TIME: 15:18 Assessment/Plan Assessment/Plan Chief Complaint/Hosp Course No acute changes per report, lethargic, no fevers Antimicrobials: Vancomycin, Fortaz Microbiology: Wound culture growing MRSA and Pseudomonas Physical examination: This is a chronically ill-appearing, well-developed, fragile elderly man who is in no distress. Head atraumatic normocephalic, sclera nonicteric, mucosa dry. Neck is supple. Chest rise symmetrical, breath sounds diminished basis Heart: S1-S2 Abdomen is soft, bowel tones present. Extremities without cyanosis, right heel dressing intact Assessment: 1. Right lower extremity ulceration with gangrenous changes 2. Peripheral vascular disease 3. Hypertension 4. Alzheimer's dementia Plan: Patient remains unchanged, completing antibiotic, continue wound care per podiatry recommendations, continue anti-aspiration measures, pending discharge planning DW staff Problems: Consultation Date/Type/Reason Admit Date/Time Feb 26, 2017 at 05:26 Type of Consultation: ID Exam/Review of Systems Vital Signs Vitals Vital Signs Date Time Temp Pulse Resp B/P Pulse Ox O2 Delivery O2 Flow Rate FiO2 03/15/17 14:00 97.4 84 20 117/74 100 Intake and Output 03/14/17 03/14/17 03/15/17 15:00 23:00 07:00 Intake Total 730 ml 490 ml Balance 730 ml 490 ml Results Result Diagram: 03/14/17 0543 03/14/17 0543 Results 24 hrs Laboratory Tests Test 03/15/17 02:24 03/15/17 07:47 Bedside Glucose 96 137 Medications Medications Current Medications Amlodipine Besylate (Norvasc) 10 mg DAILY PO Last administered on 03/15/17 08: 26; Admin Dose 10 MG; Start 02/26/17 at 12:30 Lisinopril (Zestril) 5 mg DAILY PO Last administered on 03/15/17 08:26; Admin Dose 5 MG; Start 02/27/17 at 09:00 Ondansetron HCl (Zofran Inj) 4 mg Q6H PRN IV NAUSEA AND/OR VOMITING; Start at 12:30 Acetaminophen (Tylenol Tab) 650 mg Q6H PRN PO PAIN LEVEL 1-3 OR FEVER Last administered on 7/9/17at 20:21; Admin Dose 650 MG; Start 02/26/17 at 12:30 Acetaminophen/ Hydrocodone Bitart ([place] (5/325)) 1 tab Q6H PRN PO MODERATE PAIN LEVEL 4-6; Start 02/26/17 at 12:30 Docusate Sodium (Colace) 100 mg Q12H PRN PO CONSTIPATION; Start 02/26/17 at 12: 30 Magnesium Hydroxide (Milk Of Mag) 30 ml DAILY PRN PO CONSTIPATION; Start at 12:30 Bisacodyl (Dulcolax) 5 mg DAILY PRN PO CONSTIPATION Last administered on 05:36; Admin Dose 5 MG; Start 02/26/17 at 12:30 Bisacodyl (Dulcolax Supp) 10 mg DAILY PRN [place] CONSTIPATION Last administered on 03/13/17 05:22; Admin Dose 10 MG; Start 02/26/17 at 12:30 Sodium Biphosphate/ Sodium Phosphate (Fleet Enema) 133 ml DAILY PRN [place] CONSTIPATION; Start 02/26/17 at 12:30 Enoxaparin Sodium (Lovenox) 40 mg DAILY SC Last administered on 03/15/17 08:29 ; Admin Dose 40 MG; Start 02/27/17 at 09:00 Diagnostic Test (Pha) (Accu-Chek) 1 ea 02 XX ; Start 02/27/17 at 02:00 Hydralazine HCl (Apresoline) 10 mg Q4H PRN IV SBP>150 mm Hg Last administered on 03/12/17 03:42; Admin Dose 10 MG; Start 02/26/17 at 12:30 Miscellaneous Information 1 ea NOTE XX ; Start 02/26/17 at 13:00 Glucose (Glutose) 15 gm Q15M PRN PO DECREASED GLUCOSE; Start 02/26/17 at 13:00 Glucose (Glutose) 22.5 gm Q15M PRN PO DECREASED GLUCOSE; Start 02/26/17 at 13: 00 Dextrose (D50w Syringe) 25 ml Q15M PRN IV DECREASED GLUCOSE; Start 02/26/17 at 13:00 Dextrose (D50w Syringe) 50 ml Q15M PRN IV DECREASED GLUCOSE; Start 02/26/17 at 13:00 Glucagon (Glucagen) 1 mg Q15M PRN IM DECREASED GLUCOSE; Start 02/26/17 at 13:00 Glucose (Glutose) 15 gm Q15M PRN BUCCAL DECREASED GLUCOSE; Start 02/26/17 at 13 :00 Collagenase (Santyl) 1 applic DAILY TOP Last administered on 03/15/17 08:33; Admin Dose 1 APPLIC; Start 02/28/17 at 09:00 Gentamicin Sulfate 1 applic 1 applic HS TOP Last administered on 03/15/17 01: 02; Admin Dose 1 APPLIC; Start 02/27/17 at 21:00 Vancomycin HCl 250 ml @ 125 mls/hr Q24H IVPB Last administered on 03/14/17 23 :11; Admin Dose 125 MLS/HR; Start 02/28/17 at 22:00 Ceftazidime (Fortaz 1gm/50 ml (Pmx)) 50 ml @ 100 mls/hr Q12 IVPB Last administered on 03/15/17 08:29; Admin Dose 100 MLS/HR; Start 03/04/17 at 11:40 Lansoprazole (Prevacid) 30 mg BID@06,18 PO Last administered on 03/15/17 08:26 ; Admin Dose 30 MG; Start 03/04/17 at 18:00 Lactobacillus Acidophilus/ Rhamnosus (Culturelle) 1 cap BID PO Last administered on 03/15/17 08:26; Admin Dose 1 CAP; Start 03/04/17 at 17:00 Docusate Sodium (Colace Liquid Cup) 100 mg HS PO Last administered on 22:03; Admin Dose 100 MG; Start 03/07/17 at 21:00 Aspirin (Aspirin) 81 mg DAILY PO Last administered on 03/15/17 08:26; Admin Dose 81 MG; Start 03/09/17 at 09:30 TATIANA VENTURA NP Mar 15, 2017 15:18
--- NOTE | 2017-03-15 16:31 | PN ---
Date/Time of Note Date/Time of Note DATE: 03/15/17 TIME: 16:30 Assessment/Plan VTE Prophylaxis VTE Prophylaxis Intervention: LMWH Lines/Catheters IV [facility] [place] Urinary Cath still in place: No Assessment/Plan Assessment/Plan 1. Right heel ulcer w gangrene. S/p debridement. Stable; cont wound care/ and antibiotics 2. Cellulitis/wound infection. MRSA and Pseudomonas wound-antibiotics till . on vancomycin and fortez 3. Chr PAD; stable, optimize medical mngmnt. Surgical intervention not a candidate due to his comorbidities. 4. Chr dementia, family declines hospice care 5. Ho GI bleed 6. Anemia, stable 7. DVT prophylaxis: lovenox 8. Discharge planning Subjective 24 Hr Interval Summary Free Text/Dictation demented, nonverbal Exam/Review of Systems Vital Signs Vitals Vital Signs Date Time Temp Pulse Resp B/P Pulse Ox O2 Delivery O2 Flow Rate FiO2 03/15/17 14:00 97.4 84 20 117/74 100 Intake and Output 03/14/17 03/14/17 03/15/17 15:00 23:00 07:00 Intake Total 730 ml 490 ml Balance 730 ml 490 ml Exam Constitutional: non-verbal Head: atraumatic, normocephalic Eyes: EOMI, PERRL, nl conjunctiva ENMT: nl external ears & nose, nl lips & teeth, nl nasal mucosa & septum Neck: supple Respiratory: clear to auscultation, normal air movement, No congested cough, No crackles/rales, No diminished breath sounds, No intercostal retraction, No labored breathing, No other, No respirations, No tactile fremitus, No wheezing Cardiovascular: nl pulses, regular rate and rhythm, No S3, No S4, No bruits, No diastolic murmur, No edema, No gallop, No irregular rhythm, No jugular venous distention (JVD), No murmurs/extra sounds, No other, No rub, No systolic murmur Gastrointestinal: nl liver, spleen, non-tender, soft Musculoskeletal: nl extremities to inspection Extremities: normal pulses, No clubbing, No cyanosis, No edema Neurological: confused Results Result Diagram: 03/14/17 0543 03/14/17 0543 Results 24 hrs Laboratory Tests Test 03/15/17 02:24 03/15/17 07:47 Bedside Glucose 96 137 Medications Medications Current Medications Amlodipine Besylate (Norvasc) 10 mg DAILY PO Last administered on 03/15/17 08: 26; Admin Dose 10 MG; Start 02/26/17 at 12:30 Lisinopril (Zestril) 5 mg DAILY PO Last administered on 03/15/17 08:26; Admin Dose 5 MG; Start 02/27/17 at 09:00 Ondansetron HCl (Zofran Inj) 4 mg Q6H PRN IV NAUSEA AND/OR VOMITING; Start at 12:30 Acetaminophen (Tylenol Tab) 650 mg Q6H PRN PO PAIN LEVEL 1-3 OR FEVER Last administered on 03/10/17 20:21; Admin Dose 650 MG; Start 02/26/17 at 12:30 Acetaminophen/ Hydrocodone Bitart ([place] (5/325)) 1 tab Q6H PRN PO MODERATE PAIN LEVEL 4-6; Start 02/26/17 at 12:30 Docusate Sodium (Colace) 100 mg Q12H PRN PO CONSTIPATION; Start 02/26/17 at 12: 30 Magnesium Hydroxide (Milk Of Mag) 30 ml DAILY PRN PO CONSTIPATION; Start at 12:30 Bisacodyl (Dulcolax) 5 mg DAILY PRN PO CONSTIPATION Last administered on 05:36; Admin Dose 5 MG; Start 02/26/17 at 12:30 Bisacodyl (Dulcolax Supp) 10 mg DAILY PRN [place] CONSTIPATION Last administered on 03/13/17 05:22; Admin Dose 10 MG; Start 02/26/17 at 12:30 Sodium Biphosphate/ Sodium Phosphate (Fleet Enema) 133 ml DAILY PRN [place] CONSTIPATION; Start 02/26/17 at 12:30 Enoxaparin Sodium (Lovenox) 40 mg DAILY SC Last administered on 03/15/17 08:29 ; Admin Dose 40 MG; Start 02/27/17 at 09:00 Diagnostic Test (Pha) (Accu-Chek) 1 ea 02 XX ; Start 02/27/17 at 02:00 Hydralazine HCl (Apresoline) 10 mg Q4H PRN IV SBP>150 mm Hg Last administered on 7/11/17at 03:42; Admin Dose 10 MG; Start 02/26/17 at 12:30 Miscellaneous Information 1 ea NOTE XX ; Start 02/26/17 at 13:00 Glucose (Glutose) 15 gm Q15M PRN PO DECREASED GLUCOSE; Start 02/26/17 at 13:00 Glucose (Glutose) 22.5 gm Q15M PRN PO DECREASED GLUCOSE; Start 02/26/17 at 13: 00 Dextrose (D50w Syringe) 25 ml Q15M PRN IV DECREASED GLUCOSE; Start 02/26/17 at 13:00 Dextrose (D50w Syringe) 50 ml Q15M PRN IV DECREASED GLUCOSE; Start 02/26/17 at 13:00 Glucagon (Glucagen) 1 mg Q15M PRN IM DECREASED GLUCOSE; Start 02/26/17 at 13:00 Glucose (Glutose) 15 gm Q15M PRN BUCCAL DECREASED GLUCOSE; Start 02/26/17 at 13 :00 Collagenase (Santyl) 1 applic DAILY TOP Last administered on 03/15/17 08:33; Admin Dose 1 APPLIC; Start 02/28/17 at 09:00 Gentamicin Sulfate 1 applic 1 applic HS TOP Last administered on 03/15/17 01: 02; Admin Dose 1 APPLIC; Start 02/27/17 at 21:00 Vancomycin HCl 250 ml @ 125 mls/hr Q24H IVPB Last administered on 03/14/17 23 :11; Admin Dose 125 MLS/HR; Start 02/28/17 at 22:00 Ceftazidime (Fortaz 1gm/50 ml (Pmx)) 50 ml @ 100 mls/hr Q12 IVPB Last administered on 03/15/17 08:29; Admin Dose 100 MLS/HR; Start 03/04/17 at 11:40 Lansoprazole (Prevacid) 30 mg BID@06,18 PO Last administered on 03/15/17 08:26 ; Admin Dose 30 MG; Start 03/04/17 at 18:00 Lactobacillus Acidophilus/ Rhamnosus (Culturelle) 1 cap BID PO Last administered on 03/15/17 08:26; Admin Dose 1 CAP; Start 03/04/17 at 17:00 Docusate Sodium (Colace Liquid Cup) 100 mg HS PO Last administered on 22:03; Admin Dose 100 MG; Start 03/07/17 at 21:00 Aspirin (Aspirin) 81 mg DAILY PO Last administered on 03/15/17t 08:26; Admin Dose 81 MG; Start 03/09/17 at 09:30 SUZANNA TILLEY MD Mar 15, 2017 16:31
[2017-03-15 16:50] LABS: ADD SCAN DIFF NO
[2017-03-15 16:53] LABS: BASOPHIL # 0.1 10^3/ul (0.0-0.1); BASOPHILS % 0.8 % (0.0-2.0); EOSINOPHILS # 0.2 10^3/ul (0.0-0.5); EOSINOPHILS % 2.1 % (0.0-7.0); HEMATOCRIT 34.5 % (42.0-52.0); HEMOGLOBIN 11.3 g/dl (14.0-18.0); LYMPHOCYTES # 3.1 10^3/ul (0.8-2.9); LYMPHOCYTES % 30.6 % (15.0-51.0); MEAN CORPUSCULAR HEMOGLOBIN 32.1 pg (29.0-33.0); MEAN CORPUSCULAR HGB CONC 32.8 g/dl (32.0-37.0); MONOCYTES % 9.9 % (0.0-11.0); NEUTROPHIL # 5.7 10^3/ul (1.6-7.5); PLATELET COUNT 297 10^3/UL (140-415); RED BLOOD COUNT 3.52 10^6/ul (4.70-6.10); RED CELL DISTRIBUTION WIDTH 13.5 % (11.5-14.5); WHITE BLOOD COUNT 10.2 10^3/ul (4.8-10.8)
[2017-03-15 20:00] VITALS: BP 129/75; RESP 20
[2017-03-15] MEDS: DOCUSATE SODIUM 10 MG/ML (10ML CUP) PO SCH (20:38)
[2017-03-15] MEDS: VANCOMYCIN 1 GM in NS 250 ML IVPB SCH (22:27)
[2017-03-16 02:00] VITALS: BP 128/60; RESP 19
[2017-03-16] MEDS: ACCU-CHEK XX SCH (02:00)
[2017-03-16 05:42] LABS: ADD SCAN DIFF NO
[2017-03-16 05:45] LABS: BASOPHIL # 0.1 10^3/ul (0.0-0.1); BASOPHILS % 0.8 % (0.0-2.0); EOSINOPHILS # 0.3 10^3/ul (0.0-0.5); EOSINOPHILS % 2.9 % (0.0-7.0); HEMOGLOBIN 10.8 g/dl (14.0-18.0); LYMPHOCYTES # 2.5 10^3/ul (0.8-2.9); MEAN CORPUSCULAR HEMOGLOBIN 32.3 pg (29.0-33.0); MEAN CORPUSCULAR HGB CONC 32.7 g/dl (32.0-37.0); MEAN CORPUSCULAR VOLUME 98.8 fl (82.0-101.0); MEAN PLATELET VOLUME 9.6 fl (7.4-10.4); MONOCYTE # 1.4 10^3/ul (0.3-0.9); MONOCYTES % 13.2 % (0.0-11.0); NEUTROPHILS % 58.4 % (39.0-77.0); PLATELET COUNT 265 10^3/UL (140-415); RED BLOOD COUNT 3.34 10^6/ul (4.70-6.10); RED CELL DISTRIBUTION WIDTH 13.5 % (11.5-14.5); WHITE BLOOD COUNT 10.3 10^3/ul (4.8-10.8)
[2017-03-16] MEDS: LANSOPRAZOLE 30 MG CAP PO SCH ×2 (06:05→19:02)
[2017-03-16] MEDS: LACTOBACILLUS RHAMNOSUS CAP PO SCH ×2 (08:38→20:41)
[2017-03-16] MEDS: LISINOPRIL 5 MG TAB PO SCH (08:39)
[2017-03-16] MEDS: ASPIRIN 81 MG TAB PO SCH (08:39)
[2017-03-16] MEDS: AMLODIPINE 10 MG TAB PO SCH (08:39)
[2017-03-16] MEDS: COLLAGENASE 30 GM TUBE TOP SCH (08:40)
[2017-03-16] MEDS: ENOXAPARIN 40 MG/0.4 ML SYG SC SCH (08:40)
[2017-03-16] MEDS: CEFTAZIDIME 1GM/50 ML (PMX) 50 ML IVPB SCH ×2 (08:41→20:40)
--- NOTE | 2017-03-16 13:20 | PN ---
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 This means that his rehabilitation potential is poor (2) Peripheral vascular disease of extremity Status: Chronic Comment: As per vascular surgery this is nonoperable issue. (3) Essential hypertension Status: Chronic Comment: Adequately controlled (4) Hyperlipidemia Status: Chronic Comment: Statins as appropriate Qualifiers: Hyperlipidemia type: pure hypercholesterolemia Qualified Code: E78.00 - Pure hypercholesterolemia (5) MRSA (methicillin resistant staph aureus) culture positive Comment: He is on appropriate antibiotic therapy for this. (6) Contracture, right hip Status: Chronic Comment: This is a chronic issue and can only be managed either by surgically releasing tendons or leaving it as is. This will lead to further skin breakdown infections etc. (7) Diabetes mellitus type 2 in nonobese Status: Chronic Comment: Well-controlled on minimal therapy Assessment/Plan Foot wound. He is not a candidate for revascularization procedures. As he was transferred here from his [facility] contracted facility for vascular consultation and the consultations been done we should look at transferring him back. His primary care physician Dr. Eliel Hudson is at that facility Subjective 24 Hr Interval Summary Free Text/Dictation Patient is able to make sounds but not able to respond meaningfully to questions in [place]ian or in [place] Subjective hx not possible: pt non-verbal Exam/Review of Systems Vital Signs Vitals Vital Signs Date Time Temp Pulse Resp B/P Pulse Ox O2 Delivery O2 Flow Rate FiO2 03/16/17 02:00 97.6 83 19 128/60 96 Intake and Output 03/15/17 03/15/17 03/16/17 15:00 23:00 07:00 Intake Total 100 ml 590 ml 500 ml Balance 100 ml 590 ml 500 ml Exam Not oriented Constitutional: alert Respiratory: clear to auscultation, normal air movement Gastrointestinal: nl liver, spleen, non-tender, soft Extremities: other (Right lower extremity with contracture at hip wound on heel with gangrene unstageable) Results Result Diagram: 03/16/17 0436 03/14/17 0543 Results 24 hrs Laboratory Tests Test 03/15/17 16:44 03/16/17 02:51 03/16/17 04:36 03/16/17 07:59 White Blood Count 10.2 10.3 Red Blood Count 3.52 L 3.34 L Hemoglobin 11.3 L 10.8 L Hematocrit 34.5 L 33.0 L Mean Corpuscular Volume 98.0 98.8 Mean Corpuscular Hemoglobin 32.1 32.3 Mean Corpuscular Hemoglobin Concent 32.8 32.7 Red Cell Distribution Width 13.5 13.5 Platelet Count 297 265 Mean Platelet Volume 9.0 9.6 Neutrophils % 56.0 58.4 Lymphocytes % 30.6 24.0 Monocytes % 9.9 13.2 H Eosinophils % 2.1 2.9 Basophils % 0.8 0.8 Nucleated Red Blood Cells % 0.0 0.0 Neutrophils # 5.7 6.0 Lymphocytes # 3.1 H 2.5 Monocytes # 1.0 H 1.4 H Eosinophils # 0.2 0.3 Basophils # 0.1 0.1 Nucleated Red Blood Cells # 0.0 0.0 Bedside Glucose 99 119 Medications Medications Current Medications Amlodipine Besylate (Norvasc) 10 mg DAILY PO Last administered on 03/16/17 08: 39; Admin Dose 10 MG; Start 02/26/17 at 12:30 Lisinopril (Zestril) 5 mg DAILY PO Last administered on 03/16/17 08:39; Admin Dose 5 MG; Start 02/27/17 at 09:00 Ondansetron HCl (Zofran Inj) 4 mg Q6H PRN IV NAUSEA AND/OR VOMITING; Start at 12:30 Acetaminophen (Tylenol Tab) 650 mg Q6H PRN PO PAIN LEVEL 1-3 OR FEVER Last administered on 03/10/17 20:21; Admin Dose 650 MG; Start 02/26/17 at 12:30 Acetaminophen/ Hydrocodone Bitart ([place] (5/325)) 1 tab Q6H PRN PO MODERATE PAIN LEVEL 4-6; Start 02/26/17 at 12:30 Docusate Sodium (Colace) 100 mg Q12H PRN PO CONSTIPATION; Start 02/26/17 at 12: 30 Magnesium Hydroxide (Milk Of Mag) 30 ml DAILY PRN PO CONSTIPATION; Start at 12:30 Bisacodyl (Dulcolax) 5 mg DAILY PRN PO CONSTIPATION Last administered on 05:36; Admin Dose 5 MG; Start 02/26/17 at 12:30 Bisacodyl (Dulcolax Supp) 10 mg DAILY PRN [place] CONSTIPATION Last administered on 03/13/17 05:22; Admin Dose 10 MG; Start 02/26/17 at 12:30 Sodium Biphosphate/ Sodium Phosphate (Fleet Enema) 133 ml DAILY PRN [place] CONSTIPATION; Start 02/26/17 at 12:30 Enoxaparin Sodium (Lovenox) 40 mg DAILY SC Last administered on 03/16/17 08:40 ; Admin Dose 40 MG; Start 02/27/17 at 09:00 Diagnostic Test (Pha) (Accu-Chek) 1 ea 02 XX ; Start 02/27/17 at 02:00 Hydralazine HCl (Apresoline) 10 mg Q4H PRN IV SBP>150 mm Hg Last administered on 03/12/17 03:42; Admin Dose 10 MG; Start 02/26/17 at 12:30 Miscellaneous Information 1 ea NOTE XX ; Start 02/26/17 at 13:00 Glucose (Glutose) 15 gm Q15M PRN PO DECREASED GLUCOSE; Start 02/26/17 at 13:00 Glucose (Glutose) 22.5 gm Q15M PRN PO DECREASED GLUCOSE; Start 02/26/17 at 13: 00 Dextrose (D50w Syringe) 25 ml Q15M PRN IV DECREASED GLUCOSE; Start 02/26/17 at 13:00 Dextrose (D50w Syringe) 50 ml Q15M PRN IV DECREASED GLUCOSE; Start 02/26/17 at 13:00 Glucagon (Glucagen) 1 mg Q15M PRN IM DECREASED GLUCOSE; Start 02/26/17 at 13:00 Glucose (Glutose) 15 gm Q15M PRN BUCCAL DECREASED GLUCOSE; Start 02/26/17 at 13 :00 Collagenase (Santyl) 1 applic DAILY TOP Last administered on 03/16/17 08:40; Admin Dose 1 APPLIC; Start 02/28/17 at 09:00 Gentamicin Sulfate 1 applic 1 applic HS TOP Last administered on 03/15/17 20: 37; Admin Dose 1 APPLIC; Start 02/27/17 at 21:00 Vancomycin HCl 250 ml @ 125 mls/hr Q24H IVPB Last administered on 03/15/17 22 :27; Admin Dose 125 MLS/HR; Start 02/28/17 at 22:00 Ceftazidime (Fortaz 1gm/50 ml (Pmx)) 50 ml @ 100 mls/hr Q12 IVPB Last administered on 03/16/17 08:41; Admin Dose 100 MLS/HR; Start 03/04/17 at 11:40 Lansoprazole (Prevacid) 30 mg BID@06,18 PO Last administered on 03/16/17 06:05 ; Admin Dose 30 MG; Start 03/04/17 at 18:00 Lactobacillus Acidophilus/ Rhamnosus (Culturelle) 1 cap BID PO Last administered on 03/16/17 08:38; Admin Dose 1 CAP; Start 03/04/17 at 17:00 Docusate Sodium (Colace Liquid Cup) 100 mg HS PO Last administered on 20:38; Admin Dose 100 MG; Start 03/07/17 at 21:00 Aspirin (Aspirin) 81 mg DAILY PO Last administered on 03/16/17 08:39; Admin Dose 81 MG; Start 03/09/17 at 09:30 ARMANDO MORIN MD Mar 16, 2017 13:20
--- NOTE | 2017-03-16 18:09 | CONS ---
Date/Time of Note Date/Time of Note DATE: 03/16/17 TIME: 18:06 Assessment/Plan Assessment/Plan Chief Complaint/Hosp Course ID PROGRESS NOTE CURRENT ABX: Vancomycin IV, FORTAZ S/P Zosyn * Clincally status quo -- patient w/dementia, noncommunicative * 89 yo M lying in bed calm, resting w/eyes closed, no fevers, NAD, VSS, chart reviewed Physical examination: Thin appearing 89 yo M, opens eyes, no purposeful communication Unremarkable Neck is supple. Chest rise symmetrical,without dyspnea on observation Pulse RRR Abdomen is soft, bowel tones present. Extremities without cyanosis, right heel dressing intact ID ASSESSMENT 1. Right lower extremity ulceration with gangrenous changes * WOUND CULTURE (+)PSAR (+)MRSA 2. Peripheral vascular disease 3. Hypertension 4. Alzheimer's dementia CURRENT ABX: Vancomycin IV, Zosyn ID RECOMMENDATIONS * Continue antibiotics, pending wound culture, continue aspiration precautions * Per notes -> Patient is not a surgical candidate, remains on long-term IV ABX Rx * DC Planning in process . Problems: Consultation Date/Type/Reason Admit Date/Time Feb 26, 2017 at 05:26 Type of Consultation: ID 24 HR Interval Summary Subjective hx not possible: pt non-verbal Exam/Review of Systems Vital Signs Vitals Vital Signs Date Time Temp Pulse Resp B/P Pulse Ox O2 Delivery O2 Flow Rate FiO2 03/16/17 02:00 97.6 83 19 128/60 96 Intake and Output 03/15/17 03/15/17 03/16/17 15:00 23:00 07:00 Intake Total 100 ml 590 ml 500 ml Balance 100 ml 590 ml 500 ml Results Result Diagram: 03/16/17 0436 03/14/17 0543 Results 24 hrs Laboratory Tests Test 03/16/17 02:51 03/16/17 04:36 03/16/17 07:59 Bedside Glucose 99 119 White Blood Count 10.3 Red Blood Count 3.34 L Hemoglobin 10.8 L Hematocrit 33.0 L Mean Corpuscular Volume 98.8 Mean Corpuscular Hemoglobin 32.3 Mean Corpuscular Hemoglobin Concent 32.7 Red Cell Distribution Width 13.5 Platelet Count 265 Mean Platelet Volume 9.6 Neutrophils % 58.4 Lymphocytes % 24.0 Monocytes % 13.2 H Eosinophils % 2.9 Basophils % 0.8 Nucleated Red Blood Cells % 0.0 Neutrophils # 6.0 Lymphocytes # 2.5 Monocytes # 1.4 H Eosinophils # 0.3 Basophils # 0.1 Nucleated Red Blood Cells # 0.0 Medications Medications Current Medications Amlodipine Besylate (Norvasc) 10 mg DAILY PO Last administered on 03/16/17 08: 39; Admin Dose 10 MG; Start 02/26/17 at 12:30 Lisinopril (Zestril) 5 mg DAILY PO Last administered on 03/16/17 08:39; Admin Dose 5 MG; Start 02/27/17 at 09:00 Ondansetron HCl (Zofran Inj) 4 mg Q6H PRN IV NAUSEA AND/OR VOMITING; Start at 12:30 Acetaminophen (Tylenol Tab) 650 mg Q6H PRN PO PAIN LEVEL 1-3 OR FEVER Last administered on 03/10/17 20:21; Admin Dose 650 MG; Start 02/26/17 at 12:30 Acetaminophen/ Hydrocodone Bitart ([place] (5/325)) 1 tab Q6H PRN PO MODERATE PAIN LEVEL 4-6; Start 02/26/17 at 12:30 Docusate Sodium (Colace) 100 mg Q12H PRN PO CONSTIPATION; Start 02/26/17 at 12: 30 Magnesium Hydroxide (Milk Of Mag) 30 ml DAILY PRN PO CONSTIPATION; Start at 12:30 Bisacodyl (Dulcolax) 5 mg DAILY PRN PO CONSTIPATION Last administered on 05:36; Admin Dose 5 MG; Start 02/26/17 at 12:30 Bisacodyl (Dulcolax Supp) 10 mg DAILY PRN [place] CONSTIPATION Last administered on 03/13/17 05:22; Admin Dose 10 MG; Start 02/26/17 at 12:30 Sodium Biphosphate/ Sodium Phosphate (Fleet Enema) 133 ml DAILY PRN [place] CONSTIPATION; Start 02/26/17 at 12:30 Enoxaparin Sodium (Lovenox) 40 mg DAILY SC Last administered on 03/16/17 08:40 ; Admin Dose 40 MG; Start 02/27/17 at 09:00 Diagnostic Test (Pha) (Accu-Chek) 1 ea 02 XX ; Start 02/27/17 at 02:00 Hydralazine HCl (Apresoline) 10 mg Q4H PRN IV SBP>150 mm Hg Last administered on 03/12/17 03:42; Admin Dose 10 MG; Start 02/26/17 at 12:30 Miscellaneous Information 1 ea NOTE XX ; Start 02/26/17 at 13:00 Glucose (Glutose) 15 gm Q15M PRN PO DECREASED GLUCOSE; Start 02/26/17 at 13:00 Glucose (Glutose) 22.5 gm Q15M PRN PO DECREASED GLUCOSE; Start 02/26/17 at 13: 00 Dextrose (D50w Syringe) 25 ml Q15M PRN IV DECREASED GLUCOSE; Start 02/26/17 at 13:00 Dextrose (D50w Syringe) 50 ml Q15M PRN IV DECREASED GLUCOSE; Start 02/26/17 at 13:00 Glucagon (Glucagen) 1 mg Q15M PRN IM DECREASED GLUCOSE; Start 02/26/17 at 13:00 Glucose (Glutose) 15 gm Q15M PRN BUCCAL DECREASED GLUCOSE; Start 02/26/17 at 13 :00 Collagenase (Santyl) 1 applic DAILY TOP Last administered on 03/16/17 08:40; Admin Dose 1 APPLIC; Start 02/28/17 at 09:00 Gentamicin Sulfate 1 applic 1 applic HS TOP Last administered on 03/15/17 20: 37; Admin Dose 1 APPLIC; Start 02/27/17 at 21:00 Vancomycin HCl 250 ml @ 125 mls/hr Q24H IVPB Last administered on 03/15/17 22 :27; Admin Dose 125 MLS/HR; Start 02/28/17 at 22:00 Ceftazidime (Fortaz 1gm/50 ml (Pmx)) 50 ml @ 100 mls/hr Q12 IVPB Last administered on 03/16/17 08:41; Admin Dose 100 MLS/HR; Start 03/04/17 at 11:40 Lansoprazole (Prevacid) 30 mg BID@06,18 PO Last administered on 03/16/17 06:05 ; Admin Dose 30 MG; Start 03/04/17 at 18:00 Lactobacillus Acidophilus/ Rhamnosus (Culturelle) 1 cap BID PO Last administered on 03/16/17 08:38; Admin Dose 1 CAP; Start 03/04/17 at 17:00 Docusate Sodium (Colace Liquid Cup) 100 mg HS PO Last administered on 20:38; Admin Dose 100 MG; Start 03/07/17 at 21:00 Aspirin (Aspirin) 81 mg DAILY PO Last administered on 03/16/17 08:39; Admin Dose 81 MG; Start 03/09/17 at 09:30 CAROL JOYNER NP Mar 16, 2017 18:09
[2017-03-16 20:37] VITALS: BP 125/56; RESP 18
[2017-03-16] MEDS: DOCUSATE SODIUM 10 MG/ML (10ML CUP) PO SCH (20:41)
[2017-03-16] MEDS: GENTAMICIN 0.1% 15 GM OINT TOP SCH (20:41)
[2017-03-16] MEDS: VANCOMYCIN 1 GM in NS 250 ML IVPB SCH (21:21)
[2017-03-17] MEDS: ACCU-CHEK XX SCH (01:43)
[2017-03-17 02:19] VITALS: BP 129/61; RESP 18
[2017-03-17] MEDS: LANSOPRAZOLE 30 MG CAP PO SCH ×2 (05:17→17:36)
[2017-03-17 08:07] VITALS: BP 127/59; RESP 19
--- NOTE | 2017-03-17 09:56 | PN ---
Date/Time of Note Date/Time of Note DATE: 03/17/17 TIME: 09:52 Assessment/Plan VTE Prophylaxis VTE Prophylaxis Intervention: other Lines/Catheters [facility]from [facility] Saline Lock Urinary Cath still in place: No Assessment/Plan Problems: (1) Debility Status: Chronic Comment: Staff reports that he is able to eat as long as he is fed a pured diet and he has a great deal of encouragement. At some point given his dementia he will need a feeding tube assuming the family wants to go that far with that. 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 He is not a surgical candidate. He will continue with his wound VAC and antibiotics long-term. A significant question for infectious diseases how long to use antibiotics (4) Essential hypertension Status: Chronic Comment: Adequate control (5) Hyperlipidemia Status: Chronic Comment: Noted. Qualifiers: Hyperlipidemia type: pure hypercholesterolemia Qualified Code: E78.00 - Pure hypercholesterolemia (6) MRSA (methicillin resistant staph aureus) culture positive Status: Acute Comment: Appropriate precautions. (7) Contracture, right hip Status: Chronic Comment: Noted. This is not repairable without significant intervention. (8) Diabetes mellitus type 2 in nonobese Status: Chronic Comment: Adequate control Assessment/Plan Ultimately we should aim for discharge home with home health in approximately 48 -72 hours Subjective 24 Hr Interval Summary Subjective hx not possible: pt non-verbal Exam/Review of Systems Vital Signs Vitals Vital Signs Date Time Temp Pulse Resp B/P Pulse Ox O2 Delivery O2 Flow Rate FiO2 03/17/17 08:07 97.8 90 19 127/59 98 Intake and Output 03/16/17 03/16/17 03/17/17 15:00 23:00 07:00 Intake Total 100 ml 640 ml 300 ml Output Total 600 ml 100 ml Balance 100 ml 40 ml 200 ml Exam Constitutional: non-verbal Neck: non-tender, supple Respiratory: clear to auscultation, normal air movement Cardiovascular: nl pulses, regular rate and rhythm Results Result Diagram: 03/16/17 0436 03/14/17 0543 Medications Medications Current Medications Amlodipine Besylate (Norvasc) 10 mg DAILY PO Last administered on 03/16/17t 08: 39; Admin Dose 10 MG; Start 02/26/17 at 12:30 Lisinopril (Zestril) 5 mg DAILY PO Last administered on 03/16/17 08:39; Admin Dose 5 MG; Start 02/27/17 at 09:00 Ondansetron HCl (Zofran Inj) 4 mg Q6H PRN IV NAUSEA AND/OR VOMITING; Start at 12:30 Acetaminophen (Tylenol Tab) 650 mg Q6H PRN PO PAIN LEVEL 1-3 OR FEVER Last administered on 03/10/17 20:21; Admin Dose 650 MG; Start 02/26/17 at 12:30 Acetaminophen/ Hydrocodone Bitart ([place] (5/325)) 1 tab Q6H PRN PO MODERATE PAIN LEVEL 4-6; Start 02/26/17 at 12:30 Docusate Sodium (Colace) 100 mg Q12H PRN PO CONSTIPATION; Start 02/26/17 at 12: 30 Magnesium Hydroxide (Milk Of Mag) 30 ml DAILY PRN PO CONSTIPATION; Start at 12:30 Bisacodyl (Dulcolax) 5 mg DAILY PRN PO CONSTIPATION Last administered on 05:36; Admin Dose 5 MG; Start 02/26/17 at 12:30 Bisacodyl (Dulcolax Supp) 10 mg DAILY PRN [place] CONSTIPATION Last administered on 03/13/17 05:22; Admin Dose 10 MG; Start 02/26/17 at 12:30 Sodium Biphosphate/ Sodium Phosphate (Fleet Enema) 133 ml DAILY PRN [place] CONSTIPATION; Start 02/26/17 at 12:30 Enoxaparin Sodium (Lovenox) 40 mg DAILY SC Last administered on 03/16/17 08:40 ; Admin Dose 40 MG; Start 02/27/17 at 09:00 Diagnostic Test (Pha) (Accu-Chek) 1 ea 02 XX ; Start 02/27/17 at 02:00 Hydralazine HCl (Apresoline) 10 mg Q4H PRN IV SBP>150 mm Hg Last administered on 03/12/17 03:42; Admin Dose 10 MG; Start 02/26/17 at 12:30 Miscellaneous Information 1 ea NOTE XX ; Start 02/26/17 at 13:00 Glucose (Glutose) 15 gm Q15M PRN PO DECREASED GLUCOSE; Start 02/26/17 at 13:00 Glucose (Glutose) 22.5 gm Q15M PRN PO DECREASED GLUCOSE; Start 02/26/17 at 13: 00 Dextrose (D50w Syringe) 25 ml Q15M PRN IV DECREASED GLUCOSE; Start 02/26/17 at 13:00 Dextrose (D50w Syringe) 50 ml Q15M PRN IV DECREASED GLUCOSE; Start 02/26/17 at 13:00 Glucagon (Glucagen) 1 mg Q15M PRN IM DECREASED GLUCOSE; Start 02/26/17 at 13:00 Glucose (Glutose) 15 gm Q15M PRN BUCCAL DECREASED GLUCOSE; Start 02/26/17 at 13 :00 Collagenase (Santyl) 1 applic DAILY TOP Last administered on 03/16/17 08:40; Admin Dose 1 APPLIC; Start 02/28/17 at 09:00 Gentamicin Sulfate 1 applic 1 applic HS TOP Last administered on 03/16/17 20: 41; Admin Dose 1 APPLIC; Start 02/27/17 at 21:00 Vancomycin HCl 250 ml @ 125 mls/hr Q24H IVPB Last administered on 03/16/17 21 :21; Admin Dose 125 MLS/HR; Start 02/28/17 at 22:00 Ceftazidime (Fortaz 1gm/50 ml (Pmx)) 50 ml @ 100 mls/hr Q12 IVPB Last administered on 03/16/17 20:40; Admin Dose 100 MLS/HR; Start 03/04/17 at 11:40 Lansoprazole (Prevacid) 30 mg BID@06,18 PO Last administered on 03/17/17 05:17 ; Admin Dose 30 MG; Start 03/04/17 at 18:00 Lactobacillus Acidophilus/ Rhamnosus (Culturelle) 1 cap BID PO Last administered on 03/16/17 20:41; Admin Dose 1 CAP; Start 03/04/17 at 17:00 Docusate Sodium (Colace Liquid Cup) 100 mg HS PO Last administered on 20:41; Admin Dose 100 MG; Start 03/07/17 at 21:00 Aspirin (Aspirin) 81 mg DAILY PO Last administered on 03/16/17 08:39; Admin Dose 81 MG; Start 03/09/17 at 09:30 ARMANDO MORIN MD Mar 17, 2017 09:56
[2017-03-17] MEDS: CEFTAZIDIME 1GM/50 ML (PMX) 50 ML IVPB SCH ×2 (10:04→21:17)
[2017-03-17] MEDS: ASPIRIN 81 MG TAB PO SCH (10:04)
[2017-03-17] MEDS: LISINOPRIL 5 MG TAB PO SCH (10:05)
[2017-03-17] MEDS: AMLODIPINE 10 MG TAB PO SCH (10:05)
[2017-03-17] MEDS: LACTOBACILLUS RHAMNOSUS CAP PO SCH ×2 (10:05→21:18)
[2017-03-17] MEDS: ENOXAPARIN 40 MG/0.4 ML SYG SC SCH (10:06)
[2017-03-17] MEDS: COLLAGENASE 30 GM TUBE TOP SCH (10:31)
--- NOTE | 2017-03-17 14:20 | CONS ---
Date/Time of Note Date/Time of Note DATE: 03/17/17 TIME: 14:15 Assessment/Plan Assessment/Plan Chief Complaint/Hosp Course Assessment/Plan Chief Complaint/Hosp Course ID PROGRESS NOTE CURRENT ABX: Vancomycin IV, FORTAZ S/P Zosyn * Awake. Confused. History of Alzheimer's Dementia. No Acute distress. Physical examination: Thin appearing 89 yo M, opens eyes, no purposeful communication Unremarkable Neck is supple. Chest rise symmetrical,without dyspnea on observation Pulse RRR Abdomen is soft, bowel tones present. Extremities without cyanosis, right heel dressing intact ID ASSESSMENT 1. Right lower extremity ulceration with gangrenous changes * WOUND CULTURE (+)PSAR (+)MRSA 2. Peripheral vascular disease 3. Hypertension 4. Alzheimer's dementia CURRENT ABX: Vancomycin IV, Zosyn ID RECOMMENDATIONS * Continue antibiotics. Pending wound culture. * Continue aspiration precautions * Per notes -> Patient is not a surgical candidate, remains on long-term IV ABX Rx * DC Planning in process * Monitor Labs Problems: Consultation Date/Type/Reason Admit Date/Time Feb 26, 2017 at 05:26 Type of Consultation: ID Exam/Review of Systems Vital Signs Vitals Vital Signs Date Time Temp Pulse Resp B/P Pulse Ox O2 Delivery O2 Flow Rate FiO2 03/17/17 08:07 97.8 90 19 127/59 98 Intake and Output 03/16/17 03/16/17 03/17/17 15:00 23:00 07:00 Intake Total 100 ml 640 ml 300 ml Output Total 600 ml 100 ml Balance 100 ml 40 ml 200 ml Results Result Diagram: 03/16/17 0436 03/14/17 0543 Medications Medications Current Medications Amlodipine Besylate (Norvasc) 10 mg DAILY PO Last administered on 03/17/17 10: 05; Admin Dose 10 MG; Start 02/26/17 at 12:30 Lisinopril (Zestril) 5 mg DAILY PO Last administered on 03/17/17 10:05; Admin Dose 5 MG; Start 02/27/17 at 09:00 Ondansetron HCl (Zofran Inj) 4 mg Q6H PRN IV NAUSEA AND/OR VOMITING; Start at 12:30 Acetaminophen (Tylenol Tab) 650 mg Q6H PRN PO PAIN LEVEL 1-3 OR FEVER Last administered on 03/10/17 20:21; Admin Dose 650 MG; Start 02/26/17 at 12:30 Acetaminophen/ Hydrocodone Bitart ([place] (5/325)) 1 tab Q6H PRN PO MODERATE PAIN LEVEL 4-6; Start 02/26/17 at 12:30 Docusate Sodium (Colace) 100 mg Q12H PRN PO CONSTIPATION; Start 02/26/17 at 12: 30 Magnesium Hydroxide (Milk Of Mag) 30 ml DAILY PRN PO CONSTIPATION; Start at 12:30 Bisacodyl (Dulcolax) 5 mg DAILY PRN PO CONSTIPATION Last administered on 05:36; Admin Dose 5 MG; Start 02/26/17 at 12:30 Bisacodyl (Dulcolax Supp) 10 mg DAILY PRN [place] CONSTIPATION Last administered on 03/13/17 05:22; Admin Dose 10 MG; Start 02/26/17 at 12:30 Sodium Biphosphate/ Sodium Phosphate (Fleet Enema) 133 ml DAILY PRN [place] CONSTIPATION; Start 02/26/17 at 12:30 Enoxaparin Sodium (Lovenox) 40 mg DAILY SC Last administered on 03/17/17 10:06 ; Admin Dose 40 MG; Start 02/27/17 at 09:00 Diagnostic Test (Pha) (Accu-Chek) 1 ea 02 XX ; Start 02/27/17 at 02:00 Hydralazine HCl (Apresoline) 10 mg Q4H PRN IV SBP>150 mm Hg Last administered on 03/12/17 03:42; Admin Dose 10 MG; Start 02/26/17 at 12:30 Miscellaneous Information 1 ea NOTE XX ; Start 02/26/17 at 13:00 Glucose (Glutose) 15 gm Q15M PRN PO DECREASED GLUCOSE; Start 02/26/17 at 13:00 Glucose (Glutose) 22.5 gm Q15M PRN PO DECREASED GLUCOSE; Start 02/26/17 at 13: 00 Dextrose (D50w Syringe) 25 ml Q15M PRN IV DECREASED GLUCOSE; Start 02/26/17 at 13:00 Dextrose (D50w Syringe) 50 ml Q15M PRN IV DECREASED GLUCOSE; Start 02/26/17 at 13:00 Glucagon (Glucagen) 1 mg Q15M PRN IM DECREASED GLUCOSE; Start 02/26/17 at 13:00 Glucose (Glutose) 15 gm Q15M PRN BUCCAL DECREASED GLUCOSE; Start 02/26/17 at 13 :00 Collagenase (Santyl) 1 applic DAILY TOP Last administered on 03/17/17 10:31; Admin Dose 1 APPLIC; Start 02/28/17 at 09:00 Gentamicin Sulfate 1 applic 1 applic HS TOP Last administered on 03/16/17 20: 41; Admin Dose 1 APPLIC; Start 02/27/17 at 21:00 Vancomycin HCl 250 ml @ 125 mls/hr Q24H IVPB Last administered on 03/16/17 21 :21; Admin Dose 125 MLS/HR; Start 02/28/17 at 22:00 Ceftazidime (Fortaz 1gm/50 ml (Pmx)) 50 ml @ 100 mls/hr Q12 IVPB Last administered on 03/17/17 10:04; Admin Dose 100 MLS/HR; Start 03/04/17 at 11:40 Lansoprazole (Prevacid) 30 mg BID@06,18 PO Last administered on 03/17/17 05:17 ; Admin Dose 30 MG; Start 03/04/17 at 18:00 Lactobacillus Acidophilus/ Rhamnosus (Culturelle) 1 cap BID PO Last administered on 03/17/17 10:05; Admin Dose 1 CAP; Start 03/04/17 at 17:00 Docusate Sodium (Colace Liquid Cup) 100 mg HS PO Last administered on 20:41; Admin Dose 100 MG; Start 03/07/17 at 21:00 Aspirin (Aspirin) 81 mg DAILY PO Last administered on 03/17/17 10:04; Admin Dose 81 MG; Start 03/09/17 at 09:30 Miscellaneous Information (*Rx Drug Level Order Reminder*) VANCOMYCIN TROUGH AT 2100 ONCE ONCE XX ; Start 03/17/17 at 21:00; Stop 03/17/17 at 21:01 CAMILO PATEL NP Mar 17, 2017 14:19
[2017-03-17 14:41] VITALS: BP 143/59; RESP 21
[2017-03-17 20:48] VITALS: BP 126/63; RESP 20
[2017-03-17] MEDS: DOCUSATE SODIUM 10 MG/ML (10ML CUP) PO SCH (21:18)
[2017-03-17] MEDS: GENTAMICIN 0.1% 15 GM OINT TOP SCH (21:18)
[2017-03-17] MEDS: VANCOMYCIN 1 GM in NS 250 ML IVPB SCH (22:22)
[2017-03-17] MEDS: BISACODYL 10 MG SUPP PR PRN (23:10)
[2017-03-18] MEDS: ACCU-CHEK XX SCH (02:00)
[2017-03-18 03:02] VITALS: BP 94/67; RESP 18
[2017-03-18] MEDS: LANSOPRAZOLE 30 MG CAP PO SCH ×2 (05:27→08:48)
[2017-03-18 08:07] VITALS: BP 143/61; RESP 18; RESP 82
[2017-03-18] MEDS: ASPIRIN 81 MG TAB PO SCH (08:47)
[2017-03-18] MEDS: LISINOPRIL 5 MG TAB PO SCH (08:47)
[2017-03-18] MEDS: LACTOBACILLUS RHAMNOSUS CAP PO SCH ×2 (08:47→20:17)
[2017-03-18] MEDS: AMLODIPINE 10 MG TAB PO SCH (08:47)
[2017-03-18] MEDS: CEFTAZIDIME 1GM/50 ML (PMX) 50 ML IVPB SCH (08:48)
[2017-03-18] MEDS: COLLAGENASE 30 GM TUBE TOP SCH (08:52)
[2017-03-18] MEDS: ENOXAPARIN 40 MG/0.4 ML SYG SC SCH (08:52)
--- NOTE | 2017-03-18 11:37 | PN ---
Date/Time of Note Date/Time of Note DATE: 03/18/17 TIME: 11:36 Assessment/Plan VTE Prophylaxis VTE Prophylaxis Intervention: LMWH Lines/Catheters IV [facility] (from [facility] Saline Lock Urinary Cath still in place: No Assessment/Plan Chief Complaint/Hosp Course 1. Infected Rt heel ulcer w gangrene. Sp debridement. Stable -Status post debridement. -Continue with current IV antibiotic/wound care/nonweightbearing status. - Educated about benefit of sending patient to [facility]pc facility versus hospice care. However, family is against it and wanted to take patient home with home health. Case management for 24hr nursing, hospital bed, ST/PT/Wound care with home health. 2. Peripheral vascular disease of lower extremities, chronic. -Patient is not a surgical candidate due to his comorbidities. We will continue to optimize with current medical management. 3. Dementia, advanced, chronic. -Family is not willing for hospice at this time. -Supportive care. 4. Debility. -Currently patient is able to tolerate a pured diet. However, in long run, patient would require a feeding tube assistance. This was discussed with family. -Aspiration precaution. 4. Anemia of chronic illness. H&H stable. -We will monitor. 5. Essential hypertension. Stable -Continue home medications Plan: Discharge plan once infectious disease team has finalized home antibiotic course. We will proceed with obtaining a PICC line in anticipation for discharge soon. Patient to be followed up with podiatry Dr Sarah Blanca 1- 2 weeks, Appointment Dr. Frederick as needed, appointment primary 1 week post discharge. Case management for arranging home with home health as family refused halfway/hospice care. Case management for 24hr nursing, hospital bed, ST/PT/Wound care with home health. Case discussed with . Problems: Subjective 24 Hr Interval Summary Free Text/Dictation Patient nonverbal, lying in bed. No acute distress. Exam/Review of Systems Vital Signs Vitals Vital Signs Date Time Temp Pulse Resp B/P Pulse Ox O2 Delivery O2 Flow Rate FiO2 03/18/17 08:07 98.5 82 18 143/61 94 Intake and Output 03/17/17 03/17/17 03/18/17 15:00 23:00 07:00 Intake Total 50 ml 860 ml 280 ml Balance 50 ml 860 ml 280 ml Exam General: Extremely fragile, elderly, thin built male not in any acute distress . HEENT: Normocephalic, Atraumatic, No laceration or hematoma; Eyes: PEERL, Conjunctiva clear, Anicteric sclera Neck: Supple without any lymphadenopathy, nontender, no JVD, no carotid bruits, trachea midline, no thyromegaly Cardiac: S1, S2 auscultated, regular rhythm and rate, no mumurs or gallop Pulmonary: Normal respiratory effort. Chest clear to auscultation bilaterally, no adventitious breath sounds GI: Abdomen normal to inspection. Soft, non tender, non- distended, no masses, no rebound tenderness or guarding. Bowel sounds active on all four quadrants Genitourinary: Deferred Extremities: Completely bedbound. Contracted extremities. No cyanosis, clubbing, or edema. Pulses [2+] bilaterally. Neurologic: Nonverbal, disoriented 4. Flat affect. Skin: Right heel gangrene with surrounding erythema improved post debridement. Results Result Diagram: 03/16/17 0436 03/14/17 0543 Results 24 hrs Laboratory Tests Test 03/17/17 21:08 Vancomycin Level Trough 15.5 Medications Medications Current Medications Amlodipine Besylate (Norvasc) 10 mg DAILY PO Last administered on 03/18/17 08: 47; Admin Dose 10 MG; Start 02/26/17 at 12:30 Lisinopril (Zestril) 5 mg DAILY PO Last administered on 03/18/17 08:47; Admin Dose 5 MG; Start 02/27/17 at 09:00 Ondansetron HCl (Zofran Inj) 4 mg Q6H PRN IV NAUSEA AND/OR VOMITING; Start at 12:30 Acetaminophen (Tylenol Tab) 650 mg Q6H PRN PO PAIN LEVEL 1-3 OR FEVER Last administered on 03/10/17 20:21; Admin Dose 650 MG; Start 02/26/17 at 12:30 Acetaminophen/ Hydrocodone Bitart ([place] (5/325)) 1 tab Q6H PRN PO MODERATE PAIN LEVEL 4-6; Start 02/26/17 at 12:30 Docusate Sodium (Colace) 100 mg Q12H PRN PO CONSTIPATION; Start 02/26/17 at 12: 30 Magnesium Hydroxide (Milk Of Mag) 30 ml DAILY PRN PO CONSTIPATION; Start at 12:30 Bisacodyl (Dulcolax) 5 mg DAILY PRN PO CONSTIPATION Last administered on 05:36; Admin Dose 5 MG; Start 02/26/17 at 12:30 Bisacodyl (Dulcolax Supp) 10 mg DAILY PRN [place] CONSTIPATION Last administered on 03/17/17 23:10; Admin Dose 10 MG; Start 02/26/17 at 12:30 Sodium Biphosphate/ Sodium Phosphate (Fleet Enema) 133 ml DAILY PRN [place] CONSTIPATION; Start 02/26/17 at 12:30 Enoxaparin Sodium (Lovenox) 40 mg DAILY SC Last administered on 03/18/17 08:52 ; Admin Dose 40 MG; Start 02/27/17 at 09:00 Diagnostic Test (Pha) (Accu-Chek) 1 ea 02 XX ; Start 02/27/17 at 02:00 Hydralazine HCl (Apresoline) 10 mg Q4H PRN IV SBP>150 mm Hg Last administered on 03/12/17 03:42; Admin Dose 10 MG; Start 02/26/17 at 12:30 Miscellaneous Information 1 ea NOTE XX ; Start 02/26/17 at 13:00 Glucose (Glutose) 15 gm Q15M PRN PO DECREASED GLUCOSE; Start 02/26/17 at 13:00 Glucose (Glutose) 22.5 gm Q15M PRN PO DECREASED GLUCOSE; Start 02/26/17 at 13: 00 Dextrose (D50w Syringe) 25 ml Q15M PRN IV DECREASED GLUCOSE; Start 02/26/17 at 13:00 Dextrose (D50w Syringe) 50 ml Q15M PRN IV DECREASED GLUCOSE; Start 02/26/17 at 13:00 Glucagon (Glucagen) 1 mg Q15M PRN IM DECREASED GLUCOSE; Start 02/26/17 at 13:00 Glucose (Glutose) 15 gm Q15M PRN BUCCAL DECREASED GLUCOSE; Start 02/26/17 at 13 :00 Collagenase (Santyl) 1 applic DAILY TOP Last administered on 03/18/17 08:52; Admin Dose 1 APPLIC; Start 02/28/17 at 09:00 Gentamicin Sulfate 1 applic 1 applic HS TOP Last administered on 03/17/17 21: 18; Admin Dose 1 APPLIC; Start 02/27/17 at 21:00 Ceftazidime (Fortaz 1gm/50 ml (Pmx)) 50 ml @ 100 mls/hr Q12 IVPB Last administered on 03/18/17 08:48; Admin Dose 100 MLS/HR; Start 03/04/17 at 11:40 Lansoprazole (Prevacid) 30 mg BID@06,18 PO Last administered on 03/18/17 08:48 ; Admin Dose 30 MG; Start 03/04/17 at 18:00 Lactobacillus Acidophilus/ Rhamnosus (Culturelle) 1 cap BID PO Last administered on 03/18/17 08:47; Admin Dose 1 CAP; Start 03/04/17 at 17:00 Docusate Sodium (Colace Liquid Cup) 100 mg HS PO Last administered on 21:18; Admin Dose 100 MG; Start 03/07/17 at 21:00 Aspirin 81 mg 81 mg DAILY PO Last administered on 03/18/17 08:47; Admin Dose 81 MG; Start 03/09/17 at 09:30 Vancomycin HCl/ Sodium Chloride (Vancocin/NS) 150 ml @ 75 mls/hr Q24H IVPB ; Start 03/18/17 at 22:00 YOGESH MORRELL NP Mar 18, 2017 11:37 47; Admin Dose 10 MG; Start 02/26/17 at 12:30 Lisinopril (Zestril) 5 mg DAILY PO Last administered on 03/18/17 08:47; Admin Dose 5 MG; Start 02/27/17 at 09:00 Ondansetron HCl (Zofran Inj) 4 mg Q6H PRN IV NAUSEA AND/OR VOMITING; Start at 12:30 Acetaminophen (Tylenol Tab) 650 mg Q6H PRN PO PAIN LEVEL 1-3 OR FEVER Last administered on 03/10/17 20:21; Admin Dose 650 MG; Start 02/26/17 at 12:30 Acetaminophen/ Hydrocodone Bitart ([place] (5/325)) 1 tab Q6H PRN PO MODERATE PAIN LEVEL 4-6; Start 02/26/17 at 12:30 Docusate Sodium (Colace) 100 mg Q12H PRN PO CONSTIPATION; Start 02/26/17 at 12: 30 Magnesium Hydroxide (Milk Of Mag) 30 ml DAILY PRN PO CONSTIPATION; Start at 12:30 Bisacodyl (Dulcolax) 5 mg DAILY PRN PO CONSTIPATION Last administered on 05:36; Admin Dose 5 MG; Start 02/26/17 at 12:30 Bisacodyl (Dulcolax Supp) 10 mg DAILY PRN [place] CONSTIPATION Last administered on 03/17/17 23:10; Admin Dose 10 MG; Start 02/26/17 at 12:30 Sodium Biphosphate/ Sodium Phosphate (Fleet Enema) 133 ml DAILY PRN [place] CONSTIPATION; Start 02/26/17 at 12:30 Enoxaparin Sodium (Lovenox) 40 mg DAILY SC Last administered on 03/18/17 08:52 ; Admin Dose 40 MG; Start 02/27/17 at 09:00 Diagnostic Test (Pha) (Accu-Chek) 1 ea 02 XX ; Start 02/27/17 at 02:00 Hydralazine HCl (Apresoline) 10 mg Q4H PRN IV SBP>150 mm Hg Last administered on 03/12/17 03:42; Admin Dose 10 MG; Start 02/26/17 at 12:30 Miscellaneous Information 1 ea NOTE XX ; Start 02/26/17 at 13:00 Glucose (Glutose) 15 gm Q15M PRN PO DECREASED GLUCOSE; Start 02/26/17 at 13:00 Glucose (Glutose) 22.5 gm Q15M PRN PO DECREASED GLUCOSE; Start 02/26/17 at 13: 00 Dextrose (D50w Syringe) 25 ml Q15M PRN IV DECREASED GLUCOSE; Start 02/26/17 at 13:00 Dextrose (D50w Syringe) 50 ml Q15M PRN IV DECREASED GLUCOSE; Start 02/26/17 at 13:00 Glucagon (Glucagen) 1 mg Q15M PRN IM DECREASED GLUCOSE; Start 02/26/17 at 13:00 Glucose (Glutose) 15 gm Q15M PRN BUCCAL DECREASED GLUCOSE; Start 02/26/17 at 13 :00 Collagenase (Santyl) 1 applic DAILY TOP Last administered on 03/18/17 08:52; Admin Dose 1 APPLIC; Start 02/28/17 at 09:00 Gentamicin Sulfate 1 applic 1 applic HS TOP Last administered on 03/17/17 21: 18; Admin Dose 1 APPLIC; Start 02/27/17 at 21:00 Ceftazidime (Fortaz 1gm/50 ml (Pmx)) 50 ml @ 100 mls/hr Q12 IVPB Last administered on 03/18/17 08:48; Admin Dose 100 MLS/HR; Start 03/04/17 at 11:40 Lansoprazole (Prevacid) 30 mg BID@06,18 PO Last administered on 03/18/17 08:48 ; Admin Dose 30 MG; Start 03/04/17 at 18:00 Lactobacillus Acidophilus/ Rhamnosus (Culturelle) 1 cap BID PO Last administered on 03/18/17 08:47; Admin Dose 1 CAP; Start 03/04/17 at 17:00 Docusate Sodium (Colace Liquid Cup) 100 mg HS PO Last administered on 21:18; Admin Dose 100 MG; Start 03/07/17 at 21:00 Aspirin 81 mg 81 mg DAILY PO Last administered on 03/18/17 08:47; Admin Dose 81 MG; Start 03/09/17 at 09:30 Vancomycin HCl/ Sodium Chloride (Vancocin/NS) 150 ml @ 75 mls/hr Q24H IVPB ; Start 03/18/17 at 22:00 YOGESH MORRELL NP Mar 18, 2017 11:37
[2017-03-18] MEDS ORDERED: LIDOCAINE 1% (MPF) 5 ML VIAL SC ONE (12:00)
--- NOTE | 2017-03-18 13:40 | CONS ---
DATE OF ADMISSION: DATE OF CONSULTATION: 02/26/2017 Dear doctors: The patient is a 89-year-old gentleman with a plethora of medical conditions with Alzheimer dementia, nonambulatory, who presented from his home with right lower extremity cellulitis and heel gangrene. Vascular surgery consultation was obtained for further evaluation of bilateral lower extremity atherosclerotic disease. At the moment, the patient is noncommunicative and unable to follow any questions. From what I can gather, the patient is not in any discomfort. REVIEW OF SYSTEMS: Unable to obtain as the patient is noncommunicative. PAST MEDICAL HISTORY: Hypercholesterolemia, hypertension, Alzheimer dementia, bilateral lower extremity atherosclerosis. PAST SURGICAL HISTORY: None reported. FAMILY HISTORY: Coronary artery disease. SOCIAL HISTORY: None reported. PHYSICAL EXAMINATION: HEENT: Normocephalic, atraumatic. Poor dentition. Nonverbal. NECK: Supple. No carotid bruits. LUNGS: Clear to auscultation bilaterally. No crackles. HEART: S1, S2 present. No murmurs. ABDOMEN: Soft, nontender, nondistended. Bowel sounds positive. EXTREMITIES: Right lower extremity: Palpable femoral pulse. Nonpalpable pedal pulse. Motor and sensory difficult to ascertain as the patient is unable to follow commands. Right heel gangrene with significant ulcer. Left lower extremity: Palpable femoral pulse. Nonpalpable pedal pulse. Motor and sensory unable to ascertain as the patient is noncommunicative. The patient has bilateral knee contractures and has superficial tissue loss. ASSESSMENT AND PLAN: Bilateral lower extremity atherosclerosis and right lower extremity nonhealing heel ulcer and gangrene. It seems that the patient has developed significant right lower extremity heel ulcer that has progressed to gangrene over the past two months. Unfortunately, the patient has significant dementia at baseline and is unable to respond to any questions, is wheelchair bound and nonambulatory. He would not be a candidate for any vascular surgery intervention. The patient does have significant infrapopliteal disease as we have evaluated his bilateral lower extremity arterial ultrasound. Would recommend for the patient to undergo local debridements with our podiatry colleagues and will continue to follow his wounds with our team. At the moment, if his heel ulcer worsens/sepsis and threatens his life or he has worsening rest pain, I would recommend for the patient to undergo right lower extremity above-knee amputation as he has contracture of the lower extremities. Discussed findings and plan of management with our primary service and family member with certified biochemist. Optimize vascular status (diet and nutrition, exercise, sugar control and antiplatelets). Thank you for allowing us to partake in the care of your patient. Please call with any questions. Please provide [employer] boots for protection of his heels. Dictated By: Migel Schwartz MD /[email or web address] /Document#: [id number]
[2017-03-18 14:50] VITALS: BP 110/54; RESP 19
--- NOTE | 2017-03-18 15:23 | CONS ---
Date/Time of Note Date/Time of Note DATE: 03/18/17 TIME: 15:22 Assessment/Plan Assessment/Plan Chief Complaint/Hosp Course No acute changes per report, lethargic, no fevers Antimicrobials: Vancomycin, Fortaz Microbiology: Wound culture growing MRSA and Pseudomonas Physical examination: This is a chronically ill-appearing, well-developed, fragile elderly man who is in no distress. Head atraumatic normocephalic, sclera nonicteric, mucosa dry. Neck is supple. Chest rise symmetrical, breath sounds diminished basis Heart: S1-S2 Abdomen is soft, bowel tones present. Extremities without cyanosis, right heel dressing intact Assessment: 1. Right lower extremity ulceration with gangrenous changes 2. Peripheral vascular disease 3. Hypertension 4. Alzheimer's dementia Plan: Clinically unchanged, no fevers, completed antibiotics, continue wound care per podiatry recommendations, continue anti-aspiration measures DW staff Problems: Consultation Date/Type/Reason Admit Date/Time Feb 26, 2017 at 05:26 Type of Consultation: ID Exam/Review of Systems Vital Signs Vitals Vital Signs Date Time Temp Pulse Resp B/P Pulse Ox O2 Delivery O2 Flow Rate FiO2 03/18/17 14:50 98.8 92 19 110/54 95 Intake and Output 03/17/17 03/17/17 03/18/17 15:00 23:00 07:00 Intake Total 50 ml 860 ml 280 ml Balance 50 ml 860 ml 280 ml Results Result Diagram: 03/16/17 0436 03/14/17 0543 Results 24 hrs Laboratory Tests Test 03/17/17 21:08 Vancomycin Level Trough 15.5 Medications Medications Current Medications Amlodipine Besylate (Norvasc) 10 mg DAILY PO Last administered on 03/18/17 08: 47; Admin Dose 10 MG; Start 02/26/17 at 12:30 Lisinopril (Zestril) 5 mg DAILY PO Last administered on 03/18/17 08:47; Admin Dose 5 MG; Start 02/27/17 at 09:00 Ondansetron HCl (Zofran Inj) 4 mg Q6H PRN IV NAUSEA AND/OR VOMITING; Start at 12:30 Acetaminophen (Tylenol Tab) 650 mg Q6H PRN PO PAIN LEVEL 1-3 OR FEVER Last administered on 03/10/17 20:21; Admin Dose 650 MG; Start 02/26/17 at 12:30 Acetaminophen/ Hydrocodone Bitart ([place] (5/325)) 1 tab Q6H PRN PO MODERATE PAIN LEVEL 4-6; Start 02/26/17 at 12:30 Docusate Sodium (Colace) 100 mg Q12H PRN PO CONSTIPATION; Start 02/26/17 at 12: 30 Magnesium Hydroxide (Milk Of Mag) 30 ml DAILY PRN PO CONSTIPATION; Start at 12:30 Bisacodyl (Dulcolax) 5 mg DAILY PRN PO CONSTIPATION Last administered on 05:36; Admin Dose 5 MG; Start 02/26/17 at 12:30 Bisacodyl (Dulcolax Supp) 10 mg DAILY PRN [place] CONSTIPATION Last administered on 03/17/17 23:10; Admin Dose 10 MG; Start 02/26/17 at 12:30 Sodium Biphosphate/ Sodium Phosphate (Fleet Enema) 133 ml DAILY PRN [place] CONSTIPATION; Start 02/26/17 at 12:30 Enoxaparin Sodium (Lovenox) 40 mg DAILY SC Last administered on 03/18/17 08:52 ; Admin Dose 40 MG; Start 02/27/17 at 09:00 Diagnostic Test (Pha) (Accu-Chek) 1 ea 02 XX ; Start 02/27/17 at 02:00 Hydralazine HCl (Apresoline) 10 mg Q4H PRN IV SBP>150 mm Hg Last administered on 03/12/17 03:42; Admin Dose 10 MG; Start 02/26/17 at 12:30 Miscellaneous Information 1 ea NOTE XX ; Start 02/26/17 at 13:00 Glucose (Glutose) 15 gm Q15M PRN PO DECREASED GLUCOSE; Start 02/26/17 at 13:00 Glucose (Glutose) 22.5 gm Q15M PRN PO DECREASED GLUCOSE; Start 02/26/17 at 13: 00 Dextrose (D50w Syringe) 25 ml Q15M PRN IV DECREASED GLUCOSE; Start 02/26/17 at 13:00 Dextrose (D50w Syringe) 50 ml Q15M PRN IV DECREASED GLUCOSE; Start 02/26/17 at 13:00 Glucagon (Glucagen) 1 mg Q15M PRN IM DECREASED GLUCOSE; Start 02/26/17 at 13:00 Glucose (Glutose) 15 gm Q15M PRN BUCCAL DECREASED GLUCOSE; Start 02/26/17 at 13 :00 Collagenase (Santyl) 1 applic DAILY TOP Last administered on 03/18/17 08:52; Admin Dose 1 APPLIC; Start 02/28/17 at 09:00 Gentamicin Sulfate 1 applic 1 applic HS TOP Last administered on 03/17/17 21: 18; Admin Dose 1 APPLIC; Start 02/27/17 at 21:00 Ceftazidime (Fortaz 1gm/50 ml (Pmx)) 50 ml @ 100 mls/hr Q12 IVPB Last administered on 03/18/17 08:48; Admin Dose 100 MLS/HR; Start 03/04/17 at 11:40 Lansoprazole (Prevacid) 30 mg BID@06,18 PO Last administered on 03/18/17 08:48 ; Admin Dose 30 MG; Start 03/04/17 at 18:00 Lactobacillus Acidophilus/ Rhamnosus (Culturelle) 1 cap BID PO Last administered on 03/18/17 08:47; Admin Dose 1 CAP; Start 03/04/17 at 17:00 Docusate Sodium (Colace Liquid Cup) 100 mg HS PO Last administered on 21:18; Admin Dose 100 MG; Start 03/07/17 at 21:00 Aspirin 81 mg 81 mg DAILY PO Last administered on 03/18/17 08:47; Admin Dose 81 MG; Start 03/09/17 at 09:30 Vancomycin HCl/ Sodium Chloride (Vancocin/NS) 150 ml @ 75 mls/hr Q24H IVPB ; Start 03/18/17 at 22:00 TATIANA VENTURA NP Mar 18, 2017 15:23
[2017-03-18 20:00] VITALS: BP 113/71; RESP 20
[2017-03-18] MEDS: GENTAMICIN 0.1% 15 GM OINT TOP SCH (20:16)
[2017-03-18] MEDS: DOCUSATE SODIUM 10 MG/ML (10ML CUP) PO SCH (20:17)
[2017-03-18] MEDS ORDERED: VANCOMYCIN 750 MG in SOD CHLORIDE 0.9% 150 ML IVPB SCH (22:00)
[2017-03-19] MEDS: ACCU-CHEK XX SCH (02:00)
[2017-03-19 05:27] LABS: CREATININE 0.95 mg/dl (0.61-1.24)
[2017-03-19] MEDS: LANSOPRAZOLE 30 MG CAP PO SCH ×2 (05:49→17:45)
[2017-03-19 08:11] VITALS: BP 130/72; RESP 20
[2017-03-19] MEDS: ASPIRIN 81 MG TAB PO SCH (08:19)
[2017-03-19] MEDS: LACTOBACILLUS RHAMNOSUS CAP PO SCH (08:19)
[2017-03-19] MEDS: LISINOPRIL 5 MG TAB PO SCH (08:20)
[2017-03-19] MEDS: AMLODIPINE 10 MG TAB PO SCH (08:20)
[2017-03-19] MEDS: COLLAGENASE 30 GM TUBE TOP SCH (08:21)
[2017-03-19] MEDS: ENOXAPARIN 40 MG/0.4 ML SYG SC SCH (08:25)
[2017-03-19] MEDS ORDERED: LANS30CA PO (11:44)
[2017-03-19] MEDS ORDERED: LACT1CAP57 PO (11:44)
--- NOTE | 2017-03-19 12:24 | DS ---
Date/Time of Note Date/Time of Note DATE: 03/19/17 TIME: 12:19 Discharge Summary Admission/Discharge Info Admit Date/Time Feb 26, 2017 at 05:26 Discharge Date/Time Discharge Diagnosis 1. Infected Rt heel ulcer w gangrene. Sp debridement and status post full course of antibiotics. Stable 2. Peripheral vascular disease of lower extremities, chronic. 3. Dementia, advanced, chronic. 4. Debility/deconditioning. 4. Anemia of chronic illness. 5. Essential hypertension. Patient Condition: Stable Consults , vascular Dr. Frederick, ID Dr. Leigh, podiatry Procedures 02/26/2017. Lower extremity, bilateral venous study. No evidence of DVT 02/26/2017. Bilateral lower extremity arterial study. Abnormal monophasic flow bilaterally in the calf arteries consistent with significant stenosis or occlusion. 03/02/2017 Right foot excisional debridement skin subc fascia 5x6 cm with pickup, scissors , 15 blade Hospital Course This is a 89-year-old frail looking male who was admitted with right heel gangrenous ulcer which was getting worse. Initially patient was transferred from outside hospital due to insurance purposes. History was obtained from patient's daughter as patient was unable to provide any information. Patient resides at home and his daughter assist with his ADLs. Patient had nonweightbearing status upon arrival. Patient initial labs showed hemoglobin 10.8, hematocrit 32.8. vital signs within acceptable range. Patient was admitted for further management of worsening cellulitis. Patient was [facility] to [facility] floor. He was seen by podiatry and infectious disease. Patient had undergone staged excisional debridement of right heel ulceration. He was continued on Santyl enzymatic debridement dressing change daily. Patient was continued on appropriate antibiotics. Wound culture grew MRSA and Pseudomonas. Patient was also seen by vascular surgery and he was not a candidate for any vascular intervention for his lower extremity arterial occlusion. Recommendation was to continue antibiotic and wound care. Patient was seen by physical therapy. Unfortunately, due to severe debility and deconditioning, he was not able to participate any PT activities. The recommendation was to send patient to a nursing home facility versus hospice evaluation. However, patient's daughter does not want to send patient to a nursing home facility or wanted to proceed with hospice. They wanted to take patient home with home health service. Patient's family was educated about patient's dementia and his deteriorating condition, however they wanted to proceed with discharge home once patient is medically stable with home health service. Patient was able to tolerate pured diet, however he would require a feeding tube in long time and was communicated to family member. Patient was kept on aspiration precaution. Patient remained in demented state throughout the hospitalization. He was continued on appropriate wound care regimen. Patient H &H remained stable. He was continued on supportive care. Patient did not have any further fever. WBC remained stable. At this time, as per ID recommendation , there is no indication to continue antibiotics. Patient has received a full course of antibiotic in-house. Patient is ready for discharge with outpatient follow-up with primary care and [facility] wound care center. Disposition: Patient will be discharged home with home health service. Case management was arranged for providing home health equipment for bedbound status. On day of discharge, patient's condition remained stable. Approximately 60 minutes was spent in coordinating the discharge on this patient. Case discussed with . Home Meds Active Scripts Lansoprazole* (Lansoprazole*) 30 Mg Capsule., 30 MG PO BID@ for 30 Days Prov:YOGESH MORRELL NP 03/19/17 Lactobacillus Rhamnosus* (Culturelle*) 1 Each Cap.sprink, 1 CAP PO BID for 30 Days, CAP Prov:YOGESH MORRELL NP 03/19/17 Amlodipine Besylate* (Amlodipine Besylate*) 10 Mg Tablet, 10 MG PO DAILY, #90 TAB Prov:RUSTY DIALLO MD 01/01/17 Reported Medications Lisinopril* (Lisinopril*) 5 Mg Tablet, 5 MG PO DAILY, #30 TAB 12/29/16 Follow-up Plan Wound care-RECOMMENDATIONS: - Right cheek wound: Clean with normal saline. Apply foam border dressing. Change every 2 days. Assess skin under dressing every shift. Recommended Workgroup Leader consult for further care. Discussed with RNTony. Will notify MD regarding plan of care. - Continue low air loss surface status. - Pericare/Sacrococcyx area: Apply Calazime cream every shift and as needed. Cover with foam border dressing. Change every 2-3 days. Assess skin under dressing every shift. - Readjust HeelMedix heel suspension device every reposition. - Reposition every 2 hours. Discharge plan Appointment podiatry Dr Sarah Blanca 1- [address] Frederick as needed Appointment primary 1 week post discharge Social service/hospice care assistance./Consult Primary Care Provider Eliel Hudson Pending Labs Laboratory Tests Test 03/19/17 02:14 03/19/17 04:28 Bedside Glucose 111mg/dL (70-220) Blood Urea Nitrogen 30mg/dl (7-20) Creatinine 0.95mg/dl (0.61-1.24) YOGESH MORRELL V. [employer]EL[employer] Mar 19, 2017 12:23
[2017-03-19 14:53] VITALS: BP_SYST 127; BP_DIAS 70; BP_DIAS 74; RESP 20
--- NOTE | 2017-03-19 18:32 | CONS ---
Date/Time of Note Date/Time of Note DATE: 03/19/17 TIME: 18:31 Assessment/Plan Assessment/Plan Chief Complaint/Hosp Course No acute changes per report, lethargic, no fevers Physical examination: This is a chronically ill-appearing, well-developed, fragile elderly man who is in no distress. Head atraumatic normocephalic, sclera nonicteric, mucosa dry. Neck is supple. Chest rise symmetrical, breath sounds diminished basis Heart: S1-S2 Abdomen is soft, bowel tones present. Extremities without cyanosis, right heel dressing intact Assessment: 1. Right lower extremity ulceration with gangrenous changes==> completed abx 2. Peripheral vascular disease 3. Hypertension 4. Alzheimer's dementia Plan: Clinically unchanged, off abx, continue wound care per podiatry recommendations, continue anti-aspiration measures DW staff Problems: Consultation Date/Type/Reason Admit Date/Time Feb 26, 2017 at 05:26 Type of Consultation: ID Exam/Review of Systems Vital Signs Vitals Vital Signs Date Time Temp Pulse Resp B/P Pulse Ox O2 Delivery O2 Flow Rate FiO2 03/19/17 14:53 97.9 88 20 127/70 95 Intake and Output 03/18/17 03/18/17 03/19/17 15:00 23:00 07:00 Intake Total 50 ml 300 ml 100 ml Balance 50 ml 300 ml 100 ml Results Result Diagram: 03/16/17 0436 03/19/17 0428 Results 24 hrs Laboratory Tests Test 03/19/17 02:14 03/19/17 04:28 Bedside Glucose 111 Blood Urea Nitrogen 30 H Creatinine 0.95 TATIANA VENTURA NP Mar 19, 2017 18:32
== END 2017-03-19 18:01 | disposition home health service (06) | DRG 264 ==
LOC: MS4 05:26 → PP2 03-05 18:03
PROVIDERS: ADMIT Family Medicine; ATTEND Family Medicine
PROC: 0JBQ0ZZ Excision of Right Foot Subcutaneous Tissue and Fascia, Open Approach (ICD-10-PCS; principal; 2017-03-02)
DX: E11.52 Type 2 diabetes mellitus with diabetic peripheral angiopathy with gangrene (principal); L03.115 Cellulitis of right lower limb; I70.261 Atherosclerosis of native arteries of extremities with gangrene, right leg; G30.9 Alzheimer's disease, unspecified; L89.610 Pressure ulcer of right heel, unstageable; F02.80 Dementia in other diseases classified elsewhere, unspecified severity, without behavioral disturbance, psychotic disturbance, mood disturbance, and anxiety; I70.202 Unspecified atherosclerosis of native arteries of extremities, left leg; I10 Essential (primary) hypertension; B95.62 Methicillin resistant Staphylococcus aureus infection as the cause of diseases classified elsewhere; B96.5 Pseudomonas (aeruginosa) (mallei) (pseudomallei) as the cause of diseases classified elsewhere; E78.00 Pure hypercholesterolemia, unspecified; D63.8 Anemia in other chronic diseases classified elsewhere; R53.81 Other malaise; R62.7 Adult failure to thrive; M62.461 Contracture of muscle, right lower leg; Z99.3 Dependence on wheelchair
CPT/HCPCS: 73620; 80048; 80053; 80061; 80202; 82565; 82962; 83036; 84436; 84443; 84479; 84520; 85025; 85610; 85730; 86592; 87070; 92526; 92610; 93922; 93970; 97161; C9113; J0360; J1650; J1815; J2270; J2543; J3370; J7030

== ENCOUNTER 2017-06-13 04:32 | Inpatient (IN) | payer OTHER ==
[~2017-06-13] VITALS: Ht 167.6 cm; Wt 49.1 kg
[~2017-06-13 04:32] MED LIST changes: -CEPH-443 PO; +LACT1CAP57 PO; +LANS30CA PO
[2017-06-13 06:20] VITALS: BP 124/58; PULSE 75; RESP 16; Ht 167.6 cm; Wt 49.1 kg
[2017-06-13] MEDS: LEVOFLOXACIN 500MG/D5W (PMX) 100 ML IVPB SCH (06:59)
[2017-06-13] MEDS ORDERED: ACETAMINOPHEN 325 MG TAB PO PRN (07:00)
[2017-06-13] MEDS ORDERED: ONDANSETRON 4 MG INJ IV PRN (07:00)
[2017-06-13] MEDS ORDERED: morphine 2 MG INJ IV PRN (07:00)
[2017-06-13] MEDS ORDERED: NACL 0.9% 3 ML SYG IV SCH (07:00)
[2017-06-13] MEDS ORDERED: ALBUTEROL/IPRATROPIUM (NEB) 3 ML AMP HHN PRN ×2 (07:00→11:30)
--- NOTE | 2017-06-13 07:07 | HP ---
Date/Time of Note Date/Time of Note DATE: 06/13/17 TIME: 07:03 Assessment/Plan VTE Prophylaxis VTE Prophylaxis Intervention: heparin Lines/Catheters IV Catheter Type (from Nrs): Saline Lock Assessment/Plan Assessment/Plan ASSESSMENT 89-year-old male with severe dementia, hypertension, PVD, right heel ulcer/ gangrene status post recent debridement, debility and deconditioning presented to an outside hospital with cough, likely secondary to pneumonia PLAN IV antibiotic Breathing treatments as needed Follow-up culture results Speech/swallow evaluation and then resume home medications. I feel like patient benefits from G-tube placement. Will have a conversation with his family about this Physical therapy eval Check CBC, CMP and chest x-ray HPI/ROS Admit Date/Time Admit Date/Time Jun 13, 2017 at 05:51 Hx of Present Illness This is an 89-year-old male with a history of severe dementia, hypertension, PVD , right heel ulcer, debility/deconditioning. Patient initially presented to an outside hospital for a cough. Chest x-ray showed haziness, likely representing pneumonia. Patient was transferred to [facility] for insurance reasons. Patient has been nonverbal during my examination and he is not able to give any formation and as such information is gathered from chart review and from the outside hospital ER physician. Patient was admitted here almost 3 month ago for right heel ulcer/gangrene and had underwent PMH/Family/Social Past Surgical History Past Surgical Hx: no surgical history Exam/Review of Systems Vital Signs Vitals Vital Signs Date Time Temp Pulse Resp B/P Pulse Ox O2 Delivery O2 Flow Rate FiO2 06/13/17 06:20 97.9 75 16 124/58 98 Room Air Exam Constitutional: other (Patient lying in bed with his mouth open. Knots oriented at all. No acute distress) Head: atraumatic, normocephalic Eyes: PERRL ENMT: other (Several missing tooth and poor dentition) Respiratory: other (Decreased breath sounds at the bases) Cardiovascular: nl pulses, regular rate and rhythm Gastrointestinal: non-tender, soft Extremities: normal pulses Medications Medications Current Medications Ondansetron HCl (Zofran Inj) 4 mg Q6H PRN IV NAUSEA AND/OR VOMITING; Start 08/18 at 07:00 Acetaminophen (Tylenol Tab) 650 mg Q6H PRN PO PAIN LEVEL 1-3 OR FEVER; Start 06/13/17 at 07:00 Morphine Sulfate (morphine) 2 mg Q4H PRN IV SEVERE PAIN LEVEL 7-10; Start 08/18 at 07:00 Famotidine (Pepcid) 20 mg DAILY PO ; Start 06/13/17 at 09:00 Heparin Sodium (Porcine) (Heparin (5000 Units/0.5 ml)) 5,000 unit Q12 SC ; Start 06/13/17 at 09:00 Amlodipine Besylate (Norvasc) 10 mg DAILY PO ; Start 06/13/17 at 09:00 Lisinopril 5 mg 5 mg DAILY PO ; Start 06/13/17 at 09:00 Levofloxacin/ Dextrose (Levaquin 500mg/ D5W 100 ml (Pmx)) 100 ml @ 100 mls/hr Q24H IVPB Last administered on 06/13/17 06:59; Admin Dose 100 MLS/HR; Start 06/13/17 at 07:00 MARTIR AGRAWAL MD Jun 13, 2017 07:07
[2017-06-13 07:14] VITALS: BP 144/64; RESP 18
[2017-06-13 08:14] LABS: BASOPHIL # 0.1 10^3/ul (0.0-0.1); BASOPHILS % 0.4 % (0.0-2.0); EOSINOPHILS # 0.2 10^3/ul (0.0-0.5); EOSINOPHILS % 1.7 % (0.0-7.0); HEMATOCRIT 35.7 % (42.0-52.0); HEMOGLOBIN 11.8 g/dl (14.0-18.0); LYMPHOCYTES # 2.2 10^3/ul (0.8-2.9); LYMPHOCYTES % 17.4 % (15.0-51.0); MEAN CORPUSCULAR HEMOGLOBIN 32.5 pg (29.0-33.0); MEAN CORPUSCULAR HGB CONC 33.1 g/dl (32.0-37.0); MEAN CORPUSCULAR VOLUME 98.3 fl (82.0-101.0); MEAN PLATELET VOLUME 9.3 fl (7.4-10.4); MONOCYTE # 0.8 10^3/ul (0.3-0.9); MONOCYTES % 6.6 % (0.0-11.0); NEUTROPHIL # 9.1 10^3/ul (1.6-7.5); NEUTROPHILS % 73.3 % (39.0-77.0); PLATELET COUNT 246 10^3/UL (140-415); RED BLOOD COUNT 3.63 10^6/ul (4.70-6.10); RED CELL DISTRIBUTION WIDTH 13.3 % (11.5-14.5); WHITE BLOOD COUNT 12.4 10^3/ul (4.8-10.8)
[2017-06-13 08:48] LABS: ALBUMIN 3.2 g/dl (3.3-4.9); ALBUMIN/GLOBULIN RATIO 0.78; BILIRUBIN,INDIRECT 0.2 mg/dl (0-1.1); BILIRUBIN,TOTAL 0.2 mg/dl (0.2-1.3); CREATININE 0.87 mg/dl (0.61-1.24); PHOSPHORUS 3.3 mg/dl (2.5-4.9); POTASSIUM 4.6 mmol/L (3.5-5.1); TOTAL PROTEIN 7.3 g/dl (6.1-8.1)
[2017-06-13] MEDS: LISINOPRIL 5 MG TAB PO SCH (09:00)
[2017-06-13] MEDS: FAMOTIDINE 20 MG TAB PO SCH (09:00)
[2017-06-13] MEDS: HEPARIN 5,000 UNIT/0.5 ML VIAL SC SCH ×2 (09:00→20:29)
[2017-06-13] MEDS: AMLODIPINE 10 MG TAB PO SCH (09:00)
--- NOTE | 2017-06-13 10:04 | CONS ---
Date/Time of Note Date/Time of Note DATE: 06/13/17 TIME: 09:57 Assessment/Plan Assessment/Plan Additional Assessment/Plan Pneumonia Dementia Debility Elevated white blood cell count Comorbid medical problems hypertension, hyperlipidemia lower extremity ulcer Incomplete database We will continue to try and contact family members to discuss goals of care. Consultation Date/Type/Reason Admit Date/Time Jun 13, 2017 at 05:51 Type of Consultation: Palliative care Hx of Present Illness There is an 89-year-old gentleman which we have an incomplete database patient is a non-historian with severe dementia made it through the emergency room [facility] with pneumonia. This time is unclear where he was seen, patient is nonverbal but the diagnosis of pneumonia was made in the emergency room. Patient has chest x-ray consistent with pneumonia and elevated white blood cell count. He does not appear to be toxic. Review of medical records patient has a history of hypertension peripheral vascular disease, debility right lower extremity decubiti this is all the information we currently have. I put out phone call to patient person to contact there is no answer I have left a message patient is full code, I will ask social work service to assist in finding family members and schedule a conference. Past Surgical History Past Surgical Hx: no surgical history Exam/Review of Systems Vital Signs Vitals Vital Signs Date Time Temp Pulse Resp B/P Pulse Ox O2 Delivery O2 Flow Rate FiO2 06/13/17 07:14 97.6 79 18 144/64 100 06/13/17 06:20 Room Air Exam Constitutional: frail, non-verbal Head: atraumatic, normocephalic, other (Edentulous) Eyes: EOMI, PERRL, nl conjunctiva, nl lids, nl sclera Respiratory: congested cough, crackles/rales, diminished breath sounds Cardiovascular: nl pulses, regular rate and rhythm Neurological: confused Results Result Diagram: 06/13/17 0738 06/13/17 0738 Results 24 hrs Laboratory Tests Test 06/13/17 07:38 White Blood Count 12.4 #H Red Blood Count 3.63 L Hemoglobin 11.8 L Hematocrit 35.7 L Mean Corpuscular Volume 98.3 Mean Corpuscular Hemoglobin 32.5 Mean Corpuscular Hemoglobin Concent 33.1 Red Cell Distribution Width 13.3 Platelet Count 246 Mean Platelet Volume 9.3 Neutrophils % 73.3 Lymphocytes % 17.4 Monocytes % 6.6 Eosinophils % 1.7 Basophils % 0.4 Nucleated Red Blood Cells % 0.0 Neutrophils # 9.1 H Lymphocytes # 2.2 Monocytes # 0.8 Eosinophils # 0.2 Basophils # 0.1 Nucleated Red Blood Cells # 0.0 Sodium Level 139 Potassium Level 4.6 Chloride Level 105 Carbon Dioxide Level 31 Anion Gap 8 Blood Urea Nitrogen 26 H Creatinine 0.87 Glucose Level 122 Calcium Level 9.0 Phosphorus Level 3.3 Magnesium Level 2.0 Total Bilirubin 0.2 Direct Bilirubin 0.00 Indirect Bilirubin 0.2 Aspartate Amino Transf (AST/SGOT) 29 Alanine Aminotransferase (ALT/SGPT) 28 Alkaline Phosphatase 104 Total Protein 7.3 Albumin 3.2 L Globulin 4.10 H Albumin/Globulin Ratio 0.78 Medications Medications Current Medications Ondansetron HCl (Zofran Inj) 4 mg Q6H PRN IV NAUSEA AND/OR VOMITING; Start 08/18 at 07:00 Acetaminophen (Tylenol Tab) 650 mg Q6H PRN PO PAIN LEVEL 1-3 OR FEVER; Start 06/13/17 at 07:00 Morphine Sulfate (morphine) 2 mg Q4H PRN IV SEVERE PAIN LEVEL 7-10; Start 08/18 at 07:00 Famotidine (Pepcid) 20 mg DAILY PO ; Start 06/13/17 at 09:00 Heparin Sodium (Porcine) (Heparin (5000 Units/0.5 ml)) 5,000 unit Q12 SC ; Start 06/13/17 at 09:00 Amlodipine Besylate (Norvasc) 10 mg DAILY PO ; Start 06/13/17 at 09:00 Lisinopril 5 mg 5 mg DAILY PO ; Start 06/13/17 at 09:00 Levofloxacin/ Dextrose (Levaquin 500mg/ D5W 100 ml (Pmx)) 100 ml @ 100 mls/hr Q24H IVPB Last administered on 06/13/17t 06:59; Admin Dose 100 MLS/HR; Start 06/13/17 at 07:00 IMAN TERRAZAS Jun 13, 2017 10:04 08/18 at 07:00 Famotidine (Pepcid) 20 mg DAILY PO ; Start 06/13/17 at 09:00 Heparin Sodium (Porcine) (Heparin (5000 Units/0.5 ml)) 5,000 unit Q12 SC ; Start 06/13/17 at 09:00 Amlodipine Besylate (Norvasc) 10 mg DAILY PO ; Start 06/13/17 at 09:00 Lisinopril 5 mg 5 mg DAILY PO ; Start 06/13/17 at 09:00 Levofloxacin/ Dextrose (Levaquin 500mg/ D5W 100 ml (Pmx)) 100 ml @ 100 mls/hr Q24H IVPB Last administered on 06/13/17t 06:59; Admin Dose 100 MLS/HR; Start 06/13/17 at 07:00 IMAN TERRAZAS Jun 13, 2017 10:04
[2017-06-13] MEDS ORDERED: PENDING SANTYL ORDER FOR WOUND CARE XX PRN (11:00)
--- NOTE | 2017-06-13 11:24 | QN ---
Documentation Comment Examined patient at bedside. Will consult podiatry and infectious disease colleagues. Patient also would benefit from wound care consult. Continue with wound care protocol treatment for right heel ulcer. Patient also seems congested. Therefore, we will place patient on [id number] bronchodilators with repeat chest x-ray in a.m. Empiric antibiotics. We will also have nursing to do nasotracheal suctioning as needed. We will also have speech therapy evaluate patient. We will also place a health care social worker consult to reach out to family regarding a family conference with goals of care clarification. Case discussed with Dr. Bah. YOGESH MORRELL NP Jun 13, 2017 11:24
[2017-06-13] MEDS ORDERED: NACL 3% FOR INHALATION 15 ML NEBU NEB ONE (11:30)
[2017-06-13] MEDS: ALBUTEROL/IPRATROPIUM (NEB) 3 ML AMP HHN SCH ×3 (12:58→21:18)
[2017-06-13 13:34] VITALS: BP 124/56; RESP 20
--- NOTE | 2017-06-13 15:07 | CONS ---
DATE OF ADMISSION: 06/13/2017 DATE OF CONSULTATION: 06/13/2017 TYPE OF CONSULTATION: Infectious Disease. REASON FOR CONSULTATION: Antibiotic management. HISTORY OF PRESENT ILLNESS: Elier Blandon is an 89-year-old male with severe dementia wh o comes in now with gangrenous changes to his right heel and is being seen for antibiotic management . His past problems include: 1. Severe dementia. 2. Hypertension. 3. Peripheral vascular disease. 4. Right heel ulcer. 5. Debility and deconditioning. The patient initially presented to an outside hospital with a cough. Chest x-ray showed haziness, p ossibly pneumonia. He was transferred to [facility]. He is nonverbal. He was admitted 3 months ago for right heel ulcer and gangrene and underwent a procedure at that time as well. PAST MEDICAL HISTORY: Operations as outlined. FAMILY HISTORY: Noncontributory. SOCIAL HISTORY: He does not smoke, drink or abuse drugs. ALLERGIES: NONE TO PENICILLIN, SULFA OR FOODS. MEDICATIONS: Per chart. REVIEW OF SYSTEMS: Noncontributory. PHYSICAL EXAMINATION: GENERAL: The patient is an elderly appearing male who is awake, responsive, in no acute di stress. VITAL SIGNS: Stable. He is afebrile. SKIN: Without generalized rash. HEENT: He has very poor dentition. NECK: Supple. LYMPH NODES: None palpable. CHEST: Decreased breath sounds at the bases. HEART: Without murmur or gallop. ABDOMEN: Soft, nontender, without organosplenomegaly or masses. EXTREMITIES: He has ongoing right heel ulcer. IMPRESSION AND PLAN: The patient comes in now probably with pneumonia. He was placed on Levaquin. HE IS NOT ALLERGIC TO ANYTHING. We will continue him on Levaquin for the time being. I will dicta te my findings to the hospitalist. Dictated By: JOSIAS ESTES MD, JD/RENAE Conf#: [id number] DID#: [id number]
[2017-06-13 19:19] VITALS: BP 130/62; RESP 16
[2017-06-14 02:00] VITALS: BP 135/71; PULSE 76; RESP 18
[2017-06-14] MEDS: ALBUTEROL/IPRATROPIUM (NEB) 3 ML AMP HHN SCH ×6 (02:24→20:24)
[2017-06-14 05:42] LABS: BASOPHIL # 0.1 10^3/ul (0.0-0.1); BASOPHILS % 0.9 % (0.0-2.0); EOSINOPHILS # 0.1 10^3/ul (0.0-0.5); EOSINOPHILS % 1.4 % (0.0-7.0); HEMATOCRIT 34.7 % (42.0-52.0); HEMOGLOBIN 11.2 g/dl (14.0-18.0); LYMPHOCYTES # 1.7 10^3/ul (0.8-2.9); LYMPHOCYTES % 21.3 % (15.0-51.0); MEAN CORPUSCULAR HEMOGLOBIN 31.7 pg (29.0-33.0); MEAN CORPUSCULAR HGB CONC 32.3 g/dl (32.0-37.0); MEAN CORPUSCULAR VOLUME 98.3 fl (82.0-101.0); MEAN PLATELET VOLUME 9.6 fl (7.4-10.4); MONOCYTE # 0.7 10^3/ul (0.3-0.9); MONOCYTES % 9.2 % (0.0-11.0); NEUTROPHIL # 5.4 10^3/ul (1.6-7.5); NEUTROPHILS % 66.7 % (39.0-77.0); PLATELET COUNT 223 10^3/UL (140-415); RED BLOOD COUNT 3.53 10^6/ul (4.70-6.10); RED CELL DISTRIBUTION WIDTH 13.4 % (11.5-14.5); WHITE BLOOD COUNT 8.1 10^3/ul (4.8-10.8)
[2017-06-14] MEDS: LEVOFLOXACIN 500MG/D5W (PMX) 100 ML IVPB SCH (06:02)
[2017-06-14 06:16] LABS: CALCIUM 8.6 mg/dl (8.4-10.2); CREATININE 0.77 mg/dl (0.61-1.24); MAGNESIUM 1.9 mg/dl (1.7-2.5); PHOSPHORUS 3.6 mg/dl (2.5-4.9); POTASSIUM 3.5 mmol/L (3.5-5.1)
[2017-06-14 08:06] VITALS: BP 126/94; RESP 18
--- NOTE | 2017-06-14 09:12 | RADRPT ---
PROCEDURE: XR Chest. CLINICAL INDICATION: Pneumonia TECHNIQUE: AP view of the chest were obtained. COMPARISON: None. FINDINGS: The cardiomediastinal silhouette is within normal limits. The lungs are clear. No signs of pleural f luid or pneumothorax are seen. The osseous structures and soft tissues are grossly unremarkable. Ang cified atherosclerosis of the aortic arch. IMPRESSION: No evidence for active cardiopulmonary disease. RPTAT: GG .Asia Blackwood MD, MD Date Time Electronically viewed and signed by .Asia Blackwood MD, on 06/14/2017 09:12 .G/
--- NOTE | 2017-06-14 09:12 | PN ---
Date/Time of Note Date/Time of Note DATE: 06/14/17 TIME: 09:12 Assessment/Plan VTE Prophylaxis VTE Prophylaxis Intervention: heparin Lines/Catheters IV [facility]from [facility] Saline Lock Assessment/Plan Chief Complaint/Hosp Course 89-year-old male with severe dementia, hypertension, PVD, right heel ulcer/ gangrene status post recent debridement, debility and deconditioning transferred from OSH for evaluation and management of pneumonia. 1. Pneumonia. -ID evaluation appreciated. Continue antibiotics. -Pulmonary toileting with PRN NT suctioning, bronchodilators and cough meds. -F/u Final cultures. 2. Hypertension. Stable -Continue antihypertensives. 3. Dysphagia. -Speech therapy has been ordered and is pending. Video swallow eval if indicated. -N.p.o. except medications. 4. Protein calorie malnutrition, moderate. -Follow-up with speech recommendations. Consider G-tube placement if indicated. -Add prealbumin to a.m. labs and start vitamin supplementations. 5. Right heel ulcer,likely pressure-related. -Follow-up with podiatry recommendation. -Continue wound care and follow-up cultures. 6. Peripheral vascular disease,chronic. -Continue aspirin. Monitor vascular status closely. 7. Severe dementia -Continue supportive care. -Follow up with family decision regarding goals of care. 8. Debility and deconditioning. -PT/OT/ST eval and treat. HSQ, Pepcid prophylaxis Plan: Family conference has been scheduled today. We will follow-up with family decision regarding this of care. Case discussed with Dr. Bah. Problems: Subjective 24 Hr Interval Summary Free Text/Dictation Patient lying in bed. With incomprehensible sounds and keeps morning. Exam/Review of Systems Vital Signs Vitals Vital Signs Date Time Temp Pulse Resp B/P Pulse Ox O2 Delivery O2 Flow Rate FiO2 06/14/17 08:27 81 20 99 Nasal Cannula 2.0 06/14/17 08:06 97.4 126/94 06/13/17 12:58 21 Intake and Output 06/13/17 06/13/17 06/14/17 15:00 23:00 07:00 Intake Total 100 ml 120 ml Balance 100 ml 120 ml Exam General: Elderly, frail looking male noted in acute distress. HEENT: Normocephalic, Atraumatic, No laceration or hematoma; Eyes: PEERL, Conjunctiva clear, Anicteric sclera Neck: Supple without any lymphadenopathy, nontender, no JVD, no carotid bruits, trachea midline, no thyromegaly. with poor dentition. Cardiac: S1, S2 auscultated, regular rhythm and rate, no mumurs or gallop Pulmonary: Diminished breath sound bibasilar. Normal respiratory effort. Chest clear to auscultation bilaterally, no adventitious breath sounds GI: Abdomen normal to inspection. Soft, non tender, non- distended, no masses, no rebound tenderness or guarding. Bowel sounds active on all four quadrants Genitourinary: Deferred Extremities: With right heel chronic ulcer. No cyanosis, clubbing, or edema. Pulses [2+] bilaterally. Contracted extremities 4. Neurologic: Awake, disoriented 4. Incomprehensible speech. Skin: Poor turgor+. Results Result Diagram: 06/14/17 0500 06/14/17 0500 Results 24 hrs Laboratory Tests Test 06/14/17 05:00 White Blood Count 8.1 # Red Blood Count 3.53 L Hemoglobin 11.2 L Hematocrit 34.7 L Mean Corpuscular Volume 98.3 Mean Corpuscular Hemoglobin 31.7 Mean Corpuscular Hemoglobin Concent 32.3 Red Cell Distribution Width 13.4 Platelet Count 223 Mean Platelet Volume 9.6 Neutrophils % 66.7 Lymphocytes % 21.3 Monocytes % 9.2 Eosinophils % 1.4 Basophils % 0.9 Nucleated Red Blood Cells % 0.0 Neutrophils # 5.4 Lymphocytes # 1.7 Monocytes # 0.7 Eosinophils # 0.1 Basophils # 0.1 Nucleated Red Blood Cells # 0.0 Sodium Level 142 Potassium Level 3.5 Chloride Level 105 Carbon Dioxide Level 28 Anion Gap 13 Blood Urea Nitrogen 19 Creatinine 0.77 Glucose Level 98 Calcium Level 8.6 Phosphorus Level 3.6 Magnesium Level 1.9 Medications Medications Current Medications Ondansetron HCl (Zofran Inj) 4 mg Q6H PRN IV NAUSEA AND/OR VOMITING; Start 08/18 at 07:00 Acetaminophen (Tylenol Tab) 650 mg Q6H PRN PO PAIN LEVEL 1-3 OR FEVER; Start 06/13/17 at 07:00 Famotidine (Pepcid) 20 mg DAILY PO ; Start 06/13/17 at 09:00 Heparin Sodium (Porcine) (Heparin (5000 Units/0.5 ml)) 5,000 unit Q12 SC Last administered on 06/13/17 20:29; Admin Dose 5,000 UNIT; Start 06/13/17 at 09: 00 Amlodipine Besylate (Norvasc) 10 mg DAILY PO ; Start 06/13/17 at 09:00 Lisinopril 5 mg 5 mg DAILY PO ; Start 06/13/17 at 09:00 Levofloxacin/ Dextrose (Levaquin 500mg/ D5W 100 ml (Pmx)) 100 ml @ 100 mls/hr Q24H IVPB Last administered on 06/14/17 06:02; Admin Dose 100 MLS/HR; Start 06/13/17 at 07:00 Miscellaneous Information (Pending Santyl Order For Wound Care) This patient martin... PRN PRN XX WOUND CARE; Start 06/13/17 at 11:00 YOGESH MORRELL NP Jun 14, 2017 09:12
--- NOTE | 2017-06-14 10:57 | CONS ---
Date/Time of Note Date/Time of Note DATE: 06/14/17 TIME: 10:52 Assessment/Plan Assessment/Plan Chief Complaint/Hosp Course Family conference done with patient's daughter we discussed patient's background the fact that he has been deteriorating and demented and bedbound unable to do any activities of daily living for approximately 2 years. Patient' s daughter is primary caregiver 24 hours 7 days a week, she is fully aware of his underlying medical problems and quality of life. She desires fears concerns strengths were discussed he does not want him to suffer nor does she want him to have prolonged artificial life support. Patient preferences were discussed 1 and 1 caregiver concerns were to my impressions are that this is a very intelligent compassionate family member who is very willing to take care of her father until end-of-life. I discussed hospice care she is willing to speak to hospice client support representative now estimated prognosis is 6 months her last palliative care performance scale is percent and symptom management was addressed this gentleman is not having any severe discomfort as form should be discussed with family members prior to discharge . Problems: Consultation Date/Type/Reason Admit Date/Time Jun 13, 2017 at 05:51 Initial Consult Date Type of Consultation: Palliative care Exam/Review of Systems Vital Signs Vitals Vital Signs Date Time Temp Pulse Resp B/P Pulse Ox O2 Delivery O2 Flow Rate FiO2 06/14/17 08:27 81 20 99 Nasal Cannula 2.0 06/14/17 08:06 97.4 126/94 06/13/17 12:58 21 Intake and Output 06/13/17 06/13/17 06/14/17 15:00 23:00 07:00 Intake Total 100 ml 120 ml Balance 100 ml 120 ml Results Result Diagram: 06/14/17 0500 06/14/17 0500 Results 24 hrs Laboratory Tests Test 06/14/17 05:00 White Blood Count 8.1 # Red Blood Count 3.53 L Hemoglobin 11.2 L Hematocrit 34.7 L Mean Corpuscular Volume 98.3 Mean Corpuscular Hemoglobin 31.7 Mean Corpuscular Hemoglobin Concent 32.3 Red Cell Distribution Width 13.4 Platelet Count 223 Mean Platelet Volume 9.6 Neutrophils % 66.7 Lymphocytes % 21.3 Monocytes % 9.2 Eosinophils % 1.4 Basophils % 0.9 Nucleated Red Blood Cells % 0.0 Neutrophils # 5.4 Lymphocytes # 1.7 Monocytes # 0.7 Eosinophils # 0.1 Basophils # 0.1 Nucleated Red Blood Cells # 0.0 Sodium Level 142 Potassium Level 3.5 Chloride Level 105 Carbon Dioxide Level 28 Anion Gap 13 Blood Urea Nitrogen 19 Creatinine 0.77 Glucose Level 98 Calcium Level 8.6 Phosphorus Level 3.6 Magnesium Level 1.9 Prealbumin 8.0 L Medications Medications Current Medications Ondansetron HCl (Zofran Inj) 4 mg Q6H PRN IV NAUSEA AND/OR VOMITING; Start 08/18 at 07:00 Acetaminophen (Tylenol Tab) 650 mg Q6H PRN PO PAIN LEVEL 1-3 OR FEVER; Start 06/13/17 at 07:00 Famotidine (Pepcid) 20 mg DAILY PO ; Start 06/13/17 at 09:00 Heparin Sodium (Porcine) (Heparin (5000 Units/0.5 ml)) 5,000 unit Q12 SC Last administered on 06/13/17 20:29; Admin Dose 5,000 UNIT; Start 06/13/17 at 09: 00 Amlodipine Besylate (Norvasc) 10 mg DAILY PO ; Start 06/13/17 at 09:00 Lisinopril 5 mg 5 mg DAILY PO ; Start 06/13/17 at 09:00 Levofloxacin/ Dextrose (Levaquin 500mg/ D5W 100 ml (Pmx)) 100 ml @ 100 mls/hr Q24H IVPB Last administered on 06/14/17 06:02; Admin Dose 100 MLS/HR; Start 06/13/17 at 07:00 Miscellaneous Information [facility] This patient martin... PRN PRN XX WOUND CARE; Start 06/13/17 at 11:00 Ascorbic Acid (Vitamin C) 500 mg DAILY PO ; Start 06/14/17 at 09:30 Zinc Sulfate (Zinc Sulfate) 220 mg DAILY PO ; Start 06/14/17 at 09:30 IMAN TERRAZAS Jun 14, 2017 10:57
[2017-06-14] MEDS: FAMOTIDINE 20 MG TAB PO SCH (10:59)
[2017-06-14] MEDS: ZINC SULFATE 220 MG CAP PO SCH (10:59)
[2017-06-14] MEDS: LISINOPRIL 5 MG TAB PO SCH (11:00)
[2017-06-14] MEDS: ASCORBIC ACID 500 MG TAB PO SCH (11:00)
[2017-06-14] MEDS: AMLODIPINE 10 MG TAB PO SCH (11:00)
[2017-06-14] MEDS: HEPARIN 5,000 UNIT/0.5 ML VIAL SC SCH ×2 (11:12→22:10)
[2017-06-14 13:58] VITALS: BP 175/94; RESP 18
--- NOTE | 2017-06-14 14:13 | PN ---
DATE: 06/14/2017 INFECTIOUS DISEASE PROGRESS NOTE SUBJECTIVE: No acute changes. The patient is awake. Denies pain, looks comfortable. No acute isai nts overnight. The patient is lethargic. Family at bedside. No fevers overnight. WBC today 8.1, no shift, no bands. BUN 19, creatinine 0.77. MICROBIOLOGY: Blood cultures have been negative. DIAGNOSTICS: Chest x-ray this morning revealed no evidence for active cardiopulmonary disease. ANTIMICROBIALS: The patient is on Levaquin. PHYSICAL EXAMINATION: GENERAL: This is a chronically ill-appearing, elderly, cachectic man who is in no distress. HEENT: Head atraumatic, normocephalic. Sclerae anicteric. Buccal mucosa dry. NECK: Supple. CHEST: Rise symmetrical. Breath sounds diminished to bases. HEART: S1, S2. ABDOMEN: Soft, bowel tones present. EXTREMITIES: With right foot dressing intact. ASSESSMENT: 1. Right heel gangrenous changes. 2. Peripheral vascular disease. 3. Hypertension. 4. Dementia. 5. Debility and deconditioning. PLAN: The patient remains stable. We are going to add oral nystatin and consider podiatry and a nh scular evaluation. Continue anti-aspiration measures. Dictated By: TATIANA VENTURA MANUAL ARTS THERAPY TEACHER for JOSIAS ESTES MD NI/NTS Conf#: [id number] DID#: [id number]
[2017-06-14] MEDS: NYSTATIN SUSP 5 ML CUP PO SCH ×2 (17:52→22:06)
[2017-06-14 19:40] VITALS: BP 140/73; RESP 18
[2017-06-14 19:44] VITALS: BP 113/70; RESP 18
[2017-06-14] MEDS ORDERED: COLLAGENASE 30 GM TUBE TOP PRN (20:00)
[2017-06-15] MEDS: ALBUTEROL/IPRATROPIUM (NEB) 3 ML AMP HHN SCH ×5 (00:43→16:24)
[2017-06-15 02:18] VITALS: BP 125/60; RESP 18
[2017-06-15] MEDS: LEVOFLOXACIN 500MG/D5W (PMX) 100 ML IVPB SCH (06:42)
[2017-06-15 08:16] VITALS: BP 128/56; RESP 18
--- NOTE | 2017-06-15 08:34 | PN ---
Date/Time of Note Date/Time of Note DATE: 06/15/17 TIME: 08:28 Assessment/Plan VTE Prophylaxis VTE Prophylaxis Intervention: heparin, SCD's Lines/Catheters IV [facility]from [facility] Saline Lock Urinary Cath still in place: No Assessment/Plan Chief Complaint/Hosp Course 89-year-old male with severe dementia, hypertension, PVD, right heel ulcer/ gangrene status post recent debridement, debility and deconditioning transferred from OSH for evaluation and management of pneumonia. 1. Pneumonia, likely community-acquired. Resolved. Sputum culture grew Bev albicans. -ID evaluation appreciated. Continue antibiotics. -Pulmonary toileting with PRN NT suctioning, bronchodilators and cough meds. -Final cultures. 2. Hypertension. Stable -Continue antihypertensives. 3. Dysphagia. -Continue nectar thick, pured diet with aspiration precaution. 4. Protein calorie malnutrition, moderate. -Start boost with meals. Continue vitamin supplementations. 5. Right heel ulcer,likely pressure-related. -I spoke with , the collections professional and per recommendation, we will Continue off loading with heel protectors, apply Betadine to surrounding skin and Santyl to the wound. Dressing change every other day. 6. Peripheral vascular disease. -Continue aspirin. Monitor vascular status closely. 7. Severe dementia -Continue supportive care. 8. Debility and deconditioning. - PT/OT/ST eval and treat. HSQ, Pepcid prophylaxis Plan: Patient was changed to DNR status per family wishes. In ideal settings, he would be transferred to a custodial facility with hospice recommendation. However, at this time, family wanted to take patient home and will consider usp placement once his condition declines further. They will also look for hospice evaluation as outpatient. Position: Discharge home with outpatient hospice evaluation Case discussed with Dr. Bah. Problems: Subjective 24 Hr Interval Summary Free Text/Dictation No acute overnight episodes. Patient has been started on a pured nectar thick diet. Exam/Review of Systems Vital Signs Vitals Vital Signs Date Time Temp Pulse Resp B/P Pulse Ox O2 Delivery O2 Flow Rate FiO2 06/15/17 08:16 97.6 100 18 128/56 100 06/15/17 05:07 Nasal Cannula 2.0 06/13/17 12:58 21 Intake and Output 06/14/17 06/14/17 06/15/17 15:00 23:00 07:00 Intake Total 100 ml 480 ml Balance 100 ml 480 ml Exam General: Elderly, frail looking male noted in acute distress. HEENT: Normocephalic, Atraumatic, No laceration or hematoma; Eyes: PEERL, Conjunctiva clear, Anicteric sclera Neck: Supple without any lymphadenopathy, nontender, no JVD, no carotid bruits, trachea midline, no thyromegaly. with poor dentition. Cardiac: S1, S2 auscultated, regular rhythm and rate, no mumurs or gallop Pulmonary: Diminished breath sound bibasilar. Normal respiratory effort. Chest clear to auscultation bilaterally, no adventitious breath sounds GI: Abdomen normal to inspection. Soft, non tender, non- distended, no masses, no rebound tenderness or guarding. Bowel sounds active on all four quadrants Genitourinary: Deferred Extremities: With right heel chronic ulcer. No cyanosis, clubbing, or edema. Pulses [2+] bilaterally. Contracted extremities 4. Neurologic: Awake, disoriented 4. Incomprehensible speech. Skin: Poor turgor+. Results Result Diagram: 06/14/17 0500 06/14/17 0500 Medications Medications Current Medications Ondansetron HCl (Zofran Inj) 4 mg Q6H PRN IV NAUSEA AND/OR VOMITING; Start 08/18 at 07:00 Acetaminophen (Tylenol Tab) 650 mg Q6H PRN PO PAIN LEVEL 1-3 OR FEVER; Start 06/13/17 at 07:00 Famotidine (Pepcid) 20 mg DAILY PO Last administered on 06/14/17 10:59; Admin Dose 20 MG; Start 06/13/17 at 09:00 Heparin Sodium (Porcine) (Heparin (5000 Units/0.5 ml)) 5,000 unit Q12 SC Last administered on 06/14/17 22:10; Admin Dose 5,000 UNIT; Start 06/13/17 at 09: 00 Amlodipine Besylate (Norvasc) 10 mg DAILY PO Last administered on 06/14/17 11 :00; Admin Dose 10 MG; Start 06/13/17 at 09:00 Lisinopril 5 mg 5 mg DAILY PO Last administered on 06/14/17 11:00; Admin Dose 5 MG; Start 06/13/17 at 09:00 Levofloxacin/ Dextrose (Levaquin 500mg/ D5W 100 ml (Pmx)) 100 ml @ 100 mls/hr Q24H IVPB Last administered on 06/15/17 06:42; Admin Dose 100 MLS/HR; Start 06/13/17 at 07:00 Ascorbic Acid (Vitamin C) 500 mg DAILY PO Last administered on 06/14/17 11:00 ; Admin Dose 500 MG; Start 06/14/17 at 09:30 Zinc Sulfate (Zinc Sulfate) 220 mg DAILY PO Last administered on 06/14/17 10: 59; Admin Dose 220 MG; Start 06/14/17 at 09:30 Nystatin (Nystatin Susp) 5 ml QID PO Last administered on 06/14/17 22:06; Admin Dose 5 ML; Start 06/14/17 at 17:00 Collagenase (Santyl) 1 applic DAILY TOP ; Start 06/15/17 at 09:00 Collagenase (Santyl) 1 applic PRN PRN TOP WOUND CARE Last administered on 06/15 06:44; Admin Dose 1 APPLIC; Start 06/14/17 at 20:00 Influenza Virus Vaccine (Fluzone) 0.5 ml ONCE ONCE IM* ; Start 06/17/17 at 09: 00; Stop 06/17/17 at 09:01 YOGESH MORRELL NP Jun 15, 2017 08:34 YOGESH MORRELL NP Jun 15, 2017 08:34
--- NOTE | 2017-06-15 08:42 | PDOCDIS ---
Discharge Instructions CONDITION Patient Condition: Stable HOME CARE INSTRUCTIONS: Special Diet: PUREED, NECTAR THICK LIQUIDS FOLLOW UP/APPOINTMENTS Follow-up Plan 1. Follow-up with [facility] wound care clinic in [address]. [address] [address] Office 2.Follow up with primary care physician in 1 week If you don't have one please let someone know, we can give you resources that may help you pick one. You may also call your insurance company to assign one to you. Review your medication list with your nurse before leaving and if you need new prescriptions please let your nurse know. I may have made changes to your home medications or given you new prescriptions, please let your primary doctor know as well. Stay compliant with your medications and report any side effects to your PCP or pharmacist. Return to the ER if you have any concerns and cannot reach your doctors or call your insurance company, they usually have a nurse that can help you. 3. Call 911 or go to the nearest emergency room if experiencing loss of consciousness, dizziness, chest pain, shortness of breath, vomiting/abdominal pain, speech difficulties, motor weakness or any unusual symptoms. 4. Provide patient with boost supplementation 3 times daily with meals, thickened with thickener YOGESH MORRELL NP Jun 15, 2017 08:42
[2017-06-15] MEDS ORDERED: POVIDONE IODINE 10% TOP (08:45)
[2017-06-15] MEDS ORDERED: ZINC220T PO (08:45)
[2017-06-15] MEDS ORDERED: SAN30GM TOP (08:45)
[2017-06-15] MEDS ORDERED: ASC500 PO (08:45)
[2017-06-15] MEDS ORDERED: NYST1000 PO (08:45)
[2017-06-15] MEDS ORDERED: LEVO500T72 PO (08:53)
--- NOTE | 2017-06-15 08:53 | DS ---
Date/Time of Note Date/Time of Note DATE: 06/15/17 TIME: 08:51 Discharge Summary Admission/Discharge Info Admit Date/Time Jun 13, 2017 at 05:51 Discharge Date/Time Discharge Diagnosis 1. Staph/Bev Pneumonia.Clinically improved. 2. Hypertension. Stable 3. Dysphagia. nectar thick, pured diet with aspiration precaution. 4. Protein calorie malnutrition, moderate. 5. Chronic right heel decubitus ulcer. 6. Chronic Peripheral vascular disease. 7. Severe dementia 8. Debility and deconditioning. Patient Condition: Stable Consults Dr. Frederick, [place] , podiatry Hospital Course This is a 89-year-old male with a past medical history of dementia, hypertension , hyperlipidemia, chronic right heel ulcer, peripheral vascular disease, who initially presented to outside hospital for evaluation of cough. Outside hospital chest x-ray showed possible pneumonia. Patient was then transferred to [facility] for insurance reasons. Initial labs with elevated WBC 2.4. Otherwise unremarkable. Infectious disease and cardiology consultation was requested. Patient was continued on appropriate IV antibiotic he was also continued on pulmonary toileting with breathing treatments, and cough medications. Patient was also evaluated by speech therapy and the recommendation was to continue patient on a nectar thick, pured diet. Patient was also evaluated by palliative care medicine. For right heel ulcer which is likely decubitus ulcer, he was continued on heel protectors, Betadine cleaning with application of Santyl to the wound per podiatry recommendations. Patient's blood culture was negative. However, sputum culture showed staph aureus and Bev albicans and he was continued on nystatin swish and swallow along with Levaquin per ID recommendation. Patient did not have any further cough. His condition remained at baseline. Patient with clinical improvement of pneumonia. We also had a family meeting and per family wishes, patient was kept DNR with outpatient hospice evaluation. At this time, family does not want to pursue aggressive medical care. We also recommended sending patient to shelter facility for which, the family was not receptive at this time. As per family, patient has 24-hour electronics repair technician availability at home and if his condition declines further, they will consider placing patient is good nursing facility. At this time, there is no further inpatient workup indicated and patient is medically stable for discharge. Disposition: Patient will be discharged home with 24-hour electronics repair technician availability. I have also requested case management consultation for arranging ambulance transportation for discharge as well as home health nurse for safety check. Patient was also provided with prescriptions and wound care protocol to be continued at home. Family was also instructed to take patient to [facility] wound care center for reevaluation of wound.I also recommended outpatient vascular evaluation. Patient's family verbalized discharge instructions. Approximately 60 minutes was spent in coordinating the discharge on this patient. Patient was seen in collaboration with Dr. Bah. Home Meds Active Scripts Lactose-Reduced Food (Boost) 237 Ml Liquid, 237 ML PO BID WITH MEALS, #30 BOTTLE Prov:MORRELL,YOGESH V. DEPUTY SHERIFF K9 HANDLER 06/15/17 Levofloxacin* (Levaquin*) 500 Mg Tablet, 500 MG PO DAILY, #4 TAB Prov:MORRELL,YOGESH V. DEPUTY SHERIFF K9 HANDLER 06/15/17 Zinc Sulfate* (Zinc Sulfate*) 220 Mg Tablet, 220 MG PO DAILY, #30 TAB Prov:MORRELL,YOGESH V. DEPUTY SHERIFF K9 HANDLER 06/15/17 Ascorbic Acid (Vitamin C) 500 Mg Tab, 500 MG PO DAILY, #30 TAB Prov:MORRELL,YOGESH V. DEPUTY SHERIFF K9 HANDLER 06/15/17 [Povidone Iodine 10% Oint] 1 APPLIC OINT No Conflict Check, 1 APPLIC TOP .QOTHER DAY, #1 BOTTLE Clean right heel surrounding ulcer skin with Betadine and apply Santyl to the wound. Change dressing every other day. Prov:MORRELL,YOGESH V. DEPUTY SHERIFF K9 HANDLER 06/15/17 Collagenase* (Santyl*) 30 Gm Oint..gm., 1 APPLIC TOP .QOTHERDAY for 14 Days, #1 TUB Clean right heel surrounding ulcer skin with Betadine and apply Santyl to the wound. Change dressing every other day. Prov:MORRELL,YOGESH V. DEPUTY SHERIFF K9 HANDLER 06/15/17 Nystatin (Nystatin) 100,000 Unit/1 Ml Oral.susp, 5 ML PO QID for 10 Days, #40 DOSE Prov:MORRELL,YOGESH V. DEPUTY SHERIFF K9 HANDLER 06/15/17 Lansoprazole* (Lansoprazole*) 30 Mg Capsule.dr, 30 MG PO BID@06,18 for 30 Days Prov:MORRELL,YOGESH V. DEPUTY SHERIFF K9 HANDLER 03/19/17 Lactobacillus Rhamnosus* (Culturelle*) 1 Each Cap.sprink, 1 CAP PO BID for 30 Days, CAP Prov:MORRELL,YOGESH V. DEPUTY SHERIFF K9 HANDLER 03/19/17 Amlodipine Besylate* (Amlodipine Besylate*) 10 Mg Tablet, 10 MG PO DAILY, #90 TAB Prov:RUSTY DIALLO MD 01/01/17 Reported Medications Lisinopril* (Lisinopril*) 5 Mg Tablet, 5 MG PO DAILY, #30 TAB 12/29/16 Follow-up Plan 1. Follow-up with [facility] wound care clinic in [address] [place] [address] Office 2.Follow up with primary care physician in 1 week If you don't have one please let someone know, we can give you resources that may help you pick one. You may also call your insurance company to assign one to you. Review your medication list with your nurse before leaving and if you need new prescriptions please let your nurse know. I may have made changes to your home medications or given you new prescriptions, please let your primary doctor know as well. Stay compliant with your medications and report any side effects to your PCP or pharmacist. Return to the ER if you have any concerns and cannot reach your doctors or call your insurance company, they usually have a nurse that can help you. 3. Call 911 or go to the nearest emergency room if experiencing loss of consciousness, dizziness, chest pain, shortness of breath, vomiting/abdominal pain, speech difficulties, motor weakness or any unusual symptoms. Primary Care Provider YOGESH Murphy NP Jun 15, 2017 08:53 YOGESH MORRELL NP Jun 15, 2017 08:53
[2017-06-15] MEDS ORDERED: LACT-121 PO (08:55)
[2017-06-15] MEDS ORDERED: POVIDONE IODINE 10% 28.4 GM OINT TOP SCH (09:00)
[2017-06-15] MEDS ORDERED: COLLAGENASE 30 GM TUBE TOP SCH ×2 (09:00)
[2017-06-15] MEDS ORDERED: BALSAM PERU/CASTOR OIL 60 GM TUBE TOP SCH (09:00)
[2017-06-15] MEDS: LISINOPRIL 5 MG TAB PO SCH (10:08)
[2017-06-15] MEDS: FAMOTIDINE 20 MG TAB PO SCH (10:08)
[2017-06-15] MEDS: NYSTATIN SUSP 5 ML CUP PO SCH ×2 (10:08→13:51)
[2017-06-15] MEDS: ASCORBIC ACID 500 MG TAB PO SCH (10:08)
[2017-06-15] MEDS: ZINC SULFATE 220 MG CAP PO SCH (10:08)
[2017-06-15] MEDS: AMLODIPINE 10 MG TAB PO SCH (10:09)
[2017-06-15] MEDS: HEPARIN 5,000 UNIT/0.5 ML VIAL SC SCH (10:14)
--- NOTE | 2017-06-15 12:23 | CONS ---
Date/Time of Note Date/Time of Note DATE: 06/15/17 TIME: 12:23 Assessment/Plan Assessment/Plan Chief Complaint/Hosp Course ID PROGRESS NOTE CURRENT ABX: DAY # Levaquin 24H INTERVAL SUMMARY * 89 yo frail elder, resting comfortable, VSS, no fevers, without dyspnea Physical Exam Physical Exam Constitutional: VSS, NAD HEENT: Unremarkable Neck: Supple, full ROM Respiratory: Equal chest rise bilaterally without dyspnea on observation Cardiovascular: nl pulses, regular rate and rhythm Gastrointestinal: Soft, NT Extremities: Warm, foot DSG c/d/i ID ASSESSMENT 89 yo M w/ Dementia & Debility admit with: 1. Staph Aureus PNA RESPIRATORY CULTURE Preliminary Organism 1 OLIVER ALBICANS QUANTITY SCANT GROWTH Organism 3 STAPHYLOCOCCUS AUREUS QUANTITY 1+ 2. Peripheral vascular disease w/Right heel wound -> status post recent debridement, 3. Hypertension. 4. Diabetes ABX ALLERGIES: KNDA CURRENT ABX: DAY # => Levaquin ID RECOMMENDATIONS 1. Concur w/DC planning on Levaquin in place . Problems: Consultation Date/Type/Reason Admit Date/Time Jun 13, 2017 at 05:51 Initial Consult Date Type of Consultation: ID Exam/Review of Systems Vital Signs Vitals Vital Signs Date Time Temp Pulse Resp B/P Pulse Ox O2 Delivery O2 Flow Rate FiO2 06/15/17 08:16 97.6 100 18 128/56 100 06/15/17 05:07 Nasal Cannula 2.0 06/13/17 12:58 21 Intake and Output 06/14/17 06/14/17 06/15/17 15:00 23:00 07:00 Intake Total 100 ml 480 ml Balance 100 ml 480 ml Results Result Diagram: 06/14/17 0500 06/14/17 0500 Medications Medications Current Medications Ondansetron HCl (Zofran Inj) 4 mg Q6H PRN IV NAUSEA AND/OR VOMITING; Start 08/18 at 07:00 Acetaminophen (Tylenol Tab) 650 mg Q6H PRN PO PAIN LEVEL 1-3 OR FEVER; Start 06/13/17 at 07:00 Famotidine (Pepcid) 20 mg DAILY PO Last administered on 06/15/17t 10:08; Admin Dose 20 MG; Start 06/13/17 at 09:00 Heparin Sodium (Porcine) (Heparin (5000 Units/0.5 ml)) 5,000 unit Q12 SC Last administered on 06/15/17 10:14; Admin Dose 5,000 UNIT; Start 06/13/17 at 09: 00 Amlodipine Besylate (Norvasc) 10 mg DAILY PO Last administered on 06/15/17 10 :09; Admin Dose 10 MG; Start 06/13/17 at 09:00 Lisinopril 5 mg 5 mg DAILY PO Last administered on 06/15/17 10:08; Admin Dose 5 MG; Start 06/13/17 at 09:00 Levofloxacin/ Dextrose (Levaquin 500mg/ D5W 100 ml (Pmx)) 100 ml @ 100 mls/hr Q24H IVPB Last administered on 06/15/17 06:42; Admin Dose 100 MLS/HR; Start 06/13/17 at 07:00 Ascorbic Acid (Vitamin C) 500 mg DAILY PO Last administered on 06/15/17 10:08 ; Admin Dose 500 MG; Start 06/14/17 at 09:30 Zinc Sulfate (Zinc Sulfate) 220 mg DAILY PO Last administered on 06/15/17 10: 08; Admin Dose 220 MG; Start 06/14/17 at 09:30 Nystatin (Nystatin Susp) 5 ml QID PO Last administered on 06/15/17 10:08; Admin Dose 5 ML; Start 06/14/17 at 17:00 Influenza Virus Vaccine (Fluzone) 0.5 ml ONCE ONCE IM* ; Start 06/17/17 at 09: 00; Stop 06/17/17 at 09:01 Collagenase (Santyl) 1 applic Q2D TOP Last administered on 06/15/17 10:09; Admin Dose 1 APPLIC; Start 06/15/17 at 09:00 Povidone Iodine (Povidone-Iodine) 1 applic Q2D TOP Last administered on 10:09; Admin Dose 1 APPLIC; Start 06/15/17 at 09:00 CAROL JOYNER NP Jun 15, 2017 12:23
[2017-06-15] MEDS ORDERED: INFLUENZA VIRUS VACCINE 0.5 ML (DISPENSING) IM* ONE (15:00)
--- NOTE | 2017-06-15 15:35 | CONS ---
Date/Time of Note Date/Time of Note DATE: 06/15/17 TIME: 15:31 Assessment/Plan Assessment/Plan Problems: (1) Decubitus ulcer of left heel, stage 2 (2) Peripheral vascular disease of extremity Status: Chronic (3) Contracture, right hip Status: Chronic (4) Diabetes mellitus type 2 in nonobese Status: Chronic (5) Essential hypertension Status: Chronic Additional Assessment/Plan Elevate heels at all times; heel to air. Apply Betadine to the skin surrounding the heel ulcer. Santyl ointment to the wound with q.o.d dressing changes. Patient will be followed. Thank you again for involving me in the care of this patient. If you have any questions regarding this case, please feel free to contact me at pager: or reach me at mobile: [phone]. Consultation Date/Type/Reason Admit Date/Time Jun 13, 2017 at 05:51 Date of Consultation: Jun 15, 2017 Type of Consultation: Foot and ankle surgery Reason for Consultation Evaluation of right heel open wound Hx of Present Illness Thank you very much for your kind consultation. As you very well know, this is an 89-year-old male with a history of severe dementia, hypertension, PVD, right heel ulcer, debility/deconditioning; I was consulted for evaluation and treatment. Patient has been nonverbal during my examination and he is not able to give any formation; most of the information is from chart review. History of admission about 3 month ago for right heel ulcer/gangrene and had underwent Past Medical History As per history of present illness. Past Surgical History As per history of present illness. Past Surgical Hx: no surgical history Social History As per history of present illness. Smoking Status: Never smoker Exam/Review of Systems Vital Signs Vitals Vital Signs Date Time Temp Pulse Resp B/P Pulse Ox O2 Delivery O2 Flow Rate FiO2 06/15/17 08:30 Nasal Cannula 2.0 06/15/17 08:16 97.6 100 18 128/56 100 06/13/17 12:58 21 Intake and Output 06/14/17 06/14/17 06/15/17 15:00 23:00 07:00 Intake Total 100 ml 480 ml Balance 100 ml 480 ml Exam Patient is laying supine in bed in no acute distress. Patient is noncommunicative. Patient's lower extremity exam shows open wound on the posterior aspect of the right heel with exposed subcutaneous tissue. There is no pus and no bleeding noted on exam. There is no probing to bone. No surrounding erythema noted on exam and no malodor present. Imaging and labs reviewed. Results Result Diagram: 06/14/17 0500 06/14/17 0500 Medications Medications Current Medications Ondansetron HCl (Zofran Inj) 4 mg Q6H PRN IV NAUSEA AND/OR VOMITING; Start 08/18 at 07:00 Acetaminophen (Tylenol Tab) 650 mg Q6H PRN PO PAIN LEVEL 1-3 OR FEVER; Start 06/13/17 at 07:00 Famotidine (Pepcid) 20 mg DAILY PO Last administered on 06/15/17 10:08; Admin Dose 20 MG; Start 06/13/17 at 09:00 Heparin Sodium (Porcine) (Heparin (5000 Units/0.5 ml)) 5,000 unit Q12 SC Last administered on 06/15/17 10:14; Admin Dose 5,000 UNIT; Start 06/13/17 at 09: 00 Amlodipine Besylate (Norvasc) 10 mg DAILY PO Last administered on 06/15/17 10 :09; Admin Dose 10 MG; Start 06/13/17 at 09:00 Lisinopril 5 mg 5 mg DAILY PO Last administered on 06/15/17 10:08; Admin Dose 5 MG; Start 06/13/17 at 09:00 Levofloxacin/ Dextrose (Levaquin 500mg/ D5W 100 ml (Pmx)) 100 ml @ 100 mls/hr Q24H IVPB Last administered on 06/15/17 06:42; Admin Dose 100 MLS/HR; Start 06/13/17 at 07:00 Ascorbic Acid (Vitamin C) 500 mg DAILY PO Last administered on 06/15/17 10:08 ; Admin Dose 500 MG; Start 06/14/17 at 09:30 Zinc Sulfate (Zinc Sulfate) 220 mg DAILY PO Last administered on 06/15/17 10: 08; Admin Dose 220 MG; Start 06/14/17 at 09:30 Nystatin (Nystatin Susp) 5 ml QID PO Last administered on 06/15/17 13:51; Admin Dose 5 ML; Start 06/14/17 at 17:00 Collagenase (Santyl) 1 applic Q2D TOP Last administered on 06/15/17 10:09; Admin Dose 1 APPLIC; Start 06/15/17 at 09:00 Povidone Iodine (Povidone-Iodine) 1 applic Q2D TOP Last administered on 10:09; Admin Dose 1 APPLIC; Start 06/15/17 at 09:00 DIONTE LOVE DPM Jun 15, 2017 15:35
[2017-06-15 15:50] VITALS: BP 122/68; RESP 18
[2017-06-17] MEDS ORDERED: INFLUENZA VIRUS VACCINE 0.5 ML (DISPENSING) IM* ONE (09:00)
== END 2017-06-15 18:30 | disposition home or self-care (01) | DRG 177 ==
LOC: MS2 05:51
PROVIDERS: ADMIT Internal Medicine; ATTEND Internal Medicine
DX: J15.20 Pneumonia due to staphylococcus, unspecified (principal); B37.1 Pulmonary candidiasis; E44.0 Moderate protein-calorie malnutrition; L89.619 Pressure ulcer of right heel, unspecified stage; R13.10 Dysphagia, unspecified; Z68.1 Body mass index [BMI] 19.9 or less, adult; F03.90 Unspecified dementia, unspecified severity, without behavioral disturbance, psychotic disturbance, mood disturbance, and anxiety; R53.81 Other malaise; D72.829 Elevated white blood cell count, unspecified; I10 Essential (primary) hypertension; E78.5 Hyperlipidemia, unspecified; I73.9 Peripheral vascular disease, unspecified; M24.551 Contracture, right hip; Z23 Encounter for immunization
CPT/HCPCS: 71010; 80048; 80053; 83735; 84100; 84134; 85025; 87040; 87070; 90686; 92610; 94640; 94664; 97161; J1644; J1956